=== PATIENT | male | born 1975 ===

== ENCOUNTER 2020-10-19 17:04 | Inpatient (IN) | payer MEDICAID, SELFPAY ==
[2020-10-19 18:14] VITALS: BP 157/110; PULSE 101; TEMP 36.8; O2SAT 102; BMI 37.1
--- NOTE | 2020-10-19 18:22 | ECG_ITS ---
Test Reason : HYPERTENSION Blood Pressure : / mmHG Vent. Rate : 092 BPM Atrial Rate : 092 BPM P-R Int : 142 ms QRS Dur : 086 ms QT Int : 360 ms P-R-T Axes : 041 -28 039 degrees QTc Int : 445 ms Normal sinus rhythm Normal ECG No previous ECGs available Referred By: Generic ED Physician Electronically Signed By:Gonzales Antonio
[2020-10-19 18:35] LABS: MANUAL DIFF FLAG NO
[2020-10-19 18:44] LABS: Basophils Percent Auto 0.8 % (0-2); Eosinophils Absolute Auto 0.1 X10*3/uL (0.0-0.4); Eosinophils Percent Auto 1.4 % (0-4); Hematocrit 52.2 % (42-52); Hemoglobin 18.8 g/dl (14.0-18.0); Imm Gran Abs Auto 0.01 X10*3/uL (0.00-0.03); Imm Gran Pct Auto 0.2 % (0.0-0.4); Lymphocytes Absolute Auto 2.3 X10*3/uL (1.2-4.9); Lymphocytes Percent Auto 43.9 % (20-40); Mean Platelet Volume 10.8 fL (9.4-12.4); Monocytes Absolute Auto 0.3 X10*3/uL (0.1-1.2); Monocytes Percent Auto 5.4 % (2-11); Neutrophils Absolute Auto 2.5 X10*3/uL (2.0-8.3); Neutrophils Percent Auto 48.3 % (45-73); Platelet Count 354 X10*3/uL (160-400); Red Blood Count 6.07 X10*6/uL (4.60-5.80); Red Cell Distribution Width 11.9 % (11.0-16.0); White Blood Count 5.2 X10*3/uL (4.8-10.8)
[2020-10-19 19:13] LABS: Troponin-I High Sensitivity < 3.5 ng/L (<3.5-35.0)
[2020-10-19 19:19] LABS: Anion Gap 29 (12-20); Blood Urea Nitrogen 21 mg/dL (9-16); Calcium 10.2 mg/dL (8.4-10.2); Carbon Dioxide 11 mmol/L (22-29); Chloride 93 mmol/L (96-108); Creatinine Clr Calc Pharmacy 49.6; Estimated Glomerular Filt Rate 32; Glucose Random 642 mg/dL (60-115); Sodium 128 mmol/L (135-145)
[2020-10-19 19:38] LABS: Glucose Urine UA >=1000 MG/DL (NEG); Leukocyte Esterase Urine NEG (NEG); Nitrite Urine NEG (NEG); PH 5.5 (5.0-8.0); Urine Blood 1+ (NEG); Urine Ketones >=80 MG/DL (NEG); Urine Protein 1+ MG/DL (NEG-TRACE)
[2020-10-19 19:40] LABS: Appearance Urine CLEAR; Color Urine YELLOW
[2020-10-19 19:47] LABS: Venous Blood Gas Refer to POC result
[2020-10-19 19:48] LABS: VBG Base Excess -12.5 mmol/L; VBG HCO3 14 mmol/L (22-26); VBG pCO2 35 mmHg; VBG pO2 37 mmHg
[2020-10-19 19:48] LABS: RBC Urine 0-2 /HPF (0); Squamous Epithelial Cell Urine TRACE /LPF; WBC Urine 0 /HPF (0-4)
[2020-10-19] MEDS: 0.9 % Sodium Chloride 1,000 ML 999 ML IVCONT ×2 (19:54→20:57)
[2020-10-19 20:20] LABS: Acetone, serum QL Moderate (Negative)
--- NOTE | 2020-10-19 20:40 | ED.GENADULT ---
HPI - General Adult General Chief complaint: General Medical Stated complaint: Weakness Time Seen by Provider: 10/19/20 19:19 Source: patient Mode of arrival: ambulatory Limitations: no limitations History of Present Illness HPI narrative: Patient with no known history of diabetes positive history of diabetes in the family noticed increased urination for last few days weakness no nausea no vomiting no abdominal pain when came to ER patient's blood sugar was 642 blood pressure was 157/110 patient does have history of hypertension has not taken his medication for over a month.. Patient denied any use of steroids no history of pancreatitis Onset (ago): day(s) (3) Related Data Allergies Allergy/AdvReac Type Severity Reaction Status Date / Time No Known Allergies Allergy Unverified 03/17/20 17:25 Review of Systems Review of Systems: Constitutional : No Weight loss, No Fever, No Chills ENT/Mouth : No sore throat, No Rhinorrhea Eyes: No Eye Pain, No Swelling Cardiovascular : No Chest Pain, no palpitations Respiratory : No Cough, No Sputum, no shortness of breath Gastrointestinal : no Nausea, No Vomiting, No Diarrhea, No abdominal Pain, no black stools Genitourinary : No Dysuria, No Urinary Frequency Musculoskeletal : No joint pain, No Myalgias, No Joint Swelling Skin : No Skin Lesions, No rash Neuro : No Weakness, No Numbness, No Dizziness, No Headache Psych : No Anxiety/Panic, No Depression Heme/Lymph: No Bruising, No Lymphadenopathy Endocrine : No Polyuria, No Polydipsia All other systems reviewed and are negative PMFSH Past Medical History Medical History Hypertension Social History Social History Alcohol intake: current Alcohol intake frequency: holidays/special occasions only Smoking Status: Never smoker Smoked in Last 30 Days: No Use of substances other than those prescribed or required for medical reasons: No Advance Directives: No Advance Directives Information Provided: Yes Physical Exam Vital Signs: Vital Signs: Last Vital Signs Temp 97.2 F 10/19/20 22:01 Pulse 92 10/20/20 01:49 Resp 18 10/20/20 00:00 BP 142/84 H 10/20/20 01:49 Pulse Ox 99 10/20/20 00:00 Body Mass Index 37.1 Appearance: Alert. Oriented X3. No acute distress. Eyes: Pupils equal, round and reactive to light. ENT: Pharynx normal. Neck: Normal inspection. Neck supple. CVS: Normal heart rate and rhythm. Pulses normal. Respiratory: No respiratory distress. Breath sounds normal. Abdomen: Soft and nontender. Bowel sounds are present, no mass palpable, no CVA tenderness Skin: Skin warm and dry. Normal skin color. Normal skin turgor. Extremities: No lower extremity edema. Neuro: Oriented X 3. No motor deficit. No sensory deficit. Medical Decision Making MDM Narrative Medical decision making narrative: Patient with new onset of diabetes with ketoacidosis and and gap of creatinine of 2.2 which is acute venous pH is 7.2 patient meeting criteria for diabetic ketoacidosis started on insulin drip plan to admit to ICU. No ICU bed at [facility] patient's blood sugar has improved to 331 is still on insulin drip will repeat the chemistry No ICU bed in our hospital call [facility] patient does not qualify for their ICU bed and I do not have any bed into care will call us in case they have any opening of the bed Dr. Willson to follow about disposition of the patient in the morning Lab Data Lab results reviewed: Yes I reviewed the patient's lab results. Result diagrams: 10/19/20 18:29 10/19/20 18:29 Labs: Lab Results 10/19/20 10/19/20 10/19/20 Range/Units 18:29 18:29 18:29 WBC 5.2 (4.8-10.8) X10*3/uL RBC 6.07 H (4.60-5.80) X10*6/uL Hgb 18.8 H (14.0-18.0) g/dl Hct 52.2 H (42-52) % MCV 86.0 (80-98) fL MCH 31.0 (27.0-33.0) pg MCHC 36.0 (31.0-36.0) g/dl RDW 11.9 (11.0-16.0) % Plt Count 354 (160-400) X10*3/uL MPV 10.8 (9.4-12.4) fL Immature Gran % (Auto) 0.2 (0.0-0.4) % Neut % (Auto) 48.3 (45-73) % Lymph % (Auto) 43.9 H (20-40) % [place] % (Auto) 5.4 (2-11) % Eos % (Auto) 1.4 (0-4) % Baso % (Auto) 0.8 (0-2) % Lymph # (Auto) 2.3 (1.2-4.9) X10*3/uL [place] # (Auto) 0.3 (0.1-1.2) X10*3/uL Eos # (Auto) 0.1 (0.0-0.4) X10*3/uL Baso # (Auto) 0.0 (0.0-0.2) X10*3/uL Abs Immat Gran (auto) 0.01 (0.00-0.03) X10*3/uL Absolute Neuts (auto) 2.5 (2.0-8.3) X10*3/uL Absolute Nucleated RBC 0.000 (0.0-0.012) X10*3/uL Nucleated RBC % (auto) 0.0 (0.0-0.2) /100WBC Hold Blue Top SEE NOTE VBG pH (7.32-7.43) VBG pCO2 mmHg VBG pO2 mmHg VBG HCO3 (22-26) mmol/L VBG O2 Saturation % VBG Base Excess mmol/L Sodium 128 L (135-145) mmol/L Potassium 5.0 (3.3-5.1) mmol/L Chloride 93 L (96-108) mmol/L Carbon Dioxide 11 L (22-29) mmol/L Anion Gap 29 H (12-20) BUN 21 H (9-16) mg/dL Creatinine 2.22 H (0.5-1.4) mg/dL Estim Creat Clear Calc 49.6 Estimated GFR 32 POC Glucose (60-115) mg/dL Random Glucose 642 H* (60-115) mg/dL Calcium 10.2 (8.4-10.2) mg/dL Troponin I High Sens (<3.5-35.0) ng/L Specimen Comment Urine Color Urine Appearance Urine pH (5.0-8.0) Ur Specific University (1.005-1.025) Urine Protein (NEG-TRACE) MG/DL Urine Glucose (UA) (NEG) MG/DL Urine Ketones (NEG) MG/DL Urine Blood (NEG) Urine Nitrite (NEG) Ur Leukocyte Esterase (NEG) Urine RBC (0) /HPF Urine WBC (0-4) /HPF Ur Squamous Epith Cells /LPF Urine Bacteria /LPF Acetone, Qual (Negative) 10/19/20 10/19/20 10/19/20 Range/Units 18:29 19:00 19:36 WBC (4.8-10.8) X10*3/uL RBC (4.60-5.80) X10*6/uL Hgb (14.0-18.0) g/dl Hct (42-52) % MCV (80-98) fL MCH (27.0-33.0) pg MCHC (31.0-36.0) g/dl RDW (11.0-16.0) % Plt Count (160-400) X10*3/uL MPV (9.4-12.4) fL Immature Gran % (Auto) (0.0-0.4) % Neut % (Auto) (45-73) % Lymph % (Auto) (20-40) % [place] % (Auto) (2-11) % Eos % (Auto) (0-4) % Baso % (Auto) (0-2) % Lymph # (Auto) (1.2-4.9) X10*3/uL [place] # (Auto) (0.1-1.2) X10*3/uL Eos # (Auto) (0.0-0.4) X10*3/uL Baso # (Auto) (0.0-0.2) X10*3/uL Abs Immat Gran (auto) (0.00-0.03) X10*3/uL Absolute Neuts (auto) (2.0-8.3) X10*3/uL Absolute Nucleated RBC (0.0-0.012) X10*3/uL Nucleated RBC % (auto) (0.0-0.2) /100WBC Hold Blue Top VBG pH (7.32-7.43) VBG pCO2 mmHg VBG pO2 mmHg VBG HCO3 (22-26) mmol/L VBG O2 Saturation % VBG Base Excess mmol/L Sodium (135-145) mmol/L Potassium (3.3-5.1) mmol/L Chloride (96-108) mmol/L Carbon Dioxide (22-29) mmol/L Anion Gap (12-20) BUN (9-16) mg/dL Creatinine (0.5-1.4) mg/dL Estim Creat Clear Calc Estimated GFR POC Glucose (60-115) mg/dL Random Glucose (60-115) mg/dL Calcium (8.4-10.2) mg/dL Troponin I High Sens < 3.5 (<3.5-35.0) ng/L Specimen Comment Urine Color YELLOW Urine Appearance CLEAR Urine pH 5.5 (5.0-8.0) Ur Specific University 1.020 (1.005-1.025) Urine Protein 1+ H (NEG-TRACE) MG/DL Urine Glucose (UA) >=1000 H (NEG) MG/DL Urine Ketones >=80 (NEG) MG/DL Urine Blood 1+ H (NEG) Urine Nitrite NEG (NEG) Ur Leukocyte Esterase NEG (NEG) Urine RBC 0-2 (0) /HPF Urine WBC 0 (0-4) /HPF Ur Squamous Epith Cells TRACE /LPF Urine Bacteria NONE /LPF Acetone, Qual Moderate H (Negative) 10/19/20 10/19/20 10/19/20 Range/Units 19:39 20:53 21:52 WBC (4.8-10.8) X10*3/uL RBC (4.60-5.80) X10*6/uL Hgb (14.0-18.0) g/dl Hct (42-52) % MCV (80-98) fL MCH (27.0-33.0) pg MCHC (31.0-36.0) g/dl RDW (11.0-16.0) % Plt Count (160-400) X10*3/uL MPV (9.4-12.4) fL Immature Gran % (Auto) (0.0-0.4) % Neut % (Auto) (45-73) % Lymph % (Auto) (20-40) % [place] % (Auto) (2-11) % Eos % (Auto) (0-4) % Baso % (Auto) (0-2) % Lymph # (Auto) (1.2-4.9) X10*3/uL [place] # (Auto) (0.1-1.2) X10*3/uL Eos # (Auto) (0.0-0.4) X10*3/uL Baso # (Auto) (0.0-0.2) X10*3/uL Abs Immat Gran (auto) (0.00-0.03) X10*3/uL Absolute Neuts (auto) (2.0-8.3) X10*3/uL Absolute Nucleated RBC (0.0-0.012) X10*3/uL Nucleated RBC % (auto) (0.0-0.2) /100WBC Hold Blue Top VBG pH 7.20 L* (7.32-7.43) VBG pCO2 35 mmHg VBG pO2 37 mmHg VBG HCO3 14 L (22-26) mmol/L VBG O2 Saturation 52.0 % VBG Base Excess -12.5 mmol/L Sodium (135-145) mmol/L Potassium (3.3-5.1) mmol/L Chloride (96-108) mmol/L Carbon Dioxide (22-29) mmol/L Anion Gap (12-20) BUN (9-16) mg/dL Creatinine (0.5-1.4) mg/dL Estim Creat Clear Calc Estimated GFR POC Glucose 535 H* 443 H* (60-115) mg/dL Random Glucose (60-115) mg/dL Calcium (8.4-10.2) mg/dL Troponin I High Sens (<3.5-35.0) ng/L Specimen Comment Urine Color Urine Appearance Urine pH (5.0-8.0) Ur Specific University (1.005-1.025) Urine Protein (NEG-TRACE) MG/DL Urine Glucose (UA) (NEG) MG/DL Urine Ketones (NEG) MG/DL Urine Blood (NEG) Urine Nitrite (NEG) Ur Leukocyte Esterase (NEG) Urine RBC (0) /HPF Urine WBC (0-4) /HPF Ur Squamous Epith Cells /LPF Urine Bacteria /LPF Acetone, Qual (Negative) 10/19/20 10/20/20 10/20/20 Range/Units 22:52 00:08 01:19 WBC (4.8-10.8) X10*3/uL RBC (4.60-5.80) X10*6/uL Hgb (14.0-18.0) g/dl Hct (42-52) % MCV (80-98) fL MCH (27.0-33.0) pg MCHC (31.0-36.0) g/dl RDW (11.0-16.0) % Plt Count (160-400) X10*3/uL MPV (9.4-12.4) fL Immature Gran % (Auto) (0.0-0.4) % Neut % (Auto) (45-73) % Lymph % (Auto) (20-40) % [place] % (Auto) (2-11) % Eos % (Auto) (0-4) % Baso % (Auto) (0-2) % Lymph # (Auto) (1.2-4.9) X10*3/uL [place] # (Auto) (0.1-1.2) X10*3/uL Eos # (Auto) (0.0-0.4) X10*3/uL Baso # (Auto) (0.0-0.2) X10*3/uL Abs Immat Gran (auto) (0.00-0.03) X10*3/uL Absolute Neuts (auto) (2.0-8.3) X10*3/uL Absolute Nucleated RBC (0.0-0.012) X10*3/uL Nucleated RBC % (auto) (0.0-0.2) /100WBC Hold Blue Top VBG pH (7.32-7.43) VBG pCO2 mmHg VBG pO2 mmHg VBG HCO3 (22-26) mmol/L VBG O2 Saturation % VBG Base Excess mmol/L Sodium (135-145) mmol/L Potassium (3.3-5.1) mmol/L Chloride (96-108) mmol/L Carbon Dioxide (22-29) mmol/L Anion Gap (12-20) BUN (9-16) mg/dL Creatinine (0.5-1.4) mg/dL Estim Creat Clear Calc Estimated GFR POC Glucose 366 H* 319 H (60-115) mg/dL Random Glucose (60-115) mg/dL Calcium (8.4-10.2) mg/dL Troponin I High Sens (<3.5-35.0) ng/L Specimen Comment DELAY Urine Color Urine Appearance Urine pH (5.0-8.0) Ur Specific University (1.005-1.025) Urine Protein (NEG-TRACE) MG/DL Urine Glucose (UA) (NEG) MG/DL Urine Ketones (NEG) MG/DL Urine Blood (NEG) Urine Nitrite (NEG) Ur Leukocyte Esterase (NEG) Urine RBC (0) /HPF Urine WBC (0-4) /HPF Ur Squamous Epith Cells /LPF Urine Bacteria /LPF Acetone, Qual (Negative) 10/20/20 10/20/20 Range/Units 01:20 02:11 WBC (4.8-10.8) X10*3/uL RBC (4.60-5.80) X10*6/uL Hgb (14.0-18.0) g/dl Hct (42-52) % MCV (80-98) fL MCH (27.0-33.0) pg MCHC (31.0-36.0) g/dl RDW (11.0-16.0) % Plt Count (160-400) X10*3/uL MPV (9.4-12.4) fL Immature Gran % (Auto) (0.0-0.4) % Neut % (Auto) (45-73) % Lymph % (Auto) (20-40) % [place] % (Auto) (2-11) % Eos % (Auto) (0-4) % Baso % (Auto) (0-2) % Lymph # (Auto) (1.2-4.9) X10*3/uL [place] # (Auto) (0.1-1.2) X10*3/uL Eos # (Auto) (0.0-0.4) X10*3/uL Baso # (Auto) (0.0-0.2) X10*3/uL Abs Immat Gran (auto) (0.00-0.03) X10*3/uL Absolute Neuts (auto) (2.0-8.3) X10*3/uL Absolute Nucleated RBC (0.0-0.012) X10*3/uL Nucleated RBC % (auto) (0.0-0.2) /100WBC Hold Blue Top VBG pH (7.32-7.43) VBG pCO2 mmHg VBG pO2 mmHg VBG HCO3 (22-26) mmol/L VBG O2 Saturation % VBG Base Excess mmol/L Sodium (135-145) mmol/L Potassium (3.3-5.1) mmol/L Chloride (96-108) mmol/L Carbon Dioxide (22-29) mmol/L Anion Gap (12-20) BUN (9-16) mg/dL Creatinine (0.5-1.4) mg/dL Estim Creat Clear Calc Estimated GFR POC Glucose 331 H 396 H* (60-115) mg/dL Random Glucose (60-115) mg/dL Calcium (8.4-10.2) mg/dL Troponin I High Sens (<3.5-35.0) ng/L Specimen Comment Urine Color Urine Appearance Urine pH (5.0-8.0) Ur Specific University (1.005-1.025) Urine Protein (NEG-TRACE) MG/DL Urine Glucose (UA) (NEG) MG/DL Urine Ketones (NEG) MG/DL Urine Blood (NEG) Urine Nitrite (NEG) Ur Leukocyte Esterase (NEG) Urine RBC (0) /HPF Urine WBC (0-4) /HPF Ur Squamous Epith Cells /LPF Urine Bacteria /LPF Acetone, Qual (Negative) Critical Care Time Critical Care Time Critical Care Time: Yes Total Critical Care Time: 55 Attestation: I spent 55 minutes of critical care, with interventions, assessments, speaking to patient, consultants, and family. Discharge Plan Discharge Clinical Impression: Diabetic ketoacidosis Qualifiers: Diabetes mellitus type: type 1 Diabetes mellitus complication detail: without coma Qualified Code(s): E10.10 - Type 1 diabetes mellitus with ketoacidosis without coma Acute renal failure Qualifiers: Acute renal failure type: with acute tubular necrosis Qualified Code(s): N17.0 - Acute kidney failure with tubular necrosis
--- NOTE | 2020-10-19 20:42 | PC.NURSE ---
Patient moved to ED Bed 19. Plan to receive additional fluids and Insulin drip. Pt's girlfriend at bedside. Pt currently in bathroom, ambulates with steady gait.
[2020-10-19] MEDS: Insulin Regular/NS 100 UNIT/100 ML PLAST..BAG IVCONT (20:51)
[2020-10-19] MEDS: Insulin Regular, Human 100 UNIT/ML 3 ML VIAL 10 UNIT IVPUSH (20:51)
[2020-10-19 20:55] VITALS: BP 166/100; PULSE 85; RESP 18; TEMP 36.3; O2SAT 98
[2020-10-19 20:58] LABS: Glucose, Whole Blood 535 mg/dL (60-115)
--- NOTE | 2020-10-19 21:05 | PC.NURSE ---
Insulin drip initiated by this RN. Witnessed by OSWALDO Levin. POC glucose 535 just prior to initiating infusion. Normal saline also infusing wide open. Pt placed on environmental monitoring specialist, denies pain. Will continue to monitor.
--- NOTE | 2020-10-19 21:55 | PC.NURSE ---
Insulin drip titrated to 3 units/hour per DKA Insulin drip protocol ordered by . Pt reports I feel much better than when I came in . Will continue to monitor.
[2020-10-19 21:56] LABS: Glucose, Whole Blood 443 mg/dL (60-115)
[2020-10-19 22:01] VITALS: BP 165/104; PULSE 88; RESP 20; TEMP 36.2; O2SAT 98
[2020-10-19 22:56] LABS: Glucose, Whole Blood 366 mg/dL (60-115)
[2020-10-20] VITALS (9 sets, daily range): BP systolic 109–158; BP diastolic 64–95; PULSE 80–96; RESP 15–18; TEMP 36–37.1; O2SAT 95–99
[2020-10-20 00:16] LABS: Glucose, Whole Blood 319 mg/dL (60-115)
--- NOTE | 2020-10-20 00:52 | PC.NURSE ---
at bedside discussing plan for ICU admission due to insulin drip infusion/DKA. Last POC glucose 319. Plan for recheck and repeat chemistry now.
[2020-10-20 01:20] LABS: Delay - Chemistry DELAY
[2020-10-20 01:27] LABS: Glucose, Whole Blood 331 mg/dL (60-115)
[2020-10-20] MEDS: amLODIPine Besylate 5 MG TABLET PO (01:49)
[2020-10-20 02:15] LABS: Glucose, Whole Blood 396 mg/dL (60-115)
--- NOTE | 2020-10-20 02:19 | PC.NURSE ---
This RN spoke with regarding plan of care for patient. Originally planned for ICU admission, however, per Daiana Claudio (nursing supervisor broadloom), and Jaime Rodriguez (emergency medicine), no ICU beds available at this time and all ICU patients are to be transferred out to another facility. reached out to [facility] ICU with plan to transfer, however, patient does not qualify for [facility] ICU admission but [facility] ICU will call [facility] if a room becomes available. Provider, emergency medicine, and nursing supervisor broadloom aware.
[2020-10-20 02:42] LABS: Anion Gap 28 (12-20); Blood Urea Nitrogen 19 mg/dL (9-16); Calcium 9.6 mg/dL (8.4-10.2); Carbon Dioxide 10 mmol/L (22-29); Chloride 105 mmol/L (96-108); Estimated Glomerular Filt Rate 43; Glucose Random 313 mg/dL (60-115); Potassium 4.6 mmol/L (3.3-5.1); Sodium 138 mmol/L (135-145)
[2020-10-20] MEDS: Insulin Glargine,Hum.rec.anlog 100 UNIT/ML 10 ML VIAL 20 UNIT SUBCUT (02:45)
[2020-10-20 03:18] LABS: Glucose, Whole Blood 330 mg/dL (60-115)
[2020-10-20 03:34] LABS: COVID-19 Test Negative (Negative)
[2020-10-20 04:39] LABS: Glucose, Whole Blood 317 mg/dL (60-115)
[2020-10-20] MEDS: Lactated Ringers 1,000 ML 150 ML IVCONT (05:10)
[2020-10-20 05:28] LABS: Delay - Chemistry DELAY
[2020-10-20 05:57] LABS: Anion Gap 21 (12-20); Blood Urea Nitrogen 19 mg/dL (9-16); Calcium 9.4 mg/dL (8.4-10.2); Carbon Dioxide 14 mmol/L (22-29); Chloride 107 mmol/L (96-108); Creatinine Clr Calc Pharmacy 65.6; Estimated Glomerular Filt Rate 45; Glucose Random 304 mg/dL (60-115); Potassium 4.1 mmol/L (3.3-5.1); Sodium 138 mmol/L (135-145)
[2020-10-20 07:07] LABS: Glucose, Whole Blood 182 mg/dL (60-115)
--- NOTE | 2020-10-20 07:36 | PC.NURSE ---
Addendum entered by Melba Frazier 10/20/20 07:41: Last POC glucose 182, not 184. Number typed in error. Original Note: Insulin drip paused, and Lactated Ringers infusion also paused. OSWALDO Hurtado present to witness. Last POC at 0700am was 184. requested 30meq KCl in Dextrose 5% and 0.45% Normal saline to be administered at 125ml/hour infusion rate. For unknown reasons, provider unable to order this medication, but medication is available in ED. Ordered verbally to give above stated medication, NOT 30meq KCl in D5W as ordered in AUG. OSWALDO Hurtado also aware of this. Pt has patent bilateral IV accesses. VBG and SST5 labs drawn and sent for analysis. Awaiting results. Plan for ICU transfer to another facility. No ICU beds available at [facility]. Pt denies complaints, aware and agreeable with care plan. Pt remains pleasant and cooperative. RN to RN report given to OSWALDO Hurtado to assume care of patient.
[2020-10-20 07:38] LABS: Venous Blood Gas Refer to POC result
[2020-10-20 07:38] LABS: VBG Base Excess -6.6 mmol/L; VBG HCO3 17 mmol/L (22-26); VBG pCO2 33 mmHg; VBG pH 7.33 (7.32-7.43); VBG pO2 56 mmHg
--- NOTE | 2020-10-20 07:48 | PC.NURSE ---
@[phone] DR PONEC REQUESTS CALL OUT TO [facility] FOR ICU TX FOR THIS PT
--- NOTE | 2020-10-20 07:59 | PC.NURSE ---
per hospitalist, stop insulin drip at this time, stop d5 infusion at this time, it is okay to feed pt. check pt glucose poc q 1 hour x 2. following second poc glucose, repeat bmp to assess for improvement.
[2020-10-20 08:19] LABS: Anion Gap 16 (12-20); Blood Urea Nitrogen 18 mg/dL (9-16); Calcium 9.6 mg/dL (8.4-10.2); Carbon Dioxide 18 mmol/L (22-29); Chloride 108 mmol/L (96-108); Creatinine Clr Calc Pharmacy 70.7; Estimated Glomerular Filt Rate 49; Glucose Random 156 mg/dL (60-115); Sodium 138 mmol/L (135-145)
[2020-10-20 08:46] LABS: Glucose, Whole Blood 221 mg/dL (60-115)
[2020-10-20 09:46] LABS: Glucose, Whole Blood 230 mg/dL (60-115)
--- NOTE | 2020-10-20 10:37 | PC.NURSE ---
pt repeat labs sent, girlfriend at bedside with marilyn for pt. wctm.
[2020-10-20 10:40] LABS: Anion Gap 18 (12-20); Blood Urea Nitrogen 17 mg/dL (9-16); Carbon Dioxide 17 mmol/L (22-29); Chloride 105 mmol/L (96-108); Creatinine Clr Calc Pharmacy 71.1; Estimated Glomerular Filt Rate 49; Glucose Random 251 mg/dL (60-115); Sodium 136 mmol/L (135-145)
[2020-10-20 11:58] LABS: Glucose, Whole Blood 415 mg/dL (60-115)
[2020-10-20] MEDS: Insulin Lispro 100 UNIT/ML 3 ML VIAL SUBCUT ×5 (12:09→21:26)
--- NOTE | 2020-10-20 12:09 | PC.NURSE ---
patient a&ox3, cardiac monaitor nsr 70s-80s, pt poc was 415, pt medicated with 10u insulin- it was noted in the room that the patient had eaten josé luis donuts which his brought in, patient was educated about food choices, hospitalist was notified of poc and food patient ate, vss, will continue to monitor.
--- NOTE | 2020-10-20 13:10 | MHC.CM.PN ---
Met with patient in regards to discharge planning. Patient lives alone, ambulates independently and had no services prior to coming to the hospital. Patient listed as self pay. Per Marimar in Financial Counseling, patient will be active with [facility]. Patient has no PCP because of not having insurance. List of local PCP's provided. Patient's sig other will transport him home when medically stable. Continue to monitor for d/c needs.
--- NOTE | 2020-10-20 14:15 | PM.IMHP ---
History of Present Illness Date of Service: 10/20/20 Chief Complaint: weakness, polyuria and polydypsia 45 year male with HTN and no prior history of diabetes. He presented to ED due to polyuria and polydipsia of several days during and was feeling weak. He denies recent weight changes, no abdominla pain, no nausea or vomitting. Work up revealed new onset of diabetes with associated DKA.. His sugar level was over 600, Bicab was 10 and anion gap of 29. There was no evidence of acute infection. He was promptly started on agresive IVF and insulin drip with frequent gluocose level. His latest bicab at 10 was 17 and normal anion gap of 18. He feels well now and is tolerating diet. Unfortunately his brought food [employer] donuts and his sugar spiked to 415. Insulin drip has been discontinued, and given lantus. Review of Systems Review of Systems: Gen: no fever Resp: no sob, no cough CV: no chest, no ESPINOZA, no leg edema GI: No n/v, no abd pain Neuro: No confusion Endo: Polyuria and polydipsia Yes all other systems are reviewed and are negative FORMERLY [facility], [facility]–1983 Medical History Hypertension Pertinent family history: Mother of complications of diabetes Social History Alcohol intake: current Alcohol intake frequency: holidays/special occasions only Smoking Status: Never smoker Smoked in Last 30 Days: No Use of substances other than those prescribed or required for medical reasons: No Advance Directives: No Advance Directives Information Provided: Yes service: No Current occupational status: employed Meds Allergies Allergy/AdvReac Type Severity Reaction Status Date / Time No Known Allergies Allergy Unverified 03/17/20 17:25 Active Medications: Current Medications Generic Name Dose Route Start Last Admin Trade Name Freq PRN Reason Stop Dose Admin Acetaminophen 650 mg 10/20/20 14:12 Acetaminophen 325 Mg Tablet PO Q6H PRN Pain, Mild (Pain Scale 1-3) Enoxaparin Sodium 40 mg 10/20/20 14:12 Enoxaparin Sodium 40 Mg/0.4 Ml Syringe SUBCUT Q24H NESS Lactated Ringer's 1,000 mls @ 150 mls/hr 10/20/20 05:00 10/20/20 12:38 Lr IVCONT Not Given .Q6H40M [facility] Potassium Chloride 30 meq/ 1,015 mls @ 125 mls/hr 10/20/20 07:15 10/20/20 14:10 Dextrose IVCONT Not Given .Q8H8M [facility] Insulin Human Lispro 0 unit 10/20/20 11:30 10/20/20 12:09 Insulin Lispro 100 Unit/Ml 3 Ml Vial SUBCUT 10 unit QIDACHS [facility] Administration Protocol Magnesium Hydroxide 30 ml 10/20/20 14:12 Milk Of Magnesia 30 Ml Oral.Susp PO DAILY PRN Constipation Sodium Chloride 3 ml 10/20/20 16:00 0.9 % Sodium Chloride Flush 3 Ml Syringe IVFLUSH QSHIFT [facility] Zolpidem Tartrate 5 mg 10/20/20 14:12 Zolpidem Tartrate 5 Mg Tablet PO BEDTIME PRN Insomnia Physical Exam Vital Signs and Narrative: Vital Signs: Last Vital Signs Temp 98.8 F 10/20/20 12:00 Pulse 88 10/20/20 12:00 Resp 18 10/20/20 12:00 BP 122/81 10/20/20 12:00 Pulse Ox 97 10/20/20 12:00 Body Mass Index 37.1 Results Labs CBC and Chem 7: 10/19/20 18:29 10/20/20 10:11 Labs: Laboratory Results - last 24 hr 10/19/20 10/19/20 10/19/20 18:29 18:29 18:29 MCV 86.0 MCH 31.0 MCHC 36.0 RDW 11.9 Plt Count 354 MPV 10.8 Immature Gran % (Auto) 0.2 Neut % (Auto) 48.3 Lymph % (Auto) 43.9 H [place] % (Auto) 5.4 Eos % (Auto) 1.4 Baso % (Auto) 0.8 Lymph # (Auto) 2.3 [place] # (Auto) 0.3 Eos # (Auto) 0.1 Baso # (Auto) 0.0 Abs Immat Gran (auto) 0.01 Absolute Neuts (auto) 2.5 Absolute Nucleated RBC 0.000 Nucleated RBC % (auto) 0.0 Hold Blue Top SEE NOTE VBG pH VBG pCO2 VBG pO2 VBG HCO3 VBG O2 Saturation VBG Base Excess Anion Gap 29 H Estim Creat Clear Calc 49.6 Estimated GFR 32 POC Glucose Random Glucose 642 H* Calcium 10.2 Troponin I High Sens Specimen Comment Urine Color Urine Appearance Urine pH Ur Specific [place] Urine Protein Urine Glucose (UA) Urine Ketones Urine Blood Urine Nitrite Ur Leukocyte Esterase Urine RBC Urine WBC Ur Squamous Epith Cells Urine Bacteria Acetone, Qual COVID-19 ([facility]) COVID-19 Clin Com 10/19/20 10/19/20 10/19/20 18:29 19:00 19:36 MCV MCH MCHC RDW Plt Count MPV Immature Gran % (Auto) Neut % (Auto) Lymph % (Auto) [place] % (Auto) Eos % (Auto) Baso % (Auto) Lymph # (Auto) [place] # (Auto) Eos # (Auto) Baso # (Auto) Abs Immat Gran (auto) Absolute Neuts (auto) Absolute Nucleated RBC Nucleated RBC % (auto) Hold Blue Top VBG pH VBG pCO2 VBG pO2 VBG HCO3 VBG O2 Saturation VBG Base Excess Anion Gap Estim Creat Clear Calc Estimated GFR POC Glucose Random Glucose Calcium Troponin I High Sens < 3.5 Specimen Comment Urine Color YELLOW Urine Appearance CLEAR Urine pH 5.5 Ur Specific [place] 1.020 Urine Protein 1+ H Urine Glucose (UA) >=1000 H Urine Ketones >=80 Urine Blood 1+ H Urine Nitrite NEG Ur Leukocyte Esterase NEG Urine RBC 0-2 Urine WBC 0 Ur Squamous Epith Cells TRACE Urine Bacteria NONE Acetone, Qual Moderate H COVID-19 ([facility]) COVID-19 Clin Com 10/19/20 10/19/20 10/19/20 19:39 20:53 21:52 MCV MCH MCHC RDW Plt Count MPV Immature Gran % (Auto) Neut % (Auto) Lymph % (Auto) [place] % (Auto) Eos % (Auto) Baso % (Auto) Lymph # (Auto) [place] # (Auto) Eos # (Auto) Baso # (Auto) Abs Immat Gran (auto) Absolute Neuts (auto) Absolute Nucleated RBC Nucleated RBC % (auto) Hold Blue Top VBG pH 7.20 L* VBG pCO2 35 VBG pO2 37 VBG HCO3 14 L VBG O2 Saturation 52.0 VBG Base Excess -12.5 Anion Gap Estim Creat Clear Calc Estimated GFR POC Glucose 535 H* 443 H* Random Glucose Calcium Troponin I High Sens Specimen Comment Urine Color Urine Appearance Urine pH Ur Specific [place] Urine Protein Urine Glucose (UA) Urine Ketones Urine Blood Urine Nitrite Ur Leukocyte Esterase Urine RBC Urine WBC Ur Squamous Epith Cells Urine Bacteria Acetone, Qual COVID-19 ([facility]) COVID-19 [facility] 10/19/20 10/20/20 10/20/20 22:52 00:08 01:01 MCV MCH MCHC RDW Plt Count MPV Immature Gran % (Auto) Neut % (Auto) Lymph % (Auto) [place] % (Auto) Eos % (Auto) Baso % (Auto) Lymph # (Auto) [place] # (Auto) Eos # (Auto) Baso # (Auto) Abs Immat Gran (auto) Absolute Neuts (auto) Absolute Nucleated RBC Nucleated RBC % (auto) Hold Blue Top VBG pH VBG pCO2 VBG pO2 VBG HCO3 VBG O2 Saturation VBG Base Excess Anion Gap 28 H Estim Creat Clear Calc 63.0 Estimated GFR 43 POC Glucose 366 H* 319 H Random Glucose 313 H D Calcium 9.6 Troponin I High Sens Specimen Comment Urine Color Urine Appearance Urine pH Ur Specific [place] Urine Protein Urine Glucose (UA) Urine Ketones Urine Blood Urine Nitrite Ur Leukocyte Esterase Urine RBC Urine WBC Ur Squamous Epith Cells Urine Bacteria Acetone, Qual COVID-19 ([place]) [email or web address] 10/20/20 10/20/20 10/20/20 01:19 01:20 02:11 MCV MCH MCHC RDW Plt Count MPV Immature Gran % (Auto) Neut % (Auto) Lymph % (Auto) [place] % (Auto) Eos % (Auto) Baso % (Auto) Lymph # (Auto) [place] # (Auto) Eos # (Auto) Baso # (Auto) Abs Immat Gran (auto) Absolute Neuts (auto) Absolute Nucleated RBC Nucleated RBC % (auto) Hold Blue Top VBG pH VBG pCO2 VBG pO2 VBG HCO3 VBG O2 Saturation VBG Base Excess Anion Gap Estim Creat Clear Calc Estimated GFR POC Glucose 331 H 396 H* Random Glucose Calcium Troponin I High Sens Specimen Comment DELAY Urine Color Urine Appearance Urine pH Ur Specific [place] Urine Protein Urine Glucose (UA) Urine Ketones Urine Blood Urine Nitrite Ur Leukocyte Esterase Urine RBC Urine WBC Ur Squamous Epith Cells Urine Bacteria Acetone, Qual COVID-19 ([place]) COVID-19 [facility] [employer] 10/20/20 10/20/20 10/20/20 03:11 03:13 04:33 MCV MCH MCHC RDW Plt Count MPV Immature Gran % (Auto) Neut % (Auto) Lymph % (Auto) [place] % (Auto) Eos % (Auto) Baso % (Auto) Lymph # (Auto) [place] # (Auto) Eos # (Auto) Baso # (Auto) Abs Immat Gran (auto) Absolute Neuts (auto) Absolute Nucleated RBC Nucleated RBC % (auto) Hold Blue Top VBG pH VBG pCO2 VBG pO2 VBG HCO3 VBG O2 Saturation VBG Base Excess Anion Gap Estim Creat Clear Calc Estimated GFR POC Glucose 330 H 317 H Random Glucose Calcium Troponin I High Sens Specimen Comment Urine Color Urine Appearance Urine pH Ur Specific [place] Urine Protein Urine Glucose (UA) Urine Ketones Urine Blood Urine Nitrite Ur Leukocyte Esterase Urine RBC Urine WBC Ur Squamous Epith Cells Urine Bacteria Acetone, Qual COVID-19 ([facility]) Negative [email or web address] See Note 10/20/20 10/20/20 10/20/20 05:10 05:27 07:02 MCV MCH MCHC RDW Plt Count MPV Immature Gran % (Auto) Neut % (Auto) Lymph % (Auto) [place] % (Auto) Eos % (Auto) Baso % (Auto) Lymph # (Auto) [place] # (Auto) Eos # (Auto) Baso # (Auto) Abs Immat Gran (auto) Absolute Neuts (auto) Absolute Nucleated RBC Nucleated RBC % (auto) Hold Blue Top VBG pH VBG pCO2 VBG pO2 VBG HCO3 VBG O2 Saturation VBG Base Excess Anion Gap 21 H Estim Creat Clear Calc 65.6 Estimated GFR 45 POC Glucose 182 H Random Glucose 304 H Calcium 9.4 Troponin I High Sens Specimen Comment DELAY Urine Color Urine Appearance Urine pH Ur Specific [place] Urine Protein Urine Glucose (UA) Urine Ketones Urine Blood Urine Nitrite Ur Leukocyte Esterase Urine RBC Urine WBC Ur Squamous Epith Cells Urine Bacteria Acetone, Qual COVID-19 ([place]) COVID-19 [facility] 10/20/20 10/20/20 10/20/20 07:29 07:32 08:42 MCV MCH MCHC RDW Plt Count MPV Immature Gran % (Auto) Neut % (Auto) Lymph % (Auto) [place] % (Auto) Eos % (Auto) Baso % (Auto) Lymph # (Auto) [place] # (Auto) Eos # (Auto) Baso # (Auto) Abs Immat Gran (auto) Absolute Neuts (auto) Absolute Nucleated RBC Nucleated RBC % (auto) Hold Blue Top VBG pH 7.33 VBG pCO2 33 VBG pO2 56 VBG HCO3 17 L VBG O2 Saturation 86.0 VBG Base Excess -6.6 Anion Gap 16 Estim Creat Clear Calc 70.7 Estimated GFR 49 POC Glucose 221 H Random Glucose 156 H D Calcium 9.6 Troponin I High Sens Specimen Comment Urine Color Urine Appearance Urine pH Ur Specific [place] Urine Protein Urine Glucose (UA) Urine Ketones Urine Blood Urine Nitrite Ur Leukocyte Esterase Urine RBC Urine WBC Ur Squamous Epith Cells Urine Bacteria Acetone, Qual COVID-19 ([facility]) COVID-19 [facility] 10/20/20 10/20/20 10/20/20 09:43 10:11 11:51 MCV MCH MCHC RDW Plt Count MPV Immature Gran % (Auto) Neut % (Auto) Lymph % (Auto) [place] % (Auto) Eos % (Auto) Baso % (Auto) Lymph # (Auto) [place] # (Auto) Eos # (Auto) Baso # (Auto) Abs Immat Gran (auto) Absolute Neuts (auto) Absolute Nucleated RBC Nucleated RBC % (auto) Hold Blue Top VBG pH VBG pCO2 VBG pO2 VBG HCO3 VBG O2 Saturation VBG Base Excess Anion Gap 18 Estim Creat Clear Calc 71.1 Estimated GFR 49 POC Glucose 230 H 415 H* Random Glucose 251 H D Calcium 9.0 D Troponin I High Sens Specimen Comment Urine Color Urine Appearance Urine pH Ur Specific [place] Urine Protein Urine Glucose (UA) Urine Ketones Urine Blood Urine Nitrite Ur Leukocyte Esterase Urine RBC Urine WBC Ur Squamous Epith Cells Urine Bacteria Acetone, Qual COVID-19 ([facility]) COVID-19 [facility] Assessment and Plan (1) Diabetic ketoacidosis: Qualifiers: Diabetes mellitus complication detail: without coma Diabetes mellitus type: type 1 Qualified Code(s): E10.10 - Type 1 diabetes mellitus with ketoacidosis without coma Status: Acute (2) Acute renal failure: Qualifiers: Acute renal failure type: with acute tubular necrosis Qualified Code(s): N17.0 - Acute kidney failure with tubular necrosis Status: Acute (3) New onset type 2 diabetes mellitus: Status: Acute 45 year male with HTN herre with new diabetes, DKA and LAURA # New Onset diabetes #DKA, Gap closed -Continue IVF for now -Insulin Lantus and Sliding -May be OK with oral agents once renal function is better -check A1C and Lipids -Will need diabetes teaching and nutrition education #LAURA-likely pre renal from glucosuria, renal function is getting better -continue IVF and recheck tomorrow HTN--He has not been on meds -Norvasc -Lisinopril once renal function improves Lovenox for DVT prophylaxis
[2020-10-20] MEDS: Enoxaparin Sodium 40 MG/0.4 ML SYRINGE SUBCUT (14:23)
--- NOTE | 2020-10-20 14:24 | PC.NURSE ---
patient medicated per order,
[2020-10-20 15:44] LABS: Anion Gap 17 (12-20); Blood Urea Nitrogen 20 mg/dL (9-16); Calcium 9.4 mg/dL (8.4-10.2); Carbon Dioxide 17 mmol/L (22-29); Chloride 101 mmol/L (96-108); Creatinine Clr Calc Pharmacy 60.9; Estimated Glomerular Filt Rate 41; Glucose Random 450 mg/dL (60-115); Potassium 4.3 mmol/L (3.3-5.1); Sodium 131 mmol/L (135-145)
[2020-10-20] MEDS: Sodium Chloride 0.45 % 1,000 ML 125 ML IVCONT (17:38)
[2020-10-20] MEDS: 0.9 % Sodium Chloride Flush 3 ML SYRINGE IVFLUSH (17:38)
--- NOTE | 2020-10-20 17:42 | PC.NURSE ---
patient ivf started per order, pt medicated per order
[2020-10-20 18:31] LABS: Glucose, Whole Blood 473 mg/dL (60-115)
--- NOTE | 2020-10-20 19:14 | PC.NURSE ---
report given to floor, tech notified to bring to floor
[2020-10-20 20:30] LABS: Glucose, Whole Blood 275 mg/dL (60-115)
[2020-10-20] MEDS: Insulin Glargine,Hum.rec.anlog 100 UNIT/ML 10 ML VIAL 30 UNIT SUBCUT (21:26)
[2020-10-20] MEDS: Lactated Ringers 1,000 ML 100 ML IVCONT (22:30)
[2020-10-20 23:22] LABS: Glucose, Whole Blood 338 mg/dL (60-115)
[2020-10-21 03:52] VITALS: BP 136/86; PULSE 74; RESP 18; TEMP 36.6; O2SAT 96
[2020-10-21 04:22] LABS: Glucose, Whole Blood 304 mg/dL (60-115)
[2020-10-21 07:17] LABS: Anion Gap 18 (12-20); Blood Urea Nitrogen 19 mg/dL (9-16); Calcium 9.1 mg/dL (8.4-10.2); Carbon Dioxide 15 mmol/L (22-29); Chloride 106 mmol/L (96-108); Creatinine Clr Calc Pharmacy 84.8; Estimated Glomerular Filt Rate 60; Glucose Random 319 mg/dL (60-115); Potassium 3.9 mmol/L (3.3-5.1); Sodium 135 mmol/L (135-145)
[2020-10-21 08:00] VITALS: BP 154/91; PULSE 71; RESP 18; TEMP 36.3; O2SAT 96
[2020-10-21 08:27] LABS: Glucose, Whole Blood 300 mg/dL (60-115)
[2020-10-21] MEDS: Lactated Ringers 1,000 ML 100 ML IVCONT (10:04)
[2020-10-21] MEDS: Insulin Lispro 100 UNIT/ML 3 ML VIAL SUBCUT ×5 (10:05→19:36)
[2020-10-21 10:36] VITALS: BMI 37.1
--- NOTE | 2020-10-21 11:15 | HO.PM.IMPN ---
Subjective Subjective Date of Service: 10/22/20 Interval History: Seen in f/u for diabetes, DKA and LAURA--overall marla, sugars are still high, renal failue has resolved Review of Systems Gen: no fever Resp: no sob, no cough CV: no chest, no ESPINOZA, no leg edema GI: No n/v, no abd pain Neuro: No confusion Endo: Polyuria and polydipsia Physical Exam Vital Signs: Vital Signs: Last Vital Signs Temp 97.3 F 10/21/20 08:00 Pulse 71 10/21/20 08:00 Resp 18 10/21/20 08:00 BP 154/91 H 10/21/20 08:00 Pulse Ox 96 10/21/20 08:00 Body Mass Index 37.1 General: AO X 3, no acute distress Resp: CTA bilateral CVS: S1,S2,RRR GI: +BS, NT, no distention Skin: No rash Neuro: motor grossly intact Psych: appropriate affect Objective Data Current Medications Generic Name Dose Route Start Last Admin Trade Name Freq PRN Reason Stop Dose Admin Acetaminophen 650 mg 10/20/20 14:12 Acetaminophen 325 Mg Tablet PO Q6H PRN Pain, Mild (Pain Scale 1-3) Enoxaparin Sodium 40 mg 10/20/20 14:12 10/20/20 14:23 Enoxaparin Sodium 40 Mg/0.4 Ml Syringe SUBCUT 40 mg Q24H NESS Administration Lactated Ringer's 1,000 mls @ 100 mls/hr 10/20/20 22:00 10/21/20 10:04 Lr IVCONT 100 mls/hr .Q10H NESS Administration Insulin Glargine 30 unit 10/20/20 19:10 10/20/20 21:26 Insulin Glargine,Hum.Rec.Anlog 100 Unit/Ml 10 Ml Vial SUBCUT 30 unit BEDTIME NESS Administration Insulin Human Lispro 0 unit 10/20/20 11:30 10/21/20 10:05 Insulin Lispro 100 Unit/Ml 3 Ml Vial SUBCUT 6 unit QIDACHS NESS Administration Protocol Insulin Human Lispro 5 unit 10/20/20 16:30 10/21/20 10:06 Insulin Lispro 100 Unit/Ml 3 Ml Vial SUBCUT 5 unit QIDACHS NESS Administration Magnesium Hydroxide 30 ml 10/20/20 14:12 Milk Of Magnesia 30 Ml Oral.Susp PO DAILY PRN Constipation Sodium Chloride 3 ml 10/20/20 16:00 10/21/20 10:05 0.9 % Sodium Chloride Flush 3 Ml Syringe IVFLUSH Not Given QSHIFT NESS Zolpidem Tartrate 5 mg 10/20/20 14:12 Zolpidem Tartrate 5 Mg Tablet PO BEDTIME PRN Insomnia Labs CBC & Chem 7: 10/22/20 06:09 10/22/20 06:09 Assessment and Plan (1) Diabetic ketoacidosis: Status: Acute (2) Acute renal failure: Status: Acute (3) New onset type 2 diabetes mellitus: Status: Acute Assessment and Plan: 45 year male with HTN herre with new diabetes, DKA and LAURA # New Onset diabetes #DKA is better, bicab remains low -Continue IVF for now -Insulin Lantus and Sliding -consider oral meds once renal function is much better #LAURA-likely pre renal from glucosuria, renal function is getting better -continue IVF and recheck tomorrow HTN--He has not been on meds -Norvasc -Lisinopril once renal function improves Lovenox for DVT prophylaxis
[2020-10-21 11:53] VITALS: BP 143/88; PULSE 85; RESP 18; TEMP 36.7; O2SAT 94
[2020-10-21 12:05] LABS: Glucose, Whole Blood 270 mg/dL (60-115)
[2020-10-21] MEDS: 0.9 % Sodium Chloride 1,000 ML 200 ML IVCONT ×3 (12:08→20:56)
[2020-10-21] MEDS: Insulin Lispro 100 UNIT/ML 3 ML VIAL 8 UNIT SUBCUT ×3 (12:09→19:36)
[2020-10-21] MEDS: lisinopriL 5 MG TABLET PO (12:10)
[2020-10-21] MEDS: amLODIPine Besylate 5 MG TABLET PO (12:11)
[2020-10-21 12:50] LABS: Estimated Average Glucose 280 mg/dL; Hemoglobin A1c % 11.4 %
[2020-10-21 15:38] VITALS: BP 127/71; PULSE 87; RESP 20; TEMP 36.4; O2SAT 95
--- NOTE | 2020-10-21 15:39 | MHC.CM.PN ---
Addendum entered by Julia Lipscomb 10/21/20 15:43: PATIENT [employer]As [employer] instructed to call [facility] or go on line to pick a [facility] pcp and have them listed and make appointment Original Note: NURSE ENGINEER TECHNICIAN NTOE ELECTRONIC MEDICAL RECORD REVIEWED ALONG WITH CASE DISCUSSED RAJINDER STAFF NURSE AND ON MULTIPLE DISCIPLINARY ROUNDS PER HOSPITLAIST PATIENT CAME INTO THE HOSPITLA WITH COMPLAINTS OF FATIGUE POLYURIA, POLYDISPA HIS BLOOD SUGAR WAS 600 , HE RECIVED IV FLUIDS AND IV INSULIN GTT. THIS HAS STOPPED AND HE HAS BEEN PLACED ON LANTUS HE HAS NO PCP. NO HCP HIS GIRLFRIEND WILL PROVIDE TRANSPORTATION AT DISCHARGE
--- NOTE | 2020-10-21 15:48 | MHC.CM.PN ---
nurse care mangement note ELECTRONIC MEDICAL RECORD REVIEWED ALONG WITH CASE DISCUSSED WITH STAFF NURSE AND ON MULTIPLE DISCIPLINARY ROUNDS PER HOSPITALIST PATIENT CAME INTO THE HOSPITAL WITH COMPLAINTS OF FATIGUE POLYURIA, POLYDISPA HIS BLOOD SUGAR WAS 600 , HE RECIVED IV FLUIDS AND IV INSULIN GTT. THIS HAS STOPPED AND HE HAS BEEN PLACED ON LANTUS HE HAS NO PCP. NO HCP HIS GIRLFRIEND WILL PROVIDE TRANSPORTATION AT DISCHARGE discharged home with no services (not eligeable as he has no pcp) instructed to contact or go on the computer and check for [facility] insurance companies for pcp , chose [facility] and call for appointment patient has [employer] (they usually pay for free style meter (need scripts for free style pen , meter, test strips and lancets and needle for pen transportation [patient to self arrange with his girlfriend.
[2020-10-21 16:39] LABS: Glucose, Whole Blood 236 mg/dL (60-115)
[2020-10-21] MEDS: Insulin Glargine,Hum.rec.anlog 100 UNIT/ML 10 ML VIAL 30 UNIT SUBCUT (19:35)
[2020-10-21 19:40] VITALS: BP 133/68; PULSE 83; RESP 20; TEMP 36.4; O2SAT 97
[2020-10-21 20:29] LABS: Glucose, Whole Blood 206 mg/dL (60-115)
[2020-10-21 23:35] VITALS: BP 150/89; PULSE 76; RESP 18; TEMP 36.4; O2SAT 97
[2020-10-22] MEDS: 0.9 % Sodium Chloride 1,000 ML 200 ML IVCONT ×2 (01:45→06:23)
[2020-10-22 04:00] VITALS: BP 156/89; PULSE 68; RESP 16; TEMP 36.4; O2SAT 99
[2020-10-22 06:58] LABS: Hematocrit 38.5 % (42-52); Mean Corpuscular HGB Conc 35.1 g/dl (31.0-36.0); Mean Corpuscular Hemoglobin 29.9 pg (27.0-33.0); Mean Corpuscular Volume 85.2 fL (80-98); Platelet Count 219 X10*3/uL (160-400); Red Blood Count 4.52 X10*6/uL (4.60-5.80); Red Cell Distribution Width 11.9 % (11.0-16.0); White Blood Count 3.6 X10*3/uL (4.8-10.8)
[2020-10-22 07:14] LABS: Anion Gap 14 (12-20); Blood Urea Nitrogen 14 mg/dL (9-16); Calcium 8.2 mg/dL (8.4-10.2); Carbon Dioxide 20 mmol/L (22-29); Chloride 107 mmol/L (96-108); Creatinine Clr Calc Pharmacy 108.1; Estimated Glomerular Filt Rate > 60; Glucose Random 204 mg/dL (60-115); Potassium 3.5 mmol/L (3.3-5.1); Sodium 137 mmol/L (135-145)
[2020-10-22 07:17] LABS: Hemoglobin 13.5 g/dl (14.0-18.0)
[2020-10-22 07:19] VITALS: BP 116/66; PULSE 75; RESP 17; TEMP 36.3; O2SAT 99
[2020-10-22 07:54] LABS: Glucose, Whole Blood 197 mg/dL (60-115)
[2020-10-22] MEDS: Insulin Lispro 100 UNIT/ML 3 ML VIAL 8 UNIT SUBCUT ×2 (08:19→11:57)
[2020-10-22] MEDS: lisinopriL 5 MG TABLET PO (08:20)
[2020-10-22] MEDS: Insulin Lispro 100 UNIT/ML 3 ML VIAL SUBCUT ×2 (08:20→11:56)
[2020-10-22] MEDS: amLODIPine Besylate 5 MG TABLET PO (08:20)
[2020-10-22 11:46] LABS: Glucose, Whole Blood 225 mg/dL (60-115)
--- NOTE | 2020-10-22 11:48 | P.DS_ITS ---
DS: Providers Provider Date of Service: 11/01/20 Date of admission: 10/20/20 10:53 Primary care physician: None Physician DS: Diagnosis Discharge Diagnosis (1) Diabetic ketoacidosis: Status: Acute (2) Acute renal failure: Status: Acute (3) New onset type 2 diabetes mellitus: Status: Acute DS: Medications Discharge Medications Home Medications: Previous Rx's Medication Instructions Recorded alcohol swabs [BD Alcohol Swabs] See Rx Instructions .ROUTE 10/22/20 .COMPLEX #200 ea amlodipine 5 mg PO DAILY #30 tab 10/22/20 blood sugar diagnostic [FreeStyle #100 ea 10/22/20 Lite Strips] blood-glucose meter [FreeStyle #1 ea 10/22/20 Lite Meter] insulin glargine [Lantus U-100 30 unit SUBCUT BEDTIME #10 ml 10/22/20 Insulin] insulin lispro [Humalog U-100 15 unit SUBCUT TIDAC #10 ml 10/22/20 Insulin] insulin syringes (disposable) #500 ea 10/22/20 lancets [1st Tier Unilet #100 ea 10/22/20 ComforTouch] lisinopril 5 mg PO DAILY #30 tab 10/22/20 DS: Summary Hospital Course Hospital Course: Chief Complaint: weakness, polyuria and polydypsia 45 year male with HTN and no prior history of diabetes. He presented to ED due to polyuria and polydipsia of several days during and was feeling weak. He denies recent weight changes, no abdominla pain, no nausea or vomitting. Work up revealed new onset of diabetes with associated DKA.. His sugar level was over 600, Bicab was 10 and anion gap of 29. There was no evidence of acute infe ction. He was promptly started on agresive IVF and insulin drip with frequent gluocose level. His latest bicab at 10 was 17 and normal anion gap of 18. He feels well now and is tolerating diet. Unfortunately his brought food [employer] donuts and his sugar spiked to 415. Insulin drip has been discontinued, and given lantus. Hospital course: Patient was admitted with new onset diabetes associated with DKA with bicab level as low as 10, he was treated with IV fluid resuscitation and insulin and frequent lab monitoring. DKA ultimately resolved and has been put on an insulin with Lantus titrated up to 30 units at night and 8 units before meals in addition to sliding scale. Her blood sugar this morning was 197. Before bedtime it was 206. He received Lantus 30 units last night. The plan at this time is to transition the patient to Lantus 30 units at night and 15 units of a pre meal Humalog and to add additional 2 units if her blood sugar is greater than 200. He will need to follow-up with endocrinology clinic next week. He is instructed to watch for hypoglycemia including sweating, confusion, agitation, less responsiveness. If that is AKA he should drink orange juice or any other concern that sugar content and liquid of food and recheck this sugar level within 30-40 minutes. Acute renal failure this was likely prerenal azotemia from a dehydration. Creatinine level was at 2.2 on admission and is come down to 1.02 today October 22 Hypertension--he likely has undiagnosed hypertension and has been started on Norvasc 5 mg daily lisinopril 5 mg daily blood pressure is 160 cholecystitis had the present time It is of note that the patient has been given diabetic Education in the hospital including how to use insulin had to check CT sugar level and is been prescribe a meter. He also received a nutritional evaluation and counseling during this hospitalization. He were be seen in the endocrinology clinic next week. Time Spent with Patient Time attestation: Total time spent providing and/or coordinating discharge services: Discharge coordination time: Greater than 30 minutes Physical Exam Vital Signs: Vital Signs: Last Vital Signs Temp 97.3 F 10/22/20 07:19 Pulse 75 10/22/20 07:19 Resp 17 10/22/20 07:19 BP 116/66 10/22/20 07:19 Pulse Ox 99 10/22/20 07:19 Body Mass Index 37.1 Constitutional Awake and Alert, No apparent distress Neck Supple, No lymphadenopathy Cardiovascular RRR, No M/R/G, S1 S2, No S3 S4, No pedal edema Respiratory Lungs clear, No respiratory distress Gastrointestinal Non tender, Non-distended Skin No rash Neurological Alert & oriented x3 Psychological Appropriate affect DS: Data Data Completed and Pending Labs on day of discharge: Laboratory Results - last 24 hr 10/21/20 10/21/20 10/21/20 11:52 11:55 16:16 WBC RBC Hgb Hct MCV MCH MCHC RDW Plt Count MPV Absolute Nucleated RBC Nucleated RBC % (auto) Sodium Potassium Chloride Carbon Dioxide Anion Gap BUN Creatinine Estim Creat Clear Calc Estimated GFR POC Glucose 270 H 236 H Random Glucose Estimat Average Glucose 280 Hemoglobin A1c % 11.4 Calcium 10/21/20 10/22/20 10/22/20 19:27 06:09 06:09 WBC 3.6 L RBC 4.52 L D Hgb 13.5 L D Hct 38.5 L D MCV 85.2 MCH 29.9 MCHC 35.1 RDW 11.9 Plt Count 219 D MPV 11.0 Absolute Nucleated RBC 0.000 Nucleated RBC % (auto) 0.0 Sodium 137 Potassium 3.5 Chloride 107 Carbon Dioxide 20 L Anion Gap 14 BUN 14 Creatinine 1.02 Estim Creat Clear Calc 108.1 Estimated GFR > 60 POC Glucose 206 H Random Glucose 204 H D Estimat Average Glucose Hemoglobin A1c % Calcium 8.2 L D 10/22/20 10/22/20 07:21 11:38 WBC RBC Hgb Hct MCV MCH MCHC RDW Plt Count MPV Absolute Nucleated RBC Nucleated RBC % (auto) Sodium Potassium Chloride Carbon Dioxide Anion Gap BUN Creatinine Estim Creat Clear Calc Estimated GFR POC Glucose 197 H 225 H Random Glucose Estimat Average Glucose Hemoglobin A1c % Calcium Discharge Plan Discharge Anticipated Discharge Date/Time: 10/22/20 10:54 Patient Disposition: Home, Self-Care Discharge Diagnosis: New onset diabetes, acute renal failure, DKA Referrals: Physician,None [Primary Care Provider] - 1 Week Rebel Coleman MD [Physician] - 10/24/20 (Post hospitalization follow up for new onset diabetes with DKA) Discharge Medications: New (DME) blood-glucose meter [FreeStyle Lite Meter] Kit See Rx Instructions .ROUTE .MEDSUPPLY Qty: 1 RF: 0 (DME) FreeStyle Lite Strips Strip See Rx Instructions .ROUTE .MEDSUPPLY Qty: 100 RF: 0 (DME) insulin syringes (disposable) 1 mL syringe See Rx Instructions .ROUTE .MEDSUPPLY Qty: 500 RF: 0 (DME) lancets [1st Tier Unilet ComforTouch] 28 gauge misc See Rx Instructions .ROUTE .MEDSUPPLY Qty: 100 RF: 0 alcohol swabs [BD Alcohol Swabs] Pads, Medicated See Rx Instructions .ROUTE .COMPLEX Qty: 200 RF: 0 Lantus U-100 Insulin 100 unit/mL Solution 30 unit subcut BEDTIME Qty: 10 RF: 0 amlodipine 5 mg Tablet 5 mg PO DAILY Qty: 30 RF: 0 lisinopril 5 mg Tablet 5 mg PO DAILY Qty: 30 RF: 0 insulin lispro [Humalog U-100 Insulin] 100 unit/mL Solution 15 unit subcut TIDAC Qty: 10 RF: 0 (DME) pen needle, diabetic [BD Aziza 2nd Gen Pen Needle] 32 gauge x 5/32 needle See Rx Instructions .ROUTE .MEDSUPPLY Qty: 100 RF: 0 Discharge Orders: Discharge Order (Routine); Ordered 10/22/20 Ordered By: Paulie Garcia Diet: advance to usual diet and diabetic diet Activity on Discharge: As tolerated Stand Alone Forms: Patient Portal Discharge page Care Plan Goals: control of diabetes and prevent rehospitalization. Health Concerns: New onset diabetes Plan of Treatment: to take insulin and metformin as directed and follow up with the primary care physician. Patient has been educated on now excellent use, diet regarding diabetes and compliance is stressed Assessment: new onset diabetes 2 with diabetes ketoacidosis that has resolved he is not on insulin. if your blood sugar level level is more than 200 before meals, take additional 2 units On Saturday contact the endocrinology office to get an appointment to be seen within the week, the number is [phone]--and tell them the Doctor wanted to see you week Patient Instructions: Metformin (By mouth), How to Give an Insulin Injection (GEN), Meal Planning with Diabetes Exchanges (GEN), Diabetic Hyperglycemia (GEN), What to Do if Your Blood Sugar is Low (GEN), How to Check your Blood Sugar (GEN) Discharge Date/Time: 10/22/20 12:57
--- NOTE | 2020-10-22 14:51 | MHC.CM.PN ---
Addendum entered by Asuncion Ray RN 10/22/20 14:54: APPT W/DR CAROLINA BETANCOURT ON 10/24/20 FOR NEW ONSET DIABETES. Original Note: PT DISCHARGED TODAY HOME SELF-CARE W/INSULIN AND DIABETIC SUPPLIES SENT TO PHARMACY ON FILE, GF TO TRANSPORT.
== END 2020-10-22 12:57 | disposition home or self-care (01) | DRG 420 ==
LOC: HO.ED 10-20 09:07 → HO.EDOVER 10-20 11:36 → HO.S3 10-20 18:23
PROVIDERS: Internal Medicine; Physician Assistant; Admitting Provider Internal Medicine; Emergency Provider Emergency Medicine Emergency Medical Services; Visit Provider Internal Medicine
DX: E11.10 Type 2 diabetes mellitus with ketoacidosis without coma (principal); N17.9 Acute kidney failure, unspecified; E86.0 Dehydration; Z20.822 Contact with and (suspected) exposure to COVID-19; Z79.899 Other long term (current) drug therapy
CPT/HCPCS: 36415; 80048; 81001; 82009; 82947; 83036; 84484; 85025; 85027; 87635; 93005; 96372; 96374; 99285; 99291; J1650

== ENCOUNTER 2021-08-04 23:54 | Emergency (ER) | payer OTHER, SELFPAY ==
[2021-08-04 23:56] VITALS: BP 155/100; PULSE 107; RESP 16; TEMP 36.5; O2SAT 98; BMI 32.8
[2021-08-05 00:13] LABS: Glucose, Whole Blood 455 mg/dL (60-115)
--- NOTE | 2021-08-05 00:56 | ECG_ITS ---
Test Reason : HYPERGLYCEMIA Blood Pressure : / mmHG Vent. Rate : 074 BPM Atrial Rate : 074 BPM P-R Int : 140 ms QRS Dur : 084 ms QT Int : 386 ms P-R-T Axes : 053 -10 049 degrees QTc Int : 428 ms Normal sinus rhythm Nonspecific T wave abnormality Abnormal ECG When compared with ECG of 19-OCT-2020 18:36, Nonspecific T wave abnormality, worse in Inferior leads Nonspecific T wave abnormality, worse in Lateral leads Referred By: Aurora Colindres Electronically Signed By:JAYLON GARCIA
--- NOTE | 2021-08-05 00:58 | ED_ITS ---
HPI - General Adult General Chief complaint: General Medical <Auroar Colindres MD - Last Filed: 08/05/21 02:27> Stated complaint: HBS <Aurora Colindres MD - Last Filed: 08/05/21 02:27> Time Seen by Provider: 08/05/21 00:56 <Aurora Colindres MD - Last Filed: 08/05/21 02:27> History of Present Illness HPI narrative: Patient is a 46-year-old male with a long history of diabetes. Previous history of diabetic ketoacidosis. Presented today with having his sugar elevated. Patient denies any changes in his diet claims he is compliant claims he has been taking his diabetes medicine including his insulin. He is on 15 units of regular insulin in the morning and in the afternoon. 30 units of insulin at night. Patient denies any coughing congestion upper respiratory symptoms. No diaphoresis. Positive generalized malaise and weakness. <Aurora Colindres MD - Last Filed: 08/05/21 02:27> Related Data Home medications: Previous Rx's Medication Instructions Recorded alcohol swabs (BD Alcohol Swabs) See Rx Instructions .ROUTE 10/22/20 .COMPLEX #200 ea amlodipine 5 mg tablet 5 mg PO DAILY #30 tab 10/22/20 blood sugar diagnostic (FreeStyle #100 ea 10/22/20 Lite Strips) blood-glucose meter (FreeStyle #1 ea 10/22/20 Lite Meter) insulin glargine 100 unit/mL 30 unit (0.3 mL) SUBCUT BEDTIME 10/22/20 subcutaneous solution (Lantus #10 ml U-100 Insulin) insulin lispro 100 unit/mL 15 unit (0.15 mL) SUBCUT TIDAC 10/22/20 #10 subcutaneous solution (Humalog ml U-100 Insulin) insulin syringes (disposable) 1 mL #500 ea 10/22/20 lancets 28 gauge (1st Tier Unilet #100 ea 10/22/20 ComforTouch Lancet) lisinopril 5 mg tablet 5 mg PO DAILY #30 tab 10/22/20 pen needle, diabetic 32 gauge x #100 ea 10/24/20 5/32 (BD Aziza 2nd Gen Pen Needle) insulin glargine 100 unit/mL (3 30 unit (0.3 mL) SUBCUT QPM #15 08/05/21 ml mL) subcutaneous pen (Lantus Solostar U-100 Insulin) <Aurora Colindres MD - Last Filed: 08/05/21 02:27> Allergies/adverse reactions: Allergies Allergy/AdvReac Type Severity Reaction Status Date / Time No Known Allergies Allergy Unverified 03/17/20 17:25 <Aurora Colindres MD - Last Filed: 08/05/21 02:27> Review of Systems Verdana 4l Review of Systems: Verdana 4d Verdana 4d Positive generalized malaise and weakness no chest pain no cough no congestion or upper respiratory symptoms Verdana 4d Verdana 4Il <Aurora Colindres MD - Last Filed: 08/05/21 02:27> Verdana 4d Yes all other systems are reviewed and areare negative <Aurora Colindres MD - Last Filed: 08/05/21 02:27> PMFSH Past Medical History Attestation statement: The following information was validated with the patient. <Aurora Colindres MD - Last Filed: 08/05/21 02:27> Medical History: Medical History Hypertension <Aurora Colindres MD - Last Filed: 08/05/21 02:27> Social History Social History: Social History Household Members: Family Housing: House Do you presently have visiting nurse or other home services: Yes Alcohol intake: current Alcohol intake frequency: a few times a week Patient Tobacco Use Status: Never used Tobacco Use of substances other than those prescribed or required for medical reasons: No Advance Directives: No Advance Directives Information Provided: No service: No Current occupational status: employed <Aurora Colindres MD - Last Filed: 08/05/21 02:27> Physical Exam Verdana 4l Vital Signs: Verdana 4d Verdana 4d Vital Signs: Verdana 4d Verdana 4Bd Last Vital Signs Verdana 4d Cpas New 4d Cpas New 4d Temp 97.7 F 08/04/21 23:56 Cpas New 4d Pulse 74 08/05/21 06:00 Cpas New 4d Resp 15 08/05/21 06:00 BP 127/65 02/05/22 06:00 Pulse Ox 96 08/05/21 06:00 BMI result Body Mass Index 32.8 Appearance: Alert. Oriented X3. No acute distress. Eyes: Pupils equal, round and reactive to light. ENT: Pharynx normal. Neck: Normal inspection. Neck supple. No lymph nodes noted. No crepitus CVS: Normal heart rate and rhythm. Pulses normal. Normal S1 and S2 Respiratory: No respiratory distress. Breath sounds normal. No Wheezing. No rales Abdomen: Soft and nontender. No rigidity. No distention. good BS x4 Skin: Skin warm and dry. Normal skin color. Normal skin turgor. Extremities: No lower extremity edema. Neurovascular intact to all extremities. No Lacerations. No Rash Neuro: Oriented X 3. No motor deficit. No sensory deficit. Moving all extermities. No slurred speech <Aurora Colindres MD - Last Filed: 08/05/21 02:27> Vital Signs: Last Vital Signs Temp 97.7 F 08/04/21 23:56 Pulse 74 08/05/21 06:00 Resp 15 08/05/21 06:00 BP 127/65 08/05/21 06:00 Pulse Ox 96 08/05/21 06:00 BMI result Body Mass Index 32.8 <Tirso Killian MD - Last Filed: 08/05/21 06:46> Course Reevaluation(s) Reevaluation #1: 46-year-old male who presents emergency department for evaluation of elevated glucose weakness and fatigue. The patient initially told Dr. Colindres that he was compliant with his medications but 1 I went to talk to him he told me that he has run out of his Lantus for approximately 1 week but he has been using his hemologic before meals. The patient completed his 2 L of normal saline is repeat glucose is 321 at 06:06 hours. The patient was ordered to get Lantus 30 units subcutaneously. I will refill his prescription for Lantus 30 units at night with a 1 month supply. The patient was discharged home advised to follow- up with his PCP for re-evaluation and further management of his diabetes. <Tirso Killian MD - Last Filed: 08/05/21 06:46> Time: 06:40 <Tirso Killian MD - Last Filed: 08/05/21 06:46> Medical Decision Making MDM Narrative Medical decision making narrative: EKG showed a sinus pattern heart rate is 75 SD QRS QTC within normal limits no acute ST segment elevation there is diffuse T-wave flattening nonspecific biphasic T-waves in the lateral leads. EKG is approximately unchanged from previous Patient's pH was 7.3 venous. Basically normal. There is no acetone. Patient did have an anion gap of 22. Will give IV fluid. Given insulin in the emergency department. Unfortunately patient also ate the 2nd check of sugar was 400. Will give additional IV fluid is patient's creatinine came back at 2. This is higher than baseline. Currently in stable condition awaiting additional treatment. Case being turnover the change of shift. <Aurora Colindres MD - Last Filed: 08/05/21 02:27> Lab Data Result diagrams: : 08/05/21 01:20 08/05/21 03:57 <Aurora Colindres MD - Last Filed: 08/05/21 02:27> Labs: Lab Results 08/05/21 08/05/21 08/05/21 Range/Units 00:05 01:20 01:20 WBC 3.7 L (4.8-10.8) X10*3/uL RBC 5.42 (4.60-5.80) X10*6/uL Hgb 16.5 (14.0-18.0) g/dl Hct 47.6 (42.0-52.0) % MCV 87.8 (80.0-98.0) fL MCH 30.4 (27.0-33.0) pg MCHC 34.7 (31.0-36.0) g/dl RDW 12.7 (11.0-16.0) % Plt Count 341 (160-400) X10*3/uL MPV 10.0 (9.4-12.4) fL Immature Gran % (Auto) 0.3 (0.0-0.4) % Neut % (Auto) 36.1 L (45-73) % Lymph % (Auto) 51.6 H (20-40) % [place] % (Auto) 8.2 (2-11) % Eos % (Auto) 3.3 (0-4) % Baso % (Auto) 0.5 (0-2) % Lymph # (Auto) 1.9 (1.2-4.9) X10*3/uL [place] # (Auto) 0.3 (0.1-1.2) X10*3/uL Eos # (Auto) 0.1 (0.0-0.4) X10*3/uL Baso # (Auto) 0.0 (0.0-0.2) X10*3/uL Abs Immat Gran (auto) 0.01 (0.00-0.03) X10*3/uL Absolute Neuts (auto) 1.3 L (2.0-8.3) x10*3/uL Absolute Nucleated RBC 0.000 (0.0-0.012) X10*3/uL Nucleated RBC % (auto) 0.0 (0.0-0.2) /100WBC VBG pH (7.32-7.43) VBG pCO2 mmHg VBG pO2 mmHg VBG HCO3 (22-26) mmol/L VBG O2 Saturation % VBG Base Excess mmol/L Sodium 135 (135-145) mmol/L Potassium 3.8 (3.3-5.1) mmol/L Chloride 100 (96-108) mmol/L Carbon Dioxide 17 L (22-29) mmol/L Anion Gap 22 H (12-20) BUN 16 (9-16) mg/dL Creatinine 2.02 H (0.5-1.4) mg/dL Estim Creat Clear Calc 50.7 Estimated GFR 36 POC Glucose 455 H* (60-115) mg/dL Random Glucose 431 H* (60-115) mg/dL Calcium 10.0 D (8.4-10.2) mg/dL Total Bilirubin 0.5 (0.0-1.0) mg/dL Direct Bilirubin < 0.2 (0.0-0.5) mg/dL AST 15 (5-37) U/L ALT 14 (0-40) U/L Alkaline Phosphatase 133 H (39-117) U/L Total Protein 8.6 H (6.5-8.0) g/dL Albumin 4.1 (3.5-5.0) g/dL Acetone, Qual Negative (Negative) 08/05/21 08/05/21 08/05/21 Range/Units 01:24 01:56 03:57 WBC (4.8-10.8) X10*3/uL RBC (4.60-5.80) X10*6/uL Hgb (14.0-18.0) g/dl Hct (42.0-52.0) % MCV (80.0-98.0) fL MCH (27.0-33.0) pg MCHC (31.0-36.0) g/dl RDW (11.0-16.0) % Plt Count (160-400) X10*3/uL MPV (9.4-12.4) fL Immature Gran % (Auto) (0.0-0.4) % Neut % (Auto) (45-73) % Lymph % (Auto) (20-40) % [place] % (Auto) (2-11) % Eos % (Auto) (0-4) % Baso % (Auto) (0-2) % Lymph # (Auto) (1.2-4.9) X10*3/uL [place] # (Auto) (0.1-1.2) X10*3/uL Eos # (Auto) (0.0-0.4) X10*3/uL Baso # (Auto) (0.0-0.2) X10*3/uL Abs Immat Gran (auto) (0.00-0.03) X10*3/uL Absolute Neuts (auto) (2.0-8.3) x10*3/uL Absolute Nucleated RBC (0.0-0.012) X10*3/uL Nucleated RBC % (auto) (0.0-0.2) /100WBC VBG pH 7.30 L (7.32-7.43) VBG pCO2 33 mmHg VBG pO2 46 mmHg VBG HCO3 17 L (22-26) mmol/L VBG O2 Saturation 73.0 % VBG Base Excess -7.9 mmol/L Sodium 138 (135-145) mmol/L Potassium 4.0 (3.3-5.1) mmol/L Chloride 104 (96-108) mmol/L Carbon Dioxide 19 L (22-29) mmol/L Anion Gap 19 (12-20) BUN 13 (9-16) mg/dL Creatinine 1.74 H (0.5-1.4) mg/dL Estim Creat Clear Calc 58.9 Estimated GFR 43 POC Glucose 404 H* (60-115) mg/dL Random Glucose 349 H (60-115) mg/dL Calcium 9.2 D (8.4-10.2) mg/dL Total Bilirubin (0.0-1.0) mg/dL Direct Bilirubin (0.0-0.5) mg/dL AST (5-37) U/L ALT (0-40) U/L Alkaline Phosphatase (39-117) U/L Total Protein (6.5-8.0) g/dL Albumin (3.5-5.0) g/dL Acetone, Qual (Negative) 08/05/21 Range/Units 06:06 WBC (4.8-10.8) X10*3/uL RBC (4.60-5.80) X10*6/uL Hgb (14.0-18.0) g/dl Hct (42.0-52.0) % MCV (80.0-98.0) fL MCH (27.0-33.0) pg MCHC (31.0-36.0) g/dl RDW (11.0-16.0) % Plt Count (160-400) X10*3/uL MPV (9.4-12.4) fL Immature Gran % (Auto) (0.0-0.4) % Neut % (Auto) (45-73) % Lymph % (Auto) (20-40) % [place] % (Auto) (2-11) % Eos % (Auto) (0-4) % Baso % (Auto) (0-2) % Lymph # (Auto) (1.2-4.9) X10*3/uL [place] # (Auto) (0.1-1.2) X10*3/uL Eos # (Auto) (0.0-0.4) X10*3/uL Baso # (Auto) (0.0-0.2) X10*3/uL Abs Immat Gran (auto) (0.00-0.03) X10*3/uL Absolute Neuts (auto) (2.0-8.3) x10*3/uL Absolute Nucleated RBC (0.0-0.012) X10*3/uL Nucleated RBC % (auto) (0.0-0.2) /100WBC VBG pH (7.32-7.43) VBG pCO2 mmHg VBG pO2 mmHg VBG HCO3 (22-26) mmol/L VBG O2 Saturation % VBG Base Excess mmol/L Sodium (135-145) mmol/L Potassium (3.3-5.1) mmol/L Chloride (96-108) mmol/L Carbon Dioxide (22-29) mmol/L Anion Gap (12-20) BUN (9-16) mg/dL Creatinine (0.5-1.4) mg/dL Estim Creat Clear Calc Estimated GFR POC Glucose 321 H (60-115) mg/dL Random Glucose (60-115) mg/dL Calcium (8.4-10.2) mg/dL Total Bilirubin (0.0-1.0) mg/dL Direct Bilirubin (0.0-0.5) mg/dL AST (5-37) U/L ALT (0-40) U/L Alkaline Phosphatase (39-117) U/L Total Protein (6.5-8.0) g/dL Albumin (3.5-5.0) g/dL Acetone, Qual (Negative) <Aurora Colindres MD - Last Filed: 08/05/21 02:27> Lab Results 08/05/21 08/05/21 08/05/21 Range/Units 00:05 01:20 01:20 WBC 3.7 L (4.8-10.8) X10*3/uL RBC 5.42 (4.60-5.80) X10*6/uL Hgb 16.5 (14.0-18.0) g/dl Hct 47.6 (42.0-52.0) % MCV 87.8 (80.0-98.0) fL MCH 30.4 (27.0-33.0) pg MCHC 34.7 (31.0-36.0) g/dl RDW 12.7 (11.0-16.0) % Plt Count 341 (160-400) X10*3/uL MPV 10.0 (9.4-12.4) fL Immature Gran % (Auto) 0.3 (0.0-0.4) % Neut % (Auto) 36.1 L (45-73) % Lymph % (Auto) 51.6 H (20-40) % [place] % (Auto) 8.2 (2-11) % Eos % (Auto) 3.3 (0-4) % Baso % (Auto) 0.5 (0-2) % Lymph # (Auto) 1.9 (1.2-4.9) X10*3/uL [place] # (Auto) 0.3 (0.1-1.2) X10*3/uL Eos # (Auto) 0.1 (0.0-0.4) X10*3/uL Baso # (Auto) 0.0 (0.0-0.2) X10*3/uL Abs Immat Gran (auto) 0.01 (0.00-0.03) X10*3/uL Absolute Neuts (auto) 1.3 L (2.0-8.3) x10*3/uL Absolute Nucleated RBC 0.000 (0.0-0.012) X10*3/uL Nucleated RBC % (auto) 0.0 (0.0-0.2) /100WBC VBG pH (7.32-7.43) VBG pCO2 mmHg VBG pO2 mmHg VBG HCO3 (22-26) mmol/L VBG O2 Saturation % VBG Base Excess mmol/L Sodium 135 (135-145) mmol/L Potassium 3.8 (3.3-5.1) mmol/L Chloride 100 (96-108) mmol/L Carbon Dioxide 17 L (22-29) mmol/L Anion Gap 22 H (12-20) BUN 16 (9-16) mg/dL Creatinine 2.02 H (0.5-1.4) mg/dL Estim Creat Clear Calc 50.7 Estimated GFR 36 POC Glucose 455 H* (60-115) mg/dL Random Glucose 431 H* (60-115) mg/dL Calcium 10.0 D (8.4-10.2) mg/dL Total Bilirubin 0.5 (0.0-1.0) mg/dL Direct Bilirubin < 0.2 (0.0-0.5) mg/dL AST 15 (5-37) U/L ALT 14 (0-40) U/L Alkaline Phosphatase 133 H (39-117) U/L Total Protein 8.6 H (6.5-8.0) g/dL Albumin 4.1 (3.5-5.0) g/dL Acetone, Qual Negative (Negative) 08/05/21 08/05/21 08/05/21 Range/Units 01:24 01:56 03:57 WBC (4.8-10.8) X10*3/uL RBC (4.60-5.80) X10*6/uL Hgb (14.0-18.0) g/dl Hct (42.0-52.0) % MCV (80.0-98.0) fL MCH (27.0-33.0) pg MCHC (31.0-36.0) g/dl RDW (11.0-16.0) % Plt Count (160-400) X10*3/uL MPV (9.4-12.4) fL Immature Gran % (Auto) (0.0-0.4) % Neut % (Auto) (45-73) % Lymph % (Auto) (20-40) % [place] % (Auto) (2-11) % Eos % (Auto) (0-4) % Baso % (Auto) (0-2) % Lymph # (Auto) (1.2-4.9) X10*3/uL [place] # (Auto) (0.1-1.2) X10*3/uL Eos # (Auto) (0.0-0.4) X10*3/uL Baso # (Auto) (0.0-0.2) X10*3/uL Abs Immat Gran (auto) (0.00-0.03) X10*3/uL Absolute Neuts (auto) (2.0-8.3) x10*3/uL Absolute Nucleated RBC (0.0-0.012) X10*3/uL Nucleated RBC % (auto) (0.0-0.2) /100WBC VBG pH 7.30 L (7.32-7.43) VBG pCO2 33 mmHg VBG pO2 46 mmHg VBG HCO3 17 L (22-26) mmol/L VBG O2 Saturation 73.0 % VBG Base Excess -7.9 mmol/L Sodium 138 (135-145) mmol/L Potassium 4.0 (3.3-5.1) mmol/L Chloride 104 (96-108) mmol/L Carbon Dioxide 19 L (22-29) mmol/L Anion Gap 19 (12-20) BUN 13 (9-16) mg/dL Creatinine 1.74 H (0.5-1.4) mg/dL Estim Creat Clear Calc 58.9 Estimated GFR 43 POC Glucose 404 H* (60-115) mg/dL Random Glucose 349 H (60-115) mg/dL Calcium 9.2 D (8.4-10.2) mg/dL Total Bilirubin (0.0-1.0) mg/dL Direct Bilirubin (0.0-0.5) mg/dL AST (5-37) U/L ALT (0-40) U/L Alkaline Phosphatase (39-117) U/L Total Protein (6.5-8.0) g/dL Albumin (3.5-5.0) g/dL Acetone, Qual (Negative) 08/05/21 Range/Units 06:06 WBC (4.8-10.8) X10*3/uL RBC (4.60-5.80) X10*6/uL Hgb (14.0-18.0) g/dl Hct (42.0-52.0) % MCV (80.0-98.0) fL MCH (27.0-33.0) pg MCHC (31.0-36.0) g/dl RDW (11.0-16.0) % Plt Count (160-400) X10*3/uL MPV (9.4-12.4) fL Immature Gran % (Auto) (0.0-0.4) % Neut % (Auto) (45-73) % Lymph % (Auto) (20-40) % [place] % (Auto) (2-11) % Eos % (Auto) (0-4) % Baso % (Auto) (0-2) % Lymph # (Auto) (1.2-4.9) X10*3/uL [place] # (Auto) (0.1-1.2) X10*3/uL Eos # (Auto) (0.0-0.4) X10*3/uL Baso # (Auto) (0.0-0.2) X10*3/uL Abs Immat Gran (auto) (0.00-0.03) X10*3/uL Absolute Neuts (auto) (2.0-8.3) x10*3/uL Absolute Nucleated RBC (0.0-0.012) X10*3/uL Nucleated RBC % (auto) (0.0-0.2) /100WBC VBG pH (7.32-7.43) VBG pCO2 mmHg VBG pO2 mmHg VBG HCO3 (22-26) mmol/L VBG O2 Saturation % VBG Base Excess mmol/L Sodium (135-145) mmol/L Potassium (3.3-5.1) mmol/L Chloride (96-108) mmol/L Carbon Dioxide (22-29) mmol/L Anion Gap (12-20) BUN (9-16) mg/dL Creatinine (0.5-1.4) mg/dL Estim Creat Clear Calc Estimated GFR POC Glucose 321 H (60-115) mg/dL Random Glucose (60-115) mg/dL Calcium (8.4-10.2) mg/dL Total Bilirubin (0.0-1.0) mg/dL Direct Bilirubin (0.0-0.5) mg/dL AST (5-37) U/L ALT (0-40) U/L Alkaline Phosphatase (39-117) U/L Total Protein (6.5-8.0) g/dL Albumin (3.5-5.0) g/dL Acetone, Qual (Negative) <Tirso Killian MD - Last Filed: 08/05/21 06:46> Discharge Plan Discharge Clinical Impression: Acute hyperglycemia, Medically noncompliant, Acute dehydration <Aurora Colindres MD - Last Filed: 08/05/21 02:27> Patient Disposition: Home, Self-Care <Aurora Colindres MD - Last Filed: 08/05/21 02:27> Additional Instructions: Continue to use your Humalog before meals as directed by your doctor. Your given Lantus 30 units this morning. I am going to refill your prescription for Lantus 30 units at night. Take your nighttime dose today as well. Make sure you eat some food tonight before you go to bed. Continue taking her other medications as prescribed by your doctor Follow-up with your doctor in 2 days. Please return to the emergency department if your symptoms get worse or if you develop any symptoms that are concerning to you. Please see work note <Aurora Colindres MD - Last Filed: 08/05/21 02:27> Prescriptions: New Lantus Solostar U-100 Insulin 100 unit/mL (3 mL) insulin pen 30 unit subcut QPM Qty: 15 0RF No Action (DME) blood-glucose meter [FreeStyle Lite Meter] Kit See Rx Instructions .ROUTE .MEDSUPPLY Qty: 1 0RF Rx Instructions: As directed (DME) FreeStyle Lite Strips Strip See Rx Instructions .ROUTE .MEDSUPPLY Qty: 100 0RF Rx Instructions: As directed (DME) insulin syringes (disposable) 1 mL syringe See Rx Instructions .ROUTE .MEDSUPPLY Qty: 500 0RF Rx Instructions: As directed (DME) lancets [1st Tier Unilet ComforTouch] 28 gauge misc See Rx Instructions .ROUTE .MEDSUPPLY Qty: 100 0RF Rx Instructions: As directed alcohol swabs [BD Alcohol Swabs] Pads, Medicated See Rx Instructions .ROUTE .COMPLEX Qty: 200 0RF Rx Instructions: pad topically Lantus U-100 Insulin 100 unit/mL Solution 30 unit subcut BEDTIME Qty: 10 0RF amlodipine 5 mg Tablet 5 mg PO DAILY Qty: 30 0RF Protocol: Hold for SBP< HOLD for SBP < : 90 lisinopril 5 mg Tablet 5 mg PO DAILY Qty: 30 0RF Protocol: Hold for SBP< HOLD for SBP < : 90 insulin lispro [Humalog U-100 Insulin] 100 unit/mL Solution 15 unit subcut TIDAC Qty: 10 0RF (DME) pen needle, diabetic [BD Aziza 2nd Gen Pen Needle] 32 gauge x 5/32 needle See Rx Instructions .ROUTE .MEDSUPPLY Qty: 100 0RF Rx Instructions: As directed (4 times/day) <Aurora Colindres MD - Last Filed: 08/05/21 02:27> Stand Alone Forms: Work/School Release <Aurora Colindres MD - Last Filed: 08/05/21 02:27>
[2021-08-05 01:24] LABS: MANUAL DIFF FLAG NO
[2021-08-05] MEDS: 0.9 % Sodium Chloride 1,000 ML 999 ML IV ×2 (01:25→02:00)
[2021-08-05 01:27] LABS: Basophils Percent Auto 0.5 % (0-2); Eosinophils Absolute Auto 0.1 X10*3/uL (0.0-0.4); Eosinophils Percent Auto 3.3 % (0-4); Hematocrit 47.6 % (42.0-52.0); Hemoglobin 16.5 g/dl (14.0-18.0); Imm Gran Abs Auto 0.01 X10*3/uL (0.00-0.03); Imm Gran Pct Auto 0.3 % (0.0-0.4); Lymphocytes Absolute Auto 1.9 X10*3/uL (1.2-4.9); Lymphocytes Percent Auto 51.6 % (20-40); Mean Corpuscular HGB Conc 34.7 g/dl (31.0-36.0); Mean Corpuscular Hemoglobin 30.4 pg (27.0-33.0); Mean Corpuscular Volume 87.8 fL (80.0-98.0); Monocytes Absolute Auto 0.3 X10*3/uL (0.1-1.2); Monocytes Percent Auto 8.2 % (2-11); Neutrophils Absolute Auto 1.3 x10*3/uL (2.0-8.3); Neutrophils Percent Auto 36.1 % (45-73); Platelet Count 341 X10*3/uL (160-400); Red Blood Count 5.42 X10*6/uL (4.60-5.80); Red Cell Distribution Width 12.7 % (11.0-16.0); White Blood Count 3.7 X10*3/uL (4.8-10.8)
[2021-08-05 01:30] LABS: Venous Blood Gas Refer to POC result
[2021-08-05 01:31] LABS: VBG Base Excess -7.9 mmol/L; VBG HCO3 17 mmol/L (22-26); VBG pCO2 33 mmHg; VBG pO2 46 mmHg
[2021-08-05] MEDS: Insulin Regular, Human 100 UNIT/ML 3 ML VIAL IVPUSH (01:32)
[2021-08-05 01:37] LABS: Acetone, serum QL Negative (Negative)
[2021-08-05 01:50] LABS: Alanine Aminotransferase 14 U/L (0-40); Albumin Level 4.1 g/dL (3.5-5.0); Alkaline Phosphatase 133 U/L (39-117); Anion Gap 22 (12-20); Aspartate Amino Transferase 15 U/L (5-37); Bilirubin Direct < 0.2 mg/dL (0.0-0.5); Bilirubin Total 0.5 mg/dL (0.0-1.0); Blood Urea Nitrogen 16 mg/dL (9-16); Carbon Dioxide 17 mmol/L (22-29); Chloride 100 mmol/L (96-108); Creatinine Clr Calc Pharmacy 50.7; Estimated Glomerular Filt Rate 36; Glucose Random 431 mg/dL (60-115); Potassium 3.8 mmol/L (3.3-5.1); Sodium 135 mmol/L (135-145); Total Protein 8.6 g/dL (6.5-8.0)
[2021-08-05 02:21] VITALS: BP 139/84; PULSE 69; RESP 16; O2SAT 98
[2021-08-05 03:53] VITALS: BP 139/89; PULSE 71; RESP 16; O2SAT 96
[2021-08-05 04:01] LABS: Glucose, Whole Blood 404 mg/dL (60-115)
[2021-08-05 04:29] LABS: Anion Gap 19 (12-20); Blood Urea Nitrogen 13 mg/dL (9-16); Calcium 9.2 mg/dL (8.4-10.2); Carbon Dioxide 19 mmol/L (22-29); Chloride 104 mmol/L (96-108); Creatinine Clr Calc Pharmacy 58.9; Estimated Glomerular Filt Rate 43; Glucose Random 349 mg/dL (60-115); Sodium 138 mmol/L (135-145)
[2021-08-05 06:00] VITALS: BP 127/65; PULSE 74; RESP 15; O2SAT 96
--- NOTE | 2021-08-05 06:05 | PC.NURSE ---
Patient's blood sugar has come down from over 400 to 349 at 5 units regular insulin and 1 liter of fluid. Patient is a fairly new diagnosed diabetic x 2 months. No sliding scale coverage
[2021-08-05 06:10] LABS: Glucose, Whole Blood 321 mg/dL (60-115)
[2021-08-05] MEDS: Insulin Glargine,Hum.rec.anlog 100 UNIT/ML 10 ML VIAL 30 UNIT SUBCUT (07:19)
== END 2021-08-05 07:31 | disposition home or self-care (01) ==
PROVIDERS: Emergency Medicine Emergency Medical Services; Emergency Provider Emergency Medicine Emergency Medical Services
DX: E11.65 Type 2 diabetes mellitus with hyperglycemia (principal); E86.0 Dehydration; Z91.14 Patient's other noncompliance with medication regimen; I10 Essential (primary) hypertension
CPT/HCPCS: 36415; 80048; 80076; 82009; 82803; 82947; 85025; 93005; 96361; 96374; 99284

== ENCOUNTER 2021-08-30 11:21 | Emergency (ER) | payer OTHER, SELFPAY ==
[2021-08-30 12:41] VITALS: BP 163/90; PULSE 88; RESP 16; TEMP 36; O2SAT 97; BMI 32.4
[2021-08-30 13:06] LABS: Glucose, Whole Blood 289 mg/dL (60-115)
--- NOTE | 2021-08-30 14:19 | ED_ITS ---
HPI - Recheck/Abnormal Lab/Rx General Chief Complaint: General Medical Stated Complaint: dizziness/diabetic Time Seen by Provider: 08/30/21 12:58 Source: patient Mode of arrival: ambulatory Limitations: no limitations History of Present Illness HPI narrative: 46-year-old male with a past medical history of hypertension and type 2 diabetes currently on list for a 100 units he is supposed to take 15 units subcu 3 times a day and glargine 30 units at bedtime presenting to the ED with request for medication refill for his list parole. He reports he last took a few days ago although he has been having intermittent episodes of dizziness and he knows this because his blood sugar is high. He reports that he tried to make an appointment with his PCP although she is not and at the time therefore they instructed him to come here for further evaluation treatment. He reports that he still has enough medication of his glargine and that he does not need a refill on this. He does need a refill on the lancets. Otherwise he denies any other symptoms complaints or concerns and he does not want any labs or imaging or further evaluation treatment as he reports he just needs a medication refill at this time. complaint: medication refill request Initial visit (ago): day(s) Returns today for: request for prescription Symptoms since prior visit: no new symptoms Context: ran out of medication Associated symptoms: other (Intermittent episodes of dizziness when his blood sugar goes high per the patient) Related Data Previous Rx's Medication Instructions Recorded alcohol swabs (BD Alcohol Swabs) See Rx Instructions .ROUTE 10/22/20 .COMPLEX #200 ea amlodipine 5 mg tablet 5 mg PO DAILY #30 tab 10/22/20 blood sugar diagnostic (FreeStyle #100 ea 10/22/20 Lite Strips) blood-glucose meter (FreeStyle #1 ea 10/22/20 Lite Meter) insulin glargine 100 unit/mL 30 unit (0.3 mL) SUBCUT BEDTIME 10/22/20 subcutaneous solution (Lantus #10 ml U-100 Insulin) insulin lispro 100 unit/mL 15 unit (0.15 mL) SUBCUT TIDAC #10 10/22/20 subcutaneous solution (Humalog ml U-100 Insulin) insulin syringes (disposable) 1 mL #500 ea 10/22/20 lancets 28 gauge (1st Tier Unilet #100 ea 10/22/20 ComforTouch Lancet) lisinopril 5 mg tablet 5 mg PO DAILY #30 tab 10/22/20 pen needle, diabetic 32 gauge x #100 ea 10/24/20 (BD Aziza 2nd Gen Pen Needle) insulin glargine 100 unit/mL (3 30 unit (0.3 mL) SUBCUT QPM #15 ml 08/05/21 mL) subcutaneous pen (Lantus Solostar U-100 Insulin) insulin lispro 100 unit/mL 15 unit (0.15 mL) SUBCUT TID #15 ml 08/05/21 subcutaneous cartridge (Humalog U-100 Insulin) insulin lispro 100 unit/mL 15 unit (0.15 mL) SUBCUT TID #10 ml 08/05/21 subcutaneous solution (Humalog U-100 Insulin) insulin lispro 100 unit/mL 15 unit (0.15 mL) SUBCUT TID #10 ml 08/30/21 subcutaneous solution lancets 30 gauge (Sure Comfort #200 ea 08/30/21 Lancets) Allergies Allergy/AdvReac Type Severity Reaction Status Date / Time No Known Allergies Allergy Verified 08/30/21 12:46 Review of Systems Review of Systems: Constitutional : No Weight loss, No Fever, No Chills, No Night Sweats, No Fatigue, No Malaise ENT/Mouth : No Hearing loss, No Ear Pain, No Nasal Congestion, No Sinus Pain, No Hoarseness, No sore throat, No Rhinorrhea, No Swallowing Difficulty Eyes: No Eye Pain, No Swelling, No Redness, No Foreign Body, No Discharge, No Vision Changes Cardiovascular : No Chest Pain, No SOB, No Dyspnea on Exertion, No Orthopnea, No Edema, No Palpitations Respiratory : No Cough, No Sputum, No Wheezing, No Smoke Exposure, No Dyspnea Gastrointestinal : No Nausea, No Vomiting, No Diarrhea, No Constipation, No abdo grzegorz Pain, No Hematochezia, No Melena Genitourinary : no irregular bleeding, No Dysuria, No Urinary Frequency, No Hematuria, No Urinary Incontinence, No Urgency, No Flank Pain, No Urinary Flow Changes, No Hesitancy Musculoskeletal : No joint pain, No Myalgias, No Joint Swelling Skin : No Skin Lesions, No rash Neuro : + intermittent dizziness, No Weakness, No Numbness, No Paresthesias, No Loss of Consciousness, No Headache Psych : No Anxiety/Panic, No Depression, No SI/HI/AH/VH, No Social Issues, Heme/Lymph: No Bruising, No Bleeding,No Lymphadenopathy Endocrine : No Polyuria, No Polydipsia, No Temperature Intolerance Yes all other systems are reviewed and are negative [facility] Past Medical History Attestation statement: The following information was validated with the patient. Medical History Hypertension Social History Social History Household Members: Family Housing: House Do you presently have visiting nurse or other home services: Yes Alcohol intake: current Alcohol intake frequency: a few times a week Patient Tobacco Use Status: Never used Tobacco Advance Directives: No service: No Current occupational status: employed Physical Exam Vital Signs: Vital Signs: Last Vital Signs Temp 96.8 F 08/30/21 12:41 Pulse 88 08/30/21 12:41 Resp 16 08/30/21 12:41 BP 163/90 H 08/30/21 12:41 Pulse Ox 97 08/30/21 12:41 BMI result Body Mass Index 32.4 vital signs have been reviewed as normal and appeared to be correct. Blood pressure 163/90. Heart rate normal. Respiration rate normal. Temperature normal. Oxygen saturation normal. Appearance: Alert. Oriented X3. No acute distress. Head: Normal external exam. Normocephalic. Atraumatic. Eyes: PERRLA. EOMI. Conjunctiva and sclera normal. Eyelids normal. ENT: Pharynx normal. Uvula midline. Moist mucous membranes. No lesions/ulcerations or masses noted on the tongue. Normal voice. No trismus noted. No drooling noted. No muffled voice noted. Neck: Normal inspection. Neck supple. FROM. No adenopathy. Thyroid Normal. No tracheal deviation noted. No crepitus is noted. No meningeal signs. No neck mass noted. No signs of trauma noted. CVS: Normal heart rate and rhythm. Heart sound normal. Pulses normal throughout. No murmurs/rales/gallops. Respiratory: No respiratory distress. Painless inspiration. Breath sounds normal. No wheezes/rales/rhonchi noted. Chest nontender. No crepitus is noted. No signs of trauma noted. No accessory muscle usage noted or decreased air movement noted. No signs of trauma. Abdomen: Soft and nontender. Bowel sounds normal in all 4 quadrants. No distention noted. No organomegaly noted. No visible injury noted. Back: Full range of motion noted. Nontender. No signs of trauma. Patient neuro intact bilaterally and distally on all 4 extremities. Patient's reflexes intact bilaterally and distally on all 4 extremities. No rashes/lesion/induration/fluctuance or signs of infection noted. Skin: Skin warm and dry. Normal skin color. Normal skin turgor. No rashes/lesions/lacerations noted. Extremities: No lower extremity edema. No calf tenderness is noted. Extremities exhibit normal range of motion and nontender. Neuro: Oriented X 3. No motor deficit. No sensory deficit. Reflexes normal. Normal steady gait. No focal neuro deficits noted. CN's II-XII intact bilaterally? Vascular: + radial pulses/+ 2 distal pedal pulses/+2 dorsalis pedis b/l. Normal cap refill. No cyanosis noted to upper extremity nails and lower extremity toes nails. Course Course Course Narrative: 46-year-old male with a past medical history of hypertension and type 2 diabetes currently on list for a 100 units he is supposed to take 15 units subcu 3 times a day and glargine 30 units at bedtime presenting to the ED with request for medication refill for his list parole. He reports he last took a few days ago although he has been having intermittent episodes of dizziness and he knows this because his blood sugar is high. He reports that he tried to make an appointment with his PCP although she is not and at the time therefore they instructed him to come here for further evaluation treatment. He reports that he still has enough medication of his glargine and that he does not need a refill on this. He does need a refill on the lancets. Otherwise he denies any other symptoms complaints or concerns and he does not want any labs or imaging or further evaluation treatment as he reports he just needs a medication refill at this time. On exam patient is alert and oriented x3. No focal neuro deficit noted. Has a normal steady gait. I offered labs and imaging although patient reports that he does need need any labs or imaging as he knows that this dizziness is because his blood sugars elevated. We obtained his blood glucose level in triage which was 289. Therefore at this time will give his prescribed 15 units of his insul in lispro and DC home with a refill and instructions to follow up with PCP and to return if any new or worsening symptoms. Patient understands agrees with this plan. MDM - Recheck/Abnormal Lab/Rx Medical Records Attestation: I reviewed the patient's medical records. Lab Data Attestation: I reviewed the patient's lab results. Labs: Lab Results 08/30/21 Range/Units 13:02 POC Glucose 289 H (60-115) mg/dL Discharge Plan Discharge Clinical Impression: Acute hyperglycemia, Medication refill Patient Disposition: Home, Self-Care Instructions: Insulin Lispro (By injection), Diabetic Hyperglycemia (ED), Medicine Refill (ED) Prescriptions: New (DME) lancets [Sure Comfort Lancets] 30 gauge misc See Rx Instructions .Route Qty: 200 0RF Rx Instructions: As directed insulin lispro 100 unit/mL solution 15 unit subcut TID Qty: 10 1RF No Action (DME) blood-glucose meter [FreeStyle Lite Meter] Kit See Rx Instructions .ROUTE .MEDSUPPLY Qty: 1 0RF Rx Instructions: As directed (DME) FreeStyle Lite Strips Strip See Rx Instructions .ROUTE .MEDSUPPLY Qty: 100 0RF Rx Instructions: As directed (DME) insulin syringes (disposable) 1 mL syringe See Rx Instructions .ROUTE .MEDSUPPLY Qty: 500 0RF Rx Instructions: As directed (DME) lancets [1st Tier Unilet ComforTouch] 28 gauge misc See Rx Instructions .ROUTE .MEDSUPPLY Qty: 100 0RF Rx Instructions: As directed alcohol swabs [BD Alcohol Swabs] Pads, Medicated See Rx Instructions .ROUTE .COMPLEX Qty: 200 0RF Rx Instructions: pad topically Lantus U-100 Insulin 100 unit/mL Solution 30 unit subcut BEDTIME Qty: 10 0RF amlodipine 5 mg Tablet 5 mg PO DAILY Qty: 30 0RF Protocol: Hold for SBP< HOLD for SBP < : 90 lisinopril 5 mg Tablet 5 mg PO DAILY Qty: 30 0RF Protocol: Hold for SBP< HOLD for SBP < : 90 insulin lispro [Humalog U-100 Insulin] 100 unit/mL Solution 15 unit subcut TIDAC Qty: 10 0RF (DME) pen needle, diabetic [BD Aziza 2nd Gen Pen Needle] 32 gauge x 5/32 n eedle See Rx Instructions .ROUTE .MEDSUPPLY Qty: 100 0RF Rx Instructions: As directed (4 times/day) Lantus Solostar U-100 Insulin 100 unit/mL (3 mL) insulin pen 30 unit subcut QPM Qty: 15 0RF Humalog U-100 Insulin 100 unit/mL cartridge 15 unit subcut TID Qty: 15 0RF insulin lispro [Humalog U-100 Insulin] 100 unit/mL solution 15 unit subcut TID Qty: 10 0RF Referrals: Regla Chester MD [Primary Care Provider] - 2 days Stand Alone Forms: Work/School Release Print Language: Thai
[2021-08-30] MEDS: Insulin Lispro 100 UNIT/ML 3 ML VIAL 15 UNIT SUBCUT (14:43)
== END 2021-08-30 14:50 | disposition home or self-care (01) ==
PROVIDERS: Emergency Provider Emergency Medicine; PCP Internal Medicine
DX: E11.65 Type 2 diabetes mellitus with hyperglycemia (principal); Z76.0 Encounter for issue of repeat prescription; R42 Dizziness and giddiness; Z79.4 Long term (current) use of insulin
CPT/HCPCS: 82947; 99283; 99284

== ENCOUNTER 2023-01-07 15:07 | Inpatient (IN) | payer OTHER, SELFPAY ==
--- NOTE | ~2023-01-07 | XR_ITS ---
EXAMINATION: XR CHEST CLINICAL INFORMATION: Cough COMPARISON: None available. TECHNIQUE: Frontal view of the chest was obtained. FINDINGS: Heart and mediastinum within normal limits. No vascular congestion. Elevated right hemidiaphragm. No failure, consolidations or effusions. Bony structures are intact. XR/XR chest 1V IMPRESSION: No consolidations or failure. Elevated right hemidiaphragm. In the absence of previous studies for comparison, unclear if this is chronic or acute finding.
[2023-01-07 15:34] VITALS: BP 130/91; PULSE 113; RESP 19; TEMP 36.6; O2SAT 98; BMI 30.7
--- NOTE | 2023-01-07 15:45 | ECG_ITS ---
Test Reason : WEAKNESS/DIZINESS Blood Pressure : / mmHG Vent. Rate : 104 BPM Atrial Rate : 104 BPM P-R Int : 136 ms QRS Dur : 070 ms QT Int : 324 ms P-R-T Axes : 063 -31 057 degrees QTc Int : 426 ms Sinus tachycardia Left axis deviation Nonspecific T wave abnormality Abnormal ECG When compared with ECG of 05-AUG-2021 01:20, No significant change was found Referred By: Elizabeth Thompson Electronically Signed By:SONJA BEVERLY MD
--- NOTE | 2023-01-07 15:45 | ED.GENADULT ---
HPI - General Adult General Chief complaint: General Medical Stated complaint: high bp/high sugar? Time Seen by Provider: 01/07/23 19:35 Source: patient Mode of arrival: ambulatory Limitations: no limitations History of Present Illness HPI narrative: 47-year-old male with past medical history of diabetes hypertension presents to the emergency department after not taking his insulin for the past diabetes noncompliance 3 days chronic nausea and dehydration. Patient is here with his girlfriend he states he has had chronic nausea he states he has a poor appetite does not eat he denies any fevers or chills or falls. Related Data Previous Rx's Medication Instructions Recorded alcohol swabs (BD Alcohol Swabs) See Rx Instructions .Route 10/22/20 .COMPLEX #200 ea amlodipine 5 mg tablet 5 mg PO DAILY #30 tabs 10/22/20 blood sugar diagnostic (FreeStyle #100 ea 10/22/20 Lite Strips) blood-glucose meter (FreeStyle #1 ea 10/22/20 Lite Meter kit) insulin glargine 100 unit/mL 30 unit (0.3 mL) subcut BEDTIME 10/22/20 subcutaneous solution (Lantus #10 mL U-100 Insulin) insulin lispro 100 unit/mL 15 unit (0.15 mL) subcut TIDAC #10 10/22/20 subcutaneous solution (Humalog mL U-100 Insulin) insulin syringes (disposable) 1 mL #500 ea 10/22/20 lancets 28 gauge (1st Tier Unilet #100 ea 10/22/20 ComforTouch Lancet) lisinopril 5 mg tablet 5 mg PO DAILY #30 tabs 10/22/20 pen needle, diabetic 32 gauge x #100 ea 10/24/20 (BD Aziza 2nd Gen Pen Needle) insulin glargine 100 unit/mL (3 30 unit (0.3 mL) subcut QPM #15 mL 08/05/21 mL) subcutaneous pen (Lantus Solostar U-100 Insulin) insulin lispro 100 unit/mL 15 unit (0.15 mL) subcut TID #15 mL 08/05/21 subcutaneous cartridge (Humalog U-100 Insulin) insulin lispro 100 unit/mL 15 unit (0.15 mL) subcut TID #10 mL 08/05/21 subcutaneous solution (Humalog U-100 Insulin) insulin lispro 100 unit/mL 15 unit (0.15 mL) subcut TID Type 08/30/21 subcutaneous solution 2 diabetes #10 mL insulin syringes (disposable) 1 mL #500 ea 08/30/21 lancets 30 gauge (Sure Comfort #200 ea 08/30/21 Lancets) Allergies Allergy/AdvReac Type Severity Reaction Status Date / Time No Known Allergies Allergy Verified 01/07/23 15:33 Review of Systems Review of Systems: Review of systems: General: Patient denies any fever chills recent illness or falls Musculoskeletal: Denies back pain or body aches or other injuries HEENT: denies headache, runny nose, ear pain Respiratory: denies shortness of breath, cough Cardiovascular: no chest pain or palpitations : denies dysuria, frequency Abdomen: nausea vomiting denies abdominal pain Extremities: no swelling, no pain Skin: no diaphoresis Yes all other systems are reviewed and are negative PMFSH Past Medical History Medical History Hypertension Social History Social History Household Members: Family Housing: House Do you presently have visiting nurse or other home services: Yes Alcohol intake: current Alcohol intake frequency: a few times a week Patient Tobacco Use Status: Never used Tobacco Advance Directives: No Advance Directives Information Provided: Yes service: No Current occupational status: employed Physical Exam ED Vital Signs: Vital Signs - 24 hr 01/07/23 15:34 Temperature 98 F Pulse Rate 113 H Respiratory Rate 19 Blood Pressure 130/91 H Pulse Oximetry 98 BMI result Body Mass Index 30.7 Neurological exam: CN II- XII tested. Patient is alert and oriented to person place and time. Patient has no dysphagia or dysarthia, denies good vision in all four vision kay no nystagmus on exam, good strength to upper and lower extremities with normal reflexes to brachioradialis, wrist, patella and achilles. Negative romberg, good finger to nose and heel to palacios. General: Well-appearing well-nourished in no signs of distress HEENT: Normocephalic atraumatic Neck: No signs of JVD, no masses no tenderness or lymphadenopathy Cardiovascular: Regular rate and rhythm Respiratory: Clear to auscultation bilaterally Abdomen: Soft nontender no masses Extremities: Normal pedal pulses no signs of edema Skin: Dry warm no rashes Back: No tenderness full ROM Course Course Course Narrative: This is an RME: Additional HPI, ROS, PE not included below will be deferred to primary provider. 47 year old male presents w/ high sugars, high BP, intermittent abd discomfort. Sugars at home around 364, hasnt been on meds due to difficulty obtaining tem. Paitent also reports 50 lb weight loss in the last few months and early satiety plan- labs, ua, betahydroxybutyrate 1750 Bhydroxybuterate pending.. 1830 High blood glucose and anion gap ?/high susipcion DKA. called lab delay in bhydroxybuterate despite this spoke to charge to bring patient back [facility] pending beds before patient but charge aware of urgency. Medical Decision Making Medical Decision Making [facility] Narrative: Concern for diabetic ketoacidosis after reviewing the labs patient will need to be admitted I did start the patient on several L fluid and insulin drip I will consult ICU. Differential Diagnosis Differential Diagnoses: The differential diagnosis associated with the presentation includes Chronic nausea add diabetes noncompliance as well as diabetic gastroparesis Admission/Observation Consideration of admission/observation: Escalation of care including admission/observation considered Consult Healthcare Provider Management of the patient was discussed with: Hospitalist and Reduction Furnace Operator Helper I did speak with Marita dixon for the ICU who agreed the patient would need admission. Lab Data [facility] Lab Attestation statement: I reviewed the patient's lab results. 01/07/23 16:04 01/07/23 16:04 Labs: Lab Results 01/07/23 01/07/23 01/07/23 Range/Units 15:36 16:04 16:04 WBC 4.1 L (4.8-10.8) X10*3/uL RBC 5.69 (4.60-5.80) X10*6/uL Hgb 17.7 (14.0-18.0) g/dl Hct 50.9 (42.0-52.0) % MCV 89.5 (80.0-98.0) fL MCH 31.1 (27.0-33.0) pg MCHC 34.8 (31.0-36.0) g/dl RDW 14.3 (11.0-16.0) % Plt Count 422 H (160-400) X10*3/uL MPV 10.3 (9.4-12.4) fL Immature Gran % (Auto) 0.2 (0.0-0.4) % Neut % (Auto) 45.8 (45-73) % Lymph % (Auto) 44.5 H (20-40) % Wise % (Auto) 8.1 (2-11) % Eos % (Auto) 0.7 (0-4) % Baso % (Auto) 0.7 (0-2) % Lymph # (Auto) 1.8 (1.2-4.9) X10*3/uL Wise # (Auto) 0.3 (0.1-1.2) X10*3/uL Eos # (Auto) 0.0 (0.0-0.4) X10*3/uL Baso # (Auto) 0.0 (0.0-0.2) X10*3/uL Abs Immat Gran (auto) 0.01 (0.00-0.03) X10*3/uL Absolute Neuts (auto) 1.9 L (2.0-8.3) x10*3/uL Absolute Nucleated RBC 0.000 (0.0-0.012) X10*3/uL Nucleated RBC % (auto) 0.0 (0.0-0.2) /100WBC Sodium 137 (135-145) mmol/L Potassium 3.6 (3.3-5.1) mmol/L Chloride 102 (96-108) mmol/L Carbon Dioxide 12 L (22-29) mmol/L Anion Gap 27 H (12-20) BUN 15 (9-16) mg/dL Creatinine 2.00 H (0.5-1.4) mg/dL Estim Creat Clear Calc 49.1 Estimated GFR 36 POC Glucose 364 H* (60-115) mg/dL Random Glucose 356 H* (60-115) mg/dL Calcium 10.8 H D (8.4-10.2) mg/dL Magnesium 2.3 (1.6-2.6) mg/dL Total Bilirubin 0.6 (0.0-1.0) mg/dL AST 12 (5-37) U/L ALT 18 (0-40) U/L Alkaline Phosphatase 137 H (39-117) U/L Troponin I High Sens (<3.5-35.0) ng/L Total Protein 9.3 H (6.5-8.0) g/dL Albumin 4.5 (3.5-5.0) g/dL Beta-Hydroxybutyrate 6.75 H (0.02-0.27) mmol/L Urine Color Urine Appearance Urine pH (5.0-9.0) Ur Specific [place] (1.005-1.025) Urine Protein (Neg-Trace) mg/dL Urine Glucose (UA) (Negative) mg/dL Urine Ketones (Negative) mg/dL Urine Blood (Negative) Urine Nitrite (Negative) Ur Leukocyte Esterase (Negative) Urine RBC (0-2) /HPF Urine WBC (0-5) /HPF Ur Squamous Epith Cells (0-2) /HPF Urine Bacteria (None Seen) Hyaline Casts (0-2) /LPF Urine Yeast 01/07/23 01/07/23 Range/Units 16:04 16:11 WBC (4.8-10.8) X10*3/uL RBC (4.60-5.80) X10*6/uL Hgb (14.0-18.0) g/dl Hct (42.0-52.0) % MCV (80.0-98.0) fL MCH (27.0-33.0) pg MCHC (31.0-36.0) g/dl RDW (11.0-16.0) % Plt Count (160-400) X10*3/uL MPV (9.4-12.4) fL Immature Gran % (Auto) (0.0-0.4) % Neut % (Auto) (45-73) % Lymph % (Auto) (20-40) % Wise % (Auto) (2-11) % Eos % (Auto) (0-4) % Baso % (Auto) (0-2) % Lymph # (Auto) (1.2-4.9) X10*3/uL Wise # (Auto) (0.1-1.2) X10*3/uL Eos # (Auto) (0.0-0.4) X10*3/uL Baso # (Auto) (0.0-0.2) X10*3/uL Abs Immat Gran (auto) (0.00-0.03) X10*3/uL Absolute Neuts (auto) (2.0-8.3) x10*3/uL Absolute Nucleated RBC (0.0-0.012) X10*3/uL Nucleated RBC % (auto) (0.0-0.2) /100WBC Sodium (135-145) mmol/L Potassium (3.3-5.1) mmol/L Chloride (96-108) mmol/L Carbon Dioxide (22-29) mmol/L Anion Gap (12-20) BUN (9-16) mg/dL Creatinine (0.5-1.4) mg/dL Estim Creat Clear Calc Estimated GFR POC Glucose (60-115) mg/dL Random Glucose (60-115) mg/dL Calcium (8.4-10.2) mg/dL Magnesium (1.6-2.6) mg/dL Total Bilirubin (0.0-1.0) mg/dL AST (5-37) U/L ALT (0-40) U/L Alkaline Phosphatase (39-117) U/L Troponin I High Sens < 2.7 (<3.5-35.0) ng/L Total Protein (6.5-8.0) g/dL Albumin (3.5-5.0) g/dL Beta-Hydroxybutyrate (0.02-0.27) mmol/L Urine Color Yellow Urine Appearance Clear Urine pH 6.0 (5.0-9.0) Ur Specific [place] >= 1.030 H (1.005-1.025) Urine Protein 300 (3+) H (Neg-Trace) mg/dL Urine Glucose (UA) >=1000 H (Negative) mg/dL Urine Ketones 80 (Negative) mg/dL Urine Blood Small (1+) H (Negative) Urine Nitrite Negative (Negative) Ur Leukocyte Esterase Negative (Negative) Urine RBC 3-5 H (0-2) /HPF Urine WBC 0-5 (0-5) /HPF Ur Squamous Epith Cells 3-5 (0-2) /HPF Urine Bacteria None Seen (None Seen) Hyaline Casts 6-10 (0-2) /LPF Urine Yeast Present Independent Interpretation I performed an independent interpretation of an: EKG Independent Historian Clinical information obtained from an independent historian. History obtained from or confirmed by: Spouse and Other External Record Review External record reviewed: Inpatient record Chronic Conditions Patient?s care impacted by: Diabetes and Hypertension Core Measures AMI core measures followed: Yes Critical Care Time Critical Care Time Critical Care Time: Yes Total Critical Care Time: 60 Attestation: Patient found to be in diabetic ketoacidosis I did review labs as well started the patient on insulin drip and fluids I did consult ICU admit the patient to the intensive care unit. Discharge Plan Discharge Clinical Impression: Diabetic keto-acidosis, Diabetes mellitus with gastroparesis, Chronic nausea Patient Disposition: Admitted As Inpatient
[2023-01-07 16:22] LABS: Glucose, Whole Blood 364 mg/dL (60-115)
[2023-01-07 17:02] LABS: Alanine Aminotransferase 18 U/L (0-40); Albumin Level 4.5 g/dL (3.5-5.0); Alkaline Phosphatase 137 U/L (39-117); Anion Gap 27 (12-20); Aspartate Amino Transferase 12 U/L (5-37); Bilirubin Total 0.6 mg/dL (0.0-1.0); Blood Urea Nitrogen 15 mg/dL (9-16); Calcium 10.8 mg/dL (8.4-10.2); Carbon Dioxide 12 mmol/L (22-29); Chloride 102 mmol/L (96-108); Creatinine Clr Calc Pharmacy 49.1; Estimated Glomerular Filt Rate 36; Glucose Random 356 mg/dL (60-115); Magnesium 2.3 mg/dL (1.6-2.6); Potassium 3.6 mmol/L (3.3-5.1); Sodium 137 mmol/L (135-145); Total Protein 9.3 g/dL (6.5-8.0)
[2023-01-07 18:51] LABS: Beta-Hydroxybutyrate 6.75 mmol/L (0.02-0.27)
[2023-01-07 20:09] VITALS: BP 146/103; PULSE 83; RESP 18; TEMP 36.4; O2SAT 100
[2023-01-07] MEDS: 0.9 % Sodium Chloride 1,000 ML 999 ML IV ×3 (20:31→20:41)
--- NOTE | 2023-01-07 20:37 | PC.NURSE ---
pt a&o, no sob or chest pain at this time, IV Placed and Fluid given, Notified OSWALDO Garrison.
[2023-01-07] MEDS: Insulin Regular, Human 100 UNIT/ML 3 ML VIAL 9 UNIT IVPUSH (20:39)
[2023-01-07] MEDS: ondansetron HCL 4 MG/2 ML VIAL IVPUSH (20:40)
[2023-01-07 20:44] LABS: VBG HCO3 15 mmol/L (22-26); VBG pCO2 34 mmHg; VBG pH 7.24 (7.32-7.43); VBG pO2 30 mmHg
--- NOTE | 2023-01-07 20:45 | PC.NURSE ---
Assumed care of pt. Pt lying on stretcher, no acute distress at this time. VSS, plan for reassessment
[2023-01-07 20:55] LABS: Venous Blood Gas Refer to POC result
[2023-01-07 21:01] VITALS: O2SAT 99
--- NOTE | 2023-01-07 21:11 | PHA.MEDREC ---
Pharmacy Consult ? Medication Reconciliation Pharmacy has completed the medication reconciliation. Patient reported he was prescribed a new BP medication in a capsule he does not like. Per claim history he was prescribed amlodipine-benazepril 10-20mg. Patient was to get put back on the pink tablet he was previously on, most likely lisinopril. When ask the last time he had the pink tablet her report its been a few months. Yoselyn White, ViktorD
[2023-01-07 21:18] LABS: Anion Gap 27 (12-20); Blood Urea Nitrogen 16 mg/dL (9-16); Calcium 10.7 mg/dL (8.4-10.2); Carbon Dioxide 10 mmol/L (22-29); Chloride 103 mmol/L (96-108); Creatinine Clr Calc Pharmacy 53.4; Estimated Glomerular Filt Rate 40; Glucose Random 272 mg/dL (60-115); Potassium 3.9 mmol/L (3.3-5.1); Sodium 136 mmol/L (135-145)
[2023-01-07 21:24] VITALS: BP 155/89; PULSE 75; RESP 20; TEMP 36.9; O2SAT 98
[2023-01-07 21:32] LABS: Glucose, Whole Blood 204 mg/dL (60-115)
--- NOTE | 2023-01-07 21:44 | PC.NURSE ---
Pt lying on stretcher, no acute distress at this time. Pt assessed as documented. Pt ambulated to bathroom for stool sample with steady gait, no distress. VSS at this time.
[2023-01-07 22:03] VITALS: BP 135/92; PULSE 67; RESP 18; O2SAT 99
[2023-01-07] MEDS: Heparin Sodium,Porcine 5,000 UNIT/ML VIAL 5000 UNIT SUBCUT (22:08)
[2023-01-07] MEDS: KCl 20 mEq in 0.45% Sod 20 MEQ/1,000 ML IV.SOLN 150 MEQ IVCONT (22:10)
[2023-01-07 23:05] VITALS: BP 113/77; PULSE 77; RESP 18; TEMP 36.9; O2SAT 96
--- NOTE | 2023-01-07 23:39 | P.HPCC_ITS ---
History of Present Illness Date of Service: 01/07/23 Attending physician on admission: Jeff Tam Chief Complaint: DKA The patient is a 47-year-old male past medical history of diabetes, hypertension, who presented to the emergency room? with complaint of high blood sugars, high blood pressure, and intermittent abdominal discomfort. The patient reports? that he has not had insulin for the last 3 days due to difficulty obtaining a prescription. The patient?s girlfriend states he has chronic nausea, poor appetite, and does not eat.? The patient reports a 50 lb weight loss in the last few months and early satiety.? In the ED? his blood glucose? 364,? potassium 3.6, bicarb 12, anion gap 27, BUN 15, creatinine 2.00, Beta hydroxybutyrate 6.75,? venous pH 7.24. He received 3 L of? normal saline, and was given 9 units IV insulin. He was given Zofran? for nausea. He will be admitted to the ICU for management of DKA.? Review of Systems Review of Systems: Upon arrival to the ICU, the patient stated, I feel great. He denied any nausea, abdominal discomfort, or other symptoms. Yes all other systems are reviewed and are negative PMFSH Past Medical History Medical History Hypertension Social History Social History Household Members: Spouse Housing: House Do you presently have visiting nurse or other home services: No Alcohol intake: current Alcohol intake frequency: a few times a week Alcohol type: beer and hard liquor Patient Tobacco Use Status: Never used Tobacco Smoked in Last 30 Days: No e-Cigarette/Vaping Use: Never Used Patient Interested in Nicotine Replacement: No (does not smoke) Patient Given Instructions on How to Stop Smoking: No (does not smoke) Second Hand Smoke Exposure: No Use of substances other than those prescribed or required for medical reasons: No Currently Displaying Signs/Symptoms of Drug Intoxication Withdrawal: No Any prior treatment program specific to substance use: No Have you been hit, kicked, punched, or otherwise hurt by someone within the past year? If so, by whom?: No Do you feel safe in your current relationship?: Yes Is there a partner from a previous relationship who is making you feel unsafe now?: No Are you made to feel afraid or neglected: No Advance Directives: No Advance Directives Information Provided: Yes Advance Directives on File: No Do you have thoughts of harming others: None Do you have a plan to hurt others: No Plan Recently lost weight without trying: No Eating poorly because of decreased appetite: No Nutrition Risks: No Nutritional Risk Poor oral hygiene: No service: No Current occupational status: employed Meds Allergies Allergy/AdvReac Type Severity Reaction Status Date / Time No Known Allergies Allergy Verified 01/07/23 15:33 Active Medications: Current Medications Heparin Sodium (Porcine) (Heparin Sodium,Porcine 5,000 Unit/Ml Vial) 5,000 unit SUBCUT Q12H [facility] Last Admin: 01/07/23 22:08 Dose: 5,000 unit Potassium Chloride/Sodium Chloride (Kcl 20 Meq In 0.45% Sod) 20 meq in 1,000 mls @ 150 mls/hr IVCONT .Q6H40M [facility] Last Admin: 01/07/23 22:10 Dose: 150 mls/hr Ondansetron HCl (Ondansetron Hcl 4 Mg/2 Ml Vial) 4 mg IVPUSH Q8H PRN PRN Reason: Nausea Home Medications Medication Instructions Recorded Confirmed Last Taken Type insulin glargine 100 unit/mL 24 unit subcut BEDTIME 01/07/23 01/07/23 Unknown History subcutaneous solution (Lantus U-100 Insulin) Physical Exam Vital Signs: Vital Signs: Last Vital Signs Temp 98.4 F 01/07/23 23:05 Pulse 77 01/07/23 23:05 Resp 18 01/07/23 23:05 BP 113/77 01/07/23 23:05 Pulse Ox 96 01/07/23 23:05 O2 Del Method Room Air 01/07/23 23:05 BMI result Body Mass Index 30.7 Const: General: cooperative, healthy appearing, comfortable and no acute distress; No anxious Nutritional Appearance: well nourished Orientation/consciousness: patient oriented x3 (answering appropriately.) HEENT: Head: Yes normocephalic and Yes atraumatic General nose exam: Normal external nose present (Nares patent, septum midline, sinuses nontender bilaterally.) Mouth: Normal oral and palatal mucosa present (No thrush, tongue in midline, mucosa moist.) Throat: Yes other (No erythema, no exudate.) Neck: Neck: Yes supple (no thyromegaly, trachea midline.) Carotids: normal carotid upstroke Resp: Auscultation: clear to auscultation bilaterally (normal work of breathing, no accessory muscle use) Cardio: Jugular venous distension: no JVD Rate: regular rate Rhythm: regular rhythm Heart sounds: no gallops, no murmurs and no rubs Peripheral pulses: Peripheral pulses 2+ throughout GI: Palpation (GI): Soft to palpation (nondistended.) and nontender Neuro: General: patient oriented x3 (answering appropriately.) Extrem: General: Yes full ROM, Yes capillary refill normal and Yes no clubbing, cyanosis or edema Psych: Affect: normal affect Attitude: cooperative Results Labs 01/07/23 16:04 01/07/23 20:36 Labs: Laboratory Results - last 24 hr 01/07/23 01/07/23 01/07/23 15:36 16:04 16:04 MCV 89.5 MCH 31.1 MCHC 34.8 RDW 14.3 Plt Count 422 H MPV 10.3 Immature Gran % (Auto) 0.2 Neut % (Auto) 45.8 Lymph % (Auto) 44.5 H [place] % (Auto) 8.1 Eos % (Auto) 0.7 Baso % (Auto) 0.7 Lymph # (Auto) 1.8 [place] # (Auto) 0.3 Eos # (Auto) 0.0 Baso # (Auto) 0.0 Abs Immat Gran (auto) 0.01 Absolute Neuts (auto) 1.9 L Absolute Nucleated RBC 0.000 Nucleated RBC % (auto) 0.0 VBG pH VBG pCO2 VBG pO2 VBG HCO3 VBG O2 Saturation VBG Base Excess Anion Gap 27 H Estim Creat Clear Calc 49.1 Estimated GFR 36 POC Glucose 364 H* Random Glucose 356 H* Calcium 10.8 H D Magnesium 2.3 Total Bilirubin 0.6 AST 12 ALT 18 Alkaline Phosphatase 137 H Troponin I High Sens Total Protein 9.3 H Albumin 4.5 Beta-Hydroxybutyrate 6.75 H Urine Color Urine Appearance Urine pH Ur Specific [place] Urine Protein Urine Glucose (UA) Urine Ketones Urine Blood Urine Nitrite Ur Leukocyte Esterase Urine RBC Urine WBC Ur Squamous Epith Cells Urine Bacteria Hyaline Casts Urine Yeast 01/07/23 01/07/23 01/07/23 16:04 16:11 20:36 MCV MCH MCHC RDW Plt Count MPV Immature Gran % (Auto) Neut % (Auto) Lymph % (Auto) [place] % (Auto) Eos % (Auto) Baso % (Auto) Lymph # (Auto) [place] # (Auto) Eos # (Auto) Baso # (Auto) Abs Immat Gran (auto) Absolute Neuts (auto) Absolute Nucleated RBC Nucleated RBC % (auto) VBG pH VBG pCO2 VBG pO2 VBG HCO3 VBG O2 Saturation VBG Base Excess Anion Gap 27 H Estim Creat Clear Calc 53.4 Estimated GFR 40 POC Glucose Random Glucose 272 H Calcium 10.7 H Magnesium Total Bilirubin AST ALT Alkaline Phosphatase Troponin I High Sens < 2.7 Total Protein Albumin Beta-Hydroxybutyrate Urine Color Yellow Urine Appearance Clear Urine pH 6.0 Ur Specific [place] >= 1.030 H Urine Protein 300 (3+) H Urine Glucose (UA) >=1000 H Urine Ketones 80 Urine Blood Small (1+) H Urine Nitrite Negative Ur Leukocyte Esterase Negative Urine RBC 3-5 H Urine WBC 0-5 Ur Squamous Epith Cells 3-5 Urine Bacteria None Seen Hyaline Casts 6-10 Urine Yeast Present 01/07/23 01/07/23 20:37 21:22 MCV MCH MCHC RDW Plt Count MPV Immature Gran % (Auto) Neut % (Auto) Lymph % (Auto) [place] % (Auto) Eos % (Auto) Baso % (Auto) Lymph # (Auto) [place] # (Auto) Eos # (Auto) Baso # (Auto) Abs Immat Gran (auto) Absolute Neuts (auto) Absolute Nucleated RBC Nucleated RBC % (auto) VBG pH 7.24 L VBG pCO2 34 VBG pO2 30 VBG HCO3 15 L VBG O2 Saturation 43.0 VBG Base Excess -11.0 Anion Gap Estim Creat Clear Calc Estimated GFR POC Glucose 204 H Random Glucose Calcium Magnesium Total Bilirubin AST ALT Alkaline Phosphatase Troponin I High Sens Total Protein Albumin Beta-Hydroxybutyrate Urine Color Urine Appearance Urine pH Ur Specific [place] Urine Protein Urine Glucose (UA) Urine Ketones Urine Blood Urine Nitrite Ur Leukocyte Esterase Urine RBC Urine WBC Ur Squamous Epith Cells Urine Bacteria Hyaline Casts Urine Yeast ABG Attestation: I personally reviewed and interpreted this ABG as follows: ECG ECG interpretation date: 01/07/23 Prior ECG tracings: available for review Interpretation: To my view sinus tachycardia, 104 beats per minute.? There is no ST elevations, no ST depressions. QTC 426.? No significant change when compared with the ECG of 05 August 2021. Assessment and Plan (1) Diabetic keto-acidosis: Status: Acute (2) Diabetes mellitus with gastroparesis: Status: Acute (3) Chronic nausea: Status: Acute (4) Hypertension: Status: Acute Plan 47-year-old male with? type 2 diabetes mellitus with a history of noncompliance with insulin, now presents with diabetic ketoacidosis requiring admission into the ICU.?? Plan: Neuro:? no acute issues?? Cardiac:? no acute issues Pulmonary:? no acute issues?? Renal: LAURA-? most likely related to hypoperfusion, nonoliguric.? Continue IV fluid.? Continue to check renal induces and urine output.? Closely monitor electrolytes. GI:? Nausea from? gastroparesis. Continue Zofran p.r.n.? Endo: ? type 2 diabetes /diabetic ketoacidosis-? continue IVF. Follow DKA pr otocol? ID: ? no acute issues? Heme/Onc:? No acute issues. Psych:? No acute issues. Miscellaneous:? No acute issues. Prophylaxis:? Heparin SQ? Diet: ? NPO? with sips of water ice chips Critical care time: does not qualify for critical care? Time Spent With Patient Time: Total time managing care of this patient today ____ minutes.
[2023-01-07 23:43] LABS: Glucose, Whole Blood 139 mg/dL (60-115)
[2023-01-07 23:53] LABS: VBG Base Excess -11.4 mmol/L; VBG HCO3 14 mmol/L (22-26); VBG pCO2 30 mmHg; VBG pH 7.26 (7.32-7.43); VBG pO2 27 mmHg
[2023-01-08] VITALS (18 sets, daily range): BP systolic 100–135; BP diastolic 55–89; PULSE 60–86; RESP 12–20; TEMP 36.4–37.1; O2SAT 95–99; BMI 32.1; BMI 32.7
[2023-01-08 00:11] LABS: Anion Gap 19 (12-20); Blood Urea Nitrogen 15 mg/dL (9-16); Calcium 8.8 mg/dL (8.4-10.2); Carbon Dioxide 13 mmol/L (22-29); Chloride 111 mmol/L (96-108); Creatinine Clr Calc Pharmacy 64.7; Estimated Glomerular Filt Rate 49; Glucose Random 110 mg/dL (60-115); Potassium 3.7 mmol/L (3.3-5.1); Sodium 139 mmol/L (135-145)
[2023-01-08 00:45] LABS: Venous Blood Gas Refer to POC result
[2023-01-08 01:50] LABS: Glucose, Whole Blood 287 mg/dL (60-115)
[2023-01-08 03:13] LABS: Glucose, Whole Blood 286 mg/dL (60-115)
[2023-01-08] MEDS: Insulin Regular, Human 100 UNIT/ML 3 ML VIAL IVPUSH (03:26)
[2023-01-08] MEDS: KCl 20 mEq in 0.45% Sod 20 MEQ/1,000 ML IV.SOLN 150 MEQ IVCONT (03:29)
[2023-01-08 04:32] LABS: Glucose, Whole Blood 199 mg/dL (60-115)
[2023-01-08 04:43] LABS: MANUAL DIFF FLAG NO
[2023-01-08 04:46] LABS: Basophils Percent Auto 0.5 % (0-2); Eosinophils Absolute Auto 0.1 X10*3/uL (0.0-0.4); Eosinophils Percent Auto 2.9 % (0-4); Hematocrit 38.3 % (42.0-52.0); Hemoglobin 13.6 g/dl (14.0-18.0); Imm Gran Abs Auto 0.01 X10*3/uL (0.00-0.03); Imm Gran Pct Auto 0.2 % (0.0-0.4); Lymphocytes Absolute Auto 2.2 X10*3/uL (1.2-4.9); Lymphocytes Percent Auto 52.5 % (20-40); Mean Corpuscular HGB Conc 35.5 g/dl (31.0-36.0); Mean Corpuscular Hemoglobin 31.6 pg (27.0-33.0); Mean Corpuscular Volume 88.9 fL (80.0-98.0); Monocytes Absolute Auto 0.4 X10*3/uL (0.1-1.2); Monocytes Percent Auto 8.3 % (2-11); Neutrophils Absolute Auto 1.5 x10*3/uL (2.0-8.3); Neutrophils Percent Auto 35.6 % (45-73); Platelet Count 285 X10*3/uL (160-400); Red Blood Count 4.31 X10*6/uL (4.60-5.80); White Blood Count 4.2 X10*3/uL (4.8-10.8)
[2023-01-08 04:51] LABS: VBG Base Excess -10.3 mmol/L; VBG HCO3 15 mmol/L (22-26); VBG pCO2 31 mmHg; VBG pH 7.27 (7.32-7.43); VBG pO2 40 mmHg
[2023-01-08 05:05] LABS: Albumin Level 3.1 g/dL (3.5-5.0); Anion Gap 17 (12-20); Blood Urea Nitrogen 15 mg/dL (9-16); Calcium 8.8 mg/dL (8.4-10.2); Carbon Dioxide 13 mmol/L (22-29); Chloride 111 mmol/L (96-108); Creatinine Clr Calc Pharmacy 61.6; Estimated Glomerular Filt Rate 45; Glucose Random 199 mg/dL (60-115); Magnesium 1.8 mg/dL (1.6-2.6); Phosphorus 2.4 mg/dL (2.7-4.5); Potassium 3.3 mmol/L (3.3-5.1); Sodium 138 mmol/L (135-145)
[2023-01-08] MEDS: Potassium Chloride Packet 20 MEQ PACKET 40 MEQ PO ×2 (05:26→12:06)
[2023-01-08 06:32] LABS: Venous Blood Gas Refer to POC result
[2023-01-08] MEDS: Sodium Bicarbonate 8.4% 100 MEQ in Dextrose 5 % 900 ML IV (06:43)
[2023-01-08] MEDS: Insulin Regular/NS 100 UNIT/100 ML PLAST..BAG IVCONT (06:44)
[2023-01-08 06:47] LABS: Glucose, Whole Blood 235 mg/dL (60-115)
--- NOTE | 2023-01-08 06:51 | PC.NURSE ---
ADMIT TO ICU 259-1 APPROX 23Z;30...AWAKE..ALERT..ORIENTED X3...VSS...RESPIRATIONS EASY ON ROOM AIR...DENIED NAUSEA OR PAIN..C/O THIRST AND HUNGER...LAB DRAW GLUCOSE 23:72=290...PROVIDED WITH SANDWICH/JUICE PER ICU MGMT CONSULTANT....SERIAL LABS AND POC GLUCOSE LEVELS REVIEWED WITH NPINSULIN 5 UNITS IVP X1 AT 0326....AM LABS AND POC GLUCOSE REVIEWED BY MGMT CONSULTANT AND FOREST RESOURCES PROFESSOR...POC GLUCOSE= 235...IV FLUIDS CHANGED TO D5W 900ml/NaHCO3 100 MEQ AT 100 CC/HR..PREVIOUSLY RECEIVED KCL 40MEQ PO...DENIES/OFFERS NO COMPLAINTS..DENIES URGE TO VOID AT PRESENT..VOIDED IN ER BR PRIOR TO TRANSPORT TO ICU PER PATIENT
[2023-01-08 08:02] LABS: Glucose, Whole Blood 257 mg/dL (60-115)
[2023-01-08 08:59] LABS: Glucose, Whole Blood 331 mg/dL (60-115)
--- NOTE | 2023-01-08 09:49 | MHC.CM.PN ---
Met w/pt who states he is independent w/all care needs and has no barriers to care. Pt sees a new provider at the [facility]: states he couldn't get insulin refills at his appt because he needed blood work and didn't complete it. Pt states he has a working glucometer and is compliant w/testing and insulin administration. He verbalized understanding of DM management and will f/u w/all outpt appointments/providers Pt will call his GF for transportation to home: no additional needs identified.
[2023-01-08] MEDS: Heparin Sodium,Porcine 5,000 UNIT/ML VIAL 5000 UNIT SUBCUT (09:50)
[2023-01-08 09:57] LABS: Glucose, Whole Blood 330 mg/dL (60-115)
[2023-01-08 10:25] LABS: Venous Blood Gas Refer to POC result
[2023-01-08 10:33] LABS: VBG HCO3 16 mmol/L (22-26); VBG pCO2 31 mmHg; VBG pH 7.32 (7.32-7.43); VBG pO2 59 mmHg
[2023-01-08 10:51] LABS: Anion Gap 13 (12-20); Blood Urea Nitrogen 14 mg/dL (9-16); Calcium 8.9 mg/dL (8.4-10.2); Carbon Dioxide 15 mmol/L (22-29); Chloride 109 mmol/L (96-108); Creatinine Clr Calc Pharmacy 67.9; Estimated Glomerular Filt Rate 51; Glucose Random 315 mg/dL (60-115); Potassium 3.2 mmol/L (3.3-5.1); Sodium 134 mmol/L (135-145)
[2023-01-08 10:59] LABS: Glucose, Whole Blood 217 mg/dL (60-115)
[2023-01-08 11:59] LABS: Glucose, Whole Blood 190 mg/dL (60-115)
[2023-01-08] MEDS: Thiamine HCL 100 MG in 0.9 % Sodium Chloride 100 ML 202 MG IV (12:06)
[2023-01-08 13:03] LABS: Glucose, Whole Blood 202 mg/dL (60-115)
[2023-01-08 14:06] LABS: Glucose, Whole Blood 205 mg/dL (60-115)
[2023-01-08 14:16] LABS: Venous Blood Gas Refer to POC result
[2023-01-08 14:19] LABS: VBG Base Excess -4.5 mmol/L; VBG HCO3 19 mmol/L (22-26); VBG pCO2 34 mmHg; VBG pH 7.36 (7.32-7.43); VBG pO2 50 mmHg
[2023-01-08 14:28] LABS: Anion Gap 14 (12-20); Blood Urea Nitrogen 12 mg/dL (9-16); Calcium 9.1 mg/dL (8.4-10.2); Carbon Dioxide 17 mmol/L (22-29); Chloride 108 mmol/L (96-108); Estimated Glomerular Filt Rate > 60; Glucose Random 190 mg/dL (60-115); Phosphorus 1.7 mg/dL (2.7-4.5); Potassium 3.8 mmol/L (3.3-5.1); Sodium 135 mmol/L (135-145)
[2023-01-08 15:06] LABS: Glucose, Whole Blood 237 mg/dL (60-115)
--- NOTE | 2023-01-08 15:47 | P.PNCC_ITS ---
Subjective Subjective Date of Service: 01/08/23 Interval History: 47-year-old male type 1 diabetic insulin dependent who stopped taking insulin for minimally 3 days and then began to feel increasingly weak and presented with diabetic ketoacidosis moderately hyperglycemic but significant elevation of beta hydroxybutyrate pH of 7.24 with a positive anion gap and acute on chronic renal failure and he has since been aggressively hydrated and placed on IV insulin drip serum bicarb is now up to 19 is negative base excess is 4.5 his pH is up to 7.36 at this point all symptoms have disappeared he is eating and and the anion gap is long closed he just has a mild non-anion gap hyperchloremic metabolic acidosis partly iatrogenic from saline partly renal tubular acidosis and I am going to simply maintain Ringer's lactate overnight and down to switch him from IV insulin to subcutaneous protocol with long-acting and and along with meals in the short-acting Critical Care Time (minutes): 45 Physical Exam Vital Signs: Vital Signs: Last Vital Signs Temp 97.5 F 01/08/23 08:00 Pulse 73 01/08/23 15:00 Resp 14 01/08/23 15:00 BP 111/66 01/08/23 15:00 Pulse Ox 95 01/08/23 15:00 O2 Del Method Room Air 01/08/23 15:00 BMI result Body Mass Index 32.7 Afebrile with pressure 111/66 sinus rhythm at a rate of 74 room air oxygen saturation 96% Nonfocal neurologic Cardiac no gallops no murmurs no neck vein distension Abdomen benign no organomegaly Chest clear without adventitious sounds Objective Data Labs 01/08/23 04:35 01/08/23 14:03 Labs: Laboratory Results - last 24 hr 01/07/23 01/07/23 01/07/23 15:36 16:04 16:04 WBC 4.1 L RBC 5.69 Hgb 17.7 Hct 50.9 MCV 89.5 MCH 31.1 MCHC 34.8 RDW 14.3 Plt Count 422 H MPV 10.3 Immature Gran % (Auto) 0.2 Neut % (Auto) 45.8 Lymph % (Auto) 44.5 H [place] % (Auto) 8.1 Eos % (Auto) 0.7 Baso % (Auto) 0.7 Lymph # (Auto) 1.8 [place] # (Auto) 0.3 Eos # (Auto) 0.0 Baso # (Auto) 0.0 Abs Immat Gran (auto) 0.01 Absolute Neuts (auto) 1.9 L Absolute Nucleated RBC 0.000 Nucleated RBC % (auto) 0.0 VBG pH VBG pCO2 VBG pO2 VBG HCO3 VBG O2 Saturation VBG Base Excess Sodium 137 Potassium 3.6 Chloride 102 Carbon Dioxide 12 L Anion Gap 27 H BUN 15 Creatinine 2.00 H Estim Creat Clear Calc 49.1 Estimated GFR 36 POC Glucose 364 H* Random Glucose 356 H* Calcium 10.8 H D Phosphorus Magnesium 2.3 Total Bilirubin 0.6 AST 12 ALT 18 Alkaline Phosphatase 137 H Troponin I High Sens Total Protein 9.3 H Albumin 4.5 Beta-Hydroxybutyrate 6.75 H Urine Color Urine Appearance Urine pH Ur Specific [place] Urine Protein Urine Glucose (UA) Urine Ketones Urine Blood Urine Nitrite Ur Leukocyte Esterase Urine RBC Urine WBC Ur Squamous Epith Cells Urine Bacteria Hyaline Casts Urine Yeast 01/07/23 01/07/23 01/07/23 16:04 16:11 20:36 WBC RBC Hgb Hct MCV MCH MCHC RDW Plt Count MPV Immature Gran % (Auto) Neut % (Auto) Lymph % (Auto) [place] % (Auto) Eos % (Auto) Baso % (Auto) Lymph # (Auto) [place] # (Auto) Eos # (Auto) Baso # (Auto) Abs Immat Gran (auto) Absolute Neuts (auto) Absolute Nucleated RBC Nucleated RBC % (auto) VBG pH VBG pCO2 VBG pO2 VBG HCO3 VBG O2 Saturation VBG Base Excess Sodium 136 Potassium 3.9 Chloride 103 Carbon Dioxide 10 L* Anion Gap 27 H BUN 16 Creatinine 1.84 H Estim Creat Clear Calc 53.4 Estimated GFR 40 POC Glucose Random Glucose 272 H Calcium 10.7 H Phosphorus Magnesium Total Bilirubin AST ALT Alkaline Phosphatase Troponin I High Sens < 2.7 Total Protein Albumin Beta-Hydroxybutyrate Urine Color Yellow Urine Appearance Clear Urine pH 6.0 Ur Specific [place] >= 1.030 H Urine Protein 300 (3+) H Urine Glucose (UA) >=1000 H Urine Ketones 80 Urine Blood Small (1+) H Urine Nitrite Negative Ur Leukocyte Esterase Negative Urine RBC 3-5 H Urine WBC 0-5 Ur Squamous Epith Cells 3-5 Urine Bacteria None Seen Hyaline Casts 6-10 Urine Yeast Present 01/07/23 01/07/23 01/07/23 20:37 21:22 23:40 WBC RBC Hgb Hct MCV MCH MCHC RDW Plt Count MPV Immature Gran % (Auto) Neut % (Auto) Lymph % (Auto) [place] % (Auto) Eos % (Auto) Baso % (Auto) Lymph # (Auto) [place] # (Auto) Eos # (Auto) Baso # (Auto) Abs Immat Gran (auto) Absolute Neuts (auto) Absolute Nucleated RBC Nucleated RBC % (auto) VBG pH 7.24 L VBG pCO2 34 VBG pO2 30 VBG HCO3 15 L VBG O2 Saturation 43.0 VBG Base Excess -11.0 Sodium Potassium Chloride Carbon Dioxide Anion Gap BUN Creatinine Estim Creat Clear Calc Estimated GFR POC Glucose 204 H 139 H Random Glucose Calcium Phosphorus Magnesium Total Bilirubin AST ALT Alkaline Phosphatase Troponin I High Sens Total Protein Albumin Beta-Hydroxybutyrate Urine Color Urine Appearance Urine pH Ur Specific [place] Urine Protein Urine Glucose (UA) Urine Ketones Urine Blood Urine Nitrite Ur Leukocyte Esterase Urine RBC Urine WBC Ur Squamous Epith Cells Urine Bacteria Hyaline Casts Urine Yeast 01/07/23 01/07/23 01/08/23 23:42 23:43 01:46 WBC RBC Hgb Hct MCV MCH MCHC RDW Plt Count MPV Immature Gran % (Auto) Neut % (Auto) Lymph % (Auto) [place] % (Auto) Eos % (Auto) Baso % (Auto) Lymph # (Auto) [place] # (Auto) Eos # (Auto) Baso # (Auto) Abs Immat Gran (auto) Absolute Neuts (auto) Absolute Nucleated RBC Nucleated RBC % (auto) VBG pH 7.26 L VBG pCO2 30 VBG pO2 27 VBG HCO3 14 L VBG O2 Saturation 40.0 VBG Base Excess -11.4 Sodium 139 Potassium 3.7 Chloride 111 H Carbon Dioxide 13 L Anion Gap 19 BUN 15 Creatinine 1.55 H Estim Creat Clear Calc 64.7 Estimated GFR 49 POC Glucose 287 H Random Glucose 110 Calcium 8.8 D Phosphorus Magnesium Total Bilirubin AST ALT Alkaline Phosphatase Troponin I High Sens Total Protein Albumin Beta-Hydroxybutyrate Urine Color Urine Appearance Urine pH Ur Specific [place] Urine Protein Urine Glucose (UA) Urine Ketones Urine Blood Urine Nitrite Ur Leukocyte Esterase Urine RBC Urine WBC Ur Squamous Epith Cells Urine Bacteria Hyaline Casts Urine Yeast 01/08/23 01/08/23 01/08/23 03:09 04:28 04:35 WBC 4.2 L RBC 4.31 L D Hgb 13.6 L D Hct 38.3 L D MCV 88.9 MCH 31.6 MCHC 35.5 RDW 14.0 Plt Count 285 D MPV 10.0 Immature Gran % (Auto) 0.2 Neut % (Auto) 35.6 L Lymph % (Auto) 52.5 H [place] % (Auto) 8.3 Eos % (Auto) 2.9 Baso % (Auto) 0.5 Lymph # (Auto) 2.2 [place] # (Auto) 0.4 Eos # (Auto) 0.1 Baso # (Auto) 0.0 Abs Immat Gran (auto) 0.01 Absolute Neuts (auto) 1.5 L Absolute Nucleated RBC 0.000 Nucleated RBC % (auto) 0.0 VBG pH VBG pCO2 VBG pO2 VBG HCO3 VBG O2 Saturation VBG Base Excess Sodium Potassium Chloride Carbon Dioxide Anion Gap BUN Creatinine Estim Creat Clear Calc Estimated GFR POC Glucose 286 H 199 H Random Glucose Calcium Phosphorus Magnesium Total Bilirubin AST ALT Alkaline Phosphatase Troponin I High Sens Total Protein Albumin Beta-Hydroxybutyrate Urine Color Urine Appearance Urine pH Ur Specific [place] Urine Protein Urine Glucose (UA) Urine Ketones Urine Blood Urine Nitrite Ur Leukocyte Esterase Urine RBC Urine WBC Ur Squamous Epith Cells Urine Bacteria Hyaline Casts Urine Yeast 01/08/23 01/08/23 01/08/23 04:35 04:41 06:41 WBC RBC Hgb Hct MCV MCH MCHC RDW Plt Count MPV Immature Gran % (Auto) Neut % (Auto) Lymph % (Auto) [place] % (Auto) Eos % (Auto) Baso % (Auto) Lymph # (Auto) [place] # (Auto) Eos # (Auto) Baso # (Auto) Abs Immat Gran (auto) Absolute Neuts (auto) Absolute Nucleated RBC Nucleated RBC % (auto) VBG pH 7.27 L VBG pCO2 31 VBG pO2 40 VBG HCO3 15 L VBG O2 Saturation 66.0 VBG Base Excess -10.3 Sodium 138 Potassium 3.3 Chloride 111 H Carbon Dioxide 13 L Anion Gap 17 BUN 15 Creatinine 1.64 H Estim Creat Clear Calc 61.6 Estimated GFR 45 POC Glucose 235 H Random Glucose 199 H Calcium 8.8 Phosphorus 2.4 L Magnesium 1.8 Total Bilirubin AST ALT Alkaline Phosphatase Troponin I High Sens Total Protein Albumin 3.1 L Beta-Hydroxybutyrate Urine Color Urine Appearance Urine pH Ur Specific [place] Urine Protein Urine Glucose (UA) Urine Ketones Urine Blood Urine Nitrite Ur Leukocyte Esterase Urine RBC Urine WBC Ur Squamous Epith Cells Urine Bacteria Hyaline Casts Urine Yeast 01/08/23 01/08/23 01/08/23 07:58 08:56 09:54 WBC RBC Hgb Hct MCV MCH MCHC RDW Plt Count MPV Immature Gran % (Auto) Neut % (Auto) Lymph % (Auto) [place] % (Auto) Eos % (Auto) Baso % (Auto) Lymph # (Auto) [place] # (Auto) Eos # (Auto) Baso # (Auto) Abs Immat Gran (auto) Absolute Neuts (auto) Absolute Nucleated RBC Nucleated RBC % (auto) VBG pH VBG pCO2 VBG pO2 VBG HCO3 VBG O2 Saturation VBG Base Excess Sodium Potassium Chloride Carbon Dioxide Anion Gap BUN Creatinine Estim Creat Clear Calc Estimated GFR POC Glucose 257 H 331 H 330 H Random Glucose Calcium Phosphorus Magnesium Total Bilirubin AST ALT Alkaline Phosphatase Troponin I High Sens Total Protein Albumin Beta-Hydroxybutyrate Urine Color Urine Appearance Urine pH Ur Specific [place] Urine Protein Urine Glucose (UA) Urine Ketones Urine Blood Urine Nitrite Ur Leukocyte Esterase Urine RBC Urine WBC Ur Squamous Epith Cells Urine Bacteria Hyaline Casts Urine Yeast 01/08/23 01/08/23 01/08/23 10:17 10:22 10:55 WBC RBC Hgb Hct MCV MCH MCHC RDW Plt Count MPV Immature Gran % (Auto) Neut % (Auto) Lymph % (Auto) [place] % (Auto) Eos % (Auto) Baso % (Auto) Lymph # (Auto) [place] # (Auto) Eos # (Auto) Baso # (Auto) Abs Immat Gran (auto) Absolute Neuts (auto) Absolute Nucleated RBC Nucleated RBC % (auto) VBG pH 7.32 VBG pCO2 31 VBG pO2 59 VBG HCO3 16 L VBG O2 Saturation 89.0 VBG Base Excess -8.0 Sodium 134 L Potassium 3.2 L Chloride 109 H Carbon Dioxide 15 L Anion Gap 13 BUN 14 Creatinine 1.49 H Estim Creat Clear Calc 67.9 Estimated GFR 51 POC Glucose 217 H Random Glucose 315 H Calcium 8.9 Phosphorus Magnesium Total Bilirubin AST ALT Alkaline Phosphatase Troponin I High Sens Total Protein Albumin Beta-Hydroxybutyrate Urine Color Urine Appearance Urine pH Ur Specific [place] Urine Protein Urine Glucose (UA) Urine Ketones Urine Blood Urine Nitrite Ur Leukocyte Esterase Urine RBC Urine WBC Ur Squamous Epith Cells Urine Bacteria Hyaline Casts Urine Yeast 01/08/23 01/08/23 01/08/23 11:56 13:00 14:03 WBC RBC Hgb Hct MCV MCH MCHC RDW Plt Count MPV Immature Gran % (Auto) Neut % (Auto) Lymph % (Auto) [place] % (Auto) Eos % (Auto) Baso % (Auto) Lymph # (Auto) [place] # (Auto) Eos # (Auto) Baso # (Auto) Abs Immat Gran (auto) Absolute Neuts (auto) Absolute Nucleated RBC Nucleated RBC % (auto) VBG pH VBG pCO2 VBG pO2 VBG HCO3 VBG O2 Saturation VBG Base Excess Sodium 135 Potassium 3.8 Chloride 108 Carbon Dioxide 17 L Anion Gap 14 BUN 12 Creatinine 1.28 Estim Creat Clear Calc 79.0 Estimated GFR > 60 POC Glucose 190 H 202 H Random Glucose 190 H Calcium 9.1 Phosphorus 1.7 L Magnesium Total Bilirubin AST ALT Alkaline Phosphatase Troponin I High Sens Total Protein Albumin Beta-Hydroxybutyrate Urine Color Urine Appearance Urine pH Ur Specific [place] Urine Protein Urine Glucose (UA) Urine Ketones Urine Blood Urine Nitrite Ur Leukocyte Esterase Urine RBC Urine WBC Ur Squamous Epith Cells Urine Bacteria Hyaline Casts Urine Yeast 01/08/23 01/08/23 01/08/23 14:03 14:11 15:03 WBC RBC Hgb Hct MCV MCH MCHC RDW Plt Count MPV Immature Gran % (Auto) Neut % (Auto) Lymph % (Auto) [place] % (Auto) Eos % (Auto) Baso % (Auto) Lymph # (Auto) [place] # (Auto) Eos # (Auto) Baso # (Auto) Abs Immat Gran (auto) Absolute Neuts (auto) Absolute Nucleated RBC Nucleated RBC % (auto) VBG pH 7.36 VBG pCO2 34 VBG pO2 50 VBG HCO3 19 L VBG O2 Saturation 82.0 VBG Base Excess -4.5 Sodium Potassium Chloride Carbon Dioxide Anion Gap BUN Creatinine Estim Creat Clear Calc Estimated GFR POC Glucose 205 H 237 H Random Glucose Calcium Phosphorus Magnesium Total Bilirubin AST ALT Alkaline Phosphatase Troponin I High Sens Total Protein Albumin Beta-Hydroxybutyrate Urine Color Urine Appearance Urine pH Ur Specific [place] Urine Protein Urine Glucose (UA) Urine Ketones Urine Blood Urine Nitrite Ur Leukocyte Esterase Urine RBC Urine WBC Ur Squamous Epith Cells Urine Bacteria Hyaline Casts Urine Yeast Progress Note: A&P Assessment and plan (1) Diabetic keto-acidosis: Status: Acute (2) Diabetes mellitus with gastroparesis: Status: Acute (3) Chronic nausea: Status: Acute (4) Hypertension: Status: Acute Plan Plan is to continue with diet and he can be mobilized with going to stop subcutaneous heparin and we will continue with combination of subcutaneous short-acting with meals and bedtime along with long-acting but continue his IV fluids I think and until the morning Quality Stroke Does the patient have a stroke diagnosis?: No VTE Prior VTE?: No VTE Risk Level:: Medical - moderate - high VTE Device Contraindication: N/A - Device Ordered VTE Drug Contraindication: N/A - Med Ordered
[2023-01-08] MEDS: Insulin Glargine,Hum.rec.anlog 100 UNIT/ML 10 ML VIAL 15 UNIT SUBCUT (15:57)
[2023-01-08] MEDS: Lactated Ringers 1,000 ML 80 ML IVCONT (16:01)
[2023-01-08 16:42] LABS: Glucose, Whole Blood 321 mg/dL (60-115)
[2023-01-08] MEDS: Insulin Lispro 100 UNIT/ML 3 ML VIAL SUBCUT ×2 (16:58→20:33)
[2023-01-08 20:25] LABS: Glucose, Whole Blood 338 mg/dL (60-115)
[2023-01-09 03:06] VITALS: BP 118/64; PULSE 65; RESP 16; TEMP 36.8; O2SAT 97
[2023-01-09] MEDS: Lactated Ringers 1,000 ML 80 ML IVCONT (03:36)
[2023-01-09 07:18] VITALS: BP 111/69; PULSE 61; RESP 18; TEMP 36.2; O2SAT 98
[2023-01-09 07:47] LABS: Glucose, Whole Blood 327 mg/dL (60-115)
[2023-01-09] MEDS: Insulin Glargine,Hum.rec.anlog 100 UNIT/ML 10 ML VIAL 15 UNIT SUBCUT (08:43)
[2023-01-09] MEDS: Insulin Lispro 100 UNIT/ML 3 ML VIAL SUBCUT ×3 (08:44→20:26)
[2023-01-09] MEDS: Benzonatate 100 MG CAPSULE PO ×3 (10:55→20:26)
[2023-01-09 11:25] VITALS: BP 139/83; PULSE 78; RESP 18; TEMP 36.3; O2SAT 99
[2023-01-09 11:52] LABS: Glucose, Whole Blood 388 mg/dL (60-115)
--- NOTE | 2023-01-09 11:58 | HO.PM.IMPN ---
Subjective Subjective Date of Service: 01/09/23 Interval History: Seen and evaluated feels better overall blood sugar still elevated in 300s reporting mild nausea and cough No other overnight events Review of Systems Review of Systems: Yes all other systems are reviewed and are negative Physical Exam Vital Signs: Vital Signs: Last Vital Signs Temp 97.3 F 01/09/23 11:25 Pulse 78 01/09/23 11:25 Resp 18 01/09/23 11:25 BP 139/83 01/09/23 11:25 Pulse Ox 99 01/09/23 11:25 O2 Del Method Room Air 01/09/23 11:25 BMI result Body Mass Index 32.7 Const: Other: Constitutional : Awake, interactive, not in distress Neck : Normal inspection, Supple Cardiovascular : RRR, no JVP, no lower extremity edema Respiratory : good bilateral air entry, no crackles, wheezes or rhonchi Gastrointestinal: soft, lax, Normal bowel sounds, Non tender Skin : Warm, Dry Neurological : Alert & oriented x3, No focal deficit Objective Data Active Medications Benzonatate (Benzonatate 100 Mg Capsule) 100 mg PO TID [facility] Last Admin: 01/09/23 10:55 Dose: 100 mg Documented By: SHUKRI Dextrose (Dextrose 50 % 25 Gm/50 Ml Syringe) 25 gm IVPUSH Q30M PRN PRN Reason: BG < 70 Dextrose (Dextrose 50 % 25 Gm/50 Ml Syringe) 25 gm IVPUSH Q15M PRN; Protocol PRN Reason: per Hypoglycemia Standing Ord. Dextrose (Dextrose 50 % 25 Gm/50 Ml Syringe) 25 gm IVPUSH Q15M PRN; Protocol PRN Reason: per Hypoglycemia Standing Ord. Glucose (Glucose Gel 15 Gm Gel..Gram.) 15 gm PO Q15M PRN; Protocol PRN Reason: per Hypoglycemia Standing Ord. Glucose (Glucose Gel 15 Gm Gel..Gram.) 15 gm PO Q15M PRN; Protocol PRN Reason: per Hypoglycemia Standing Ord. Lactated Ringer's (Lr) 1,000 mls @ 100 mls/hr IVCONT .Q10H [facility] Last Infusion: 01/09/23 10:55 Dose: 100 mls/hr Documented By: SHUKRI Insulin Glargine (Insulin Glargine,Hum.Rec.Anlog 100 Unit/Ml 10 Ml Vial) 20 unit SUBCUT BID [facility] Last Admin: 01/09/23 08:56 Dose: Not Given Documented By: SHUKRI Non-Admin Reason: Previously Administered Insulin Human Lispro (Insulin Lispro 100 Unit/Ml 3 Ml Vial) 0 unit SUBCUT QIDACHS [facility]; Protocol Stop: 01/09/23 15:45 Last Admin: 01/09/23 08:44 Dose: 8 unit Documented By: SHUKRI Insulin Human Lispro (Insulin Lispro 100 Unit/Ml 3 Ml Vial) 10 unit SUBCUT ONCE ONE Stop: 01/09/23 11:57 Labs 01/08/23 04:35 01/08/23 14:03 Labs: Laboratory Results - last 24 hr 01/08/23 01/08/23 01/08/23 11:56 13:00 14:03 VBG pH VBG pCO2 VBG pO2 VBG HCO3 VBG O2 Saturation VBG Base Excess Anion Gap 14 Estim Creat Clear Calc 79.0 Estimated GFR > 60 POC Glucose 190 H 202 H Random Glucose 190 H Calcium 9.1 Phosphorus 1.7 L 01/08/23 01/08/23 01/08/23 14:03 14:11 15:03 VBG pH 7.36 VBG pCO2 34 VBG pO2 50 VBG HCO3 19 L VBG O2 Saturation 82.0 VBG Base Excess -4.5 Anion Gap Estim Creat Clear Calc Estimated GFR POC Glucose 205 H 237 H Random Glucose Calcium Phosphorus 01/08/23 01/08/23 01/09/23 16:39 20:21 07:21 VBG pH VBG pCO2 VBG pO2 VBG HCO3 VBG O2 Saturation VBG Base Excess Anion Gap Estim Creat Clear Calc Estimated GFR POC Glucose 321 H 338 H 327 H Random Glucose Calcium Phosphorus 01/09/23 11:28 VBG pH VBG pCO2 VBG pO2 VBG HCO3 VBG O2 Saturation VBG Base Excess Anion Gap Estim Creat Clear Calc Estimated GFR POC Glucose 388 H* Random Glucose Calcium Phosphorus Assessment and Plan (1) Diabetic keto-acidosis: Status: Acute (2) Diabetes mellitus with gastroparesis: Status: Acute Plan A 47 years old with pmh of DM, HTN who presented to the hospital for N\V with DKA requiring ICU admission for insulin drip. DKA 2/2 type 2 diabetes w hyperglycemia pending A1c increase Lantus to 25 units bid SSI diabetic diet LAURA on CKD 3 resolved Cough check XR tessalon HTN NOt on meds, monitor DVT PPx Lovenox The patient needs overnight hospital stay for monitoring high blood sugar readings Time Spent With Patient Time: Total time managing care of this patient today ____ minutes. Quality Stroke Does the patient have a stroke diagnosis?: No VTE Prior VTE?: No VTE Risk Level:: Medical - moderate - high VTE Device Contraindication: N/A - Device Ordered VTE Drug Contraindication: N/A - Med Ordered
[2023-01-09] MEDS: Insulin Lispro 100 UNIT/ML 3 ML VIAL 10 UNIT SUBCUT (12:02)
[2023-01-09] MEDS: Lactated Ringers 1,000 ML 100 ML IVCONT ×2 (12:04→20:27)
[2023-01-09 12:50] LABS: Estimated Average Glucose 332 mg/dL; Hemoglobin A1c % 13.2 %
[2023-01-09 13:47] LABS: Anion Gap 17 (12-20); Blood Urea Nitrogen 8 mg/dL (9-16); Calcium 9.3 mg/dL (8.4-10.2); Carbon Dioxide 17 mmol/L (22-29); Chloride 102 mmol/L (96-108); Creatinine Clr Calc Pharmacy 91.9; Estimated Glomerular Filt Rate > 60; Glucose Random 369 mg/dL (60-115); Potassium 3.3 mmol/L (3.3-5.1); Sodium 133 mmol/L (135-145)
[2023-01-09 14:53] VITALS: BP 128/76; PULSE 73; RESP 18; TEMP 36.1; O2SAT 98
[2023-01-09 16:24] LABS: Glucose, Whole Blood 249 mg/dL (60-115)
[2023-01-09] MEDS: metFORMIN HCl 850 MG TABLET PO (17:47)
[2023-01-09 19:07] VITALS: BP 124/78; PULSE 78; RESP 16; TEMP 36.3; O2SAT 97
[2023-01-09 19:54] LABS: Glucose, Whole Blood 369 mg/dL (60-115)
[2023-01-09] MEDS: Insulin Glargine,Hum.rec.anlog 100 UNIT/ML 10 ML VIAL 25 UNIT SUBCUT (20:26)
[2023-01-10 00:22] VITALS: BP 132/79; PULSE 74; RESP 20; TEMP 36.1; O2SAT 94
[2023-01-10 03:29] VITALS: BP 141/65; PULSE 62; RESP 20; TEMP 36.1; O2SAT 99
[2023-01-10 06:53] LABS: Hematocrit 31.5 % (42.0-52.0); Hemoglobin 11.5 g/dl (14.0-18.0); Mean Corpuscular HGB Conc 36.5 g/dl (31.0-36.0); Mean Corpuscular Hemoglobin 31.7 pg (27.0-33.0); Mean Corpuscular Volume 86.8 fL (80.0-98.0); Mean Platelet Volume 11.3 fL (9.4-12.4); Platelet Count 226 X10*3/uL (160-400); Red Blood Count 3.63 X10*6/uL (4.60-5.80); Red Cell Distribution Width 13.2 % (11.0-16.0); White Blood Count 3.4 X10*3/uL (4.8-10.8)
[2023-01-10] MEDS: Lactated Ringers 1,000 ML 100 ML IVCONT (07:04)
[2023-01-10 07:15] VITALS: BP 120/65; PULSE 62; RESP 18; TEMP 36.3; O2SAT 97
[2023-01-10 07:22] LABS: Anion Gap 11 (12-20); Blood Urea Nitrogen 7 mg/dL (9-16); Calcium 8.7 mg/dL (8.4-10.2); Carbon Dioxide 22 mmol/L (22-29); Chloride 105 mmol/L (96-108); Creatinine Clr Calc Pharmacy 112.4; Estimated Glomerular Filt Rate > 60; Glucose Random 319 mg/dL (60-115); Sodium 135 mmol/L (135-145)
[2023-01-10 07:38] LABS: Glucose, Whole Blood 315 mg/dL (60-115)
[2023-01-10] MEDS: Insulin Glargine,Hum.rec.anlog 100 UNIT/ML 10 ML VIAL 35 UNIT SUBCUT (08:38)
[2023-01-10] MEDS: Enoxaparin Sodium 40 MG/0.4 ML SYRINGE SUBCUT (08:38)
[2023-01-10] MEDS: metFORMIN HCl 850 MG TABLET PO (08:39)
[2023-01-10] MEDS: Benzonatate 100 MG CAPSULE PO (08:39)
[2023-01-10] MEDS: Potassium Chloride Packet 20 MEQ PACKET 40 MEQ PO ×3 (08:39→11:50)
[2023-01-10] MEDS: Insulin Lispro 100 UNIT/ML 3 ML VIAL SUBCUT ×2 (08:39→11:50)
--- NOTE | 2023-01-10 11:04 | MHC.CM.PN ---
Per MD, Patient will be medically cleared for dc to home today, self care.
[2023-01-10 11:13] VITALS: BP 138/85; PULSE 76; RESP 18; TEMP 36.4; O2SAT 96
[2023-01-10 11:37] LABS: Glucose, Whole Blood 322 mg/dL (60-115)
--- NOTE | 2023-01-10 11:41 | PM.DS ---
DS: Providers Provider Date of Service: 01/10/23 Date of admission: 01/07/23 21:01 Primary care physician: Regla Ruiz MD DS: Diagnosis Discharge Diagnosis (1) Diabetic keto-acidosis: Status: Acute (2) Diabetes mellitus with gastroparesis: Status: Acute (3) Uncontrolled diabetes mellitus with hyperglycemia, with long-term current use of insulin: Status: Acute (4) Hypokalemia: Status: Acute DS: Summary Hospital Course Hospital Course: Admission note HPI to ICU The patient is a 47-year-old male past medical history of diabetes, hypertension, who presented to the emergency room? with complaint of high blood sugars, high blood pressure, and intermittent abdominal discomfort. The patient reports? that he has not had insulin for the last 3 days due to difficulty obtaining a prescription. The patient?s girlfriend states he has chronic nausea, poor appetite, and does not eat.? The patient reports a 50 lb weight loss in the last few months and early satiety.? In the ED? his blood glucose? 364,? potassium 3.6, bicarb 12, anion gap 27, BUN 15, creatinine 2.00, Beta hydroxybutyrate 6.75,? venous pH 7.24. He received 3 L of? normal saline, and was given 9 units IV insulin. He was given Zofran? for nausea. He will be admitted to the ICU for management of DKA.? Hospital course The patient was admitted to ICU for evidence of hyperglycemia with DKA treated with IV fluids and IV insulin drip with good response as the gap closed and he tolerated diet with higher doses of Lantus insulin. continues to run relatively high 250-300. advised about the need of better control of his sugar as HbA1c came back at 13.2. had elevation of Cr improved with fluids. low potassium and sodium replaced and corrected. started on Metformin. Complained of cough with no fever or other signs of infection, CXR was negative for any infiltrates. Start Metformin 850 mg twice daily Increase Lantus to 35 units twice daily for now Meal time Lispro insulin 15 units Increase physical activity, lose weight and eat healthy Check your blood sugar readings 4 times a day and report 1 week readings to PCP for further adjustments in you home medications Watch for symptoms of low blood sugar Time Spent with Patient Time attestation: Total time managing care of this patient today ____ minutes. Discharge coordination time: Greater than 30 minutes Quality: Safe Use of Opioids Does Pt have an Active Cancer Diagnosis on the Problem List?: No Quality: Stroke Does the patient have a stroke diagnosis?: No Physical Exam Vital Signs: Vital Signs: Last Vital Signs Temp 97.6 F 01/10/23 11:13 Pulse 76 01/10/23 11:13 Resp 18 01/10/23 11:13 BP 138/85 01/10/23 11:13 Pulse Ox 96 01/10/23 11:13 O2 Del Method Room Air 01/10/23 11:13 BMI result Body Mass Index 32.7 Const: Other: Constitutional : Awake, interactive, not in distress Neck : Normal inspection, Supple Cardiovascular : RRR, no JVP, no lower extremity edema Respiratory : good bilateral air entry, no crackles, wheezes or rhonchi Gastrointestinal: soft, lax, Normal bowel sounds, Non tender Skin : Warm, Dry Neurological : Alert & oriented x3, No focal deficit DS: Data Data Completed and Pending Labs on day of discharge: Laboratory Results - last 24 hr 01/09/23 01/09/23 01/09/23 11:28 12:23 12:24 WBC RBC Hgb Hct MCV MCH MCHC RDW Plt Count MPV Absolute Nucleated RBC Nucleated RBC % (auto) Sodium 133 L Potassium 3.3 Chloride 102 Carbon Dioxide 17 L Anion Gap 17 BUN 8 L Creatinine 1.10 Estim Creat Clear Calc 91.9 Estimated GFR > 60 POC Glucose 388 H* Random Glucose 369 H* Estimat Average Glucose 332 Hemoglobin A1c % 13.2 Calcium 9.3 01/09/23 01/09/23 01/10/23 16:11 19:46 06:07 WBC 3.4 L RBC 3.63 L Hgb 11.5 L Hct 31.5 L MCV 86.8 MCH 31.7 MCHC 36.5 H RDW 13.2 Plt Count 226 MPV 11.3 Absolute Nucleated RBC 0.000 Nucleated RBC % (auto) 0.0 Sodium Potassium Chloride Carbon Dioxide Anion Gap BUN Creatinine Estim Creat Clear Calc Estimated GFR POC Glucose 249 H 369 H* Random Glucose Estimat Average Glucose Hemoglobin A1c % Calcium 01/10/23 01/10/23 01/10/23 06:07 07:18 11:16 WBC RBC Hgb Hct MCV MCH MCHC RDW Plt Count MPV Absolute Nucleated RBC Nucleated RBC % (auto) Sodium 135 Potassium 3.0 L Chloride 105 Carbon Dioxide 22 Anion Gap 11 L BUN 7 L Creatinine 0.90 Estim Creat Clear Calc 112.4 Estimated GFR > 60 POC Glucose 315 H 322 H Random Glucose 319 H Estimat Average Glucose Hemoglobin A1c % Calcium 8.7 D Imaging Chest x-ray: Radiologist's impression: ITS Impressions Chest X-Ray 01/09/23 11:09 IMPRESSION: No consolidations or failure. Elevated right hemidiaphragm. In the absence of previous studies for comparison, unclear if this is chronic or acute finding. Discharge Plan Discharge Anticipated Discharge Date/Time: 01/10/23 11:28 Patient Disposition: Home, Self-Care Discharge Diagnosis: Diabetic keto-acidosis Poorly controlled diabetes Referrals: Regla Chester MD [Primary Care Provider] - 1 Week Discharge Medications: New metformin 850 mg Tablet 850 mg PO BIDWM Qty: 60 2RF Continued (DME) blood-glucose meter [FreeStyle Lite Meter] Kit See Rx Instructions .ROUTE .MEDSUPPLY Qty: 1 0RF Rx Instructions: As directed (DME) lancets [1st Tier Unilet ComforTouch] 28 gauge misc See Rx Instructions .ROUTE .MEDSUPPLY Qty: 100 0RF Rx Instructions: As directed (DME) insulin syringes (disposable) 1 mL syringe See Rx Instructions .Route Qty: 500 0RF Rx Instructions: As directed (DME) FreeStyle Lite Strips Strip See Rx Instructions .ROUTE .MEDSUPPLY Qty: 100 1RF Rx Instructions: As directed (DME) insulin syringes (disposable) 1 mL syringe See Rx Instructions .ROUTE .MEDSUPPLY Qty: 500 1RF Rx Instructions: As directed (DME) pen needle, diabetic [BD Aziza 2nd Gen Pen Needle] 32 gauge x 5/32 needle See Rx Instructions .ROUTE .MEDSUPPLY Qty: 100 1RF Rx Instructions: As directed (4 times/day) (DME) lancets [Sure Comfort Lancets] 30 gauge misc See Rx Instructions .Route Qty: 200 1RF Rx Instructions: As directed insulin lispro [Humalog U-100 Insulin] 100 unit/mL Solution 15 unit subcut TIDAC Qty: 10 1RF Changed insulin glargine [Lantus U-100 Insulin] 100 unit/mL solution 35 unit subcut BID Qty: 20 1RF Discharge Orders: Discharge Order (Routine); Ordered 01/10/23 Ordered By: Tani Allen Diet: Diabetic diet Activity on Discharge: As tolerated Stand Alone Forms: Patient Portal Discharge page, Work/School Release Care Plan Goals: Read below Health Concerns: Read below Plan of Treatment: Read below Assessment: You were admitted to the hospital for significantly elevated blood sugars with evidence of blood acidity requiring ICU admission for insulin drip, IVF with improvement of symptoms over the course of hospital stay. You will need a better control of your blood sugars. Start Metformin 850 mg twice daily Increase Lantus to 35 units twice daily for now Meal time Lispro insulin 15 units Increase physical activity, lose weight and eat healthy Check your blood sugar readings 4 times a day and report 1 week readings to PCP for further adjustments in you home medications Watch for symptoms of low blood sugar Patient Instructions: Diabetic Ketoacidosis (DC), Hypoglycemia in a Person with Diabetes (DC), Diabetic Hyperglycemia (DC) Discharge Date/Time: 01/10/23 13:08
--- NOTE | 2023-01-10 14:45 | P.CDIM_ITS ---
PROVIDER RESPONSE TEXT: To clarify, the appropriate diagnosis supported by the clinical indicators: Hypophosphatemia QUERY TEXT: PHYSICIAN'S DOCUMENTATION REQUEST Date of Query: 01/10/2023 08:33 AM EDT Patient Name: Vijay Zazueta Admit Date: 01/08/2023 Dear Tani Allen, A review of the medical record indicates additional documentation may be needed. Please review below and update the documentation accordingly. Clinical Indicators: LABS: phosphorus 1.7 L Based on the above, is there a diagnosis that correlates with these lab findings: Hypophosphatemia Labs indicate a diagnosis of (please specify) Other Other (explain)Clinically unable to determine (explain)Thank you, Roxann Shen, CCS, CDIS Use of terms such as suspected, likely, concern for, or probable (associated with a specific diagnosi s that is being evaluated, monitored, or treated as if it exists) are acceptable and can be coded in the inpatient se tting, when documented at the time of discharge. Please use your independent medical judgment in providing your response. THIS QUERY IS PART OF THE PERMANENT MEDICAL RECORD
--- NOTE | 2023-01-10 14:45 | P.CDIM_ITS ---
PROVIDER RESPONSE TEXT: To clarify, the appropriate diagnosis supported by the clinical indicators: Hypokalemia QUERY TEXT: PHYSICIAN'S DOCUMENTATION REQUEST Date of Query: 01/10/2023 09:52 AM EDT Patient Name: Vijay Zazueta Admit Date: 01/08/2023 Dear Tani Allen, A review of the medical record indicates additional documentation may be needed. Please review below and update the documentation accordingly. Clinical Indicators: LAB FINDINGS: potassium 3.0 L Potassium chloride 40 meq PO Based on the above, is there a diagnosis that correlates with the lab findings: Hypokalemia Labs indicate a diagnosis of (please specify) Other Other (explain)Clinically unable to determine (explain)Thank you, Roxann Shen, CCS, CDIS Use of terms such as suspected, likely, concern for, or probable (associated with a specific diagnosi s that is being evaluated, monitored, or treated as if it exists) are acceptable and can be coded in the inpatient se tting, when documented at the time of discharge. Please use your independent medical judgment in providing your response. THIS QUERY IS PART OF THE PERMANENT MEDICAL RECORD
== END 2023-01-10 13:08 | disposition home or self-care (01) | DRG 420 ==
LOC: HO.ED 20:00 → HO.EDOVER 21:11 → HO.ICU 22:37 → HO.IMC 01-08 16:00
PROVIDERS: Internal Medicine; Internal Medicine Cardiovascular Disease; Physician Assistant; Admitting Provider Nurse Practitioner Family; Emergency Provider Student in an Organized Health Care Education/Training Program; PCP Internal Medicine; Visit Provider Student in an Organized Health Care Education/Training Program
DX: E11.10 Type 2 diabetes mellitus with ketoacidosis without coma (principal); N17.9 Acute kidney failure, unspecified; E83.39 Other disorders of phosphorus metabolism; T38.3X6A Underdosing of insulin and oral hypoglycemic [antidiabetic] drugs, initial encounter; K31.84 Gastroparesis; E86.0 Dehydration; E11.43 Type 2 diabetes mellitus with diabetic autonomic (poly)neuropathy; E87.6 Hypokalemia; Z79.4 Long term (current) use of insulin; Z79.84 Long term (current) use of oral hypoglycemic drugs
CPT/HCPCS: 36415; 71045; 80048; 80053; 81001; 82010; 82040; 82803; 82947; 83036; 83735; 84100; 84484; 85025; 85027; 93005; 99285; J1643; J1650; J2405; J3411

== ENCOUNTER → 2023-01-07 15:45 | Outpatient (BNV) | payer OTHER, SELFPAY | PROVIDERS: Admitting Provider Nurse Practitioner Family; Emergency Provider Student in an Organized Health Care Education/Training Program; PCP Internal Medicine; Visit Provider Internal Medicine Cardiovascular Disease | DX: R00.0 Tachycardia, unspecified (principal); R94.31 Abnormal electrocardiogram [ECG] [EKG] | CPT/HCPCS: 93010 ==

== ENCOUNTER → 2023-01-07 21:01 | Outpatient (BNV) | payer OTHER, SELFPAY | PROVIDERS: Admitting Provider Nurse Practitioner Family; Emergency Provider Student in an Organized Health Care Education/Training Program; PCP Internal Medicine; Visit Provider Student in an Organized Health Care Education/Training Program | DX: E11.10 Type 2 diabetes mellitus with ketoacidosis without coma (principal); E11.43 Type 2 diabetes mellitus with diabetic autonomic (poly)neuropathy; E11.65 Type 2 diabetes mellitus with hyperglycemia; Z79.4 Long term (current) use of insulin; E87.6 Hypokalemia | CPT/HCPCS: 99232; 99239 ==

== ENCOUNTER → 2023-01-07 21:01 | Outpatient (BNV) | payer OTHER, SELFPAY | PROVIDERS: Admitting Provider Nurse Practitioner Family; Emergency Provider Student in an Organized Health Care Education/Training Program; PCP Internal Medicine; Visit Provider Nurse Practitioner Family | DX: E11.10 Type 2 diabetes mellitus with ketoacidosis without coma (principal); E11.43 Type 2 diabetes mellitus with diabetic autonomic (poly)neuropathy; R11.0 Nausea; I10 Essential (primary) hypertension | CPT/HCPCS: 99223; 99291 ==

== ENCOUNTER 2024-01-29 18:07 | Inpatient (IN) | payer SELFPAY ==
[2024-01-29] VITALS (14 sets, daily range): BP systolic 135–190; BP diastolic 76–106; PULSE 96–122; RESP 23–33; TEMP 36.7–37; O2SAT 97–100; BMI 36.8; BMI 34.2
--- NOTE | ~2024-01-29 | CT_ITS ---
EXAMINATION: CT ABDOMEN AND PELVIS WITHOUT CONTRAST CLINICAL INFORMATION: Elevated lipase. Nausea. COMPARISON: None available. TECHNIQUE: Multidetector volumetric imaging was performed from the superior aspect of the liver through the pubic symphysis. Sagittal and coronal reformatted images were obtained on the technologist's workstation. This CT examination was performed using dose optimization techniques as appropriate, variously including the following: *Automated exposure control *Adjustment of mA and/or kV according to patient size (this includes techniques or standardized protocols for targeted exams where dose is matched to indication/reason for exam; i.e. extremities or head) *Use of iterative reconstruction technique DLP: 921 mGy-cm FINDINGS: LUNG BASES: Asymmetric elevation of right diaphragm above the left LIVER, GALLBLADDER, AND BILIARY TREE: Diffuse low attenuation of liver parenchyma due to fatty change. Liver is enlarged. The liver measures [address] . The gallbladder is unremarkable with no evidence of radiopaque gallstones, gallbladder wall thickening, or obvious pericholecystic inflammatory changes. PANCREAS: There is diffuse edema involving the pancreas with surrounding peripancreatic fat with stranding fluid extending along left paracolic gutter. Findings consistent with pancreatitis. No pancreatic duct dilatation or pancreatic mass. SPLEEN: Unremarkable. ADRENAL GLANDS: Unremarkable. KIDNEYS AND URETERS: The kidneys are normal in size, shape, and attenuation. No hydronephrosis, hydroureter, or calculi seen. No perinephric stranding. BLADDER: Unremarkable. GASTROINTESTINAL TRACT: The small and large bowel are unremarkable. The appendix is unremarkable. ABDOMINAL WALL: Fat-containing umbilical hernia. LYMPH NODES: Normal. VASCULAR: Unremarkable. PELVIC VISCERA: Unremarkable. OSSEOUS STRUCTURES: Unremarkable. CT/CT abdomen pelvis wo IV con IMPRESSION: 1. Pancreatitis. 2. Hepatomegaly with diffuse fatty change of liver. Fleischner guidelines were followed.
--- NOTE | ~2024-01-29 | XR_ITS ---
EXAMINATION: XR CHEST CLINICAL INFORMATION: Bandemia. White blood cell count. COMPARISON: Chest radiograph dated 01/09/2023. TECHNIQUE: Frontal view of the chest was obtained. FINDINGS: The heart is normal in size. There is unchanged elevation of the right hemidiaphragm. There is subtle left lower lobe airspace opacity. No consolidation. No pleural effusion. No pneumothorax. No acute osseous abnormality. XR/XR chest 1V IMPRESSION: Subtle left lower lobe airspace opacity likely representing subsegmental atelectasis. Developing pneumonia is not excluded, however.
--- NOTE | 2024-01-29 18:22 | ECG_ITS ---
Test Reason : sob Blood Pressure : / mmHG Vent. Rate : 123 BPM Atrial Rate : 123 BPM P-R Int : 142 ms QRS Dur : 080 ms QT Int : 330 ms P-R-T Axes : 052 -34 059 degrees QTc Int : 472 ms Sinus tachycardia Left axis deviation Abnormal ECG When compared with ECG of 07-JAN-2023 15:52, Nonspecific T wave abnormality, improved in Lateral leads Referred By: Fatou Jimenez Electronically Signed By:Gonzales Antonio
--- NOTE | 2024-01-29 18:32 | ED_ITS ---
HPI - Nausea/Vomiting/Diarrhea General Chief complaint: Dyspnea Stated complaint: ABD PAIN,NAUSEA,SOB PER EMS Source: patient and old records reviewed Mode of arrival: EMS Limitations: no limitations History of Present Illness ED Provider: IIRNEO HPI Narrative: 48 yo male with IDDM who has not been taking his short acting insulin for 1+ week but randomly took 20 units yesterday. He has not taken his long acting insulin for one + month, no HTN for months he thinks he is in DKA - has abdominal cramps, nausea, dry heaves. Starting this AM. EMS got BS in 500s. He states he has no SI/HI and doesn't take his medications because he doesn't want to and is hard headed. MD elicited complaint: nausea, abdominal pain and other (hyperglycemia) Onset (ago): day(s) (1) Associated nausea: Yes Associated abdominal pain: Yes Location of pain: diffuse Radiation: diffuse Pain consistency: intermittent Severity: mild Quality: cramping Exacerbating factors: none Relieving factors: none Context: other (IDDM non compliant) Associated symptoms: loss of appetite, malaise, nausea/vomiting, shortness of breath and weakness Related Data Previous Rx's ?Medication ?Instructions ?Recorded blood-glucose meter (FreeStyle #1 ea 10/22/20 Lite Meter kit) lancets 28 gauge (1st Tier Unilet #100 ea 10/22/20 ComforTouch Lancet) insulin syringes (disposable) 1 mL #500 ea 08/30/21 blood sugar diagnostic (FreeStyle #100 ea 01/10/23 Lite Strips) insulin glargine 100 unit/mL 35 unit (0.35 mL) subcut BID #20 mL 01/10/23 subcutaneous solution (Lantus U-100 Insulin) insulin lispro 100 unit/mL 15 unit (0.15 mL) subcut TIDAC #10 01/10/23 subcutaneous solution (Humalog mL U-100 Insulin) insulin syringes (disposable) 1 mL #500 ea 01/10/23 lancets 30 gauge (Sure Comfort #200 ea 01/10/23 Lancets) metformin 850 mg tablet 850 mg PO BIDWM #60 tabs 01/10/23 pen needle, diabetic 32 gauge x #100 ea 01/10/23 (BD Aziza 2nd Gen Pen Needle) Allergies Allergy/AdvReac Type Severity Reaction Status Date / Time No Known Allergies Allergy Verified 01/29/24 18:33 Review of Systems 2 Review of Systems: Constitutional : No Weight loss, No Fever, No Chills ENT/Mouth : No sore throat, No Rhinorrhea Eyes: No Swelling, No Redness Cardiovascular : No Chest Pain, pos SOB, NoEdema Respiratory : No Cough, No Sputum, No Wheezing Gastrointestinal : Positive Nausea, Positive Vomiting, positive Diarrhea, positive abdominal Pain, No Hematochezia, No Melena Genitourinary : No Dysuria, No Urinary Frequency, No Hematuria, No Urgency Musculoskeletal : No joint pain, No Myalgias, No Joint Swelling Skin : No Skin Lesions, No rash Neuro : No Weakness, No Numbness, No Dizziness, No Headache Psych : No Anxiety/Panic, No Depression Endocrine : No Polyuria, No Polydipsia All other systems reviewed and are negative. Gastrointestinal: Gastrointestinal: Reports nausea PMFSH Past Medical History Attestation statement: The following information was validated with the patient. Source: old records reviewed Medical History Chronic nausea Diabetes mellitus with gastroparesis Hypertension Social History Social History Household Members: Spouse Housing: House Do you presently have visiting nurse or other home services: No Alcohol intake: current Alcohol intake frequency: holidays/special occasions only Alcohol type: beer and hard liquor Patient Tobacco Use Status: Never used Tobacco Smoked in Last 30 Days: No e-Cigarette/Vaping Use: Never Used Second Hand Smoke Exposure: No Use of substances other than those prescribed or required for medical reasons: No Advance Directives: No Advance Directives Information Provided: No service: No Current occupational status: employed Physical Exam 2 Vital Signs: Vital Signs: Last Vital Signs Temp 98.0 F 01/29/24 18:29 Pulse 110 H 01/29/24 19:21 Resp 25 H 01/29/24 19:21 BP 166/76 H 01/29/24 19:21 Pulse Ox 99 01/29/24 19:21 O2 Del Method Room Air 01/29/24 18:29 BMI result Body Mass Index 36.8 Appearance: Alert. Oriented X3. Mild acute distress. Eyes: Pupils equal, round and reactive to light. ENT: Pharynx dry MM. Breath smells of acetone Neck: Normal inspection. Neck supple. CVS: Normal heart rate and rhythm. Pulses normal. Respiratory: Mild respiratory distress - irregular rapid shallow breathing. Breath sounds normal. Abdomen: Soft and nontender. Skin: Skin warm and dry. Normal skin color. poor skin turgor. Extremities: No lower extremity edema. No calf ttp Neuro: Oriented X 3. No motor deficit. No sensory deficit. Course Course Course Narrative: has bandemia infection suspected 758pm cultures and zosyn ordered x 1 dose Reevaluation(s) Reevaluation #1: still mentating well aware of plan partner at bedside Reevaluation #2: to get CT scan prior to admission - [place] to follow for elevated lipase he has no abdominal pain on exam Medications Administered Generic Name Dose Route Start Last Admin Trade Name Freq PRN Reason Stop Dose Admin Insulin Human Regular 100 unit in 100 mls @ 10 mls/hr 01/29/24 19:00 01/29/24 20:27 Myxredlin IVCONT 8 unit/hr .Q10H NESS 8 mls/hr Titration Protocol 10 UNIT/HR Sodium Chloride 1,000 mls @ 999 mls/hr 01/29/24 21:11 01/29/24 21:13 Ns IV 01/29/24 22:11 999 mls/hr .Q1H1M ONE Administration Discontinued Medications Generic Name Dose Route Start Last Admin Trade Name Freq PRN Reason Stop Dose Admin Lactated Ringer's 1,000 mls @ 999 mls/hr 01/29/24 18:22 01/29/24 20:30 Lr IV 01/29/24 19:22 Infused .Q1H1M ONE Infusion Lactated Ringer's 1,000 mls @ 999 mls/hr 01/29/24 18:23 01/29/24 20:04 Lr IV 01/29/24 19:23 Infused .Q1H1M ONE Infusion Lactated Ringer's 1,000 mls @ 999 mls/hr 01/29/24 19:16 01/29/24 20:30 Lr IV 01/29/24 20:16 Infused .Q1H1M ONE Infusion Piperacillin Sod/Tazobactam 50 mls @ 100 mls/hr 01/29/24 19:56 01/29/24 20:58 Sod 3.375 gm/ Sodium Chloride IV 01/29/24 20:25 Infused ONCE ONE Infusion Lactated Ringer's 500 mls @ 250 mls/hr 01/29/24 20:00 01/29/24 21:12 Lr IV 01/29/24 20:59 Not Given .Q2H NESS Ondansetron HCl 4 mg 01/29/24 18:22 01/29/24 18:48 Ondansetron Hcl 4 Mg/2 Ml Vial IVPUSH 01/29/24 18:23 4 mg ONCE ONE Administration Medical Decision Making Medical Decision Making MDM Narrative: 48 yo male with IDDM, HTN not compliant here with c/o nausea, abdominal cramps, high blood sugars - presentation and clinical picture likely DKA due to non compliance. Also HTN but no refill of meds since 2021 at this time labs, EKG, IVF x 2L, start insulin drip and monitor K. Planned admit Differential Diagnosis Differential Diagnoses: The differential diagnosis associated with the presentation includes DKA, non compliance, uncontrolled HTN Admission/Observation Consideration of admission/observation: Escalation of care including admission/observation considered admission given DKA Consult Healthcare Provider Management of the patient was discussed with: Information Scientist (ICU aware will admit) Jyoti aware will admit [place] aware will come down and see patient Lab Data [facility] Lab Attestation statement: I reviewed the patient's lab results. 01/29/24 18:39 01/29/24 20:00 Labs: Lab Results 01/29/24 01/29/24 01/29/24 Range/Units 18:39 18:45 18:54 WBC 12.1 H (4.8-10.8) X10*3/uL RBC 4.75 D (4.60-5.80) X10*6/uL Hgb 15.7 D (14.0-18.0) g/dl Hct 45.1 D (42.0-52.0) % MCV 94.9 (80.0-98.0) fL MCH 33.1 H (27.0-33.0) pg MCHC 34.8 (31.0-36.0) g/dl RDW 13.5 (11.0-16.0) % Plt Count 357 D (160-400) X10*3/uL MPV 11.3 (9.4-12.4) fL Immature Gran % (Auto) Cancelled Neut % (Auto) Cancelled Lymph % (Auto) Cancelled [place] % (Auto) Cancelled Eos % (Auto) Cancelled Baso % (Auto) Cancelled Lymph # (Auto) Cancelled [place] # (Auto) Cancelled Eos # (Auto) Cancelled Baso # (Auto) Cancelled Abs Immat Gran (auto) Cancelled Absolute Neuts (auto) Cancelled Absolute Nucleated RBC 0.000 (0.0-0.012) X10*3/uL Nucleated RBC % (auto) 0.0 (0.0-0.2) /100WBC Neutrophils % (Manual) 41 L (45-73) % Band Neutrophils % 22 H (3-5) % Lymphocytes % (Manual) 20 (20-40) % Monocytes % (Manual) 16 H (2-11) % Metamyelocytes % 1 % Abs Neuts (Manual) 7.6 (2.0-8.3) X10*3/uL Lymphocytes # (Manual) 2.4 (1.2-4.9) X10*3/uL Monocytes # (Manual) 1.9 H (0.1-1.2) X10*3/uL Metamyelocytes # 0.1 X10*3/uL Platelet Estimate NORMAL (NORMAL) Plt Morphology Comment NORMAL RBC Morphology NORMAL VBG pH 7.08 L* (7.32-7.43) VBG pCO2 10 mmHg VBG pO2 151 mmHg VBG HCO3 3 L (22-26) mmol/L VBG O2 Saturation 99.0 % VBG Base Excess -23.6 mmol/L Sodium (135-145) mmol/L Potassium (3.3-5.1) mmol/L Chloride (96-108) mmol/L Carbon Dioxide (22-29) mmol/L Anion Gap (12-20) BUN (9-16) mg/dL Creatinine (0.5-1.4) mg/dL Estim Creat Clear Calc Estimated GFR POC Glucose 588 H* (60-115) mg/dL Random Glucose (60-115) mg/dL Lactic Acid 5.0 H* (0.5-2.0) mmol/L Calcium (8.4-10.2) mg/dL Magnesium (1.6-2.6) mg/dL Total Bilirubin (0.0-1.0) mg/dL Direct Bilirubin (0.0-0.5) mg/dL AST (5-37) U/L ALT (0-40) U/L Alkaline Phosphatase (39-117) U/L Total Protein (6.5-8.0) g/dL Albumin (3.5-5.0) g/dL Lipase (8-78) U/L Urine Color Urine Appearance Urine pH (5.0-9.0) Ur Specific [place] (1.005-1.025) Urine Protein (Neg-Trace) mg/dL Urine Glucose (UA) (Negative) mg/dL Urine Ketones (Negative) mg/dL Urine Blood (Negative) Urine Nitrite (Negative) Ur Leukocyte Esterase (Negative) Urine RBC (0-2) /HPF Urine WBC (0-5) /HPF Ur Squamous Epith Cells (0-2) /HPF Urine Bacteria (None Seen) Hyaline Casts (0-2) /LPF Urine Opiates Screen (Not Detect) Ur Buprenorphine Scrn (Not Detect) ng/mL Ur Oxycodone Screen (Not Detect) ng/mL Urine Methadone Screen (Not Detect) ng/mL Urine Fentanyl Screen (Not Detect) Ur Barbiturates Screen (Not Detect) Ur Phencyclidine Scrn (Not Detect) Ur Amphetamines Screen (Not Detect) U Benzodiazepines Scrn (Not Detect) Urine Cocaine Screen (Not Detect) U Marijuana (THC) Screen (Not Detect) Ethyl Alcohol mg/dL Influenza Type A (PCR) NEGATIVE (Negative) Influenza Type B (PCR) NEGATIVE (Negative) RSV RNA Qual (PCR) NEGATIVE (Negative) SARS-CoV-2 RNA (RT-PCR) NEGATIVE (Negative) 01/29/24 01/29/24 01/29/24 Range/Units 20:00 20:12 20:22 WBC (4.8-10.8) X10*3/uL RBC (4.60-5.80) X10*6/uL Hgb (14.0-18.0) g/dl Hct (42.0-52.0) % MCV (80.0-98.0) fL MCH (27.0-33.0) pg MCHC (31.0-36.0) g/dl RDW (11.0-16.0) % Plt Count (160-400) X10*3/uL MPV (9.4-12.4) fL Immature Gran % (Auto) Neut % (Auto) Lymph % (Auto) [place] % (Auto) Eos % (Auto) Baso % (Auto) Lymph # (Auto) [place] # (Auto) Eos # (Auto) Baso # (Auto) Abs Immat Gran (auto) Absolute Neuts (auto) Absolute Nucleated RBC (0.0-0.012) X10*3/uL Nucleated RBC % (auto) (0.0-0.2) /100WBC Neutrophils % (Manual) (45-73) % Band Neutrophils % (3-5) % Lymphocytes % (Manual) (20-40) % Monocytes % (Manual) (2-11) % Metamyelocytes % % Abs Neuts (Manual) (2.0-8.3) X10*3/uL Lymphocytes # (Manual) (1.2-4.9) X10*3/uL Monocytes # (Manual) (0.1-1.2) X10*3/uL Metamyelocytes # X10*3/uL Platelet Estimate (NORMAL) Plt Morphology Comment RBC Morphology VBG pH (7.32-7.43) VBG pCO2 mmHg VBG pO2 mmHg VBG HCO3 (22-26) mmol/L VBG O2 Saturation % VBG Base Excess mmol/L Sodium 128 L (135-145) mmol/L Potassium 6.0 H* (3.3-5.1) mmol/L Chloride 98 (96-108) mmol/L Carbon Dioxide 6 L* D (22-29) mmol/L Anion Gap 30 H (12-20) BUN 11 (9-16) mg/dL Creatinine 2.08 H (0.5-1.4) mg/dL Estim Creat Clear Calc 51.1 Estimated GFR 34 POC Glucose 516 H* (60-115) mg/dL Random Glucose 566 H* (60-115) mg/dL Lactic Acid (0.5-2.0) mmol/L Calcium 9.2 (8.4-10.2) mg/dL Magnesium 2.9 H (1.6-2.6) mg/dL Total Bilirubin 0.3 (0.0-1.0) mg/dL Direct Bilirubin 0.1 (0.0-0.5) mg/dL AST 29 (5-37) U/L ALT 15 (0-40) U/L Alkaline Phosphatase 101 (39-117) U/L Total Protein 8.9 H (6.5-8.0) g/dL Albumin 3.4 L (3.5-5.0) g/dL Lipase 1262 H (8-78) U/L Urine Color Yellow Urine Appearance Cloudy Urine pH 5.5 (5.0-9.0) Ur Specific [place] >= 1.030 H (1.005-1.025) Urine Protein 100 (2+) H (Neg-Trace) mg/dL Urine Glucose (UA) >=1000 H (Negative) mg/dL Urine Ketones >=160 (Negative) mg/dL Urine Blood Small (1+) H (Negative) Urine Nitrite Negative (Negative) Ur Leukocyte Esterase Negative (Negative) Urine RBC 0-2 (0-2) /HPF Urine WBC 0-5 (0-5) /HPF Ur Squamous Epith Cells 3-5 (0-2) /HPF Urine Bacteria 1+ (None Seen) Hyaline Casts 11-20 (0-2) /LPF Urine Opiates Screen Not Detected (Not Detect) Ur Buprenorphine Scrn Not Detected (Not Detect) ng/mL Ur Oxycodone Screen Not Detected (Not Detect) ng/mL Urine Methadone Screen Not Detected (Not Detect) ng/mL Urine Fentanyl Screen Not Detected (Not Detect) Ur Barbiturates Screen Not Detected (Not Detect) Ur Phencyclidine Scrn Not Detected (Not Detect) Ur Amphetamines Screen Not Detected (Not Detect) U Benzodiazepines Scrn Not Detected (Not Detect) Urine Cocaine Screen Not Detected (Not Detect) U Marijuana (THC) Screen Not Detected (Not Detect) Ethyl Alcohol < 10 mg/dL Influenza Type A (PCR) (Negative) Influenza Type B (PCR) (Negative) RSV RNA Qual (PCR) (Negative) SARS-CoV-2 RNA (RT-PCR) (Negative) Independent Interpretation I performed an independent interpretation of an: EKG and Plain X-Ray (LL opacity) Interpretation: Rate: 123 Rhythm: sinus tachycardia [place]: left Normal P waves. Normal SHAHRIAR. Normal QRS complex. Poor R wave progression ST T wave : no JOHNY, flat ta waves aVL qTC: 472 prior studies: Poor R wave progression new The study has been interpreted contemporaneously by me. . Radiology Impression Discussion of test interpretation with radiology: I have reviewed the radiologist's reading. Independent Historian Clinical information obtained from an independent historian. History obtained from or confirmed by: EMS External Record Review External record reviewed: Inpatient record Chronic Conditions Patient?s care impacted by: Diabetes Social Determinants Patient?s care significantly limited by Social Determinants of Health including: Other Social Determinant of Health Critical Care Time Critical Care Time Critical Care Time: Yes Total Critical Care Time: 90 Attestation: 3L of IVF, insulin drip, review of records, lab recheck, consult, admission I attest to this time spent taking care of the patient Discharge Plan Discharge Clinical Impression: DKA (diabetic ketoacidosis), Medical non-compliance, Bandemia, Acidosis, lactic, LAURA (acute kidney injury), Elevated lipase Patient Disposition: Admitted As Inpatient Print Language: Ghanaian
[2024-01-29] MEDS: Lactated Ringers 1,000 ML 999 ML IV ×3 (18:48→19:28)
[2024-01-29] MEDS: ondansetron HCL 4 MG/2 ML VIAL IVPUSH (18:48)
[2024-01-29 18:50] LABS: Hematocrit 45.1 % (42.0-52.0); Hemoglobin 15.7 g/dl (14.0-18.0); Mean Corpuscular HGB Conc 34.8 g/dl (31.0-36.0); Mean Corpuscular Hemoglobin 33.1 pg (27.0-33.0); Mean Corpuscular Volume 94.9 fL (80.0-98.0); Mean Platelet Volume 11.3 fL (9.4-12.4); Platelet Count 357 X10*3/uL (160-400); Red Blood Count 4.75 X10*6/uL (4.60-5.80); Red Cell Distribution Width 13.5 % (11.0-16.0)
[2024-01-29 18:54] LABS: WBC ABN SCTR FOR CBC 1
[2024-01-29 18:56] LABS: VBG Base Excess -23.6 mmol/L; VBG HCO3 3 mmol/L (22-26); VBG pCO2 10 mmHg; VBG pH 7.08 (7.32-7.43); VBG pO2 151 mmHg
[2024-01-29 18:57] LABS: Venous Blood Gas Refer to POC result
[2024-01-29 18:57] LABS: Glucose, Whole Blood 588 mg/dL (60-115)
[2024-01-29] MEDS: Insulin Regular/NS 100 UNIT/100 ML PLAST..BAG 10 UNIT IVCONT (19:20)
--- NOTE | 2024-01-29 19:22 | PC.NURSE ---
this rn assumed care of pt, pt a&ox4, respirations even but labored. pt denies pain at this time. insulin drip started at this time per aug. POC 588.
[2024-01-29 19:28] LABS: Influenza A PCR NEGATIVE (Negative); Influenza B PCR NEGATIVE (Negative); Resp Syncy Virus RNA Qual PCR NEGATIVE (Negative); SARS COV2 PCR INHOUSE NEGATIVE (Negative)
[2024-01-29 19:51] LABS: Neutrophils Percent Manual 41 % (45-73)
[2024-01-29 19:52] LABS: Lymphocytes Percent Manual 20 % (20-40); Metamyelocytes Percent 1 %; Monocytes Percent Manual 16 % (2-11)
[2024-01-29 19:54] LABS: Platelet Estimate NORMAL (NORMAL); Platelet Morphology Comment NORMAL; RBC Morphology NORMAL
[2024-01-29 19:56] LABS: Lymphocytes Absolute Manual 2.4 X10*3/uL (1.2-4.9); Metamyelocytes Absolute 0.1 X10*3/uL; Monocytes Absolute Manual 1.9 X10*3/uL (0.1-1.2); Neutrophils Absolute Manual 7.6 X10*3/uL (2.0-8.3); White Blood Count 12.1 X10*3/uL (4.8-10.8)
--- NOTE | 2024-01-29 20:14 | PC.NURSE ---
blood cultures and labs obtained and sent to lab.
[2024-01-29 20:19] LABS: Appearance Urine Cloudy; Color Urine Yellow; Glucose Urine UA >=1000 mg/dL (Negative); Leukocyte Esterase Urine Negative (Negative); Nitrite Urine Negative (Negative); PH 5.5 (5.0-9.0); Specific Gravity - Urine >= 1.030 (1.005-1.025); UMIC TRIGGER UACC YES; Urine Blood Small (1+) (Negative); Urine Ketones >=160 mg/dL (Negative); Urine Protein 100 (2+) mg/dL (Neg-Trace)
[2024-01-29 20:26] LABS: Glucose, Whole Blood 516 mg/dL (60-115)
[2024-01-29] MEDS: Piperacillin Sodium/Tazobactam 3.375 GM in 0.9 % Sodium Chloride 50 ML IV (20:28)
[2024-01-29 20:29] LABS: Amphetamine Screen Urine Not Detected (Not Detect); Barbiturates, Urine Not Detected (Not Detect); Benzodiazepines Screen Urine Not Detected (Not Detect); Buprenorphine Scr Not Detected (Not Detect); Cannabinoid Screen Urine Not Detected (Not Detect); Cocaine Screen Urine Not Detected (Not Detect); Fentanyl, urine Not Detected (Not Detect); Methadone Screen, Urine Not Detected (Not Detect); Opiate Screen Urine Not Detected (Not Detect); Oxycodone Screen Urine Not Detected (Not Detect); Phencyclidine Screen Urine Not Detected (Not Detect)
--- NOTE | 2024-01-29 20:33 | PC.NURSE ---
POC 516- insulin titrated down at this time.
[2024-01-29 20:41] LABS: Bacteria Urine 1+ (None Seen); RBC Urine 0-2 /HPF (0-2); WBC Urine 0-5 /HPF (0-5)
[2024-01-29 20:47] LABS: Reflex Lactate? Lactic Acid Added
--- NOTE | 2024-01-29 20:52 | PC.NURSE ---
per lab, due to pt condition, pt labs are hemolyzed. aware, and aware of pt potassium 6.0
[2024-01-29 21:09] LABS: Alanine Aminotransferase 15 U/L (0-40); Albumin Level 3.4 g/dL (3.5-5.0); Alkaline Phosphatase 101 U/L (39-117); Anion Gap 30 (12-20); Aspartate Amino Transferase 29 U/L (5-37); Bilirubin Direct 0.1 mg/dL (0.0-0.5); Bilirubin Total 0.3 mg/dL (0.0-1.0); Blood Urea Nitrogen 11 mg/dL (9-16); Calcium 9.2 mg/dL (8.4-10.2); Carbon Dioxide 6 mmol/L (22-29); Chloride 98 mmol/L (96-108); Creatinine Clr Calc Pharmacy 51.1; Estimated Glomerular Filt Rate 34; Ethanol < 10 mg/dL; Glucose Random 566 mg/dL (60-115); Lipase 1262 U/L (8-78); Magnesium 2.9 mg/dL (1.6-2.6); Sodium 128 mmol/L (135-145); Total Protein 8.9 g/dL (6.5-8.0)
[2024-01-29] MEDS: 0.9 % Sodium Chloride 1,000 ML 999 ML IV (21:13)
--- NOTE | 2024-01-29 21:20 | PC.NURSE ---
pt to CT at this time.
--- NOTE | 2024-01-29 21:23 | P.HPCC_ITS ---
History of Present Illness Date of Service: 01/29/24 Attending physician on admission: Pacheco Montes Chief Complaint: Dyspnea The patient is a 48-year-old male with a past medical history of insulin- dependent diabetes and hypertension who is medication noncompliant, has not taken blood pressure medication since 2021 and? intermittently stops taking? his insulin, and alcohol abuse? who presented to the emergency department with complaints of dyspnea,? abdominal pain,? and nausea.? Patient reported not taking his short-acting insulin for over a week,? any long-acting insulin over a month,? reported taking random 20 units of short-acting insulin yesterday when he started feeling abdominal cramps and nausea.? He reports he has had DKA in the past,? and fell he was having the same symptoms as the prior DKA? this is why he came to the hospital.? ?In the emergency department? patient was hypertensive to 190/100,? tachycardic to 122, tachypneic to 24, satting 100% on room air.? Endorsing some mild abdominal pain and nausea.? ?Laboratory data was significant for? venous blood gas? 7.0 8/151/ 3,? WBC 12.1 with bandemia, ? sodium 128, potassium 6, serum bicarb 6, anion gap 30, creatinine 2.08, glucose 566, lactic of 5,? and? lipase 1262,? triglycerides 3570, beta hydroxybutyrate 9.81 Imaging:? Chest Xray -? no acute infectious process Abdominal CT- Pancreatitis and Hepatomegaly with diffuse fatty change of liver. Review of Systems 2 Review of Systems: Yes all other systems are reviewed and are negative [facility] Past Medical History Medical History Chronic nausea Diabetes mellitus with gastroparesis Hypertension Social History Social History Household Members: Significant Other and Children Housing: Apartment Do you presently have visiting nurse or other home services: No Alcohol intake: current Alcohol intake frequency: holidays/special occasions only Alcohol type: beer and hard liquor Patient Tobacco Use Status: Never used Tobacco Smoked in Last 30 Days: No e-Cigarette/Vaping Use: Never Used Second Hand Smoke Exposure: No Use of substances other than those prescribed or required for medical reasons: No Currently Displaying Signs/Symptoms of Drug Intoxication Withdrawal: No Any prior treatment program specific to substance use: No Have you been hit, kicked, punched, or otherwise hurt by someone within the past year? If so, by whom?: No Do you feel safe in your current relationship?: Yes Is there a partner from a previous relationship who is making you feel unsafe now?: No Are you made to feel afraid or neglected: No Advance Directives: No Advance Directives Information Provided: No Do you have a plan to hurt others: No Plan Recently lost weight without trying: No Eating poorly because of decreased appetite: No Nutrition Risks: No Nutritional Risk Poor oral hygiene: No service: No Current occupational status: employed Meds Allergies Allergy/AdvReac Type Severity Reaction Status Date / Time No Known Allergies Allergy Verified 01/29/24 18:33 Active Medications: Current Medications Heparin Sodium (Porcine) (Heparin Sodium,Porcine 5,000 Unit/Ml Vial) 5,000 unit SUBCUT TID NESS Insulin Human Regular (Myxredlin) 100 unit in 100 mls @ 10 mls/hr IVCONT .Q10H NESS; Protocol Last Titration: 01/29/24 20:27 Dose: 8 unit/hr, 8 mls/hr Dextrose (D10) 250 mls @ 750 mls/hr IV Q30M PRN PRN Reason: BG <70 Sodium Chloride (Ns) 1,000 mls @ 999 mls/hr IV .Q1H1M ONE Stop: 01/29/24 22:11 Last Admin: 01/29/24 21:13 Dose: 999 mls/hr Physical Exam 2 Vital Signs: Vital Signs: Last Vital Signs Temp 98.0 F 01/29/24 18:29 Pulse 110 H 01/29/24 19:21 Resp 25 H 01/29/24 19:21 BP 166/76 H 01/29/24 19:21 Pulse Ox 99 01/29/24 19:21 O2 Del Method Room Air 01/29/24 18:29 BMI result Body Mass Index 36.8 ?General:? Alert oriented x3 no acute distress.? Speaking full sentences.? Speech is well articulated, thought process is coherent.? Following all commands. ?HEENT:? Head is normocephalic, atraumatic, pupils equal round reactive to light accommodation bilaterally.? Extraocular movements appear intact.? Buccal mucosa is dry, Neck is supple ?Cardiac:? Sinus tachycardia, Clear S1-S2, no murmurs rubs or gallops. ?Pulmonary:? Clear to auscultation, no wheezes, rales or rhonchi. ?Abdomen:? ?Abdomen soft, with diffuse tenderness in all quadrants. Normal bowel sounds. No pulsatile mass. No hepatosplenomegaly. ?Musculoskeletal:? Moving all 4 extremities upon request a major joints, there is no crepitus or tenderness.? The strength is 5/5 bilaterally and throughout all 4 extremities.? Gait not assessed at this point. ?Neurologic:? cranial nerves 2-12 are grossly intact.? No focal deficits noted.Motor strength as above.?? ?Skin:? Intact, no lesions, edema, erythema, clubbing or cyanosis.? No ulcers. Vascular:? 2+ pulses upper and lower extremities distally.? Results Labs 01/30/24 05:13 01/30/24 05:13 Labs: Laboratory Results - last 24 hr 01/29/24 01/29/24 01/29/24 18:39 18:45 18:54 MCV 94.9 MCH 33.1 H MCHC 34.8 RDW 13.5 Plt Count 357 D MPV 11.3 Immature Gran % (Auto) Cancelled Neut % (Auto) Cancelled Lymph % (Auto) Cancelled [place] % (Auto) Cancelled Eos % (Auto) Cancelled Baso % (Auto) Cancelled Lymph # (Auto) Cancelled [place] # (Auto) Cancelled Eos # (Auto) Cancelled Baso # (Auto) Cancelled Abs Immat Gran (auto) Cancelled Absolute Neuts (auto) Cancelled Absolute Nucleated RBC 0.000 Nucleated RBC % (auto) 0.0 Neutrophils % (Manual) 41 L Band Neutrophils % 22 H Lymphocytes % (Manual) 20 Monocytes % (Manual) 16 H Metamyelocytes % 1 Abs Neuts (Manual) 7.6 Lymphocytes # (Manual) 2.4 Monocytes # (Manual) 1.9 H Metamyelocytes # 0.1 Platelet Estimate NORMAL Plt Morphology Comment NORMAL RBC Morphology NORMAL VBG pH 7.08 L* VBG pCO2 10 VBG pO2 151 VBG HCO3 3 L VBG O2 Saturation 99.0 VBG Base Excess -23.6 Anion Gap Estim Creat Clear Calc Estimated GFR POC Glucose 588 H* Random Glucose Lactic Acid 5.0 H* Calcium Magnesium Total Bilirubin Direct Bilirubin AST ALT Alkaline Phosphatase Total Protein Albumin Lipase Urine Color Urine Appearance Urine pH Ur Specific [place] Urine Protein Urine Glucose (UA) Urine Ketones Urine Blood Urine Nitrite Ur Leukocyte Esterase Urine RBC Urine WBC Ur Squamous Epith Cells Urine Bacteria Hyaline Casts Urine Opiates Screen Ur Buprenorphine Scrn Ur Oxycodone Screen Urine Methadone Screen Urine Fentanyl Screen Ur Barbiturates Screen Ur Phencyclidine Scrn Ur Amphetamines Screen U Benzodiazepines Scrn Urine Cocaine Screen U Marijuana (THC) Screen Ethyl Alcohol Influenza Type A (PCR) NEGATIVE Influenza Type B (PCR) NEGATIVE RSV RNA Qual (PCR) NEGATIVE SARS-CoV-2 RNA (RT-PCR) NEGATIVE 01/29/24 01/29/24 01/29/24 20:00 20:12 20:22 MCV MCH MCHC RDW Plt Count MPV Immature Gran % (Auto) Neut % (Auto) Lymph % (Auto) [place] % (Auto) Eos % (Auto) Baso % (Auto) Lymph # (Auto) [place] # (Auto) Eos # (Auto) Baso # (Auto) Abs Immat Gran (auto) Absolute Neuts (auto) Absolute Nucleated RBC Nucleated RBC % (auto) Neutrophils % (Manual) Band Neutrophils % Lymphocytes % (Manual) Monocytes % (Manual) Metamyelocytes % Abs Neuts (Manual) Lymphocytes # (Manual) Monocytes # (Manual) Metamyelocytes # Platelet Estimate Plt Morphology Comment RBC Morphology VBG pH VBG pCO2 VBG pO2 VBG HCO3 VBG O2 Saturation VBG Base Excess Anion Gap 30 H Estim Creat Clear Calc 51.1 Estimated GFR 34 POC Glucose 516 H* Random Glucose 566 H* Lactic Acid Calcium 9.2 Magnesium 2.9 H Total Bilirubin 0.3 Direct Bilirubin 0.1 AST 29 ALT 15 Alkaline Phosphatase 101 Total Protein 8.9 H Albumin 3.4 L Lipase 1262 H Urine Color Yellow Urine Appearance Cloudy Urine pH 5.5 Ur Specific [place] >= 1.030 H Urine Protein 100 (2+) H Urine Glucose (UA) >=1000 H Urine Ketones >=160 Urine Blood Small (1+) H Urine Nitrite Negative Ur Leukocyte Esterase Negative Urine RBC 0-2 Urine WBC 0-5 Ur Squamous Epith Cells 3-5 Urine Bacteria 1+ Hyaline Casts 11-20 Urine Opiates Screen Not Detected Ur Buprenorphine Scrn Not Detected Ur Oxycodone Screen Not Detected Urine Methadone Screen Not Detected Urine Fentanyl Screen Not Detected Ur Barbiturates Screen Not Detected Ur Phencyclidine Scrn Not Detected Ur Amphetamines Screen Not Detected U Benzodiazepines Scrn Not Detected Urine Cocaine Screen Not Detected U Marijuana (THC) Screen Not Detected Ethyl Alcohol < 10 Influenza Type A (PCR) Influenza Type B (PCR) RSV RNA Qual (PCR) SARS-CoV-2 RNA (RT-PCR) Assessment and Plan (1) DKA (diabetic ketoacidosis): Qualifiers: Diabetes mellitus complication detail: without coma Diabetes mellitus type: type 2 Qualified Code(s): E11.10 - Type 2 diabetes mellitus with ketoacidosis without coma Status: Acute (2) Uncontrolled diabetes mellitus with hyperglycemia, with long-term current use of insulin: Status: Acute (3) Acute pancreatitis: Status: Acute (4) Hypertriglyceridemia: Status: Acute (5) LAURA (acute kidney injury): Status: Acute (6) Hypertensive urgency: Status: Acute Plan 48-year-old male with a past medical history of insulin-dependent diabetes, hypertension and alcohol abuse and who is medication noncompliant, admitted to the ICU for DKA as well as acute pancreatitis with hypertriglyceridemia? Neuro:? ?No acute issues Cardiac:?? ?Elevated lactic- ? no evidence of septic shock,? elevated lactic is due to? diabetic ketoacidosis. ?Hypertensive? urgency: ? has diagnosis of hypertension,? but has not taking blood pressure medications since 2021.? Blood pressure better controlled after fluid administration.? Will resume blood pressure control with able to take p.o. Medications.? Pulmonary:? ?No acute issue Renal:?LAURA- most likely related to hypoperfusion, nonoliguric.? Continue IV fluid.? Continue to check renal induces and urine output Hyperkalemia-? from? DKA. ? EKG with no T-waves abnormalities. Closely monitor electrolytes GI:?? ?Acute Pancreatitis with? hypertriglyceridemia- Lipase elevated to 1262, ? triglycerides 3570,? patient?s ,? reports the patient does drink? alcohol daily,? about a glass of rum,? CT is consistent with pancreatitis.? On insulin drip for DKA,? we will also continue until triglycerides are in a safe range.? Patient is severely acidotic,? we will? start bicarb drip.? NPO nausea and vomiting from ? alcoholic ketoacidosis. ? Continue Zofran p.r.n., Endo:?? ?Insulin-dependent? diabetes mellitus/ diabetic ketoacidosis- ? patient with medication noncompliance,? in DKA. Will continue insulin drip until her gap is close. Follow DKA protocol? Heme/Onc:? ?No acute? issues ID:? Leukocytosis, from acute pancreatitis. ? No signs of severe sepsis.? Will continue zosyn until blood cultures resulted Psych:?? ?No acute issues Diet: NPO Prophylaxis:? ? heparin Subcut? Code? status: ? ? FULL CODE.? Critical care time: x 75 min of critical care time? Case discussed with attending Dr Montes
--- NOTE | 2024-01-29 21:34 | PC.NURSE ---
Pt POC drop 50, pt insulin continuing per mar.
[2024-01-29 21:37] LABS: Triglycerides 3570 mg/dL (<150)
[2024-01-29 21:39] LABS: Glucose, Whole Blood 466 mg/dL (60-115)
[2024-01-29 21:43] LABS: Beta-Hydroxybutyrate 9.81 mmol/L (0.02-0.27)
[2024-01-29 22:01] LABS: VBG Base Excess -21.4 mmol/L; VBG HCO3 6 mmol/L (22-26); VBG pCO2 22 mmHg; VBG pH 7.08 (7.32-7.43); VBG pO2 57 mmHg
[2024-01-29] MEDS: Lactated Ringers 1,000 ML 150 ML IVCONT (22:01)
[2024-01-29 22:03] LABS: Venous Blood Gas Refer to POC result
--- NOTE | 2024-01-29 22:05 | PC.NURSE ---
Report given to INVESTIGATIVE RESEARCH SPECIALIST at this time.
[2024-01-29 22:20] LABS: Anion Gap 29 (12-20); Blood Urea Nitrogen 13 mg/dL (9-16); Calcium 8.6 mg/dL (8.4-10.2); Chloride 100 mmol/L (96-108); Estimated Glomerular Filt Rate 42; Glucose Random 478 mg/dL (60-115); Potassium 4.6 mmol/L (3.3-5.1); Sodium 130 mmol/L (135-145)
[2024-01-29 22:25] LABS: ~Lactic Acid-LAB USE ONLY 4.1 mmol/L (0.5-2.0)
--- NOTE | 2024-01-29 22:30 | PHA.MEDREC ---
Pharmacy Consult ? Medication Reconciliation Pharmacy has completed the medication reconciliation. Confirmed medications with patient. He states he has not filled his med in a while but has some Humalog at home home he takes 15 units TIDAC but has not taken in in over a month he said. He also confirmed he is still filling at [facility] pharmacy on [address] in [place].
[2024-01-29 22:44] LABS: Glucose, Whole Blood 388 mg/dL (60-115)
[2024-01-29] MEDS: Sodium Bicarbonate 8.4% 50 MEQ/50 ML SYRINGE IVPUSH (23:01)
[2024-01-29] MEDS: Calcium Gluconate/NaCl,Iso-Osm 1 GM/50 ML PLAST..BAG IV (23:03)
[2024-01-29] MEDS: Sodium Bicarbonate 8.4% 150 MEQ in Dextrose 5 % 850 ML 250 MEQ IV (23:10)
[2024-01-29 23:29] LABS: Glucose, Whole Blood 386 mg/dL (60-115)
[2024-01-29 23:36] LABS: Phosphorus 3.2 mg/dL (2.7-4.5)
[2024-01-29 23:52] LABS: Reflex Lactate? 2 Y
[2024-01-30] VITALS (24 sets, daily range): BP systolic 93–120; BP diastolic 50–71; PULSE 87–101; RESP 15–30; TEMP 36.4–37; O2SAT 92–100; BMI 34.5
[2024-01-30] MEDS: Potassium Chloride/H20 10 MEQ/100 ML PIGGYBACK 100 MEQ IV ×2 (00:09→01:17)
[2024-01-30 00:14] LABS: Glucose, Whole Blood 335 mg/dL (60-115)
[2024-01-30 00:41] LABS: Venous Blood Gas Refer to POC result
[2024-01-30 00:46] LABS: VBG HCO3 10 mmol/L (22-26); VBG pCO2 23 mmHg; VBG pH 7.26 (7.32-7.43); VBG pO2 63 mmHg
[2024-01-30 01:02] LABS: Anion Gap 22 (12-20); Blood Urea Nitrogen 13 mg/dL (9-16); Calcium 8.8 mg/dL (8.4-10.2); Carbon Dioxide 11 mmol/L (22-29); Chloride 105 mmol/L (96-108); Creatinine Clr Calc Pharmacy 64.7; Estimated Glomerular Filt Rate 47; Glucose Random 338 mg/dL (60-115); Potassium 4.1 mmol/L (3.3-5.1); Sodium 134 mmol/L (135-145)
[2024-01-30 01:09] LABS: Glucose, Whole Blood 301 mg/dL (60-115)
[2024-01-30 02:11] LABS: Glucose, Whole Blood 248 mg/dL (60-115)
[2024-01-30] MEDS: Sodium Bicarbonate 8.4% 150 MEQ in Dextrose 5 % 850 ML 250 MEQ IV (03:03)
[2024-01-30 03:06] LABS: Glucose, Whole Blood 242 mg/dL (60-115)
[2024-01-30] MEDS: Morphine Sulfate 2 MG/ML CARTRIDGE 0.5 MG IVPUSH ×2 (03:13→13:52)
[2024-01-30 04:07] LABS: Glucose, Whole Blood 230 mg/dL (60-115)
[2024-01-30 04:21] LABS: ~Lactic Acid-LAB USE ONLY 3.2 mmol/L (0.5-2.0)
[2024-01-30] MEDS: Piperacillin Sodium/Tazobactam 4.5 GM in 0.9 % Sodium Chloride 100 ML IV ×3 (04:57→21:36)
[2024-01-30] MEDS: Insulin Regular/NS 100 UNIT/100 ML PLAST..BAG IVCONT ×2 (05:08→09:15)
[2024-01-30 05:10] LABS: Glucose, Whole Blood 211 mg/dL (60-115)
[2024-01-30 05:20] LABS: Hematocrit 31.8 % (42.0-52.0); Hemoglobin 11.7 g/dl (14.0-18.0); Mean Corpuscular HGB Conc 36.8 g/dl (31.0-36.0); Mean Corpuscular Hemoglobin 33.1 pg (27.0-33.0); Mean Corpuscular Volume 90.1 fL (80.0-98.0); Mean Platelet Volume 10.3 fL (9.4-12.4); Platelet Count 250 X10*3/uL (160-400); Red Blood Count 3.53 X10*6/uL (4.60-5.80); Red Cell Distribution Width 13.2 % (11.0-16.0); Venous Blood Gas Refer to POC result
[2024-01-30 05:24] LABS: VBG Base Excess -1.7 mmol/L; VBG HCO3 21 mmol/L (22-26); VBG pCO2 32 mmHg; VBG pH 7.43 (7.32-7.43); VBG pO2 32 mmHg
[2024-01-30 05:31] LABS: WBC ABN SCTR FOR CBC 1; White Blood Count 6.5 X10*3/uL (4.8-10.8)
[2024-01-30 05:44] LABS: Band Neutrophils Percent 27 % (3-5); Basophils Abs Manual 0.1 X10*3/uL (0.0-0.2); Basophils Percent Manual 1 % (0-2); Eosinophils Absolute Manual 0.1 X10*3/uL (0.0-0.4); Eosinophils Percent Manual 2 % (0-4); Lymphocytes Absolute Manual 0.7 X10*3/uL (1.2-4.9); Lymphocytes Percent Manual 10 % (20-40); Metamyelocytes Absolute 0.1 X10*3/uL; Metamyelocytes Percent 1 %; Monocytes Absolute Manual 0.3 X10*3/uL (0.1-1.2); Monocytes Percent Manual 5 % (2-11); Neutrophils Absolute Manual 5.3 X10*3/uL (2.0-8.3); Neutrophils Percent Manual 54 % (45-73); RBC Morphology NOTED
[2024-01-30 05:47] LABS: Burr Cells 1+ (0-2) /OIF; Large Platelet PRESENT; Platelet Estimate NORMAL (NORMAL); Platelet Morphology Comment NOTED; Target Cells 1+ (5-14) /OIF
[2024-01-30 05:48] LABS: Basophilic Stippling 1+ (0-2) /OIF
[2024-01-30 05:58] LABS: Alanine Aminotransferase 17 U/L (0-40); Albumin Level 2.7 g/dL (3.5-5.0); Alkaline Phosphatase 76 U/L (39-117); Anion Gap 15 (12-20); Aspartate Amino Transferase 14 U/L (5-37); Bilirubin Total 0.3 mg/dL (0.0-1.0); Blood Urea Nitrogen 10 mg/dL (9-16); Calcium 8.4 mg/dL (8.4-10.2); Carbon Dioxide 21 mmol/L (22-29); Chloride 104 mmol/L (96-108); Creatinine Clr Calc Pharmacy 77.9; Estimated Glomerular Filt Rate 58; Glucose Random 236 mg/dL (60-115); Magnesium 2.5 mg/dL (1.6-2.6); Phosphorus < 0.7 mg/dL (2.7-4.5); Potassium 3.5 mmol/L (3.3-5.1); Sodium 136 mmol/L (135-145); Total Protein 6.6 g/dL (6.5-8.0); Triglycerides 2661 mg/dL (<150)
[2024-01-30 06:14] LABS: Glucose, Whole Blood 238 mg/dL (60-115)
[2024-01-30] MEDS: Dextrose 5 % and Lactated Ring 1,000 ML 150 ML IVCONT ×3 (06:20→19:48)
[2024-01-30] MEDS: Potassium Phosphate/NS 15 MMOL/250 ML PLAST..BAG 62.5 MMOL IV ×3 (06:22→20:41)
[2024-01-30 07:06] LABS: Glucose, Whole Blood 265 mg/dL (60-115)
[2024-01-30 08:10] LABS: Glucose, Whole Blood 270 mg/dL (60-115)
[2024-01-30] MEDS: Heparin Sodium,Porcine 5,000 UNIT/ML VIAL 5000 UNIT SUBCUT ×3 (08:29→20:45)
[2024-01-30 09:16] LABS: Glucose, Whole Blood 219 mg/dL (60-115)
[2024-01-30 10:15] LABS: Glucose, Whole Blood 239 mg/dL (60-115)
[2024-01-30 11:12] LABS: Glucose, Whole Blood 236 mg/dL (60-115)
[2024-01-30 12:03] LABS: Glucose, Whole Blood 219 mg/dL (60-115)
--- NOTE | 2024-01-30 12:10 | P.PNCC_ITS ---
Subjective Subjective Date of Service: 01/30/24 Interval History: 48-year-old gentleman with underlying insulin-dependent diabetes mellitus and hypertension poorly compliant with his medication regimen admitted on 01/29/2024 with abdominal discomfort and nausea. On ER evaluation patient with profound metabolic acidosis secondary to diabetic ketoacidosis and pancreatitis with lactic acidosis requiring initiation of insulin drip and admission to intensive care unit. Overnight with closure of anion gap, however still with significant hypertriglyceridemia. Critical Care Time (minutes): 30 Physical Exam 2 Vital Signs: Vital Signs: Last Vital Signs Temp 98.5 F 01/30/24 12:00 Pulse 96 01/30/24 12:00 Resp 21 H 01/30/24 12:00 BP 101/71 01/30/24 12:00 Pulse Ox 94 01/30/24 12:00 O2 Del Method Room Air 01/30/24 12:00 O2 Flow Rate 2 01/30/24 01:00 BMI result Body Mass Index 34.5 Const: General: no acute distress, alert and awake Eyes: Sclerae: sclerae normal EOM: EOMs intact bilaterally Neck: Neck: Yes no lymphadenopathy, Yes trachea midline and Yes supple Resp: Effort & Inspection: normal respiratory effort and no respiratory distress Auscultation: clear to auscultation bilaterally Cardio: Rate: regular rate Rhythm: regular rhythm Heart sounds: no gallops, no murmurs and no rubs GI: Inspection: Yes distended Palpation (GI): Soft to palpation, nontender, no guarding and Other GI palpation findings present Auscultation: normal bowel sounds Extrem: General: Yes no pedal edema, No clubbing and No cyanosis Objective Data Labs 01/30/24 05:13 01/30/24 05:13 Labs: Laboratory Results - last 24 hr 01/29/24 01/29/24 01/29/24 18:39 18:45 18:54 WBC 12.1 H RBC 4.75 D Hgb 15.7 D Hct 45.1 D MCV 94.9 MCH 33.1 H MCHC 34.8 RDW 13.5 Plt Count 357 D MPV 11.3 Immature Gran % (Auto) Cancelled Neut % (Auto) Cancelled Lymph % (Auto) Cancelled [place] % (Auto) Cancelled Eos % (Auto) Cancelled Baso % (Auto) Cancelled Lymph # (Auto) Cancelled [place] # (Auto) Cancelled Eos # (Auto) Cancelled Baso # (Auto) Cancelled Abs Immat Gran (auto) Cancelled Absolute Neuts (auto) Cancelled Absolute Nucleated RBC 0.000 Nucleated RBC % (auto) 0.0 Neutrophils % (Manual) 41 L Band Neutrophils % 22 H Lymphocytes % (Manual) 20 Monocytes % (Manual) 16 H Eosinophils % (Manual) Basophils % (Manual) Metamyelocytes % 1 Abs Neuts (Manual) 7.6 Lymphocytes # (Manual) 2.4 Monocytes # (Manual) 1.9 H Eosinophils # (Manual) Basophils # (Manual) Metamyelocytes # 0.1 Platelet Estimate NORMAL Large Platelets Plt Morphology Comment NORMAL RBC Morphology NORMAL Basophilic Stippling Target Cells Teo Cells VBG pH 7.08 L* VBG pCO2 10 VBG pO2 151 VBG HCO3 3 L VBG O2 Saturation 99.0 VBG Base Excess -23.6 Sodium Potassium Chloride Carbon Dioxide Anion Gap BUN Creatinine Estim Creat Clear Calc Estimated GFR POC Glucose 588 H* Random Glucose Lactic Acid 5.0 H* Lactic Acid F/U @ 2Hr Lactic Acid F/U @ 4Hr Calcium Phosphorus Magnesium Total Bilirubin Direct Bilirubin AST ALT Alkaline Phosphatase Total Protein Albumin Triglycerides Lipase Beta-Hydroxybutyrate Urine Color Urine Appearance Urine pH Ur Specific [place] Urine Protein Urine Glucose (UA) Urine Ketones Urine Blood Urine Nitrite Ur Leukocyte Esterase Urine RBC Urine WBC Ur Squamous Epith Cells Urine Bacteria Hyaline Casts Urine Opiates Screen Ur Buprenorphine Scrn Ur Oxycodone Screen Urine Methadone Screen Urine Fentanyl Screen Ur Barbiturates Screen Ur Phencyclidine Scrn Ur Amphetamines Screen U Benzodiazepines Scrn Urine Cocaine Screen U Marijuana (THC) Screen Ethyl Alcohol Influenza Type A (PCR) NEGATIVE Influenza Type B (PCR) NEGATIVE RSV RNA Qual (PCR) NEGATIVE SARS-CoV-2 RNA (RT-PCR) NEGATIVE 01/29/24 01/29/24 01/29/24 20:00 20:12 20:22 WBC RBC Hgb Hct MCV MCH MCHC RDW Plt Count MPV Immature Gran % (Auto) Neut % (Auto) Lymph % (Auto) [place] % (Auto) Eos % (Auto) Baso % (Auto) Lymph # (Auto) [place] # (Auto) Eos # (Auto) Baso # (Auto) Abs Immat Gran (auto) Absolute Neuts (auto) Absolute Nucleated RBC Nucleated RBC % (auto) Neutrophils % (Manual) Band Neutrophils % Lymphocytes % (Manual) Monocytes % (Manual) Eosinophils % (Manual) Basophils % (Manual) Metamyelocytes % Abs Neuts (Manual) Lymphocytes # (Manual) Monocytes # (Manual) Eosinophils # (Manual) Basophils # (Manual) Metamyelocytes # Platelet Estimate Large Platelets Plt Morphology Comment RBC Morphology Basophilic Stippling Target Cells [place] Cells VBG pH VBG pCO2 VBG pO2 VBG HCO3 VBG O2 Saturation VBG Base Excess Sodium 128 L Potassium 6.0 H* Chloride 98 Carbon Dioxide 6 L* D Anion Gap 30 H BUN 11 Creatinine 2.08 H Estim Creat Clear Calc 51.1 Estimated GFR 34 POC Glucose 516 H* Random Glucose 566 H* Lactic Acid Lactic Acid F/U @ 2Hr Lactic Acid F/U @ 4Hr Calcium 9.2 Phosphorus Magnesium 2.9 H Total Bilirubin 0.3 Direct Bilirubin 0.1 AST 29 ALT 15 Alkaline Phosphatase 101 Total Protein 8.9 H Albumin 3.4 L Triglycerides 3570 H Lipase 1262 H Beta-Hydroxybutyrate 9.81 H Urine Color Yellow Urine Appearance Cloudy Urine pH 5.5 Ur Specific [place] >= 1.030 H Urine Protein 100 (2+) H Urine Glucose (UA) >=1000 H Urine Ketones >=160 Urine Blood Small (1+) H Urine Nitrite Negative Ur Leukocyte Esterase Negative Urine RBC 0-2 Urine WBC 0-5 Ur Squamous Epith Cells 3-5 Urine Bacteria 1+ Hyaline Casts 11-20 Urine Opiates Screen Not Detected Ur Buprenorphine Scrn Not Detected Ur Oxycodone Screen Not Detected Urine Methadone Screen Not Detected Urine Fentanyl Screen Not Detected Ur Barbiturates Screen Not Detected Ur Phencyclidine Scrn Not Detected Ur Amphetamines Screen Not Detected U Benzodiazepines Scrn Not Detected Urine Cocaine Screen Not Detected U Marijuana (THC) Screen Not Detected Ethyl Alcohol < 10 Influenza Type A (PCR) Influenza Type B (PCR) RSV RNA Qual (PCR) SARS-CoV-2 RNA (RT-PCR) 01/29/24 01/29/24 01/29/24 21:32 21:47 21:48 WBC RBC Hgb Hct MCV MCH MCHC RDW Plt Count MPV Immature Gran % (Auto) Neut % (Auto) Lymph % (Auto) [place] % (Auto) Eos % (Auto) Baso % (Auto) Lymph # (Auto) [place] # (Auto) Eos # (Auto) Baso # (Auto) Abs Immat Gran (auto) Absolute Neuts (auto) Absolute Nucleated RBC Nucleated RBC % (auto) Neutrophils % (Manual) Band Neutrophils % Lymphocytes % (Manual) Monocytes % (Manual) Eosinophils % (Manual) Basophils % (Manual) Metamyelocytes % Abs Neuts (Manual) Lymphocytes # (Manual) Monocytes # (Manual) Eosinophils # (Manual) Basophils # (Manual) Metamyelocytes # Platelet Estimate Large Platelets Plt Morphology Comment RBC Morphology Basophilic Stippling Target Cells [place] Cells VBG pH VBG pCO2 VBG pO2 VBG HCO3 VBG O2 Saturation VBG Base Excess Sodium 130 L Potassium 4.6 D Chloride 100 Carbon Dioxide 6 L* Anion Gap 29 H BUN 13 Creatinine 1.74 H Estim Creat Clear Calc 61.0 Estimated GFR 42 POC Glucose 466 H* Random Glucose 478 H* Lactic Acid Lactic Acid F/U @ 2Hr 4.1 H* Lactic Acid F/U @ 4Hr Calcium 8.6 D Phosphorus 3.2 Magnesium Total Bilirubin Direct Bilirubin AST ALT Alkaline Phosphatase Total Protein Albumin Triglycerides Lipase Beta-Hydroxybutyrate Urine Color Urine Appearance Urine pH Ur Specific [place] Urine Protein Urine Glucose (UA) Urine Ketones Urine Blood Urine Nitrite Ur Leukocyte Esterase Urine RBC Urine WBC Ur Squamous Epith Cells Urine Bacteria Hyaline Casts Urine Opiates Screen Ur Buprenorphine Scrn Ur Oxycodone Screen Urine Methadone Screen Urine Fentanyl Screen Ur Barbiturates Screen Ur Phencyclidine Scrn Ur Amphetamines Screen U Benzodiazepines Scrn Urine Cocaine Screen U Marijuana (THC) Screen Ethyl Alcohol Influenza Type A (PCR) Influenza Type B (PCR) RSV RNA Qual (PCR) SARS-CoV-2 RNA (RT-PCR) 01/29/24 01/29/24 01/29/24 21:50 22:39 23:24 WBC RBC Hgb Hct MCV MCH MCHC RDW Plt Count MPV Immature Gran % (Auto) Neut % (Auto) Lymph % (Auto) [place] % (Auto) Eos % (Auto) Baso % (Auto) Lymph # (Auto) [place] # (Auto) Eos # (Auto) Baso # (Auto) Abs Immat Gran (auto) Absolute Neuts (auto) Absolute Nucleated RBC Nucleated RBC % (auto) Neutrophils % (Manual) Band Neutrophils % Lymphocytes % (Manual) Monocytes % (Manual) Eosinophils % (Manual) Basophils % (Manual) Metamyelocytes % Abs Neuts (Manual) Lymphocytes # (Manual) Monocytes # (Manual) Eosinophils # (Manual) Basophils # (Manual) Metamyelocytes # Platelet Estimate Large Platelets Plt Morphology Comment RBC Morphology Basophilic Stippling Target Cells [place] Cells VBG pH 7.08 L* VBG pCO2 22 VBG pO2 57 VBG HCO3 6 L VBG O2 Saturation 79.0 VBG Base Excess -21.4 Sodium Potassium Chloride Carbon Dioxide Anion Gap BUN Creatinine Estim Creat Clear Calc Estimated GFR POC Glucose 388 H* 386 H* Random Glucose Lactic Acid Lactic Acid F/U @ 2Hr Lactic Acid F/U @ 4Hr Calcium Phosphorus Magnesium Total Bilirubin Direct Bilirubin AST ALT Alkaline Phosphatase Total Protein Albumin Triglycerides Lipase Beta-Hydroxybutyrate Urine Color Urine Appearance Urine pH Ur Specific [place] Urine Protein Urine Glucose (UA) Urine Ketones Urine Blood Urine Nitrite Ur Leukocyte Esterase Urine RBC Urine WBC Ur Squamous Epith Cells Urine Bacteria Hyaline Casts Urine Opiates Screen Ur Buprenorphine Scrn Ur Oxycodone Screen Urine Methadone Screen Urine Fentanyl Screen Ur Barbiturates Screen Ur Phencyclidine Scrn Ur Amphetamines Screen U Benzodiazepines Scrn Urine Cocaine Screen U Marijuana (THC) Screen Ethyl Alcohol Influenza Type A (PCR) Influenza Type B (PCR) RSV RNA Qual (PCR) SARS-CoV-2 RNA (RT-PCR) 01/30/24 01/30/24 01/30/24 00:11 00:37 01:05 WBC RBC Hgb Hct MCV MCH MCHC RDW Plt Count MPV Immature Gran % (Auto) Neut % (Auto) Lymph % (Auto) [place] % (Auto) Eos % (Auto) Baso % (Auto) Lymph # (Auto) [place] # (Auto) Eos # (Auto) Baso # (Auto) Abs Immat Gran (auto) Absolute Neuts (auto) Absolute Nucleated RBC Nucleated RBC % (auto) Neutrophils % (Manual) Band Neutrophils % Lymphocytes % (Manual) Monocytes % (Manual) Eosinophils % (Manual) Basophils % (Manual) Metamyelocytes % Abs Neuts (Manual) Lymphocytes # (Manual) Monocytes # (Manual) Eosinophils # (Manual) Basophils # (Manual) Metamyelocytes # Platelet Estimate Large Platelets Plt Morphology Comment RBC Morphology Basophilic Stippling Target Cells [place] Cells VBG pH 7.26 L VBG pCO2 23 VBG pO2 63 VBG HCO3 10 L VBG O2 Saturation 91.0 VBG Base Excess -14.0 Sodium 134 L Potassium 4.1 Chloride 105 Carbon Dioxide 11 L Anion Gap 22 H BUN 13 Creatinine 1.58 H Estim Creat Clear Calc 64.7 Estimated GFR 47 POC Glucose 335 H 301 H Random Glucose 338 H Lactic Acid Lactic Acid F/U @ 2Hr Lactic Acid F/U @ 4Hr 3.2 H* Calcium 8.8 Phosphorus Magnesium Total Bilirubin Direct Bilirubin AST ALT Alkaline Phosphatase Total Protein Albumin Triglycerides Lipase Beta-Hydroxybutyrate Urine Color Urine Appearance Urine pH Ur Specific [place] Urine Protein Urine Glucose (UA) Urine Ketones Urine Blood Urine Nitrite Ur Leukocyte Esterase Urine RBC Urine WBC Ur Squamous Epith Cells Urine Bacteria Hyaline Casts Urine Opiates Screen Ur Buprenorphine Scrn Ur Oxycodone Screen Urine Methadone Screen Urine Fentanyl Screen Ur Barbiturates Screen Ur Phencyclidine Scrn Ur Amphetamines Screen U Benzodiazepines Scrn Urine Cocaine Screen U Marijuana (THC) Screen Ethyl Alcohol Influenza Type A (PCR) Influenza Type B (PCR) RSV RNA Qual (PCR) SARS-CoV-2 RNA (RT-PCR) 01/30/24 01/30/24 01/30/24 02:07 03:02 04:03 WBC RBC Hgb Hct MCV MCH MCHC RDW Plt Count MPV Immature Gran % (Auto) Neut % (Auto) Lymph % (Auto) [place] % (Auto) Eos % (Auto) Baso % (Auto) Lymph # (Auto) [place] # (Auto) Eos # (Auto) Baso # (Auto) Abs Immat Gran (auto) Absolute Neuts (auto) Absolute Nucleated RBC Nucleated RBC % (auto) Neutrophils % (Manual) Band Neutrophils % Lymphocytes % (Manual) Monocytes % (Manual) Eosinophils % (Manual) Basophils % (Manual) Metamyelocytes % Abs Neuts (Manual) Lymphocytes # (Manual) Monocytes # (Manual) Eosinophils # (Manual) Basophils # (Manual) Metamyelocytes # Platelet Estimate Large Platelets Plt Morphology Comment RBC Morphology Basophilic Stippling Target Cells [place] Cells VBG pH VBG pCO2 VBG pO2 VBG HCO3 VBG O2 Saturation VBG Base Excess Sodium Potassium Chloride Carbon Dioxide Anion Gap BUN Creatinine Estim Creat Clear Calc Estimated GFR POC Glucose 248 H 242 H 230 H Random Glucose Lactic Acid Lactic Acid F/U @ 2Hr Lactic Acid F/U @ 4Hr Calcium Phosphorus Magnesium Total Bilirubin Direct Bilirubin AST ALT Alkaline Phosphatase Total Protein Albumin Triglycerides Lipase Beta-Hydroxybutyrate Urine Color Urine Appearance Urine pH Ur Specific [place] Urine Protein Urine Glucose (UA) Urine Ketones Urine Blood Urine Nitrite Ur Leukocyte Esterase Urine RBC Urine WBC Ur Squamous Epith Cells Urine Bacteria Hyaline Casts Urine Opiates Screen Ur Buprenorphine Scrn Ur Oxycodone Screen Urine Methadone Screen Urine Fentanyl Screen Ur Barbiturates Screen Ur Phencyclidine Scrn Ur Amphetamines Screen U Benzodiazepines Scrn Urine Cocaine Screen U Marijuana (THC) Screen Ethyl Alcohol Influenza Type A (PCR) Influenza Type B (PCR) RSV RNA Qual (PCR) SARS-CoV-2 RNA (RT-PCR) 01/30/24 01/30/24 01/30/24 05:05 05:13 05:14 WBC 6.5 RBC 3.53 L D Hgb 11.7 L D Hct 31.8 L D MCV 90.1 MCH 33.1 H MCHC 36.8 H RDW 13.2 Plt Count 250 D MPV 10.3 Immature Gran % (Auto) Cancelled Neut % (Auto) Cancelled Lymph % (Auto) Cancelled [place] % (Auto) Cancelled Eos % (Auto) Cancelled Baso % (Auto) Cancelled Lymph # (Auto) Cancelled [place] # (Auto) Cancelled Eos # (Auto) Cancelled Baso # (Auto) Cancelled Abs Immat Gran (auto) Cancelled Absolute Neuts (auto) Cancelled Absolute Nucleated RBC 0.000 Nucleated RBC % (auto) 0.0 Neutrophils % (Manual) 54 Band Neutrophils % 27 H Lymphocytes % (Manual) 10 L Monocytes % (Manual) 5 Eosinophils % (Manual) 2 Basophils % (Manual) 1 Metamyelocytes % 1 Abs Neuts (Manual) 5.3 Lymphocytes # (Manual) 0.7 L Monocytes # (Manual) 0.3 Eosinophils # (Manual) 0.1 Basophils # (Manual) 0.1 Metamyelocytes # 0.1 Platelet Estimate NORMAL Large Platelets PRESENT Plt Morphology Comment NOTED RBC Morphology NOTED Basophilic Stippling 1+ (0-2) Target Cells 1+ (5-14) Teo Cells 1+ (0-2) VBG pH 7.43 VBG pCO2 32 VBG pO2 32 VBG HCO3 21 L VBG O2 Saturation 63.0 VBG Base Excess -1.7 Sodium 136 Potassium 3.5 Chloride 104 Carbon Dioxide 21 L Anion Gap 15 BUN 10 Creatinine 1.32 Estim Creat Clear Calc 77.9 Estimated GFR 58 POC Glucose 211 H Random Glucose 236 H Lactic Acid Lactic Acid F/U @ 2Hr Lactic Acid F/U @ 4Hr Calcium 8.4 Phosphorus < 0.7 L* Magnesium 2.5 Total Bilirubin 0.3 Direct Bilirubin AST 14 ALT 17 Alkaline Phosphatase 76 Total Protein 6.6 Albumin 2.7 L Triglycerides 2661 H Lipase Beta-Hydroxybutyrate Urine Color Urine Appearance Urine pH Ur Specific [place] Urine Protein Urine Glucose (UA) Urine Ketones Urine Blood Urine Nitrite Ur Leukocyte Esterase Urine RBC Urine WBC Ur Squamous Epith Cells Urine Bacteria Hyaline Casts Urine Opiates Screen Ur Buprenorphine Scrn Ur Oxycodone Screen Urine Methadone Screen Urine Fentanyl Screen Ur Barbiturates Screen Ur Phencyclidine Scrn Ur Amphetamines Screen U Benzodiazepines Scrn Urine Cocaine Screen U Marijuana (THC) Screen Ethyl Alcohol Influenza Type A (PCR) Influenza Type B (PCR) RSV RNA Qual (PCR) SARS-CoV-2 RNA (RT-PCR) 01/30/24 01/30/24 01/30/24 06:09 07:03 08:07 WBC RBC Hgb Hct MCV MCH MCHC RDW Plt Count MPV Immature Gran % (Auto) Neut % (Auto) Lymph % (Auto) [place] % (Auto) Eos % (Auto) Baso % (Auto) Lymph # (Auto) [place] # (Auto) Eos # (Auto) Baso # (Auto) Abs Immat Gran (auto) Absolute Neuts (auto) Absolute Nucleated RBC Nucleated RBC % (auto) Neutrophils % (Manual) Band Neutrophils % Lymphocytes % (Manual) Monocytes % (Manual) Eosinophils % (Manual) Basophils % (Manual) Metamyelocytes % Abs Neuts (Manual) Lymphocytes # (Manual) Monocytes # (Manual) Eosinophils # (Manual) Basophils # (Manual) Metamyelocytes # Platelet Estimate Large Platelets Plt Morphology Comment RBC Morphology Basophilic Stippling Target Cells Teo Cells VBG pH VBG pCO2 VBG pO2 VBG HCO3 VBG O2 Saturation VBG Base Excess Sodium Potassium Chloride Carbon Dioxide Anion Gap BUN Creatinine Estim Creat Clear Calc Estimated GFR POC Glucose 238 H 265 H 270 H Random Glucose Lactic Acid Lactic Acid F/U @ 2Hr Lactic Acid F/U @ 4Hr Calcium Phosphorus Magnesium Total Bilirubin Direct Bilirubin AST ALT Alkaline Phosphatase Total Protein Albumin Triglycerides Lipase Beta-Hydroxybutyrate Urine Color Urine Appearance Urine pH Ur Specific [place] Urine Protein Urine Glucose (UA) Urine Ketones Urine Blood Urine Nitrite Ur Leukocyte Esterase Urine RBC Urine WBC Ur Squamous Epith Cells Urine Bacteria Hyaline Casts Urine Opiates Screen Ur Buprenorphine Scrn Ur Oxycodone Screen Urine Methadone Screen Urine Fentanyl Screen Ur Barbiturates Screen Ur Phencyclidine Scrn Ur Amphetamines Screen U Benzodiazepines Scrn Urine Cocaine Screen U Marijuana (THC) Screen Ethyl Alcohol Influenza Type A (PCR) Influenza Type B (PCR) RSV RNA Qual (PCR) SARS-CoV-2 RNA (RT-PCR) 01/30/24 01/30/24 01/30/24 09:13 10:11 11:09 WBC RBC Hgb Hct MCV MCH MCHC RDW Plt Count MPV Immature Gran % (Auto) Neut % (Auto) Lymph % (Auto) [place] % (Auto) Eos % (Auto) Baso % (Auto) Lymph # (Auto) [place] # (Auto) Eos # (Auto) Baso # (Auto) Abs Immat Gran (auto) Absolute Neuts (auto) Absolute Nucleated RBC Nucleated RBC % (auto) Neutrophils % (Manual) Band Neutrophils % Lymphocytes % (Manual) Monocytes % (Manual) Eosinophils % (Manual) Basophils % (Manual) Metamyelocytes % Abs Neuts (Manual) Lymphocytes # (Manual) Monocytes # (Manual) Eosinophils # (Manual) Basophils # (Manual) Metamyelocytes # Platelet Estimate Large Platelets Plt Morphology Comment RBC Morphology Basophilic Stippling Target Cells Teo Cells VBG pH VBG pCO2 VBG pO2 VBG HCO3 VBG O2 Saturation VBG Base Excess Sodium Potassium Chloride Carbon Dioxide Anion Gap BUN Creatinine Estim Creat Clear Calc Estimated GFR POC Glucose 219 H 239 H 236 H Random Glucose Lactic Acid Lactic Acid F/U @ 2Hr Lactic Acid F/U @ 4Hr Calcium Phosphorus Magnesium Total Bilirubin Direct Bilirubin AST ALT Alkaline Phosphatase Total Protein Albumin Triglycerides Lipase Beta-Hydroxybutyrate Urine Color Urine Appearance Urine pH Ur Specific [place] Urine Protein Urine Glucose (UA) Urine Ketones Urine Blood Urine Nitrite Ur Leukocyte Esterase Urine RBC Urine WBC Ur Squamous Epith Cells Urine Bacteria Hyaline Casts Urine Opiates Screen Ur Buprenorphine Scrn Ur Oxycodone Screen Urine Methadone Screen Urine Fentanyl Screen Ur Barbiturates Screen Ur Phencyclidine Scrn Ur Amphetamines Screen U Benzodiazepines Scrn Urine Cocaine Screen U Marijuana (THC) Screen Ethyl Alcohol Influenza Type A (PCR) Influenza Type B (PCR) RSV RNA Qual (PCR) SARS-CoV-2 RNA (RT-PCR) 01/30/24 11:59 WBC RBC Hgb Hct MCV MCH MCHC RDW Plt Count MPV Immature Gran % (Auto) Neut % (Auto) Lymph % (Auto) [place] % (Auto) Eos % (Auto) Baso % (Auto) Lymph # (Auto) [place] # (Auto) Eos # (Auto) Baso # (Auto) Abs Immat Gran (auto) Absolute Neuts (auto) Absolute Nucleated RBC Nucleated RBC % (auto) Neutrophils % (Manual) Band Neutrophils % Lymphocytes % (Manual) Monocytes % (Manual) Eosinophils % (Manual) Basophils % (Manual) Metamyelocytes % Abs Neuts (Manual) Lymphocytes # (Manual) Monocytes # (Manual) Eosinophils # (Manual) Basophils # (Manual) Metamyelocytes # Platelet Estimate Large Platelets Plt Morphology Comment RBC Morphology Basophilic Stippling Target Cells [place] Cells VBG pH VBG pCO2 VBG pO2 VBG HCO3 VBG O2 Saturation VBG Base Excess Sodium Potassium Chloride Carbon Dioxide Anion Gap BUN Creatinine Estim Creat Clear Calc Estimated GFR POC Glucose 219 H Random Glucose Lactic Acid Lactic Acid F/U @ 2Hr Lactic Acid F/U @ 4Hr Calcium Phosphorus Magnesium Total Bilirubin Direct Bilirubin AST ALT Alkaline Phosphatase Total Protein Albumin Triglycerides Lipase Beta-Hydroxybutyrate Urine Color Urine Appearance Urine pH Ur Specific [place] Urine Protein Urine Glucose (UA) Urine Ketones Urine Blood Urine Nitrite Ur Leukocyte Esterase Urine RBC Urine WBC Ur Squamous Epith Cells Urine Bacteria Hyaline Casts Urine Opiates Screen Ur Buprenorphine Scrn Ur Oxycodone Screen Urine Methadone Screen Urine Fentanyl Screen Ur Barbiturates Screen Ur Phencyclidine Scrn Ur Amphetamines Screen U Benzodiazepines Scrn Urine Cocaine Screen U Marijuana (THC) Screen Ethyl Alcohol Influenza Type A (PCR) Influenza Type B (PCR) RSV RNA Qual (PCR) SARS-CoV-2 RNA (RT-PCR) Progress Note: A&P Assessment and plan (1) Hypertriglyceridemia: Status: Acute (2) Acute pancreatitis: Status: Acute (3) LAURA (acute kidney injury): Status: Acute (4) DKA (diabetic ketoacidosis): Status: Acute Plan Assessment: 48-year-old gentleman admitted with diabetic ketoacidosis secondary to medication compliance further complicated by acute pancreatitis secondary to hypertriglyceridemia Plan: Neuro: No acute issues. Cardiac: No acute issues. Pulmonary: No acute issues. Renal: Metabolic acidosis, resolved. Acute kidney injury improved. Continue to monitor renal indices and urine output. Hyperkalemia resolved. Endo: Acute pancreatitis with hypertriglyceridemia, continue insulin drip until triglycerides under 1000. Diabetic ketoacidosis resolved. GI: No acute issues. ID: No acute issues Heme/Onc: No acute issues. Psych: No acute issues. Miscellaneous: No acute issues. Prophylaxis: Heparin Diet: Sips of clears Critical care time spent: 30 minutes Quality Stroke Does the patient have a stroke diagnosis?: No VTE Prior VTE?: No VTE Risk Level:: Medical - moderate - high VTE Device Contraindication: N/A - Device Ordered VTE Drug Contraindication: N/A - Med Ordered
[2024-01-30 13:09] LABS: Glucose, Whole Blood 224 mg/dL (60-115)
[2024-01-30 14:28] LABS: Glucose, Whole Blood 176 mg/dL (60-115)
[2024-01-30 15:19] LABS: Band Neutrophils Percent 22 % (3-5)
[2024-01-30 15:24] LABS: Glucose, Whole Blood 154 mg/dL (60-115)
[2024-01-30 15:34] LABS: Carbon Dioxide 6 mmol/L (22-29)
--- NOTE | 2024-01-30 15:40 | MHC.CM.PN ---
Pt admitted to ICU with DKA: has experienced same in past. Met with pt to discuss d/c planning: pt is independent w/care needs, drives, works and has no services. Pt states he has a working glucometer, test strips, insulin but needs to refill his pen needles. Pt has been to an marketing research coordinator and states he doesn't need additional diabetic education. Discussed importance of diabetic management and encouraged pt to follow with endo for ? insulin pump to assist w/compliance. Referred pt to [facility] as his [facility] terminated. Pt states he is working with his PCP office (Marion Torrez) to accomplish this. Pt states he will be able to fill scripts at d/c including pen needles. Pt's girlfriend to transport home. HCP on file.
[2024-01-30 16:17] LABS: Glucose, Whole Blood 176 mg/dL (60-115)
[2024-01-30 17:07] LABS: Glucose, Whole Blood 159 mg/dL (60-115)
[2024-01-30 18:20] LABS: Glucose, Whole Blood 161 mg/dL (60-115)
[2024-01-30] MEDS: ondansetron HCL 4 MG/2 ML VIAL IVPUSH (18:21)
[2024-01-30 19:04] LABS: Glucose, Whole Blood 188 mg/dL (60-115)
[2024-01-30 19:59] LABS: Glucose, Whole Blood 167 mg/dL (60-115)
[2024-01-30 19:59] LABS: Albumin Level 2.8 g/dL (3.5-5.0); Anion Gap 15 (12-20); Blood Urea Nitrogen 7 mg/dL (9-16); Calcium 8.2 mg/dL (8.4-10.2); Carbon Dioxide 21 mmol/L (22-29); Chloride 106 mmol/L (96-108); Creatinine Clr Calc Pharmacy 101.8; Estimated Glomerular Filt Rate > 60; Glucose Random 197 mg/dL (60-115); Magnesium 2.2 mg/dL (1.6-2.6); Phosphorus < 0.7 mg/dL (2.7-4.5); Potassium 2.9 mmol/L (3.3-5.1); Sodium 139 mmol/L (135-145)
[2024-01-30] MEDS: Albumin Human 25 % 100 ML IV (20:35)
[2024-01-30] MEDS: KCl 40 mEq in 5% Dex/0.45% Sod 40 MEQ/1,000 ML IV.SOLN 250 MEQ IVCONT (20:36)
[2024-01-30] MEDS: Insulin Regular/NS 100 UNIT/100 ML PLAST..BAG 8 UNIT IVCONT (21:36)
[2024-01-30 22:14] LABS: Glucose, Whole Blood 157 mg/dL (60-115)
[2024-01-31] VITALS (24 sets, daily range): BP systolic 103–133; BP diastolic 53–79; PULSE 78–95; RESP 13–27; TEMP 36.2–37.4; O2SAT 91–98; BMI 36.3
[2024-01-31 00:07] LABS: Glucose, Whole Blood 189 mg/dL (60-115)
[2024-01-31] MEDS: Morphine Sulfate 2 MG/ML CARTRIDGE 0.5 MG IVPUSH ×2 (00:26→13:32)
[2024-01-31] MEDS: Potassium Phosphate/NS 15 MMOL/250 ML PLAST..BAG 62.5 MMOL IV ×4 (00:44→22:48)
[2024-01-31 02:02] LABS: Glucose, Whole Blood 184 mg/dL (60-115)
[2024-01-31] MEDS: Albumin Human 25 % 100 ML IV ×3 (02:14→13:46)
[2024-01-31] MEDS: ondansetron HCL 4 MG/2 ML VIAL IVPUSH ×3 (02:18→20:42)
[2024-01-31 04:07] LABS: Glucose, Whole Blood 157 mg/dL (60-115)
[2024-01-31] MEDS: Piperacillin Sodium/Tazobactam 4.5 GM in 0.9 % Sodium Chloride 100 ML IV ×3 (04:37→21:15)
[2024-01-31 04:56] LABS: Hematocrit 27.8 % (42.0-52.0); Hemoglobin 10.1 g/dl (14.0-18.0); Mean Corpuscular HGB Conc 36.3 g/dl (31.0-36.0); Mean Corpuscular Hemoglobin 32.6 pg (27.0-33.0); Mean Corpuscular Volume 89.7 fL (80.0-98.0); Mean Platelet Volume 10.2 fL (9.4-12.4); NRBC Pct Auto 0.3 /100WBC (0.0-0.2); Platelet Count 226 X10*3/uL (160-400); Red Cell Distribution Width 13.1 % (11.0-16.0); White Blood Count 5.9 X10*3/uL (4.8-10.8)
[2024-01-31 05:00] LABS: VBG Base Excess -0.2 mmol/L; VBG HCO3 22 mmol/L (22-26); VBG pCO2 29 mmHg; VBG pH 7.48 (7.32-7.43); VBG pO2 36 mmHg
[2024-01-31 05:10] LABS: Albumin Level 3.1 g/dL (3.5-5.0); Anion Gap 11 (12-20); Blood Urea Nitrogen 6 mg/dL (9-16); Calcium 7.9 mg/dL (8.4-10.2); Carbon Dioxide 22 mmol/L (22-29); Chloride 109 mmol/L (96-108); Creatinine Clr Calc Pharmacy 111.8; Estimated Glomerular Filt Rate > 60; Glucose Random 172 mg/dL (60-115); Lipase 209 U/L (8-78); Magnesium 1.9 mg/dL (1.6-2.6); Sodium 139 mmol/L (135-145)
[2024-01-31 05:15] LABS: Triglycerides 1823 mg/dL (<150)
[2024-01-31 05:25] LABS: Venous Blood Gas Refer to POC result
[2024-01-31 05:48] LABS: Band Neutrophils Percent 24 % (3-5); Basophils Abs Manual 0.1 X10*3/uL (0.0-0.2); Basophils Percent Manual 2 % (0-2); Eosinophils Absolute Manual 0.5 X10*3/uL (0.0-0.4); Eosinophils Percent Manual 9 % (0-4); Lymphocytes Absolute Manual 0.8 X10*3/uL (1.2-4.9); Lymphocytes Percent Manual 14 % (20-40); Metamyelocytes Absolute 0.1 X10*3/uL; Metamyelocytes Percent 1 %; Monocytes Absolute Manual 0.2 X10*3/uL (0.1-1.2); Monocytes Percent Manual 4 % (2-11); Neutrophils Absolute Manual 4.1 X10*3/uL (2.0-8.3); Neutrophils Percent Manual 46 % (45-73); Nucleated Red Blood Cells 2 /100WBC (0-0)
[2024-01-31 05:49] LABS: Platelet Estimate NORMAL (NORMAL); Platelet Morphology Comment NORMAL; RBC Morphology NOTED; Target Cells 1+ (5-14) /OIF
[2024-01-31 05:50] LABS: Basophilic Stippling 1+ (0-2) /OIF; Smudge Cells PRESENT; Tear Drop Cells 2+ (3-5) /OIF; Toxic Vacuolation PRESENT
[2024-01-31] MEDS: Dextrose 5 % and Lactated Ring 1,000 ML 150 ML IVCONT ×3 (05:51→19:29)
[2024-01-31 06:08] LABS: Glucose, Whole Blood 150 mg/dL (60-115)
[2024-01-31 06:20] LABS: Phosphorus 0.9 mg/dL (2.7-4.5)
[2024-01-31 07:52] LABS: Glucose, Whole Blood 180 mg/dL (60-115)
[2024-01-31 09:09] LABS: Glucose, Whole Blood 188 mg/dL (60-115)
--- NOTE | 2024-01-31 09:36 | P.CDIM_ITS ---
PROVIDER RESPONSE TEXT: To clarify, the appropriate diagnosis supported by the clinical indicators: Acute QUERY TEXT: PHYSICIAN'S DOCUMENTATION REQUEST Date of Query: 01/31/2024 09:15 AM EDT Patient Name: Vijay Zazueta Admit Date: 01/30/2024 Dear Pacheco Montes MD, A review of the medical record indicates additional documentation may be needed. Please review below and update the documentation accordingly. Clinical Indicators: Per Critical Care Progress Note 01/30/24: Metabolic acidosis, resolved Clarify which of the following accurately represents the acuity of the (insert diagnosis). Possible options might include: Acute Acute on chronic Compensated Chronic stable condition Remission Other (explain) Clinically unable to determine (explain) Thank you, Marcia Chiu RN Use of terms such as suspected, likely, concern for, or probable (associated with a specific diagnosi s that is being evaluated, monitored, or treated as if it exists) are acceptable and can be coded in the inpatient se tting, when documented at the time of discharge. Please use your independent medical judgment in providing your response. THIS QUERY IS PART OF THE PERMANENT MEDICAL RECORD
[2024-01-31] MEDS: Heparin Sodium,Porcine 5,000 UNIT/ML VIAL 5000 UNIT SUBCUT ×3 (09:51→20:39)
--- NOTE | 2024-01-31 10:02 | PM.CCPN ---
Subjective Subjective Date of Service: 01/31/24 Interval History: 48-year-old gentleman with underlying insulin-dependent diabetes mellitus and hypertension poorly compliant with his medication regimen admitted on 01/29/2024 with abdominal discomfort and nausea. On ER evaluation patient with profound metabolic acidosis secondary to diabetic ketoacidosis and pancreatitis with lactic acidosis requiring initiation of insulin drip and admission to intensive care unit. Diabetic ketoacidosis, insulin drip switch to non DKA protocol. Still with significant hypertriglyceridemia. No events overnight. Critical Care Time (minutes): 0 Physical Exam Vital Signs: Vital Signs: Last Vital Signs Temp 98.6 F 01/31/24 09:00 Pulse 86 01/31/24 09:00 Resp 20 01/31/24 09:00 BP 132/79 01/31/24 09:00 Pulse Ox 95 01/31/24 09:00 O2 Del Method Room Air 01/31/24 09:00 O2 Flow Rate 2 01/30/24 01:00 BMI result Body Mass Index 36.3 Const: General: no acute distress, alert and awake Eyes: Sclerae: sclerae normal EOM: EOMs intact bilaterally Neck: Neck: Yes no lymphadenopathy, Yes trachea midline and Yes supple Resp: Effort & Inspection: normal respiratory effort and no respiratory distress Auscultation: clear to auscultation bilaterally Cardio: Rate: regular rate Rhythm: regular rhythm Heart sounds: no gallops, no murmurs and no rubs GI: Inspection: Yes distended Palpation (GI): Soft to palpation and Other GI palpation findings present ( Nontender) Auscultation: normal bowel sounds Extrem: General: Yes no pedal edema, No clubbing and No cyanosis Objective Data Labs 01/31/24 04:47 01/31/24 04:47 Labs: Laboratory Results - last 24 hr 01/29/24 01/29/24 01/30/24 18:39 21:48 10:11 WBC RBC Hgb Hct MCV MCH MCHC RDW Plt Count MPV Immature Gran % (Auto) Neut % (Auto) Lymph % (Auto) [place] % (Auto) Eos % (Auto) Baso % (Auto) Lymph # (Auto) [place] # (Auto) Eos # (Auto) Baso # (Auto) Abs Immat Gran (auto) Absolute Neuts (auto) Absolute Nucleated RBC Nucleated RBC % (auto) Neutrophils % (Manual) Band Neutrophils % 22 H Lymphocytes % (Manual) Monocytes % (Manual) Eosinophils % (Manual) Basophils % (Manual) Metamyelocytes % Abs Neuts (Manual) Lymphocytes # (Manual) Monocytes # (Manual) Eosinophils # (Manual) Basophils # (Manual) Metamyelocytes # Nucleated RBCs Smudge Cells Toxic Vacuolation Platelet Estimate Plt Morphology Comment RBC Morphology Basophilic Stippling Target Cells Tear Drop Cells VBG pH VBG pCO2 VBG pO2 VBG HCO3 VBG O2 Saturation VBG Base Excess Sodium Potassium Chloride Carbon Dioxide 6 L* Anion Gap BUN Creatinine Estim Creat Clear Calc Estimated GFR POC Glucose 239 H Random Glucose Calcium Phosphorus Magnesium Albumin Triglycerides Lipase 01/30/24 01/30/24 01/30/24 11:09 11:59 13:05 WBC RBC Hgb Hct MCV MCH MCHC RDW Plt Count MPV Immature Gran % (Auto) Neut % (Auto) Lymph % (Auto) [place] % (Auto) Eos % (Auto) Baso % (Auto) Lymph # (Auto) [place] # (Auto) Eos # (Auto) Baso # (Auto) Abs Immat Gran (auto) Absolute Neuts (auto) Absolute Nucleated RBC Nucleated RBC % (auto) Neutrophils % (Manual) Band Neutrophils % Lymphocytes % (Manual) Monocytes % (Manual) Eosinophils % (Manual) Basophils % (Manual) Metamyelocytes % Abs Neuts (Manual) Lymphocytes # (Manual) Monocytes # (Manual) Eosinophils # (Manual) Basophils # (Manual) Metamyelocytes # Nucleated RBCs Smudge Cells Toxic Vacuolation Platelet Estimate Plt Morphology Comment RBC Morphology Basophilic Stippling Target Cells Tear Drop Cells VBG pH VBG pCO2 VBG pO2 VBG HCO3 VBG O2 Saturation VBG Base Excess Sodium Potassium Chloride Carbon Dioxide Anion Gap BUN Creatinine Estim Creat Clear Calc Estimated GFR POC Glucose 236 H 219 H 224 H Random Glucose Calcium Phosphorus Magnesium Albumin Triglycerides Lipase 01/30/24 01/30/24 01/30/24 14:24 15:21 16:14 WBC RBC Hgb Hct MCV MCH MCHC RDW Plt Count MPV Immature Gran % (Auto) Neut % (Auto) Lymph % (Auto) [place] % (Auto) Eos % (Auto) Baso % (Auto) Lymph # (Auto) [place] # (Auto) Eos # (Auto) Baso # (Auto) Abs Immat Gran (auto) Absolute Neuts (auto) Absolute Nucleated RBC Nucleated RBC % (auto) Neutrophils % (Manual) Band Neutrophils % Lymphocytes % (Manual) Monocytes % (Manual) Eosinophils % (Manual) Basophils % (Manual) Metamyelocytes % Abs Neuts (Manual) Lymphocytes # (Manual) Monocytes # (Manual) Eosinophils # (Manual) Basophils # (Manual) Metamyelocytes # Nucleated RBCs Smudge Cells Toxic Vacuolation Platelet Estimate Plt Morphology Comment RBC Morphology Basophilic Stippling Target Cells Tear Drop Cells VBG pH VBG pCO2 VBG pO2 VBG HCO3 VBG O2 Saturation VBG Base Excess Sodium Potassium Chloride Carbon Dioxide Anion Gap BUN Creatinine Estim Creat Clear Calc Estimated GFR POC Glucose 176 H 154 H 176 H Random Glucose Calcium Phosphorus Magnesium Albumin Triglycerides Lipase 01/30/24 01/30/24 01/30/24 16:59 18:16 19:00 WBC RBC Hgb Hct MCV MCH MCHC RDW Plt Count MPV Immature Gran % (Auto) Neut % (Auto) Lymph % (Auto) [place] % (Auto) Eos % (Auto) Baso % (Auto) Lymph # (Auto) [place] # (Auto) Eos # (Auto) Baso # (Auto) Abs Immat Gran (auto) Absolute Neuts (auto) Absolute Nucleated RBC Nucleated RBC % (auto) Neutrophils % (Manual) Band Neutrophils % Lymphocytes % (Manual) Monocytes % (Manual) Eosinophils % (Manual) Basophils % (Manual) Metamyelocytes % Abs Neuts (Manual) Lymphocytes # (Manual) Monocytes # (Manual) Eosinophils # (Manual) Basophils # (Manual) Metamyelocytes # Nucleated RBCs Smudge Cells Toxic Vacuolation Platelet Estimate Plt Morphology Comment RBC Morphology Basophilic Stippling Target Cells Tear Drop Cells VBG pH VBG pCO2 VBG pO2 VBG HCO3 VBG O2 Saturation VBG Base Excess Sodium Potassium Chloride Carbon Dioxide Anion Gap BUN Creatinine Estim Creat Clear Calc Estimated GFR POC Glucose 159 H 161 H 188 H Random Glucose Calcium Phosphorus Magnesium Albumin Triglycerides Lipase 01/30/24 01/30/24 01/30/24 19:25 19:55 22:10 WBC RBC Hgb Hct MCV MCH MCHC RDW Plt Count MPV Immature Gran % (Auto) Neut % (Auto) Lymph % (Auto) [place] % (Auto) Eos % (Auto) Baso % (Auto) Lymph # (Auto) [place] # (Auto) Eos # (Auto) Baso # (Auto) Abs Immat Gran (auto) Absolute Neuts (auto) Absolute Nucleated RBC Nucleated RBC % (auto) Neutrophils % (Manual) Band Neutrophils % Lymphocytes % (Manual) Monocytes % (Manual) Eosinophils % (Manual) Basophils % (Manual) Metamyelocytes % Abs Neuts (Manual) Lymphocytes # (Manual) Monocytes # (Manual) Eosinophils # (Manual) Basophils # (Manual) Metamyelocytes # Nucleated RBCs Smudge Cells Toxic Vacuolation Platelet Estimate Plt Morphology Comment RBC Morphology Basophilic Stippling Target Cells Tear Drop Cells VBG pH VBG pCO2 VBG pO2 VBG HCO3 VBG O2 Saturation VBG Base Excess Sodium 139 Potassium 2.9 L* Chloride 106 Carbon Dioxide 21 L Anion Gap 15 BUN 7 L Creatinine 1.01 Estim Creat Clear Calc 101.8 Estimated GFR > 60 POC Glucose 167 H 157 H Random Glucose 197 H Calcium 8.2 L Phosphorus < 0.7 L* Magnesium 2.2 Albumin 2.8 L Triglycerides Lipase 01/31/24 01/31/24 01/31/24 00:02 01:59 04:03 WBC RBC Hgb Hct MCV MCH MCHC RDW Plt Count MPV Immature Gran % (Auto) Neut % (Auto) Lymph % (Auto) [place] % (Auto) Eos % (Auto) Baso % (Auto) Lymph # (Auto) [place] # (Auto) Eos # (Auto) Baso # (Auto) Abs Immat Gran (auto) Absolute Neuts (auto) Absolute Nucleated RBC Nucleated RBC % (auto) Neutrophils % (Manual) Band Neutrophils % Lymphocytes % (Manual) Monocytes % (Manual) Eosinophils % (Manual) Basophils % (Manual) Metamyelocytes % Abs Neuts (Manual) Lymphocytes # (Manual) Monocytes # (Manual) Eosinophils # (Manual) Basophils # (Manual) Metamyelocytes # Nucleated RBCs Smudge Cells Toxic Vacuolation Platelet Estimate Plt Morphology Comment RBC Morphology Basophilic Stippling Target Cells Tear Drop Cells VBG pH VBG pCO2 VBG pO2 VBG HCO3 VBG O2 Saturation VBG Base Excess Sodium Potassium Chloride Carbon Dioxide Anion Gap BUN Creatinine Estim Creat Clear Calc Estimated GFR POC Glucose 189 H 184 H 157 H Random Glucose Calcium Phosphorus Magnesium Albumin Triglycerides Lipase 01/31/24 01/31/24 01/31/24 04:47 04:51 06:04 WBC 5.9 RBC 3.10 L Hgb 10.1 L Hct 27.8 L MCV 89.7 MCH 32.6 MCHC 36.3 H RDW 13.1 Plt Count 226 MPV 10.2 Immature Gran % (Auto) Cancelled Neut % (Auto) Cancelled Lymph % (Auto) Cancelled [place] % (Auto) Cancelled Eos % (Auto) Cancelled Baso % (Auto) Cancelled Lymph # (Auto) Cancelled [place] # (Auto) Cancelled Eos # (Auto) Cancelled Baso # (Auto) Cancelled Abs Immat Gran (auto) Cancelled Absolute Neuts (auto) Cancelled Absolute Nucleated RBC 0.020 H Nucleated RBC % (auto) 0.3 H Neutrophils % (Manual) 46 Band Neutrophils % 24 H Lymphocytes % (Manual) 14 L Monocytes % (Manual) 4 Eosinophils % (Manual) 9 H Basophils % (Manual) 2 Metamyelocytes % 1 Abs Neuts (Manual) 4.1 Lymphocytes # (Manual) 0.8 L Monocytes # (Manual) 0.2 Eosinophils # (Manual) 0.5 H Basophils # (Manual) 0.1 Metamyelocytes # 0.1 Nucleated RBCs 2 H Smudge Cells PRESENT Toxic Vacuolation PRESENT Platelet Estimate NORMAL Plt Morphology Comment NORMAL RBC Morphology NOTED Basophilic Stippling 1+ (0-2) Target Cells 1+ (5-14) Tear Drop Cells 2+ (3-5) VBG pH 7.48 H VBG pCO2 29 VBG pO2 36 VBG HCO3 22 VBG O2 Saturation 72.0 VBG Base Excess -0.2 Sodium 139 Potassium 3.0 L Chloride 109 H Carbon Dioxide 22 Anion Gap 11 L BUN 6 L Creatinine 0.92 Estim Creat Clear Calc 111.8 Estimated GFR > 60 POC Glucose 150 H Random Glucose 172 H Calcium 7.9 L Phosphorus 0.9 L* Magnesium 1.9 Albumin 3.1 L Triglycerides 1823 H Lipase 209 H 01/31/24 01/31/24 07:48 09:05 WBC RBC Hgb Hct MCV MCH MCHC RDW Plt Count MPV Immature Gran % (Auto) Neut % (Auto) Lymph % (Auto) [place] % (Auto) Eos % (Auto) Baso % (Auto) Lymph # (Auto) [place] # (Auto) Eos # (Auto) Baso # (Auto) Abs Immat Gran (auto) Absolute Neuts (auto) Absolute Nucleated RBC Nucleated RBC % (auto) Neutrophils % (Manual) Band Neutrophils % Lymphocytes % (Manual) Monocytes % (Manual) Eosinophils % (Manual) Basophils % (Manual) Metamyelocytes % Abs Neuts (Manual) Lymphocytes # (Manual) Monocytes # (Manual) Eosinophils # (Manual) Basophils # (Manual) Metamyelocytes # Nucleated RBCs Smudge Cells Toxic Vacuolation Platelet Estimate Plt Morphology Comment RBC Morphology Basophilic Stippling Target Cells Tear Drop Cells VBG pH VBG pCO2 VBG pO2 VBG HCO3 VBG O2 Saturation VBG Base Excess Sodium Potassium Chloride Carbon Dioxide Anion Gap BUN Creatinine Estim Creat Clear Calc Estimated GFR POC Glucose 180 H 188 H Random Glucose Calcium Phosphorus Magnesium Albumin Triglycerides Lipase Microbiology Microbiology Results: Microbiology 01/29/24 20:12 Blood - Venous Blood Culture - Preliminary No growth after 24 hours. 01/29/24 20:00 Blood - Venous Blood Culture - Preliminary No growth after 24 hours. Progress Note: A&P Assessment and plan (1) Hypertriglyceridemia: Status: Acute (2) Acute pancreatitis: Status: Acute Plan Assessment: 48-year-old gentleman admitted with diabetic ketoacidosis secondary to medication compliance further complicated by acute pancreatitis secondary to hypertriglyceridemia Plan: Neuro: No acute issues. Cardiac: No acute issues. Pulmonary: No acute issues. Renal: Metabolic acidosis, resolved. Acute kidney injury resolved. Continue to monitor renal indices and urine output. Hyperkalemia resolved. Endo: Acute pancreatitis with hypertriglyceridemia, continue insulin drip until triglycerides under 1000. Diabetic ketoacidosis resolved. GI: No acute issues. ID: No acute issues Heme/Onc: No acute issues. Psych: No acute issues. Miscellaneous: No acute issues. Prophylaxis: Heparin Diet: Clear liquids Quality Stroke Does the patient have a stroke diagnosis?: No VTE Prior VTE?: No VTE Risk Level:: Medical - moderate - high VTE Device Contraindication: N/A - Device Ordered VTE Drug Contraindication: N/A - Med Ordered
[2024-01-31 10:09] LABS: Glucose, Whole Blood 192 mg/dL (60-115)
[2024-01-31 11:06] LABS: Glucose, Whole Blood 202 mg/dL (60-115)
[2024-01-31 12:15] LABS: Glucose, Whole Blood 179 mg/dL (60-115)
[2024-01-31 12:55] LABS: Glucose, Whole Blood 176 mg/dL (60-115)
[2024-01-31] MEDS: Insulin Regular/NS 100 UNIT/100 ML PLAST..BAG 8 UNIT IVCONT (13:43)
[2024-01-31 14:00] LABS: Glucose, Whole Blood 170 mg/dL (60-115)
--- NOTE | 2024-01-31 14:33 | MHC.CM.PN ---
Pt will remain in ICU until his triglycerides fall under 1000. He is on IV insulin. Pt from home: no services-working and independent w/care needs. Pt sees a provider at [facility] in [place] and will contact [facility] to complete information needed for plan reinstatement.
[2024-01-31 14:57] LABS: Glucose, Whole Blood 170 mg/dL (60-115)
[2024-01-31 15:58] LABS: Glucose, Whole Blood 178 mg/dL (60-115)
[2024-01-31 16:57] LABS: Glucose, Whole Blood 169 mg/dL (60-115)
[2024-01-31 17:57] LABS: Glucose, Whole Blood 196 mg/dL (60-115)
[2024-01-31 18:59] LABS: Glucose, Whole Blood 150 mg/dL (60-115)
[2024-01-31 20:14] LABS: Albumin Level 3.2 g/dL (3.5-5.0); Anion Gap 11 (12-20); Blood Urea Nitrogen 3 mg/dL (9-16); Carbon Dioxide 23 mmol/L (22-29); Chloride 109 mmol/L (96-108); Creatinine Clr Calc Pharmacy 121.2; Estimated Glomerular Filt Rate > 60; Glucose Random 153 mg/dL (60-115); Magnesium 1.7 mg/dL (1.6-2.6); Phosphorus 1.1 mg/dL (2.7-4.5); Potassium 2.7 mmol/L (3.3-5.1); Sodium 140 mmol/L (135-145)
[2024-01-31] MEDS: Potassium Chloride/H20 10 MEQ/100 ML PIGGYBACK 100 MEQ IV ×2 (20:39→21:41)
[2024-01-31] MEDS: Ketorolac Tromethamine 15 MG/ML VIAL IVPUSH (20:39)
[2024-01-31 20:44] LABS: Glucose, Whole Blood 160 mg/dL (60-115)
[2024-01-31] MEDS: Magnesium Sulfate/D5W 1 GM/100 ML PIGGYBACK IV (21:48)
[2024-01-31] MEDS: Calcium Gluconate/NaCl,Iso-Osm 2 GM/100 ML PLAST..BAG IV (22:52)
[2024-01-31 23:00] LABS: Glucose, Whole Blood 230 mg/dL (60-115)
[2024-02-01] VITALS (24 sets, daily range): BP systolic 114–141; BP diastolic 55–88; PULSE 73–92; RESP 12–23; TEMP 36.4–36.8; O2SAT 94–98; BMI 36.4
[2024-02-01 00:28] LABS: Glucose, Whole Blood 240 mg/dL (60-115)
[2024-02-01] MEDS: Potassium Chloride/H20 10 MEQ/100 ML PIGGYBACK 100 MEQ IV ×6 (00:33→11:51)
[2024-02-01] MEDS: Insulin Regular/NS 100 UNIT/100 ML PLAST..BAG 8 UNIT IVCONT ×2 (00:34→16:58)
[2024-02-01 01:31] LABS: Glucose, Whole Blood 233 mg/dL (60-115)
[2024-02-01] MEDS: Dextrose 5 % and Lactated Ring 1,000 ML 150 ML IVCONT (01:38)
[2024-02-01] MEDS: Potassium Phosphate/NS 15 MMOL/250 ML PLAST..BAG 62.5 MMOL IV ×2 (02:45→22:10)
[2024-02-01 03:24] LABS: Glucose, Whole Blood 178 mg/dL (60-115)
[2024-02-01 04:47] LABS: MANUAL DIFF FLAG NO
[2024-02-01 04:53] LABS: Basophils Absolute Auto 0.1 X10*3/uL (0.0-0.2); Basophils Percent Auto 0.9 % (0-2); Eosinophils Absolute Auto 0.3 X10*3/uL (0.0-0.4); Eosinophils Percent Auto 4.6 % (0-4); Hematocrit 29.2 % (42.0-52.0); Hemoglobin 10.4 g/dl (14.0-18.0); Imm Gran Abs Auto 0.17 X10*3/uL (0.00-0.03); Imm Gran Pct Auto 2.5 % (0.0-0.4); Lymphocytes Absolute Auto 1.5 X10*3/uL (1.2-4.9); Mean Corpuscular HGB Conc 35.6 g/dl (31.0-36.0); Mean Corpuscular Hemoglobin 31.8 pg (27.0-33.0); Mean Corpuscular Volume 89.3 fL (80.0-98.0); Mean Platelet Volume 10.2 fL (9.4-12.4); Monocytes Absolute Auto 0.6 X10*3/uL (0.1-1.2); Monocytes Percent Auto 8.2 % (2-11); Neutrophils Absolute Auto 4.2 x10*3/uL (2.0-8.3); Neutrophils Percent Auto 61.8 % (45-73); Platelet Count 274 X10*3/uL (160-400); Red Blood Count 3.27 X10*6/uL (4.60-5.80); White Blood Count 6.8 X10*3/uL (4.8-10.8)
[2024-02-01] MEDS: Morphine Sulfate 2 MG/ML CARTRIDGE 0.5 MG IVPUSH (04:54)
[2024-02-01 05:10] LABS: Alanine Aminotransferase 26 U/L (0-40); Albumin Level 2.9 g/dL (3.5-5.0); Alkaline Phosphatase 86 U/L (39-117); Anion Gap 13 (12-20); Aspartate Amino Transferase 53 U/L (5-37); Bilirubin Total 0.6 mg/dL (0.0-1.0); Blood Urea Nitrogen < 3 mg/dL (9-16); Calcium 8.5 mg/dL (8.4-10.2); Carbon Dioxide 23 mmol/L (22-29); Chloride 106 mmol/L (96-108); Creatinine Clr Calc Pharmacy 118.5; Estimated Glomerular Filt Rate > 60; Glucose Random 181 mg/dL (60-115); Magnesium 1.9 mg/dL (1.6-2.6); Phosphorus 2.9 mg/dL (2.7-4.5); Potassium 2.8 mmol/L (3.3-5.1); Sodium 139 mmol/L (135-145); Total Protein 5.9 g/dL (6.5-8.0); Triglycerides 1128 mg/dL (<150)
[2024-02-01 05:11] LABS: Glucose, Whole Blood 202 mg/dL (60-115)
[2024-02-01] MEDS: Piperacillin Sodium/Tazobactam 4.5 GM in 0.9 % Sodium Chloride 100 ML IV (06:19)
[2024-02-01 07:23] LABS: Glucose, Whole Blood 225 mg/dL (60-115)
[2024-02-01 09:17] LABS: Glucose, Whole Blood 219 mg/dL (60-115)
--- NOTE | 2024-02-01 09:48 | PM.CCPN ---
Subjective Subjective Date of Service: 02/01/24 Interval History: 48-year-old gentleman with underlying insulin-dependent diabetes mellitus and hypertension poorly compliant with his medication regimen admitted on 01/29/2024 with abdominal discomfort and nausea. On ER evaluation patient with profound metabolic acidosis secondary to diabetic ketoacidosis and pancreatitis with lactic acidosis requiring initiation of insulin drip and admission to intensive care unit. Diabetic ketoacidosis, insulin drip switch to non DKA protocol. Still with significant hypertriglyceridemia. No events overnight. Critical Care Time (minutes): 0 Physical Exam Vital Signs: Vital Signs: Last Vital Signs Temp 97.8 F 02/01/24 05:00 Pulse 74 02/01/24 09:00 Resp 15 02/01/24 09:00 BP 126/78 02/01/24 09:00 Pulse Ox 97 02/01/24 09:00 O2 Del Method Room Air 02/01/24 09:00 O2 Flow Rate 2 01/30/24 01:00 BMI result Body Mass Index 36.4 Const: General: no acute distress, alert and awake Eyes: Sclerae: sclerae normal EOM: EOMs intact bilaterally Neck: Neck: Yes no lymphadenopathy, Yes trachea midline and Yes supple Resp: Effort & Inspection: normal respiratory effort and no respiratory distress Auscultation: clear to auscultation bilaterally Cardio: Rate: regular rate Rhythm: regular rhythm Heart sounds: no gallops, no murmurs and no rubs GI: Inspection: Yes distended Palpation (GI): Soft to palpation, no guarding, not rigid and Other GI palpation findings present ( Nontender) Auscultation: normal bowel sounds Extrem: General: Yes no pedal edema, No clubbing and No cyanosis Objective Data Labs 02/01/24 04:15 02/01/24 04:15 Labs: Laboratory Results - last 24 hr 01/31/24 01/31/24 01/31/24 10:05 11:03 12:12 WBC RBC Hgb Hct MCV MCH MCHC RDW Plt Count MPV Immature Gran % (Auto) Neut % (Auto) Lymph % (Auto) [place] % (Auto) Eos % (Auto) Baso % (Auto) Lymph # (Auto) [place] # (Auto) Eos # (Auto) Baso # (Auto) Abs Immat Gran (auto) Absolute Neuts (auto) Absolute Nucleated RBC Nucleated RBC % (auto) Sodium Potassium Chloride Carbon Dioxide Anion Gap BUN Creatinine Estim Creat Clear Calc Estimated GFR POC Glucose 192 H 202 H 179 H Random Glucose Calcium Phosphorus Magnesium Total Bilirubin AST ALT Alkaline Phosphatase Total Protein Albumin Triglycerides 01/31/24 01/31/24 01/31/24 12:51 13:56 14:54 WBC RBC Hgb Hct MCV MCH MCHC RDW Plt Count MPV Immature Gran % (Auto) Neut % (Auto) Lymph % (Auto) [place] % (Auto) Eos % (Auto) Baso % (Auto) Lymph # (Auto) [place] # (Auto) Eos # (Auto) Baso # (Auto) Abs Immat Gran (auto) Absolute Neuts (auto) Absolute Nucleated RBC Nucleated RBC % (auto) Sodium Potassium Chloride Carbon Dioxide Anion Gap BUN Creatinine Estim Creat Clear Calc Estimated GFR POC Glucose 176 H 170 H 170 H Random Glucose Calcium Phosphorus Magnesium Total Bilirubin AST ALT Alkaline Phosphatase Total Protein Albumin Triglycerides 01/31/24 01/31/24 01/31/24 15:55 16:53 17:54 WBC RBC Hgb Hct MCV MCH MCHC RDW Plt Count MPV Immature Gran % (Auto) Neut % (Auto) Lymph % (Auto) [place] % (Auto) Eos % (Auto) Baso % (Auto) Lymph # (Auto) [place] # (Auto) Eos # (Auto) Baso # (Auto) Abs Immat Gran (auto) Absolute Neuts (auto) Absolute Nucleated RBC Nucleated RBC % (auto) Sodium Potassium Chloride Carbon Dioxide Anion Gap BUN Creatinine Estim Creat Clear Calc Estimated GFR POC Glucose 178 H 169 H 196 H Random Glucose Calcium Phosphorus Magnesium Total Bilirubin AST ALT Alkaline Phosphatase Total Protein Albumin Triglycerides 01/31/24 01/31/24 01/31/24 18:55 19:30 20:41 WBC RBC Hgb Hct MCV MCH MCHC RDW Plt Count MPV Immature Gran % (Auto) Neut % (Auto) Lymph % (Auto) [place] % (Auto) Eos % (Auto) Baso % (Auto) Lymph # (Auto) [place] # (Auto) Eos # (Auto) Baso # (Auto) Abs Immat Gran (auto) Absolute Neuts (auto) Absolute Nucleated RBC Nucleated RBC % (auto) Sodium 140 Potassium 2.7 L* Chloride 109 H Carbon Dioxide 23 Anion Gap 11 L BUN 3 L Creatinine 0.87 Estim Creat Clear Calc 121.2 Estimated GFR > 60 POC Glucose 150 H 160 H Random Glucose 153 H Calcium 8.0 L Phosphorus 1.1 L Magnesium 1.7 Total Bilirubin AST ALT Alkaline Phosphatase Total Protein Albumin 3.2 L Triglycerides 01/31/24 02/01/24 02/01/24 22:56 00:24 01:28 WBC RBC Hgb Hct MCV MCH MCHC RDW Plt Count MPV Immature Gran % (Auto) Neut % (Auto) Lymph % (Auto) [place] % (Auto) Eos % (Auto) Baso % (Auto) Lymph # (Auto) [place] # (Auto) Eos # (Auto) Baso # (Auto) Abs Immat Gran (auto) Absolute Neuts (auto) Absolute Nucleated RBC Nucleated RBC % (auto) Sodium Potassium Chloride Carbon Dioxide Anion Gap BUN Creatinine Estim Creat Clear Calc Estimated GFR POC Glucose 230 H 240 H 233 H Random Glucose Calcium Phosphorus Magnesium Total Bilirubin AST ALT Alkaline Phosphatase Total Protein Albumin Triglycerides 02/01/24 02/01/24 02/01/24 03:20 04:15 05:04 WBC 6.8 RBC 3.27 L Hgb 10.4 L Hct 29.2 L MCV 89.3 MCH 31.8 MCHC 35.6 RDW 13.0 Plt Count 274 MPV 10.2 Immature Gran % (Auto) 2.5 H Neut % (Auto) 61.8 Lymph % (Auto) 22.0 [place] % (Auto) 8.2 Eos % (Auto) 4.6 H Baso % (Auto) 0.9 Lymph # (Auto) 1.5 [place] # (Auto) 0.6 Eos # (Auto) 0.3 Baso # (Auto) 0.1 Abs Immat Gran (auto) 0.17 H Absolute Neuts (auto) 4.2 Absolute Nucleated RBC 0.000 Nucleated RBC % (auto) 0.0 Sodium 139 Potassium 2.8 L* Chloride 106 Carbon Dioxide 23 Anion Gap 13 BUN < 3 L Creatinine 0.89 Estim Creat Clear Calc 118.5 Estimated GFR > 60 POC Glucose 178 H 202 H Random Glucose 181 H Calcium 8.5 D Phosphorus 2.9 Magnesium 1.9 Total Bilirubin 0.6 AST 53 H ALT 26 Alkaline Phosphatase 86 Total Protein 5.9 L Albumin 2.9 L Triglycerides 1128 H 02/01/24 02/01/24 07:20 09:11 WBC RBC Hgb Hct MCV MCH MCHC RDW Plt Count MPV Immature Gran % (Auto) Neut % (Auto) Lymph % (Auto) [place] % (Auto) Eos % (Auto) Baso % (Auto) Lymph # (Auto) [place] # (Auto) Eos # (Auto) Baso # (Auto) Abs Immat Gran (auto) Absolute Neuts (auto) Absolute Nucleated RBC Nucleated RBC % (auto) Sodium Potassium Chloride Carbon Dioxide Anion Gap BUN Creatinine Estim Creat Clear Calc Estimated GFR POC Glucose 225 H 219 H Random Glucose Calcium Phosphorus Magnesium Total Bilirubin AST ALT Alkaline Phosphatase Total Protein Albumin Triglycerides Microbiology Microbiology Results: Microbiology 01/29/24 20:00 Blood - Venous Blood Culture - Preliminary No growth after 48 hours. 01/29/24 20:12 Blood - Venous Blood Culture - Preliminary Prelim: GPR Gram Stain only Progress Note: A&P Assessment and plan (1) Hypertriglyceridemia: Status: Acute (2) Acute pancreatitis: Status: Acute Plan Assessment: 48-year-old gentleman admitted with diabetic ketoacidosis secondary to medication compliance further complicated by acute pancreatitis secondary to hypertriglyceridemia Plan: Neuro: No acute issues. Cardiac: No acute issues. Pulmonary: No acute issues. Renal: Metabolic acidosis, resolved. Acute kidney injury resolved. Continue to monitor renal indices and urine output. Hyperkalemia resolved. Endo: Acute pancreatitis with hypertriglyceridemia, continue insulin drip until triglycerides under 1000. Diabetic ketoacidosis resolved. GI: No acute issues. ID: No acute issues Heme/Onc: No acute issues. Psych: No acute issues. Miscellaneous: No acute issues. Prophylaxis: Heparin Diet: Diabetic Quality Stroke Does the patient have a stroke diagnosis?: No VTE Prior VTE?: No VTE Risk Level:: Medical - moderate - high VTE Device Contraindication: N/A - Device Ordered VTE Drug Contraindication: N/A - Med Ordered
[2024-02-01] MEDS: Heparin Sodium,Porcine 5,000 UNIT/ML VIAL 5000 UNIT SUBCUT ×3 (10:21→20:46)
[2024-02-01] MEDS: fentaNYL citrate/PF 100 MCG/2 ML VIAL IVPUSH ×2 (10:25→23:32)
[2024-02-01] MEDS: Albumin Human 25 % 100 ML IV ×3 (11:03→21:07)
[2024-02-01] MEDS: Dextrose 5 % and Lactated Ring 1,000 ML 100 ML IVCONT ×2 (11:04→21:02)
[2024-02-01] MEDS: Potassium Chloride Packet 20 MEQ PACKET 40 MEQ PO ×3 (11:10→16:31)
[2024-02-01 11:19] LABS: Glucose, Whole Blood 191 mg/dL (60-115)
[2024-02-01 12:22] LABS: Glucose, Whole Blood 216 mg/dL (60-115)
[2024-02-01 13:45] LABS: Glucose, Whole Blood 188 mg/dL (60-115)
[2024-02-01 14:27] LABS: Glucose, Whole Blood 197 mg/dL (60-115)
[2024-02-01 15:24] LABS: Glucose, Whole Blood 187 mg/dL (60-115)
[2024-02-01 16:19] LABS: Glucose, Whole Blood 202 mg/dL (60-115)
[2024-02-01] MEDS: fentaNYL citrate/PF 100 MCG/2 ML VIAL 50 MCG IVPUSH (16:28)
[2024-02-01 17:05] LABS: Glucose, Whole Blood 225 mg/dL (60-115)
[2024-02-01 18:06] LABS: Glucose, Whole Blood 199 mg/dL (60-115)
[2024-02-01 19:10] LABS: Glucose, Whole Blood 189 mg/dL (60-115)
[2024-02-01 20:02] LABS: Albumin Level 3.7 g/dL (3.5-5.0); Anion Gap 14 (12-20); Blood Urea Nitrogen < 3 mg/dL (9-16); Calcium 8.8 mg/dL (8.4-10.2); Carbon Dioxide 24 mmol/L (22-29); Chloride 106 mmol/L (96-108); Creatinine Clr Calc Pharmacy 122.8; Estimated Glomerular Filt Rate > 60; Glucose Random 217 mg/dL (60-115); Magnesium 1.8 mg/dL (1.6-2.6); Potassium 3.8 mmol/L (3.3-5.1); Sodium 140 mmol/L (135-145)
[2024-02-01 20:04] LABS: Glucose, Whole Blood 191 mg/dL (60-115)
[2024-02-01 22:07] LABS: Glucose, Whole Blood 180 mg/dL (60-115)
[2024-02-02] VITALS (15 sets, daily range): BP systolic 112–145; BP diastolic 61–92; PULSE 78–111; RESP 14–22; TEMP 36.4–37.1; O2SAT 94–98; BMI 36.2
[2024-02-02 00:07] LABS: Glucose, Whole Blood 173 mg/dL (60-115)
[2024-02-02 02:16] LABS: Glucose, Whole Blood 158 mg/dL (60-115)
[2024-02-02] MEDS: Potassium Phosphate/NS 15 MMOL/250 ML PLAST..BAG 62.5 MMOL IV (02:17)
[2024-02-02 04:26] LABS: Glucose, Whole Blood 172 mg/dL (60-115)
[2024-02-02 05:02] LABS: Hematocrit 32.3 % (42.0-52.0); Hemoglobin 11.5 g/dl (14.0-18.0); Mean Corpuscular HGB Conc 35.6 g/dl (31.0-36.0); Mean Corpuscular Hemoglobin 32.1 pg (27.0-33.0); Mean Corpuscular Volume 90.2 fL (80.0-98.0); Mean Platelet Volume 9.7 fL (9.4-12.4); NRBC Pct Auto 0.3 /100WBC (0.0-0.2); Platelet Count 317 X10*3/uL (160-400); Red Blood Count 3.58 X10*6/uL (4.60-5.80); Red Cell Distribution Width 13.4 % (11.0-16.0); White Blood Count 6.7 X10*3/uL (4.8-10.8)
[2024-02-02 05:19] LABS: Albumin Level 3.7 g/dL (3.5-5.0); Anion Gap 15 (12-20); Blood Urea Nitrogen < 3 mg/dL (9-16); Carbon Dioxide 25 mmol/L (22-29); Chloride 104 mmol/L (96-108); Creatinine Clr Calc Pharmacy 132.1; Estimated Glomerular Filt Rate > 60; Glucose Random 156 mg/dL (60-115); Magnesium 1.7 mg/dL (1.6-2.6); Potassium 3.5 mmol/L (3.3-5.1); Sodium 140 mmol/L (135-145); Triglycerides 649 mg/dL (<150)
[2024-02-02 05:27] LABS: Band Neutrophils Percent 9 % (3-5); Eosinophils Absolute Manual 0.3 X10*3/uL (0.0-0.4); Eosinophils Percent Manual 5 % (0-4); Lymphocytes Absolute Manual 1.1 X10*3/uL (1.2-4.9); Lymphocytes Percent Manual 16 % (20-40); Monocytes Absolute Manual 0.7 X10*3/uL (0.1-1.2); Monocytes Percent Manual 11 % (2-11); Neutrophils Absolute Manual 4.6 X10*3/uL (2.0-8.3); Neutrophils Percent Manual 59 % (45-73)
[2024-02-02 05:28] LABS: RBC Morphology NOTED
[2024-02-02 05:29] LABS: Platelet Estimate NORMAL (NORMAL); Platelet Morphology Comment NORMAL
[2024-02-02 05:31] LABS: Polychromasia 1+ (0-2) /OIF; Stomatocytes 1+ (5-14) /OIF; Target Cells 1+ (5-14) /OIF
[2024-02-02] MEDS: Dextrose 5 % and Lactated Ring 1,000 ML 100 ML IVCONT (06:07)
[2024-02-02] MEDS: Albumin Human 25 % 100 ML IV (06:08)
[2024-02-02] MEDS: Insulin Regular/NS 100 UNIT/100 ML PLAST..BAG 7 UNIT IVCONT (06:22)
[2024-02-02 06:39] LABS: Glucose, Whole Blood 142 mg/dL (60-115)
[2024-02-02] MEDS: Potassium Chloride ER 20 MEQ TAB.ER.PRT 40 MEQ PO (07:59)
[2024-02-02] MEDS: Heparin Sodium,Porcine 5,000 UNIT/ML VIAL 5000 UNIT SUBCUT ×3 (08:00→22:27)
[2024-02-02 08:22] LABS: Glucose, Whole Blood 153 mg/dL (60-115)
[2024-02-02 08:54] LABS: Glucose, Whole Blood 194 mg/dL (60-115)
[2024-02-02 10:01] LABS: Glucose, Whole Blood 213 mg/dL (60-115)
--- NOTE | 2024-02-02 10:28 | P.PNCC_ITS ---
Subjective Subjective Date of Service: 02/02/24 Interval History: 48-year-old gentleman with underlying insulin-dependent diabetes mellitus and hypertension poorly compliant with his medication regimen admitted on 01/29/2024 with abdominal discomfort and nausea. On ER evaluation patient with profound metabolic acidosis secondary to diabetic ketoacidosis and pancreatitis with lactic acidosis requiring initiation of insulin drip and admission to intensive care unit. Diabetic ketoacidosis, insulin drip switch to non DKA protocol. Hypertriglyceridemia improved significantly. Critical Care Time (minutes): 0 Physical Exam 2 Vital Signs: Vital Signs: Last Vital Signs Temp 97.7 F 02/02/24 08:00 Pulse 88 02/02/24 10:00 Resp 22 H 02/02/24 10:00 BP 124/78 02/02/24 10:00 Pulse Ox 97 02/02/24 10:00 O2 Del Method Room Air 02/02/24 10:00 O2 Flow Rate 2 01/30/24 01:00 BMI result Body Mass Index 36.2 Const: General: no acute distress, alert and awake Eyes: Sclerae: sclerae normal EOM: EOMs intact bilaterally Neck: Neck: Yes no lymphadenopathy, Yes trachea midline and Yes supple Resp: Effort & Inspection: normal respiratory effort and no respiratory distress Auscultation: clear to auscultation bilaterally Cardio: Rate: regular rate Rhythm: regular rhythm Heart sounds: no gallops, no murmurs and no rubs GI: Palpation (GI): Soft to palpation and Other GI palpation findings present ( Nontender) Auscultation: normal bowel sounds Extrem: General: Yes no pedal edema, No clubbing and No cyanosis Objective Data Labs 02/02/24 04:30 02/02/24 04:30 Labs: Laboratory Results - last 24 hr 02/01/24 02/01/24 02/01/24 11:08 12:17 13:40 WBC RBC Hgb Hct MCV MCH MCHC RDW Plt Count MPV Immature Gran % (Auto) Neut % (Auto) Lymph % (Auto) [place] % (Auto) Eos % (Auto) Baso % (Auto) Lymph # (Auto) [place] # (Auto) Eos # (Auto) Baso # (Auto) Abs Immat Gran (auto) Absolute Neuts (auto) Absolute Nucleated RBC Nucleated RBC % (auto) Neutrophils % (Manual) Band Neutrophils % Lymphocytes % (Manual) Monocytes % (Manual) Eosinophils % (Manual) Abs Neuts (Manual) Lymphocytes # (Manual) Monocytes # (Manual) Eosinophils # (Manual) Platelet Estimate Plt Morphology Comment RBC Morphology Polychromasia Target Cells Stomatocytes Sodium Potassium Chloride Carbon Dioxide Anion Gap BUN Creatinine Estim Creat Clear Calc Estimated GFR POC Glucose 191 H 216 H 188 H Random Glucose Calcium Phosphorus Magnesium Albumin Triglycerides 02/01/24 02/01/24 02/01/24 14:23 15:18 16:07 WBC RBC Hgb Hct MCV MCH MCHC RDW Plt Count MPV Immature Gran % (Auto) Neut % (Auto) Lymph % (Auto) [place] % (Auto) Eos % (Auto) Baso % (Auto) Lymph # (Auto) [place] # (Auto) Eos # (Auto) Baso # (Auto) Abs Immat Gran (auto) Absolute Neuts (auto) Absolute Nucleated RBC Nucleated RBC % (auto) Neutrophils % (Manual) Band Neutrophils % Lymphocytes % (Manual) Monocytes % (Manual) Eosinophils % (Manual) Abs Neuts (Manual) Lymphocytes # (Manual) Monocytes # (Manual) Eosinophils # (Manual) Platelet Estimate Plt Morphology Comment RBC Morphology Polychromasia Target Cells Stomatocytes Sodium Potassium Chloride Carbon Dioxide Anion Gap BUN Creatinine Estim Creat Clear Calc Estimated GFR POC Glucose 197 H 187 H 202 H Random Glucose Calcium Phosphorus Magnesium Albumin Triglycerides 02/01/24 02/01/24 02/01/24 16:59 18:03 18:55 WBC RBC Hgb Hct MCV MCH MCHC RDW Plt Count MPV Immature Gran % (Auto) Neut % (Auto) Lymph % (Auto) [place] % (Auto) Eos % (Auto) Baso % (Auto) Lymph # (Auto) [place] # (Auto) Eos # (Auto) Baso # (Auto) Abs Immat Gran (auto) Absolute Neuts (auto) Absolute Nucleated RBC Nucleated RBC % (auto) Neutrophils % (Manual) Band Neutrophils % Lymphocytes % (Manual) Monocytes % (Manual) Eosinophils % (Manual) Abs Neuts (Manual) Lymphocytes # (Manual) Monocytes # (Manual) Eosinophils # (Manual) Platelet Estimate Plt Morphology Comment RBC Morphology Polychromasia Target Cells Stomatocytes Sodium Potassium Chloride Carbon Dioxide Anion Gap BUN Creatinine Estim Creat Clear Calc Estimated GFR POC Glucose 225 H 199 H 189 H Random Glucose Calcium Phosphorus Magnesium Albumin Triglycerides 02/01/24 02/01/24 02/01/24 19:37 19:57 22:01 WBC RBC Hgb Hct MCV MCH MCHC RDW Plt Count MPV Immature Gran % (Auto) Neut % (Auto) Lymph % (Auto) [place] % (Auto) Eos % (Auto) Baso % (Auto) Lymph # (Auto) [place] # (Auto) Eos # (Auto) Baso # (Auto) Abs Immat Gran (auto) Absolute Neuts (auto) Absolute Nucleated RBC Nucleated RBC % (auto) Neutrophils % (Manual) Band Neutrophils % Lymphocytes % (Manual) Monocytes % (Manual) Eosinophils % (Manual) Abs Neuts (Manual) Lymphocytes # (Manual) Monocytes # (Manual) Eosinophils # (Manual) Platelet Estimate Plt Morphology Comment RBC Morphology Polychromasia Target Cells Stomatocytes Sodium 140 Potassium 3.8 D Chloride 106 Carbon Dioxide 24 Anion Gap 14 BUN < 3 L Creatinine 0.86 Estim Creat Clear Calc 122.8 Estimated GFR > 60 POC Glucose 191 H 180 H Random Glucose 217 H Calcium 8.8 Phosphorus 2.0 L Magnesium 1.8 Albumin 3.7 Triglycerides 02/01/24 02/02/24 02/02/24 23:56 02:13 04:20 WBC RBC Hgb Hct MCV MCH MCHC RDW Plt Count MPV Immature Gran % (Auto) Neut % (Auto) Lymph % (Auto) [place] % (Auto) Eos % (Auto) Baso % (Auto) Lymph # (Auto) [place] # (Auto) Eos # (Auto) Baso # (Auto) Abs Immat Gran (auto) Absolute Neuts (auto) Absolute Nucleated RBC Nucleated RBC % (auto) Neutrophils % (Manual) Band Neutrophils % Lymphocytes % (Manual) Monocytes % (Manual) Eosinophils % (Manual) Abs Neuts (Manual) Lymphocytes # (Manual) Monocytes # (Manual) Eosinophils # (Manual) Platelet Estimate Plt Morphology Comment RBC Morphology Polychromasia Target Cells Stomatocytes Sodium Potassium Chloride Carbon Dioxide Anion Gap BUN Creatinine Estim Creat Clear Calc Estimated GFR POC Glucose 173 H 158 H 172 H Random Glucose Calcium Phosphorus Magnesium Albumin Triglycerides 02/02/24 02/02/24 02/02/24 04:30 06:33 08:18 WBC 6.7 RBC 3.58 L Hgb 11.5 L Hct 32.3 L MCV 90.2 MCH 32.1 MCHC 35.6 RDW 13.4 Plt Count 317 MPV 9.7 Immature Gran % (Auto) Cancelled Neut % (Auto) Cancelled Lymph % (Auto) Cancelled [place] % (Auto) Cancelled Eos % (Auto) Cancelled Baso % (Auto) Cancelled Lymph # (Auto) Cancelled [place] # (Auto) Cancelled Eos # (Auto) Cancelled Baso # (Auto) Cancelled Abs Immat Gran (auto) Cancelled Absolute Neuts (auto) Cancelled Absolute Nucleated RBC 0.020 H Nucleated RBC % (auto) 0.3 H Neutrophils % (Manual) 59 Band Neutrophils % 9 H Lymphocytes % (Manual) 16 L Monocytes % (Manual) 11 Eosinophils % (Manual) 5 H Abs Neuts (Manual) 4.6 Lymphocytes # (Manual) 1.1 L Monocytes # (Manual) 0.7 Eosinophils # (Manual) 0.3 Platelet Estimate NORMAL Plt Morphology Comment NORMAL RBC Morphology NOTED Polychromasia 1+ (0-2) Target Cells 1+ (5-14) Stomatocytes 1+ (5-14) Sodium 140 Potassium 3.5 Chloride 104 Carbon Dioxide 25 Anion Gap 15 BUN < 3 L Creatinine 0.80 Estim Creat Clear Calc 132.1 Estimated GFR > 60 POC Glucose 142 H 153 H Random Glucose 156 H Calcium 9.0 Phosphorus 4.0 Magnesium 1.7 Albumin 3.7 Triglycerides 649 H 02/02/24 02/02/24 08:50 09:56 WBC RBC Hgb Hct MCV MCH MCHC RDW Plt Count MPV Immature Gran % (Auto) Neut % (Auto) Lymph % (Auto) [place] % (Auto) Eos % (Auto) Baso % (Auto) Lymph # (Auto) [place] # (Auto) Eos # (Auto) Baso # (Auto) Abs Immat Gran (auto) Absolute Neuts (auto) Absolute Nucleated RBC Nucleated RBC % (auto) Neutrophils % (Manual) Band Neutrophils % Lymphocytes % (Manual) Monocytes % (Manual) Eosinophils % (Manual) Abs Neuts (Manual) Lymphocytes # (Manual) Monocytes # (Manual) Eosinophils # (Manual) Platelet Estimate Plt Morphology Comment RBC Morphology Polychromasia Target Cells Stomatocytes Sodium Potassium Chloride Carbon Dioxide Anion Gap BUN Creatinine Estim Creat Clear Calc Estimated GFR POC Glucose 194 H 213 H Random Glucose Calcium Phosphorus Magnesium Albumin Triglycerides Microbiology Microbiology Results: Microbiology 01/29/24 20:12 Blood - Venous Blood Culture - Final Corynebacterium species 01/29/24 20:00 Blood - Venous Blood Culture - Preliminary No growth after 48 hours. Progress Note: A&P Assessment and plan (1) Acute pancreatitis: Status: Acute (2) Hypertriglyceridemia: Status: Acute Plan Assessment: 48-year-old gentleman admitted with diabetic ketoacidosis secondary to medication compliance further complicated by acute pancreatitis secondary to hypertriglyceridemia Plan: Neuro: No acute issues. Cardiac: No acute issues. Pulmonary: No acute issues. Renal: Metabolic acidosis, resolved. Acute kidney injury resolved. Continue to monitor renal indices and urine output. Hyperkalemia resolved. Endo: Acute pancreatitis with hypertriglyceridemia, triglycerides under 1000 insulin drip switch to gemfibrozil. Diabetic ketoacidosis resolved. Continue subcutaneous insulin. GI: No acute issues. ID: No acute issues Heme/Onc: No acute issues. Psych: No acute issues. Miscellaneous: No acute issues. Prophylaxis: Heparin Diet: Diabetic Quality Stroke Does the patient have a stroke diagnosis?: No VTE Prior VTE?: No VTE Risk Level:: Medical - moderate - high VTE Device Contraindication: N/A - Device Ordered VTE Drug Contraindication: N/A - Med Ordered
[2024-02-02] MEDS: Insulin Glargine,Hum.rec.anlog 100 UNIT/ML 10 ML VIAL 40 UNIT SUBCUT (11:02)
[2024-02-02 11:06] LABS: Glucose, Whole Blood 211 mg/dL (60-115)
[2024-02-02 11:58] LABS: Glucose, Whole Blood 254 mg/dL (60-115)
[2024-02-02] MEDS: Insulin Lispro 100 UNIT/ML 3 ML VIAL SUBCUT ×3 (11:59→20:58)
[2024-02-02 16:26] LABS: Glucose, Whole Blood 234 mg/dL (60-115)
[2024-02-02] MEDS: gemfibroziL 600 MG TABLET PO (16:27)
[2024-02-02 20:19] LABS: Glucose, Whole Blood 225 mg/dL (60-115)
[2024-02-02] MEDS: Morphine Sulfate 4 MG/ML CARTRIDGE IVPUSH (23:32)
[2024-02-03] VITALS (7 sets, daily range): BP systolic 119–137; BP diastolic 69–83; PULSE 78–98; RESP 16–20; TEMP 36.1–37.1; O2SAT 94–99
[2024-02-03 06:57] LABS: Hematocrit 37.2 % (42.0-52.0); Hemoglobin 12.6 g/dl (14.0-18.0); Mean Corpuscular HGB Conc 33.9 g/dl (31.0-36.0); Mean Corpuscular Hemoglobin 31.2 pg (27.0-33.0); Mean Corpuscular Volume 92.1 fL (80.0-98.0); Mean Platelet Volume 9.2 fL (9.4-12.4); Platelet Count 346 X10*3/uL (160-400); Red Blood Count 4.04 X10*6/uL (4.60-5.80); Red Cell Distribution Width 13.3 % (11.0-16.0); White Blood Count 5.9 X10*3/uL (4.8-10.8)
[2024-02-03 07:08] LABS: Albumin Level 3.7 g/dL (3.5-5.0); Anion Gap 18 (12-20); Blood Urea Nitrogen 9 mg/dL (9-16); Calcium 9.6 mg/dL (8.4-10.2); Carbon Dioxide 24 mmol/L (22-29); Chloride 100 mmol/L (96-108); Creatinine Clr Calc Pharmacy 102.3; Estimated Glomerular Filt Rate > 60; Glucose Random 252 mg/dL (60-115); Magnesium 1.7 mg/dL (1.6-2.6); Potassium 4.1 mmol/L (3.3-5.1); Sodium 138 mmol/L (135-145)
[2024-02-03 07:33] LABS: Atypical Lymph Absolute Manual 0.1 x10*3/uL; Atypical Lymphs Percent Manual 2 % (0-6); Band Neutrophils Percent 2 % (3-5); Basophils Abs Manual 0.1 X10*3/uL (0.0-0.2); Basophils Percent Manual 1 % (0-2); Eosinophils Absolute Manual 0.2 X10*3/uL (0.0-0.4); Eosinophils Percent Manual 4 % (0-4); Lymphocytes Absolute Manual 1.3 X10*3/uL (1.2-4.9); Lymphocytes Percent Manual 22 % (20-40); Metamyelocytes Absolute 0.2 X10*3/uL; Metamyelocytes Percent 3 %; Monocytes Absolute Manual 0.9 X10*3/uL (0.1-1.2); Monocytes Percent Manual 15 % (2-11); Neutrophils Absolute Manual 3.1 X10*3/uL (2.0-8.3); Neutrophils Percent Manual 51 % (45-73)
[2024-02-03 07:34] LABS: RBC Morphology NORMAL
[2024-02-03 07:35] LABS: Platelet Estimate NORMAL (NORMAL); Platelet Morphology Comment NORMAL
[2024-02-03 08:01] LABS: Glucose, Whole Blood 238 mg/dL (60-115)
[2024-02-03] MEDS: Insulin Glargine,Hum.rec.anlog 100 UNIT/ML 10 ML VIAL 40 UNIT SUBCUT (09:05)
[2024-02-03] MEDS: Heparin Sodium,Porcine 5,000 UNIT/ML VIAL 5000 UNIT SUBCUT ×3 (09:06→20:33)
[2024-02-03] MEDS: Insulin Lispro 100 UNIT/ML 3 ML VIAL SUBCUT ×4 (09:06→20:33)
[2024-02-03] MEDS: gemfibroziL 600 MG TABLET PO ×2 (09:06→15:43)
--- NOTE | 2024-02-03 09:49 | P.DS_ITS ---
DS: Providers Provider Date of Service: 02/04/24 Date of admission: 01/29/24 21:21 Primary care physician: Unknown Physician DS: Diagnosis Discharge Diagnosis (1) Acute pancreatitis: Status: Acute (2) Hypertriglyceridemia: Status: Acute DS: Summary Hospital Course Hospital Course: from initial hpi: 48-year-old male with a past medical history of insulin-dependent diabetes and hypertension who is medication noncompliant, has not taken blood pressure medication since 2021 and? intermittently stops taking? his insulin, and alcohol abuse? who presented to the emergency department with complaints of dyspnea,? abdominal pain,? and nausea.? Patient reported not taking his short-acting insulin for over a week,? any long-acting insulin over a month,? reported taking random 20 units of short-acting insulin yesterday when he started feeling abdominal cramps and nausea.? He reports he has had DKA in the past,? and fell he was having the same symptoms as the prior DKA? this is why he came to the hospital.? ?In the emergency department? patient was hypertensive to 190/100,? tachycardic to 122, tachypneic to 24, satting 100% on room air.? Endorsing some mild abdominal pain and nausea.? ?Laboratory data was significant for? venous blood gas? 7.0 8/10/151/ 3,? WBC 12.1 with bandemia, ? sodium 128, potassium 6, serum bicarb 6, anion gap 30, creatinine 2.08, glucose 566, lactic of 5,? and? lipase 1262,? triglycerides 35 70, beta hydroxybutyrate 9.81 Imaging:? Chest Xray -? no acute infectious process Abdominal CT- Pancreatitis and Hepatomegaly with diffuse fatty change of liver. hospital course: Patient was admitted for acute pancreatitis due to hypertriglyceridemia as well as DKA due to noncompliance. Was admitted to the intensive care unit for insulin infusion. Received IV insulin for 3 days and triglycerides decreased anion gap resolved patient now tolerating solid diet with minimal abdominal pain. Downgraded to medical floor. Continued on preprandial short-acting insulin and added 40 units long-acting. Also started on gemfibrozil. Patient also noted to have acute kidney injury which resolved and nonalcoholic fatty liver on imaging. Patient is feeling better will be discharged home. Complianc e with medications as encouraged. Time Attestation Discharge Coordination Time (in mins): 34 Quality: Safe Use of Opioids Does Pt have an Active Cancer Diagnosis on the Problem List?: No Quality: Stroke Does the patient have a stroke diagnosis?: No Physical Exam Vital Signs: Vital Signs: Last Vital Signs Temp 98.7 F 02/03/24 07:02 Pulse 79 02/03/24 07:02 Resp 20 02/03/24 07:02 BP 134/80 02/03/24 07:02 Pulse Ox 96 02/03/24 07:02 O2 Del Method Room Air 02/03/24 07:02 O2 Flow Rate 2 01/30/24 01:00 BMI result Body Mass Index 36.2 General: AO X 3, no acute distress Resp: CTA bilateral, no accessory muscles used CVS: S1,S2,RRR GI: soft, non tender, non distended Neuro: motor grossly intact, alert Psych: appropriate affect, appropriate insight DS: Data Data Completed and Pending Labs on day of discharge: Laboratory Results - last 24 hr 02/02/24 02/02/24 02/02/24 09:56 10:54 11:55 WBC RBC Hgb Hct MCV MCH MCHC RDW Plt Count MPV Immature Gran % (Auto) Neut % (Auto) Lymph % (Auto) [place] % (Auto) Eos % (Auto) Baso % (Auto) Lymph # (Auto) [place] # (Auto) Eos # (Auto) Baso # (Auto) Abs Immat Gran (auto) Absolute Neuts (auto) Absolute Nucleated RBC Nucleated RBC % (auto) Neutrophils % (Manual) Band Neutrophils % Lymphocytes % (Manual) Atypical Lymphs % (Man) Monocytes % (Manual) Eosinophils % (Manual) Basophils % (Manual) Metamyelocytes % Abs Neuts (Manual) Lymphocytes # (Manual) Atyp Lymphs # (Manual) Monocytes # (Manual) Eosinophils # (Manual) Basophils # (Manual) Metamyelocytes # Platelet Estimate Plt Morphology Comment RBC Morphology Sodium Potassium Chloride Carbon Dioxide Anion Gap BUN Creatinine Estim Creat Clear Calc Estimated GFR POC Glucose 213 H 211 H 254 H Random Glucose Calcium Phosphorus Magnesium Albumin 02/02/24 02/02/24 02/03/24 16:22 19:58 06:39 WBC 5.9 RBC 4.04 L Hgb 12.6 L Hct 37.2 L MCV 92.1 MCH 31.2 MCHC 33.9 RDW 13.3 Plt Count 346 MPV 9.2 L Immature Gran % (Auto) Cancelled Neut % (Auto) Cancelled Lymph % (Auto) Cancelled [place] % (Auto) Cancelled Eos % (Auto) Cancelled Baso % (Auto) Cancelled Lymph # (Auto) Cancelled [place] # (Auto) Cancelled Eos # (Auto) Cancelled Baso # (Auto) Cancelled Abs Immat Gran (auto) Cancelled Absolute Neuts (auto) Cancelled Absolute Nucleated RBC 0.000 Nucleated RBC % (auto) 0.0 Neutrophils % (Manual) 51 Band Neutrophils % 2 L Lymphocytes % (Manual) 22 Atypical Lymphs % (Man) 2 Monocytes % (Manual) 15 H Eosinophils % (Manual) 4 Basophils % (Manual) 1 Metamyelocytes % 3 Abs Neuts (Manual) 3.1 Lymphocytes # (Manual) 1.3 Atyp Lymphs # (Manual) 0.1 Monocytes # (Manual) 0.9 Eosinophils # (Manual) 0.2 Basophils # (Manual) 0.1 Metamyelocytes # 0.2 Platelet Estimate NORMAL Plt Morphology Comment NORMAL RBC Morphology NORMAL Sodium 138 Potassium 4.1 Chloride 100 Carbon Dioxide 24 Anion Gap 18 BUN 9 Creatinine 1.03 Estim Creat Clear Calc 102.3 Estimated GFR > 60 POC Glucose 234 H 225 H Random Glucose 252 H Calcium 9.6 D Phosphorus 5.0 H Magnesium 1.7 Albumin 3.7 02/03/24 07:48 WBC RBC Hgb Hct MCV MCH MCHC RDW Plt Count MPV Immature Gran % (Auto) Neut % (Auto) Lymph % (Auto) [place] % (Auto) Eos % (Auto) Baso % (Auto) Lymph # (Auto) [place] # (Auto) Eos # (Auto) Baso # (Auto) Abs Immat Gran (auto) Absolute Neuts (auto) Absolute Nucleated RBC Nucleated RBC % (auto) Neutrophils % (Manual) Band Neutrophils % Lymphocytes % (Manual) Atypical Lymphs % (Man) Monocytes % (Manual) Eosinophils % (Manual) Basophils % (Manual) Metamyelocytes % Abs Neuts (Manual) Lymphocytes # (Manual) Atyp Lymphs # (Manual) Monocytes # (Manual) Eosinophils # (Manual) Basophils # (Manual) Metamyelocytes # Platelet Estimate Plt Morphology Comment RBC Morphology Sodium Potassium Chloride Carbon Dioxide Anion Gap BUN Creatinine Estim Creat Clear Calc Estimated GFR POC Glucose 238 H Random Glucose Calcium Phosphorus Magnesium Albumin Preliminary micro results at discharge 01/29/24 20:00 Blood Culture - Preliminary Blood - Venous No growth after 48 hours. Discharge Plan Discharge Anticipated Discharge Date/Time: 02/03/24 09:47 Patient Disposition: Home, Self-Care Discharge Diagnosis: dka, pancreatitis Referrals: Physician,Unknown J [Primary Care Provider] - 1 Week Discharge Medications: New insulin glargine [Lantus U-100 Insulin] 100 unit/mL Solution 40 unit subcut DAILY 90 Days Qty: 36 0RF gemfibrozil 600 mg Tablet 600 mg PO BIDAC Qty: 180 0RF Continued (DME) blood-glucose meter [FreeStyle Lite Meter] Kit See Rx Instructions .ROUTE .MEDSUPPLY Qty: 1 0RF Rx Instructions: As directed (DME) lancets [1st Tier Unilet ComforTouch] 28 gauge misc See Rx Instructions .ROUTE .MEDSUPPLY Qty: 100 0RF Rx Instructions: As directed (DME) insulin syringes (disposable) 1 mL syringe See Rx Instructions .Route Qty: 500 0RF Rx Instructions: As directed (DME) FreeStyle Lite Strips Strip See Rx Instructions .ROUTE .MEDSUPPLY Qty: 100 1RF Rx Instructions: As directed (DME) insulin syringes (disposable) 1 mL syringe See Rx Instructions .ROUTE .MEDSUPPLY Qty: 500 1RF Rx Instructions: As directed (DME) pen needle, diabetic [BD Aziza 2nd Gen Pen Needle] 32 gauge x 5/32 needle See Rx Instructions .ROUTE .MEDSUPPLY Qty: 100 1RF Rx Instructions: As directed (4 times/day) (DME) lancets [Sure Comfort Lancets] 30 gauge misc See Rx Instructions .Route Qty: 200 1RF Rx Instructions: As directed insulin lispro [Humalog U-100 Insulin] 100 unit/mL Solution 15 unit subcut TIDAC Qty: 10 1RF Discharge Orders: Discharge Order (Routine); Ordered 02/04/24 Ordered By: Oscar Sosa Diet: Diabetic diet Activity on Discharge: As tolerated Stand Alone Forms: Patient Portal Discharge page Print Language: Maldivian Care Plan Goals: avoid pancreatitis and dka Health Concerns: hyperTG, dm Plan of Treatment: start glargine, conitnue inuslin, start gemfibrozil, monitor sugars and triglycerides Assessment: see above
--- NOTE | 2024-02-03 10:06 | P.PNIM_ITS ---
Subjective Subjective Date of Service: 02/03/24 Interval History: improved but still with abd pain Physical Exam 2 Vital Signs: Vital Signs: Last Vital Signs Temp 98.7 F 02/03/24 07:02 Pulse 79 02/03/24 07:02 Resp 20 02/03/24 07:02 BP 134/80 02/03/24 07:02 Pulse Ox 96 02/03/24 07:02 O2 Del Method Room Air 02/03/24 07:02 O2 Flow Rate 2 01/30/24 01:00 BMI result Body Mass Index 36.2 General: AO X 3, no acute distress Resp: CTA bilateral, no accessory muscles used CVS: S1,S2,RRR GI: soft, tender, non distended Neuro: motor grossly intact, alert Psych: appropriate affect, appropriate insight Objective Data Active Medications Gemfibrozil (Gemfibrozil 600 Mg Tablet) 600 mg PO BIDAC [facility] Last Admin: 02/03/24 09:06 Dose: 600 mg Documented By: YFN Heparin Sodium (Porcine) (Heparin Sodium,Porcine 5,000 Unit/Ml Vial) 5,000 unit SUBCUT TID [facility] Last Admin: 02/03/24 09:06 Dose: 5,000 unit Documented By: YFN Dextrose (D10) 250 mls @ 750 mls/hr IV Q30M PRN PRN Reason: BG <70 Dextrose (D10) 250 mls @ 750 mls/hr IV Q15M PRN PRN Reason: per Hypoglycemia Standing Ord. Insulin Glargine (Insulin Glargine,Hum.Rec.Anlog 100 Unit/Ml 10 Ml Vial) 40 unit SUBCUT DAILY [facility] Last Admin: 02/03/24 09:05 Dose: 40 unit Documented By: YFN Insulin Human Lispro (Insulin Lispro 100 Unit/Ml 3 Ml Vial) 0 unit SUBCUT QIDACHS [facility]; Protocol Last Admin: 02/03/24 09:06 Dose: 4 unit Documented By: YFN Morphine Sulfate (Morphine Sulfate 4 Mg/Ml Cartridge) 4 mg IVPUSH Q4H PRN; Protocol PRN Reason: Pain, Severe (Pain Scale 7-10) Last Admin: 02/02/24 23:32 Dose: 4 mg Documented By: RIKA Ondansetron HCl (Ondansetron Hcl 4 Mg/2 Ml Vial) 4 mg IVPUSH Q8H PRN PRN Reason: Nausea and Vomiting Last Admin: 01/31/24 20:42 Dose: 4 mg Documented By: RIKA Labs 02/03/24 06:39 02/03/24 06:39 Labs: Laboratory Results - last 24 hr 02/02/24 02/02/24 02/02/24 10:54 11:55 16:22 MCV MCH MCHC RDW Plt Count MPV Immature Gran % (Auto) Neut % (Auto) Lymph % (Auto) [place] % (Auto) Eos % (Auto) Baso % (Auto) Lymph # (Auto) [place] # (Auto) Eos # (Auto) Baso # (Auto) Abs Immat Gran (auto) Absolute Neuts (auto) Absolute Nucleated RBC Nucleated RBC % (auto) Neutrophils % (Manual) Band Neutrophils % Lymphocytes % (Manual) Atypical Lymphs % (Man) Monocytes % (Manual) Eosinophils % (Manual) Basophils % (Manual) Metamyelocytes % Abs Neuts (Manual) Lymphocytes # (Manual) Atyp Lymphs # (Manual) Monocytes # (Manual) Eosinophils # (Manual) Basophils # (Manual) Metamyelocytes # Platelet Estimate Plt Morphology Comment RBC Morphology Anion Gap Estim Creat Clear Calc Estimated GFR POC Glucose 211 H 254 H 234 H Random Glucose Calcium Phosphorus Magnesium Albumin 02/02/24 02/03/24 02/03/24 19:58 06:39 07:48 MCV 92.1 MCH 31.2 MCHC 33.9 RDW 13.3 Plt Count 346 MPV 9.2 L Immature Gran % (Auto) Cancelled Neut % (Auto) Cancelled Lymph % (Auto) Cancelled [place] % (Auto) Cancelled Eos % (Auto) Cancelled Baso % (Auto) Cancelled Lymph # (Auto) Cancelled [place] # (Auto) Cancelled Eos # (Auto) Cancelled Baso # (Auto) Cancelled Abs Immat Gran (auto) Cancelled Absolute Neuts (auto) Cancelled Absolute Nucleated RBC 0.000 Nucleated RBC % (auto) 0.0 Neutrophils % (Manual) 51 Band Neutrophils % 2 L Lymphocytes % (Manual) 22 Atypical Lymphs % (Man) 2 Monocytes % (Manual) 15 H Eosinophils % (Manual) 4 Basophils % (Manual) 1 Metamyelocytes % 3 Abs Neuts (Manual) 3.1 Lymphocytes # (Manual) 1.3 Atyp Lymphs # (Manual) 0.1 Monocytes # (Manual) 0.9 Eosinophils # (Manual) 0.2 Basophils # (Manual) 0.1 Metamyelocytes # 0.2 Platelet Estimate NORMAL Plt Morphology Comment NORMAL RBC Morphology NORMAL Anion Gap 18 Estim Creat Clear Calc 102.3 Estimated GFR > 60 POC Glucose 225 H 238 H Random Glucose 252 H Calcium 9.6 D Phosphorus 5.0 H Magnesium 1.7 Albumin 3.7 Assessment and Plan (1) Acute pancreatitis: Status: Acute Plan 48M PMH dm, hyperTG, htn, non compliance, obesity, presented with abd pain, n/v admitted to icu for DKA and pancreatitis. treated with insulin drip, AG closed, TG decreased, transitioned to basal bolus insulin, gemfibrozil, solid diet, downgraded 02/02/24. Diabetes with diabetic ketoacidosis due to noncompliance Anion gap closed, continue basal bolus insulin Acute pancreatitis due to hypertriglyceridemia Improving, continue gemfibrozil Still not fully tolerating solid diet Continue pain control Obesity Weight loss recommended Metabolic syndrome with nonalcoholic fatty liver disease Diabetes, obesity, hypertg control Acute kidney injury Resolved DVT prophylaxis with heparin subQ Full code reason for continued hospitalization:still with abd pain Quality Stroke Does the patient have a stroke diagnosis?: No VTE Prior VTE?: No VTE Risk Level:: Medical - moderate - high VTE Device Contraindication: N/A - Device Ordered VTE Drug Contraindication: N/A - Med Ordered
[2024-02-03 11:07] LABS: Glucose, Whole Blood 340 mg/dL (60-115)
--- NOTE | 2024-02-03 14:26 | MHC.CM.PN ---
EMR reviewed and per MD rounds, pt is not medically cleared for discharge due to management of DKA and abdominal pain.
[2024-02-03 15:55] LABS: Glucose, Whole Blood 303 mg/dL (60-115)
[2024-02-03 19:51] LABS: Glucose, Whole Blood 304 mg/dL (60-115)
[2024-02-04 03:18] VITALS: BP 125/81; PULSE 72; RESP 16; TEMP 36; O2SAT 96
--- NOTE | 2024-02-04 06:20 | PC.NURSE ---
Pt AOx4, able to make needs known. He was transferred from med/tele at the beginning of this RN's shift. During this shift he has had no c/o pain. Call martinez within reach.
[2024-02-04 07:24] VITALS: BP 120/74; PULSE 71; RESP 16; TEMP 36.4; O2SAT 95
[2024-02-04 07:33] LABS: Glucose, Whole Blood 335 mg/dL (60-115)
[2024-02-04] MEDS: gemfibroziL 600 MG TABLET PO (08:08)
[2024-02-04] MEDS: Heparin Sodium,Porcine 5,000 UNIT/ML VIAL 5000 UNIT SUBCUT (08:08)
[2024-02-04] MEDS: Insulin Lispro 100 UNIT/ML 3 ML VIAL SUBCUT ×2 (08:09→12:11)
[2024-02-04] MEDS: Insulin Glargine,Hum.rec.anlog 100 UNIT/ML 10 ML VIAL 40 UNIT SUBCUT (08:09)
--- NOTE | 2024-02-04 09:41 | MHC.CM.PN ---
Patient medically cleared for dc home self care. Friend will provide transport at 1pm. RN aware. Patient will f/u w/ PCP for insurance issues.
[2024-02-04 11:27] LABS: Glucose, Whole Blood 279 mg/dL (60-115)
== END 2024-02-04 13:07 | disposition home or self-care (01) | DRG 637 ==
LOC: HO.ED 21:27 → HO.EDOVER 21:29 → HO.ICU 22:20 → HO.IMC 02-02 14:04 → HO.S3 02-03 18:26
PROVIDERS: Internal Medicine Pulmonary Disease; Admitting Provider Registered Nurse Community Health; Emergency Provider Emergency Medicine; Visit Provider Internal Medicine
DX: E11.10 Type 2 diabetes mellitus with ketoacidosis without coma (principal); K85.90 Acute pancreatitis without necrosis or infection, unspecified; N17.9 Acute kidney failure, unspecified; E87.5 Hyperkalemia; E88.810 Metabolic syndrome; K76.0 Fatty (change of) liver, not elsewhere classified; E66.9 Obesity, unspecified; Z68.36 Body mass index [BMI] 36.0-36.9, adult; I10 Essential (primary) hypertension; I16.0 Hypertensive urgency; E78.1 Pure hyperglyceridemia; T38.3X6A Underdosing of insulin and oral hypoglycemic [antidiabetic] drugs, initial encounter; T46.5X6A Underdosing of other antihypertensive drugs, initial encounter; Z20.822 Contact with and (suspected) exposure to COVID-19; Z79.4 Long term (current) use of insulin; Z79.899 Other long term (current) drug therapy
CPT/HCPCS: 0241U; 36415; 71045; 74176; 80048; 80053; 80076; 80307; 81001; 82010; 82040; 82803; 82947; 83605; 83690; 83735; 84100; 84478; 85007; 85025; 85027; 87040; 87205; 93005; 99285; J0613; J1644; J1885; J2270; J2405; J2543; J3010; J3475; J3480; J7120; P9047

== ENCOUNTER → 2024-01-29 18:22 | Outpatient (BNV) | payer SELFPAY | PROVIDERS: Admitting Provider Registered Nurse Community Health; Emergency Provider Emergency Medicine; Visit Provider Internal Medicine Cardiovascular Disease | DX: R94.31 Abnormal electrocardiogram [ECG] [EKG] (principal) | CPT/HCPCS: 93010 ==

== ENCOUNTER → 2024-01-29 21:21 | Outpatient (BNV) | payer SELFPAY | PROVIDERS: Admitting Provider Registered Nurse Community Health; Emergency Provider Emergency Medicine; Visit Provider Internal Medicine | DX: E11.10 Type 2 diabetes mellitus with ketoacidosis without coma (principal); K85.90 Acute pancreatitis without necrosis or infection, unspecified | CPT/HCPCS: 99232; 99239 ==

== ENCOUNTER → 2024-01-29 21:21 | Outpatient (BNV) | payer SELFPAY | PROVIDERS: Admitting Provider Registered Nurse Community Health; Emergency Provider Emergency Medicine; Visit Provider Internal Medicine Pulmonary Disease | DX: E11.10 Type 2 diabetes mellitus with ketoacidosis without coma (principal); K85.90 Acute pancreatitis without necrosis or infection, unspecified; E78.1 Pure hyperglyceridemia | CPT/HCPCS: 99232; 99233; 99291 ==

== ENCOUNTER → 2024-01-29 21:21 | Outpatient (BNV) | payer SELFPAY | PROVIDERS: Admitting Provider Registered Nurse Community Health; Emergency Provider Emergency Medicine; Visit Provider Registered Nurse Community Health | DX: E11.10 Type 2 diabetes mellitus with ketoacidosis without coma (principal); E11.65 Type 2 diabetes mellitus with hyperglycemia; Z79.4 Long term (current) use of insulin; K85.90 Acute pancreatitis without necrosis or infection, unspecified; E78.1 Pure hyperglyceridemia; N17.9 Acute kidney failure, unspecified; I16.0 Hypertensive urgency | CPT/HCPCS: 99291; 99292 ==

== ENCOUNTER 2024-08-25 23:17 | Inpatient (IN) | payer MEDICAID, SELFPAY ==
--- NOTE | ~2024-08-25 | CT_ITS ---
CLINICAL HISTORY: Diffuse abdominal pain, mildly elevated lipase R O CT abdomen and pelvis without contrast Comparison: CT/CA/SR - CT ABDOMEN PELVIS WO IV CON - 01/29/24 21:18 EDT Findings: Esophageal mural thickening with decompression, nonspecific. Atelectasis. Hepatomegaly with steatosis. Mildly distended gallbladder. Diffuse pancreatic glandular edema more so proximally with fluid stranding and prominent peripancreatic nodes, suggestive of pancreatitis. No discrete peripancreatic collections. No urolithiasis. Duodenal mural thickening, suggesting secondary duodenitis. No bowel obstruction. Scattered colonic diverticulosis without diverticulitis or colitis. Normal appendix. Distended bladder. The bones are intact. Disc bulges/protrusions at L4-L5 and L5-S1. IMPRESSION: 1. Acute pancreatitis. 2. Secondary duodenitis. This document has been electronically signed by: Arpit Tam MD on 08/26/2024 03:55:35
--- NOTE | ~2024-08-25 | XR_ITS ---
CLINICAL HISTORY: Shortness of breath rule out pneumonia 1 view chest x-ray Comparison: CR/SR - XR CHEST 1V - 01/29/24 20:13 EDT Findings: No consolidation or effusion. Similar asymmetric right hemidiaphragm elevation. Prominent cardiac silhouette. No acute fracture. IMPRESSION: 1. No acute findings. This document has been electronically signed by: Arpit Tam MD on 08/26/2024 03:54:48
[2024-08-25 23:20] VITALS: BP 107/71; PULSE 110; O2SAT 100
[2024-08-25 23:45] VITALS: BP 145/101; PULSE 109; RESP 18; TEMP 36.2; O2SAT 99; BMI 32.7
--- NOTE | 2024-08-25 23:58 | MHC.EDTECH ---
labs done and sent in triage, pt states he is unable to give a urine sample at this time.
[2024-08-25 23:59] LABS: MANUAL DIFF FLAG NO
[2024-08-26] VITALS (22 sets, daily range): BP systolic 97–186; BP diastolic 61–105; PULSE 85–102; RESP 12–22; TEMP 36.4–37.4; O2SAT 94–98; BMI 32.7
[2024-08-26 00:05] LABS: Basophils Percent Auto 0.5 % (0-2); Hematocrit 50.3 % (42.0-52.0); Hemoglobin 18.8 g/dl (14.0-18.0); Imm Gran Abs Auto 0.02 X10*3/uL (0.00-0.03); Imm Gran Pct Auto 0.3 % (0.0-0.4); Lymphocytes Absolute Auto 1.9 X10*3/uL (1.2-4.9); Lymphocytes Percent Auto 25.8 % (20-40); Mean Corpuscular HGB Conc 37.4 g/dl (31.0-36.0); Mean Corpuscular Hemoglobin 32.7 pg (27.0-33.0); Mean Corpuscular Volume 87.5 fL (80.0-98.0); Mean Platelet Volume 10.8 fL (9.4-12.4); Monocytes Absolute Auto 0.3 X10*3/uL (0.1-1.2); Monocytes Percent Auto 4.4 % (2-11); Neutrophils Absolute Auto 5.2 x10*3/uL (2.0-8.3); Platelet Count 355 X10*3/uL (160-400); Red Blood Count 5.75 X10*6/uL (4.60-5.80); Red Cell Distribution Width 12.7 % (11.0-16.0); White Blood Count 7.5 X10*3/uL (4.8-10.8)
[2024-08-26 00:37] LABS: Influenza A PCR NEGATIVE (Negative); Influenza B PCR NEGATIVE (Negative); Resp Syncy Virus RNA Qual PCR NEGATIVE (Negative); SARS COV2 PCR INHOUSE NEGATIVE (Negative)
[2024-08-26 01:14] LABS: Alanine Aminotransferase 47 U/L (0-40); Albumin Level 4.8 g/dL (3.5-5.0); Alkaline Phosphatase 141 U/L (39-117); Anion Gap 31 (12-20); Aspartate Amino Transferase 63 U/L (5-37); Bilirubin Total 0.4 mg/dL (0.0-1.0); Blood Urea Nitrogen 20 mg/dL (9-16); Calcium 10.6 mg/dL (8.4-10.2); Carbon Dioxide 5 mmol/L (22-29); Chloride 105 mmol/L (96-108); Creatinine Clr Calc Pharmacy 40.6; Estimated Glomerular Filt Rate 28; Glucose Random 517 mg/dL (60-115); Lipase 85 U/L (8-78); Potassium 5.5 mmol/L (3.3-5.1); Sodium 135 mmol/L (135-145); Total Protein 11.1 g/dL (6.5-8.0)
--- NOTE | 2024-08-26 01:38 | PC.NURSE ---
Md adrian made aware of pt lab values
[2024-08-26 01:43] LABS: Venous Blood Gas Refer to POC result
[2024-08-26 01:48] LABS: VBG Base Excess -18.5 mmol/L; VBG HCO3 8 mmol/L (22-26); VBG pCO2 25 mmHg; VBG pH 7.13 (7.32-7.43); VBG pO2 33 mmHg
[2024-08-26 02:16] LABS: Beta-Hydroxybutyrate 9.19 mmol/L (0.02-0.27)
--- NOTE | 2024-08-26 02:16 | ED_ITS ---
HPI - Abdominal Pain General Chief Complaint: Abdominal Pain Stated Complaint: abd pain 2x days N/V Time Seen by Provider: 08/26/24 01:50 Source: patient Mode of arrival: ambulatory Limitations: no limitations History of Present Illness ED Provider: Dr. Tirso Killian HPI narrative: 49-year-old male with a history of diabetes mellitus, DKA, hypertension, pancreatitis, gastroparesis who presents emergency department for evaluation of nausea, vomiting and abdominal pain which started yesterday. Patient states that he developed diffuse, cramping/abdominal pain which was 7/10 at its worst. The patient had nausea and vomited at least twice. States he was not been able to eat or drink. He states he has been compliant with his long-acting insulin. Patient states he was had similar presentations in the past when he was had pancreatitis or DKA. Review of systems positive for subjective fever, rhinorrhea, sore throat, cough, shortness of breath, nausea with vomiting but no diarrhea. Related Data Home Medications ?Medication ?Instructions ?Recorded ?Confirmed insulin glargine 100 unit/mL 30 unit subcut DAILY 08/26/24 08/26/24 subcutaneous solution (Lantus U-100 Insulin) insulin lispro 100 unit/mL See Protocol subcut TIDAC 08/26/24 08/26/24 subcutaneous solution (Humalog U-100 Insulin) Previous Rx's ?Medication ?Instructions ?Recorded blood-glucose meter (FreeStyle #1 ea 10/22/20 Lite Meter kit) lancets 28 gauge (1st Tier Unilet #100 ea 10/22/20 ComforTouch Lancet) insulin syringes (disposable) 1 mL #500 ea 08/30/21 blood sugar diagnostic (FreeStyle #100 ea 01/10/23 Lite Strips) lancets 30 gauge (Sure Comfort #200 ea 01/10/23 Lancets) insulin syringes (disposable) 1 mL #500 ea 02/04/24 pen needle, diabetic 32 gauge x #100 ea 02/04/24 Allergies Allergy/AdvReac Type Severity Reaction Status Date / Time No Known Allergies Allergy Verified 08/25/24 23:48 Review of Systems Review of Systems Yes all other systems are reviewed and are negative PMFSH Past Medical History PMFSH Narrative: Social history: The patient denies tobacco use. He states he drinks 2-3 alcoholic beverages 3 times a week. He denies drug use. Medical History Chronic nausea Diabetes mellitus with gastroparesis Hypertension Social History Social History Household Members: Family Housing: Apartment Do you presently have visiting nurse or other home services: No Alcohol intake: current Alcohol intake frequency: holidays/special occasions only Alcohol type: beer and hard liquor Patient Tobacco Use Status: Never used Tobacco Smoked in Last 30 Days: No e-Cigarette/Vaping Use: Never Used Second Hand Smoke Exposure: No Use of substances other than those prescribed or required for medical reasons: No Currently Displaying Signs/Symptoms of Drug Intoxication Withdrawal: No Advance Directives: No Advance Directives Information Provided: Yes Do you have a plan to hurt others: No Plan Recently lost weight without trying: No Nutrition Risks: Acute nausea or vomiting x1 week, Diabetes new onset/Uncontrolled and Poor intake 0-25% >4 days Poor oral hygiene: No service: No Current occupational status: employed Physical Exam ED Vital Signs: Vital Signs - 24 hr 08/25/24 23:45 08/26/24 01:29 08/26/24 02:40 Temperature 97.2 F 99.4 F 97.9 F Pulse Rate 109 H 101 H 92 Respiratory Rate 18 20 22 H Blood Pressure 145/101 H 159/104 H 186/105 H Pulse Oximetry 99 98 98 Oxygen Delivery Method Room Air Room Air Room Air 08/26/24 02:45 Temperature Pulse Rate Respiratory Rate 18 Blood Pressure Pulse Oximetry Oxygen Delivery Method BMI result Body Mass Index 32.7 Vital signs revealed elevated heart rate of 109, elevated blood pressure of 145/101 Exam: General: Awake, alert in no distress, strong ketotic odor to his breath Head: Normocephalic, atraumatic EENT: PERRL, Lids normal, sclera normal, conjunctiva normal, nose normal , ears normal, throat without erythema or exudates, very dry mucous membranes Neck: Supple, no adenopathy Lung: breath sounds symmetric, no wheezing, rales or rhonchi Chest: symmetric movement, nontender Heart: regular rate and rhythm, normal S1, S2 no murmurs or rubs Abdomen: soft, moderate diffuse tenderness, nondistended, normal bowel sounds Back: no vertebral tenderness, no CVAT Extremities: no deformities, moves all extremities symmetrically Neuro: Awake, alert, oriented, normal speech, cranial nerves intact, moves all extremities symmetrically Psych: Pleasant, cooperative Medical Decision Making Medical Decision Making MDM Narrative: 49-year-old male with a history of diabetes mellitus, DKA, hypertension, pancreatitis, gastroparesis who presents emergency department for evaluation of nausea, vomiting x2 and diffuse, crampy abdominal pain 7/10 which started yesterday. Patient states he has been compliant with his long-acting insulin. Patient states that his pain is similar to when he was had pancreatitis or DKA in the past. Vital signs revealed an elevated heart rate otherwise unremarkable. Exam did reveal strong ketotic odor to his breath, dry mucous membranes and diffuse abdominal tenderness .Differential diagnosis: ?Includes but is not limited to pancreatitis, DKA, dehydration, volume depletion, electrolyte abnormalities, anemia Course: 02:37 My interpretation patient's laboratory evaluation is as follows: WBC was normal 7500. H&H was elevated at 18 and 50.3-most likely secondary to hemoconcentration from dehydration/volume depletion. Potassium was elevated 5.5. Bicarb was 5, BUN and creatinine were elevated 20 and 2.44-this is new compared to the patient's BUN and creatinine on 02/03/2024 when it was 9 and 1.03.. Glucose was elevated 517. AST, ALT and alk-phos were elevated 63, 47 and 1.41. Lipase was slightly elevated 85. Beta hydroxybutyrate was elevated 9.19. The patient's presentation is consistent with acute DKA. I did order blood cultures x2 and lactic acid. Patient was ordered to get lactated Ringer's IV x2, regular insulin 5 units IV bolus and regular insulin drip at 10 units per hour. He was also given morphine 4 mg IV and Reglan 10 mg IV for his abdominal pain and nausea. I did discuss this patient's presentation over tiger text with the on-call border guard, Dr. Leo and with the covering ICU border guard, Gardenia Gonzales. The patient was accepted into the ICU for further management. I will obtain a triglyceride level,chest x-ray on the patient and CT abdomen pelvis without IV contrast prior to the patient going to the ICU. 04:15 Lactic acid was normal 1.9. CT chest revealed no acute disease. CT scan of the abdomen pelvis With IV contrast was consistent with acute pancreatitis and secondary duodenitis. triglyceride level was elevated at 4907 which is the most likely cause for his pancreatitis and abdominal pain. Admission/Observation Consideration of admission/observation: Escalation of care including admission/observation considered (Yes) Consult Healthcare Provider Management of the patient was discussed with: Non Destructive Evaluation Technician (Intensivists) Lab Data MDM Lab Attestation statement: I reviewed the patient's lab results. 08/26/24 05:39 08/26/24 19:51 Labs: Lab Results 08/25/24 08/25/24 08/26/24 Range/Units 23:54 23:55 01:41 WBC 7.5 (4.8-10.8) X10*3/uL RBC 5.75 D (4.60-5.80) X10*6/uL Hgb 18.8 H D (14.0-18.0) g/dl Hct 50.3 D (42.0-52.0) % MCV 87.5 (80.0-98.0) fL MCH 32.7 (27.0-33.0) pg MCHC 37.4 H (31.0-36.0) g/dl RDW 12.7 (11.0-16.0) % Plt Count 355 (160-400) X10*3/uL MPV 10.8 (9.4-12.4) fL Immature Gran % (Auto) 0.3 (0.0-0.4) % Neut % (Auto) 69.0 (45-73) % Lymph % (Auto) 25.8 (20-40) % Lawrence % (Auto) 4.4 (2-11) % Eos % (Auto) 0.0 (0-4) % Baso % (Auto) 0.5 (0-2) % Lymph # (Auto) 1.9 (1.2-4.9) X10*3/uL Lawrence # (Auto) 0.3 (0.1-1.2) X10*3/uL Eos # (Auto) 0.0 (0.0-0.4) X10*3/uL Baso # (Auto) 0.0 (0.0-0.2) X10*3/uL Abs Immat Gran (auto) 0.02 (0.00-0.03) X10*3/uL Absolute Neuts (auto) 5.2 (2.0-8.3) x10*3/uL Absolute Nucleated RBC 0.000 (0.0-0.012) X10*3/uL Nucleated RBC % (auto) 0.0 (0.0-0.2) /100WBC VBG pH 7.13 L* (7.32-7.43) VBG pCO2 25 mmHg VBG pO2 33 mmHg VBG HCO3 8 L (22-26) mmol/L VBG O2 Saturation 47.0 % VBG Base Excess -18.5 mmol/L Sodium 135 (135-145) mmol/L Potassium 5.5 H D (3.3-5.1) mmol/L Chloride 105 (96-108) mmol/L Carbon Dioxide 5 L* D (22-29) mmol/L Anion Gap 31 H (12-20) BUN 20 H (9-16) mg/dL Creatinine 2.44 H (0.5-1.4) mg/dL Estim Creat Clear Calc 40.6 Estimated GFR 28 POC Glucose (60-115) mg/dL Random Glucose 517 H* (60-115) mg/dL Calcium 10.6 H D (8.4-10.2) mg/dL Total Bilirubin 0.4 (0.0-1.0) mg/dL AST 63 H (5-37) U/L ALT 47 H (0-40) U/L Alkaline Phosphatase 141 H (39-117) U/L Total Protein 11.1 H (6.5-8.0) g/dL Albumin 4.8 (3.5-5.0) g/dL Triglycerides 4907 H (<150) mg/dL Lipase 85 H (8-78) U/L Beta-Hydroxybutyrate 9.19 H (0.02-0.27) mmol/L Influenza Type A (PCR) NEGATIVE (Negative) Influenza Type B (PCR) NEGATIVE (Negative) RSV RNA Qual (PCR) NEGATIVE (Negative) SARS-CoV-2 RNA (RT-PCR) NEGATIVE (Negative) 08/26/24 Range/Units 02:37 WBC (4.8-10.8) X10*3/uL RBC (4.60-5.80) X10*6/uL Hgb (14.0-18.0) g/dl Hct (42.0-52.0) % MCV (80.0-98.0) fL MCH (27.0-33.0) pg MCHC (31.0-36.0) g/dl RDW (11.0-16.0) % Plt Count (160-400) X10*3/uL MPV (9.4-12.4) fL Immature Gran % (Auto) (0.0-0.4) % Neut % (Auto) (45-73) % Lymph % (Auto) (20-40) % Lawrence % (Auto) (2-11) % Eos % (Auto) (0-4) % Baso % (Auto) (0-2) % Lymph # (Auto) (1.2-4.9) X10*3/uL Lawrence # (Auto) (0.1-1.2) X10*3/uL Eos # (Auto) (0.0-0.4) X10*3/uL Baso # (Auto) (0.0-0.2) X10*3/uL Abs Immat Gran (auto) (0.00-0.03) X10*3/uL Absolute Neuts (auto) (2.0-8.3) x10*3/uL Absolute Nucleated RBC (0.0-0.012) X10*3/uL Nucleated RBC % (auto) (0.0-0.2) /100WBC VBG pH (7.32-7.43) VBG pCO2 mmHg VBG pO2 mmHg VBG HCO3 (22-26) mmol/L VBG O2 Saturation % VBG Base Excess mmol/L Sodium (135-145) mmol/L Potassium (3.3-5.1) mmol/L Chloride (96-108) mmol/L Carbon Dioxide (22-29) mmol/L Anion Gap (12-20) BUN (9-16) mg/dL Creatinine (0.5-1.4) mg/dL Estim Creat Clear Calc Estimated GFR POC Glucose 440 H* (60-115) mg/dL Random Glucose (60-115) mg/dL Calcium (8.4-10.2) mg/dL Total Bilirubin (0.0-1.0) mg/dL AST (5-37) U/L ALT (0-40) U/L Alkaline Phosphatase (39-117) U/L Total Protein (6.5-8.0) g/dL Albumin (3.5-5.0) g/dL Triglycerides (<150) mg/dL Lipase (8-78) U/L Beta-Hydroxybutyrate (0.02-0.27) mmol/L Influenza Type A (PCR) (Negative) Influenza Type B (PCR) (Negative) RSV RNA Qual (PCR) (Negative) SARS-CoV-2 RNA (RT-PCR) (Negative) Radiology Impression Discussion of test interpretation with radiology: I have reviewed the radiologist's reading. Radiologist Impression: CT abdomen and pelvis without contrast Comparison: CT/LA/SR - CT ABDOMEN PELVIS WO IV CON - 01/29/24 21:18 EDT Findings: Esophageal mural thickening with decompression, nonspecific. Atelectasis. Hepatomegaly with steatosis. Mildly distended gallbladder. Diffuse pancreatic glandular edema more so proximally with fluid stranding and prominent peripancreatic nodes, suggestive of pancreatitis. No discrete peripancreatic collections. No urolithiasis. Duodenal mural thickening, suggesting secondary duodenitis. No bowel obstruction. Scattered colonic diverticulosis without diverticulitis or colitis. Normal appendix. Distended bladder. The bones are intact. Disc bulges/protrusions at L4-L5 and L5-S1. IMPRESSION: 1. Acute pancreatitis. 2. Secondary duodenitis. This document has been electronically signed by: Arpit Tam MD on 08/26/2024 03:55:35 1 view chest x-ray Comparison: CR/SR - XR CHEST 1V - 01/29/24 20:13 EDT Findings: No consolidation or effusion. Similar asymmetric right hemidiaphragm elevation. Prominent cardiac silhouette. No acute fracture. IMPRESSION: 1. No acute findings. This document has been electronically signed by: Arpit Tam MD on 08/26/2024 03:54:48 Chronic Conditions Patient?s care impacted by: Diabetes Medications Administered Generic Name Dose Route Start Last Admin Trade Name Freq PRN Reason Stop Dose Admin Heparin Sodium (Porcine) 5,000 unit 08/26/24 09:00 08/26/24 15:47 Heparin Sodium,Porcine 5,000 Unit/Ml Vial SUBCUT 5,000 unit TID NESS Administration Insulin Human Regular 100 unit in 100 mls @ 10 mls/hr 08/26/24 02:30 08/26/24 19:59 Myxredlin IVCONT 3 unit/hr .Q10H NESS 3 mls/hr Titration Protocol 10 UNIT/HR Dextrose/Lactated Ringer's 1,000 mls @ 150 mls/hr 08/26/24 06:00 08/26/24 20:00 D5lr IVCONT 150 mls/hr .Q6H40M NESS Administration Sodium Chloride 3 ml 08/26/24 08:00 08/26/24 15:47 0.9 % Sodium Chloride Flush 3 Ml Syringe IVFLUSH 3 ml QSHIFT NESS Administration Discontinued Medications Generic Name Dose Route Start Last Admin Trade Name Freq PRN Reason Stop Dose Admin Lactated Ringer's 1,000 mls @ 999 mls/hr 08/26/24 02:20 08/26/24 03:20 Lr IV 08/26/24 03:20 Infused .Q1H1M STA Infusion Lactated Ringer's 1,000 mls @ 999 mls/hr 08/26/24 02:50 08/26/24 03:20 Lr IV 08/26/24 03:50 Infused .Q1H1M STA Infusion Lactated Ringer's 1,000 mls @ 150 mls/hr 08/26/24 04:00 08/26/24 06:04 Lr IVCONT Infused .Q6H40M NESS Infusion Potassium Phosphate 15 mmol in 250 mls @ 62.5 mls/hr 08/26/24 08:00 08/26/24 13:58 Kphos IV 08/26/24 11:59 Infused ONCE ONE Infusion Insulin Human Regular 5 unit 08/26/24 02:20 08/26/24 02:38 Insulin Regular, Human 100 Unit/Ml 10 Ml Vial IVPUSH 08/26/24 02:21 5 unit ONCE ONE Administration Metoclopramide HCl 10 mg 08/26/24 02:31 08/26/24 02:45 Metoclopramide Hcl 10 Mg/2 Ml Vial IVPUSH 08/26/24 02:32 10 mg ONCE STA Administration Morphine Sulfate 4 mg 08/26/24 02:31 08/26/24 02:45 Morphine Sulfate 4 Mg/Ml Cartridge IVPUSH 08/26/24 02:32 4 mg ONCE STA Administration Protocol Critical Care Time Critical Care Time Critical Care Time: Yes Total Critical Care Time: 45 Attestation: Critical Care: The patient was critically ill with a high probability of imminent or life threatening deterioration. I spent greater than 30 minutes of discontinuous time evaluating the patient,delivering critical care at the bedside, discussing and evaluating pertinent data with consultants. Critical care time does not include time spent performing separately billable procedures or teaching. Total time spent performing critical care was 45 minutes. Discharge Plan Discharge Clinical Impression: Diabetic ketoacidosis, Abdominal pain, Acute kidney injury, Fluid volume depletion, Acute pancreatitis, Hypertriglyceridemia Patient Disposition: Admitted As Inpatient Interventions: Admission Worksheet (ED) Last Done: 08/26/24 04:01 Discharge Date/Time: 08/26/24 04:02
--- NOTE | 2024-08-26 02:17 | PC.NURSE ---
pt a&ox4, respirations even and unlabored. pt reporting x3 days of nausea, vomiting and poor po intake. pt reports abdominal pain and reports his pancreas hurt. pt reports he is a diabetic but he only has long acting insulin. pt denies sob and chest pain. 18G placed in right ac. aware of pt labs.
[2024-08-26] MEDS: Lactated Ringers 1,000 ML 999 ML IV ×2 (02:32)
[2024-08-26] MEDS: Insulin Regular, Human 100 UNIT/ML 10 ML VIAL IVPUSH (02:38)
[2024-08-26 02:42] LABS: Glucose, Whole Blood 440 mg/dL (60-115)
[2024-08-26] MEDS: Insulin Regular/NS 100 UNIT/100 ML PLAST..BAG 10 UNIT IVCONT (02:44)
[2024-08-26] MEDS: Morphine Sulfate 4 MG/ML CARTRIDGE IVPUSH (02:45)
[2024-08-26] MEDS: Metoclopramide HCl 10 MG/2 ML VIAL IVPUSH (02:45)
[2024-08-26 02:59] LABS: Triglycerides 4907 mg/dL (<150)
--- NOTE | 2024-08-26 03:02 | PC.NURSE ---
insulin drip started at this time, POC 440. ICU provider at bedside discussing care with patient.
--- NOTE | 2024-08-26 03:08 | PC.NURSE ---
report given to Oneyda CHACON in icu.
[2024-08-26 03:39] LABS: Lactic Acid 2.9 mmol/L (0.5-2.0)
[2024-08-26] MEDS: Lactated Ringers 1,000 ML 150 ML IVCONT (03:56)
[2024-08-26 04:05] LABS: Glucose, Whole Blood 375 mg/dL (60-115)
--- NOTE | 2024-08-26 04:09 | PC.NURSE ---
Pt admitted to ICU from ED at approx 0345. Upon initial assessment- pt A&Ox4. Denies pain. Afebrile. NSR/ST on tele, HR 90-100s. SBP WNL. Saturating well on room air. NPO at this time- ice chips/small sips of water ok per HIGH RISK CASE MANAGER Gonzales, denies N/V. Insulin gtt/IVF infusing and titrated per MAR. Voided in urinal and sample sent. Skin intact. Pt independent and repositions self. Pt aware of plan of care. Bed locked in lowest position, alarm on, call martinez in reach.
[2024-08-26 04:10] LABS: Appearance Urine Clear; Color Urine Yellow; Glucose Urine UA >=1000 mg/dL (Negative); Leukocyte Esterase Urine Negative (Negative); Nitrite Urine Negative (Negative); Specific Gravity - Urine >= 1.030 (1.005-1.025); UMIC TRIGGER UACC YES; Urine Blood Small (1+) (Negative); Urine Ketones >=160 mg/dL (Negative); Urine Protein 100 (2+) mg/dL (Neg-Trace)
[2024-08-26 04:23] LABS: Bacteria Urine None Seen (None Seen); RBC Urine 0-2 /HPF (0-2); Squamous Epithelial Cell Urine 0-2 /HPF (0-2); WBC Urine 0-5 /HPF (0-5)
--- NOTE | 2024-08-26 04:23 | P.HPCC_ITS ---
History of Present Illness Date of Service: 08/26/24 Attending physician on admission: Pacheco Montes Chief Complaint: Abdominal pain The patient is a 49-year-old male with a past medical history of insulin- dependent diabetes,? gastroparesis, pancreatitis,? hyperlipidemia, hypertension and alcohol abuse who presented to emergency department with abdominal pain.? Patient? reported abdominal pain started yesterday,? accompanied with nausea and vomiting.? Patient reports he has been compliant with long-acting insulin, but states has not been taking short acting,? stated had the same symptoms before when he was diagnosed with? hypertriglyceridemia pancreatitis and DKA in the past.? ?In the emergency department patient was hypertensive to systolic of 180s, tachycardic and tachypneic.? ? Laboratory data was significant for? potassium 5.5, serum bicarb 5, anion gap 31, BUN 20, creatinine 2.44, random glucose 517, AST 63, ALT 47, alk phos 141, triglycerides 4907, lipase 85,? and beta hydroxybutyrate 9.19 ?Venous gas: 7. IMAGING:? Abdominal CT:? consistent with acute pancreatitis Chest Xray -? no acute infectious process ED COURSE:? Patient received 2 L bolus,? 5 units of IV push insulin and? started on insulin drip Review of Systems 2 Review of Systems: Yes all other systems are reviewed and are negative PMFSH Past Medical History Medical History Chronic nausea Diabetes mellitus with gastroparesis Hypertension Social History Social History Household Members: Family Housing: Apartment Do you presently have visiting nurse or other home services: No Alcohol intake: current Alcohol intake frequency: holidays/special occasions only Alcohol type: beer and hard liquor Patient Tobacco Use Status: Never used Tobacco Smoked in Last 30 Days: No e-Cigarette/Vaping Use: Never Used Second Hand Smoke Exposure: No Use of substances other than those prescribed or required for medical reasons: No Currently Displaying Signs/Symptoms of Drug Intoxication Withdrawal: No Advance Directives: No Advance Directives Information Provided: Yes Do you have a plan to hurt others: No Plan Recently lost weight without trying: No Nutrition Risks: Acute nausea or vomiting x1 week, Diabetes new onset/Uncontrolled and Poor intake 0-25% >4 days Poor oral hygiene: No service: No Current occupational status: employed Meds Allergies Allergy/AdvReac Type Severity Reaction Status Date / Time No Known Allergies Allergy Verified 08/25/24 23:48 Active Medications: Current Medications Dextrose (Dextrose 50 % 25 Gm/50 Ml Syringe) 25 gm IVPUSH Q30M PRN PRN Reason: BG < 70 Heparin Sodium (Porcine) (Heparin Sodium,Porcine 5,000 Unit/Ml Vial) 5,000 unit SUBCUT TID [facility] Insulin Human Regular (Myxredlin) 100 unit in 100 mls @ 10 mls/hr IVCONT .Q10H [facility]; Protocol Last Titration: 08/26/24 04:02 Dose: 10 unit/hr, 10 mls/hr Lactated Ringer's (Lr) 1,000 mls @ 150 mls/hr IVCONT .Q6H40M [facility] Last Admin: 08/26/24 03:56 Dose: 150 mls/hr Morphine Sulfate (Morphine Sulfate 2 Mg/Ml Cartridge) 2 mg IVPUSH Q4H PRN; Protocol PRN Reason: Pain, Severe (Pain Scale 7-10) Ondansetron HCl (Ondansetron Hcl 4 Mg/2 Ml Vial) 4 mg IVPUSH Q6H PRN PRN Reason: Nausea and Vomiting Sodium Chloride (0.9 % Sodium Chloride Flush 3 Ml Syringe) 3 ml IVFLUSH QSHIFT [facility] Home Medications ?Medication ?Instructions ?Recorded ?Confirmed ?Last Taken ?Type insulin glargine 100 unit/mL 30 unit subcut DAILY 08/26/24 08/26/24 08/25/24 History subcutaneous solution (Lantus U-100 Insulin) insulin lispro 100 unit/mL See Protocol subcut TIDAC 08/26/24 08/26/24 08/25/24 History subcutaneous solution (Humalog U-100 Insulin) Physical Exam 2 Vital Signs: Vital Signs: Last Vital Signs Temp 97.5 F 08/26/24 03:51 Pulse 100 08/26/24 03:51 Resp 18 08/26/24 03:51 BP 141/89 H 08/26/24 03:51 Pulse Ox 96 08/26/24 03:51 O2 Del Method Room Air 08/26/24 03:51 BMI result Body Mass Index 32.7 ?General:? Alert oriented x3 no acute distress.? Speaking full sentences.? Speech is well articulated, thought process is coherent.? Following all commands. ?HEENT:? Head is normocephalic, atraumatic, pupils equal round reactive to light accommodation bilaterally.? Extraocular movements appear intact.? Buccal mucosa is dry, Neck is supple ?Cardiac:? Sinus tachycardia, Clear S1-S2, no murmurs rubs or gallops. ?Pulmonary:? Clear to auscultation, no wheezes, rales or rhonchi. ?Abdomen: ? Abdomen soft, with diffuse tenderness in all quadrants. Normal bowel sounds. No pulsatile mass. No hepatosplenomegaly. ?Musculoskeletal:? Moving all 4 extremities upon request a major joints, there is no crepitus or tenderness.? The strength is 5/5 bilaterally and throughout all 4 extremities.? Gait not assessed at this point. ?Neurologic:? cranial nerves 2-12 are grossly intact.? No focal deficits noted.Motor strength as above.?? ?Skin:? Intact, no lesions, edema, erythema, clubbing or cyanosis.? No ulcers. Vascular:? 2+ pulses upper and lower extremities distally.? Results Labs 08/26/24 05:39 08/26/24 05:39 Labs: Laboratory Results - last 24 hr 08/25/24 08/25/24 08/26/24 23:54 23:55 01:41 MCV 87.5 MCH 32.7 MCHC 37.4 H RDW 12.7 Plt Count 355 MPV 10.8 Immature Gran % (Auto) 0.3 Neut % (Auto) 69.0 Lymph % (Auto) 25.8 [place] % (Auto) 4.4 Eos % (Auto) 0.0 Baso % (Auto) 0.5 Lymph # (Auto) 1.9 [place] # (Auto) 0.3 Eos # (Auto) 0.0 Baso # (Auto) 0.0 Abs Immat Gran (auto) 0.02 Absolute Neuts (auto) 5.2 Absolute Nucleated RBC 0.000 Nucleated RBC % (auto) 0.0 VBG pH 7.13 L* VBG pCO2 25 VBG pO2 33 VBG HCO3 8 L VBG O2 Saturation 47.0 VBG Base Excess -18.5 Anion Gap 31 H Estim Creat Clear Calc 40.6 Estimated GFR 28 POC Glucose Random Glucose 517 H* Lactic Acid Calcium 10.6 H D Total Bilirubin 0.4 AST 63 H ALT 47 H Alkaline Phosphatase 141 H Total Protein 11.1 H Albumin 4.8 Triglycerides 4907 H Lipase 85 H Beta-Hydroxybutyrate 9.19 H Specimen Comment Influenza Type A (PCR) NEGATIVE Influenza Type B (PCR) NEGATIVE RSV RNA Qual (PCR) NEGATIVE SARS-CoV-2 RNA (RT-PCR) NEGATIVE 08/26/24 08/26/24 08/26/24 02:37 03:12 04:01 MCV MCH MCHC RDW Plt Count MPV Immature Gran % (Auto) Neut % (Auto) Lymph % (Auto) [place] % (Auto) Eos % (Auto) Baso % (Auto) Lymph # (Auto) [place] # (Auto) Eos # (Auto) Baso # (Auto) Abs Immat Gran (auto) Absolute Neuts (auto) Absolute Nucleated RBC Nucleated RBC % (auto) VBG pH VBG pCO2 VBG pO2 VBG HCO3 VBG O2 Saturation VBG Base Excess Anion Gap Estim Creat Clear Calc Estimated GFR POC Glucose 440 H* 375 H* Random Glucose Lactic Acid 2.9 H* Calcium Total Bilirubin AST ALT Alkaline Phosphatase Total Protein Albumin Triglycerides Lipase Beta-Hydroxybutyrate Specimen Comment Influenza Type A (PCR) Influenza Type B (PCR) RSV RNA Qual (PCR) SARS-CoV-2 RNA (RT-PCR) 08/26/24 23:55 MCV MCH MCHC RDW Plt Count MPV Immature Gran % (Auto) Neut % (Auto) Lymph % (Auto) [place] % (Auto) Eos % (Auto) Baso % (Auto) Lymph # (Auto) [place] # (Auto) Eos # (Auto) Baso # (Auto) Abs Immat Gran (auto) Absolute Neuts (auto) Absolute Nucleated RBC Nucleated RBC % (auto) VBG pH VBG pCO2 VBG pO2 VBG HCO3 VBG O2 Saturation VBG Base Excess Anion Gap Estim Creat Clear Calc Estimated GFR POC Glucose Random Glucose Lactic Acid Calcium Total Bilirubin AST ALT Alkaline Phosphatase Total Protein Albumin Triglycerides Lipase Beta-Hydroxybutyrate Specimen Comment DELAY Influenza Type A (PCR) Influenza Type B (PCR) RSV RNA Qual (PCR) SARS-CoV-2 RNA (RT-PCR) Assessment and Plan (1) Diabetic ketoacidosis: Qualifiers: Diabetes mellitus complication detail: without coma Diabetes mellitus type: type 1 Qualified Code(s): E10.10 - Type 1 diabetes mellitus with ketoacidosis without coma Status: Acute (2) Acute pancreatitis: Status: Resolved (3) Hypertriglyceridemia: Status: Acute (4) Diabetes mellitus with gastroparesis: Status: Inactive (5) Acute hyperglycemia: Status: Inactive (6) Acute kidney injury: Status: Acute (7) Hypertension: Status: Inactive (8) Transaminitis: Status: Acute Plan ?49-year-old male with a past medical history of insulin-dependent diabetes,? gastroparesis, pancreatitis,? hyperlipidemia, hypertension, alcohol abuse? and medication noncompliance,? admitted to ICU for management of DKA and acute pancreatitis due to hypertriglyceridemia Neuro:? ?No acute issues Cardiac:?? ?Elevated lactic- ? no evidence of infection/ septic shock,? elevated lactic is due to? diabetic ketoacidosis. Pulmonary:? ?No acute issue Renal:?LAURA- most likely related to hypoperfusion, nonoliguric.? Continue IV fluid.? Continue to check renal induces and urine output Hyperkalemia-? from? DKA. ? EKG with no T-waves abnormalities. Closely monitor electrolytes GI:?? ?Acute Pancreatitis with? hypertriglyceridemia-? lipase 85, triglycerides 4907 and abdominal pain, patient was admitted with similar presentation in January of 2024,? was discharged on? gemfibrozil,? but states he is no longer taking it.? CT of the abdomen is consistent with pancreatitis.? On insulin drip for DKA,? we will also continue until triglycerides are in a safe range.? NPO ?Transaminitis:? patient has a known fatty liver disease.? Will add coags.? No evidence of bleeding.? Acute elevation in transaminitis likely from acute pancreatitis nausea and vomiting from? gastroparesis. Continue Zofran p.r.n., Endo:?? ?Insulin-dependent? diabetes mellitus/ diabetic ketoacidosis- ? patient admits to medication noncompliance,? in DKA. Will continue insulin drip until gap is close. Follow DKA protocol? Heme/Onc:? ?No acute? issues ID: ? no acute issues Psych:?? ?Alcohol abuse:? patient reports he has decreased alcohol intake? in the last few months to about 2 to 3 times a week 1 cup of rum.? Denies previous alcohol withdrawal symptoms.? Continue to follow closely for alcohol withdrawal? symptoms.? Diet: NPO Prophylaxis:? ? heparin Subcut? Code? status: ? ? FULL CODE.? Critical care time: x 60 min of critical care time? Case discussed with attending Dr Montes?
[2024-08-26 05:10] LABS: Glucose, Whole Blood 313 mg/dL (60-115)
[2024-08-26 05:19] LABS: Reflex Lactate? Lactic Acid Added
[2024-08-26 05:47] LABS: VBG Base Excess -13.9 mmol/L; VBG HCO3 10 mmol/L (22-26); VBG pCO2 21 mmHg; VBG pH 7.28 (7.32-7.43); VBG pO2 41 mmHg
[2024-08-26 05:48] LABS: MANUAL DIFF FLAG NO
[2024-08-26 05:51] LABS: Venous Blood Gas Refer to POC result
[2024-08-26 05:52] LABS: Basophils Percent Auto 0.4 % (0-2); Eosinophils Percent Auto 0.1 % (0-4); Hematocrit 46.4 % (42.0-52.0); Hemoglobin 17.3 g/dl (14.0-18.0); Imm Gran Abs Auto 0.02 X10*3/uL (0.00-0.03); Imm Gran Pct Auto 0.3 % (0.0-0.4); Lymphocytes Absolute Auto 1.7 X10*3/uL (1.2-4.9); Lymphocytes Percent Auto 21.8 % (20-40); Mean Corpuscular HGB Conc 37.3 g/dl (31.0-36.0); Mean Corpuscular Hemoglobin 32.2 pg (27.0-33.0); Mean Corpuscular Volume 86.4 fL (80.0-98.0); Mean Platelet Volume 10.9 fL (9.4-12.4); Monocytes Absolute Auto 0.3 X10*3/uL (0.1-1.2); Monocytes Percent Auto 3.5 % (2-11); Neutrophils Absolute Auto 5.8 x10*3/uL (2.0-8.3); Neutrophils Percent Auto 73.9 % (45-73); Platelet Count 342 X10*3/uL (160-400); Red Blood Count 5.37 X10*6/uL (4.60-5.80); Red Cell Distribution Width 12.8 % (11.0-16.0); White Blood Count 7.8 X10*3/uL (4.8-10.8)
[2024-08-26 05:57] LABS: Prothrombin Time 11.4 SEC (10.9-12.4)
[2024-08-26 06:02] LABS: Glucose, Whole Blood 224 mg/dL (60-115)
[2024-08-26 06:06] LABS: ~Lactic Acid-LAB USE ONLY 1.9 mmol/L (0.5-2.0)
[2024-08-26 06:08] LABS: Albumin Level 4.1 g/dL (3.5-5.0); Anion Gap 23 (12-20); Blood Urea Nitrogen 20 mg/dL (9-16); Calcium 10.1 mg/dL (8.4-10.2); Carbon Dioxide 8 mmol/L (22-29); Chloride 109 mmol/L (96-108); Creatinine Clr Calc Pharmacy 54.1; Estimated Glomerular Filt Rate 40; Glucose Random 240 mg/dL (60-115); Magnesium 2.4 mg/dL (1.6-2.6); Phosphorus 1.8 mg/dL (2.7-4.5); Potassium 4.2 mmol/L (3.3-5.1); Sodium 136 mmol/L (135-145)
[2024-08-26] MEDS: Dextrose 5 % and Lactated Ring 1,000 ML 150 ML IVCONT ×3 (06:09→20:00)
[2024-08-26 07:08] LABS: Glucose, Whole Blood 186 mg/dL (60-115)
[2024-08-26 08:07] LABS: Glucose, Whole Blood 164 mg/dL (60-115)
[2024-08-26] MEDS: Heparin Sodium,Porcine 5,000 UNIT/ML VIAL 5000 UNIT SUBCUT ×3 (08:47→20:52)
[2024-08-26] MEDS: 0.9 % Sodium Chloride Flush 3 ML SYRINGE IVFLUSH ×2 (08:48→15:47)
[2024-08-26 09:03] LABS: Glucose, Whole Blood 140 mg/dL (60-115)
[2024-08-26] MEDS: Potassium Phosphate/NS 15 MMOL/250 ML PLAST..BAG 62.5 MMOL IV ×2 (09:41→20:52)
[2024-08-26 10:05] LABS: Glucose, Whole Blood 130 mg/dL (60-115)
[2024-08-26 11:09] LABS: Glucose, Whole Blood 118 mg/dL (60-115)
--- NOTE | 2024-08-26 11:37 | PHA.MEDREC ---
Addendum entered by Sarah Carvajal RPh 08/26/24 12:03: Med rec was reviewed by [facility]. Original Note: Pharmacy Consult ? Medication Reconciliation Pharmacy reviewed med rec done by nursing. Patient confirmed he is not taking the Gemfibrozil 600mg tab anymore and has not in a few months. He confirmed he still has some Lantus Solostar and the Humalog insulins at home states he is running low on them . He confirmed he injects 30 units of the Lantus Solostar daily and stated for the Humalog he tests his sugars three times a day before meals and injects the insulin using a sliding scale.
[2024-08-26 12:09] LABS: Glucose, Whole Blood 133 mg/dL (60-115)
[2024-08-26 13:08] LABS: Glucose, Whole Blood 143 mg/dL (60-115)
[2024-08-26] MEDS: Insulin Regular/NS 100 UNIT/100 ML PLAST..BAG IVCONT ×2 (13:16→20:52)
[2024-08-26 14:06] LABS: Anion Gap 15 (12-20); Blood Urea Nitrogen 16 mg/dL (9-16); Calcium 9.5 mg/dL (8.4-10.2); Carbon Dioxide 16 mmol/L (22-29); Chloride 114 mmol/L (96-108); Creatinine Clr Calc Pharmacy 67.4; Estimated Glomerular Filt Rate 51; Glucose Random 121 mg/dL (60-115); Potassium 4.3 mmol/L (3.3-5.1); Sodium 141 mmol/L (135-145)
[2024-08-26 14:11] LABS: Glucose, Whole Blood 148 mg/dL (60-115)
--- NOTE | 2024-08-26 14:50 | MHC.CM.PN ---
Pt in ICU with DKA: met with pt to discuss d/c planning: Pt resides with partner, is independent and works. Pt states he has a working glucometer and diabetic supplies. Pt seen by [facility] financial for assistance with reinstating health insurance. Pt states he followed with Dr. Gallardo at [facility] (Anuja Torrez) but now does not know/have an active provider. Encouraged pt to contact [facility] to make and keep an appointment. Pt states he would like to transfer care to Dr. Billy Vincent - office contact number given to Aurelia (pts partner) to follow up. Aurelia to transport pt to home.
[2024-08-26 15:18] LABS: Glucose, Whole Blood 177 mg/dL (60-115)
[2024-08-26 16:16] LABS: Glucose, Whole Blood 154 mg/dL (60-115)
[2024-08-26 17:02] LABS: Glucose, Whole Blood 124 mg/dL (60-115)
[2024-08-26 18:07] LABS: Glucose, Whole Blood 118 mg/dL (60-115)
--- NOTE | 2024-08-26 18:34 | PC.NURSE ---
Alert & Oriented but Drowsy. Glasses at bedside. Clear lung sounds on RA. Sinus Rhythm. Skin is intact LBM? 08/25 ,? NPO, Abdomen soft, non-tender, +bowel sounds. Utilizes urinal. Pheripheral IVs ?Plan: continue insulin gtt until triglycerides < 1,[address] Fournier orders
[2024-08-26 19:04] LABS: Glucose, Whole Blood 135 mg/dL (60-115)
[2024-08-26 20:02] LABS: Glucose, Whole Blood 110 mg/dL (60-115)
[2024-08-26 20:32] LABS: Anion Gap 16 (12-20); Blood Urea Nitrogen 14 mg/dL (9-16); Calcium 9.3 mg/dL (8.4-10.2); Carbon Dioxide 14 mmol/L (22-29); Chloride 112 mmol/L (96-108); Creatinine Clr Calc Pharmacy 73.9; Estimated Glomerular Filt Rate 57; Glucose Random 94 mg/dL (60-115); Magnesium 1.9 mg/dL (1.6-2.6); Phosphorus 1.9 mg/dL (2.7-4.5); Sodium 139 mmol/L (135-145)
[2024-08-26 21:01] LABS: Glucose, Whole Blood 123 mg/dL (60-115)
[2024-08-26 22:03] LABS: Glucose, Whole Blood 140 mg/dL (60-115)
[2024-08-27] VITALS (24 sets, daily range): BP systolic 95–149; BP diastolic 53–87; PULSE 78–93; RESP 11–21; TEMP 36.1–36.9; O2SAT 95–98; BMI 32.7
[2024-08-27 00:06] LABS: Glucose, Whole Blood 189 mg/dL (60-115)
[2024-08-27] MEDS: Potassium Phosphate/NS 15 MMOL/250 ML PLAST..BAG 62.5 MMOL IV (01:03)
[2024-08-27 02:02] LABS: Glucose, Whole Blood 257 mg/dL (60-115)
[2024-08-27] MEDS: Dextrose 5 % and Lactated Ring 1,000 ML 150 ML IVCONT (02:43)
[2024-08-27 03:00] LABS: Glucose, Whole Blood 265 mg/dL (60-115)
[2024-08-27 03:59] LABS: Glucose, Whole Blood 242 mg/dL (60-115)
[2024-08-27 05:37] LABS: VBG Base Excess -6.3 mmol/L; VBG HCO3 16 mmol/L (22-26); VBG pCO2 25 mmHg; VBG pO2 45 mmHg
[2024-08-27 05:38] LABS: Venous Blood Gas Refer to POC result
[2024-08-27 05:46] LABS: Glucose, Whole Blood 251 mg/dL (60-115)
[2024-08-27 05:56] LABS: MANUAL DIFF FLAG NO
[2024-08-27 06:06] LABS: Basophils Percent Auto 0.5 % (0-2); Eosinophils Absolute Auto 0.1 X10*3/uL (0.0-0.4); Eosinophils Percent Auto 1.8 % (0-4); Hematocrit 38.6 % (42.0-52.0); Hemoglobin 14.3 g/dl (14.0-18.0); Imm Gran Abs Auto 0.02 X10*3/uL (0.00-0.03); Imm Gran Pct Auto 0.3 % (0.0-0.4); Lymphocytes Absolute Auto 1.6 X10*3/uL (1.2-4.9); Lymphocytes Percent Auto 25.1 % (20-40); Mean Corpuscular Hemoglobin 31.6 pg (27.0-33.0); Mean Corpuscular Volume 85.2 fL (80.0-98.0); Monocytes Absolute Auto 0.4 X10*3/uL (0.1-1.2); Neutrophils Absolute Auto 4.3 x10*3/uL (2.0-8.3); Neutrophils Percent Auto 66.3 % (45-73); Platelet Count 258 X10*3/uL (160-400); Red Blood Count 4.53 X10*6/uL (4.60-5.80); Red Cell Distribution Width 12.5 % (11.0-16.0); White Blood Count 6.5 X10*3/uL (4.8-10.8)
[2024-08-27 06:14] LABS: Albumin Level 3.1 g/dL (3.5-5.0); Anion Gap 15 (12-20); Blood Urea Nitrogen 12 mg/dL (9-16); Calcium 8.5 mg/dL (8.4-10.2); Carbon Dioxide 15 mmol/L (22-29); Chloride 111 mmol/L (96-108); Estimated Glomerular Filt Rate > 60; Glucose Random 240 mg/dL (60-115); Magnesium 1.6 mg/dL (1.6-2.6); Phosphorus 3.6 mg/dL (2.7-4.5); Potassium 3.3 mmol/L (3.3-5.1); Sodium 138 mmol/L (135-145)
[2024-08-27 06:35] LABS: Triglycerides 1881 mg/dL (<150)
[2024-08-27] MEDS: Heparin Sodium,Porcine 5,000 UNIT/ML VIAL 5000 UNIT SUBCUT ×3 (07:44→21:08)
[2024-08-27] MEDS: 0.9 % Sodium Chloride Flush 3 ML SYRINGE IVFLUSH ×3 (07:45→20:11)
[2024-08-27 08:11] LABS: Glucose, Whole Blood 230 mg/dL (60-115)
[2024-08-27 10:19] LABS: Glucose, Whole Blood 163 mg/dL (60-115)
[2024-08-27] MEDS: Potassium Chloride/H20 10 MEQ/100 ML PIGGYBACK 100 MEQ IV ×8 (10:32→23:13)
--- NOTE | 2024-08-27 10:51 | MHC.CM.PN ---
Pt remains in ICU: triglycerides trending down at 1800 today: can transfer to medical floor once they are under 1000. Pt seen by [facility] financial for assistance with payor: Pt's partner has called Dr. Billy Vincent's office to try and establish new pt visit. Pt had been active with [facility] in [place]. Pt has transportation home
[2024-08-27 11:28] LABS: Glucose, Whole Blood 162 mg/dL (60-115)
[2024-08-27 12:01] LABS: Glucose, Whole Blood 202 mg/dL (60-115)
[2024-08-27] MEDS: Dextrose 5 % and Lactated Ring 1,000 ML 100 ML IVCONT ×2 (13:56→23:13)
[2024-08-27 14:11] LABS: Glucose, Whole Blood 169 mg/dL (60-115)
--- NOTE | 2024-08-27 14:48 | P.PNCC_ITS ---
Subjective Subjective Date of Service: 08/27/24 Interval History: 49-year-old gentleman with underlying insulin-dependent diabetes mellitus and hypertension poorly compliant with his medication regimen admitted on 08/26/2024 with abdominal discomfort and nausea. On ER evaluation patient with profound metabolic acidosis secondary to diabetic ketoacidosis and hypertriglyceridemia induced pancreatitis requiring initiation of insulin drip and admission to intensive care unit. Continues to require insulin drip secondary to significant hypertriglyceridemia, though improving appropriately. No events overnight. Critical Care Time (minutes): 0 Physical Exam 2 Vital Signs: Vital Signs: Last Vital Signs Temp 98.5 F 08/27/24 12:00 Pulse 83 08/27/24 13:00 Resp 15 08/27/24 13:00 BP 139/83 08/27/24 13:00 Pulse Ox 96 08/27/24 13:00 O2 Del Method Room Air 08/27/24 13:00 BMI result Body Mass Index 32.7 Const: General: no acute distress, alert and awake Eyes: Sclerae: sclerae normal EOM: EOMs intact bilaterally Neck: Neck: Yes no lymphadenopathy, Yes trachea midline and Yes supple Resp: Effort & Inspection: normal respiratory effort and no respiratory distress Auscultation: clear to auscultation bilaterally Cardio: Rate: regular rate Rhythm: regular rhythm Heart sounds: no gallops, no murmurs and no rubs GI: Palpation (GI): Soft to palpation and Other GI palpation findings present ( Nontender) Auscultation: normal bowel sounds Extrem: General: Yes no pedal edema, No clubbing and No cyanosis Objective Data Labs 08/27/24 05:25 08/27/24 05:25 Labs: Laboratory Results - last 24 hr 08/26/24 08/26/24 08/26/24 15:15 16:13 16:58 WBC RBC Hgb Hct MCV MCH MCHC RDW Plt Count MPV Immature Gran % (Auto) Neut % (Auto) Lymph % (Auto) [place] % (Auto) Eos % (Auto) Baso % (Auto) Lymph # (Auto) [place] # (Auto) Eos # (Auto) Baso # (Auto) Abs Immat Gran (auto) Absolute Neuts (auto) Absolute Nucleated RBC Nucleated RBC % (auto) VBG pH VBG pCO2 VBG pO2 VBG HCO3 VBG O2 Saturation VBG Base Excess Sodium Potassium Chloride Carbon Dioxide Anion Gap BUN Creatinine Estim Creat Clear Calc Estimated GFR POC Glucose 177 H 154 H 124 H Random Glucose Calcium Phosphorus Magnesium Albumin Triglycerides 08/26/24 08/26/24 08/26/24 18:04 18:59 19:51 WBC RBC Hgb Hct MCV MCH MCHC RDW Plt Count MPV Immature Gran % (Auto) Neut % (Auto) Lymph % (Auto) [place] % (Auto) Eos % (Auto) Baso % (Auto) Lymph # (Auto) [place] # (Auto) Eos # (Auto) Baso # (Auto) Abs Immat Gran (auto) Absolute Neuts (auto) Absolute Nucleated RBC Nucleated RBC % (auto) VBG pH VBG pCO2 VBG pO2 VBG HCO3 VBG O2 Saturation VBG Base Excess Sodium 139 Potassium 3.0 L D Chloride 112 H Carbon Dioxide 14 L Anion Gap 16 BUN 14 Creatinine 1.34 Estim Creat Clear Calc 73.9 Estimated GFR 57 POC Glucose 118 H 135 H Random Glucose 94 Calcium 9.3 Phosphorus 1.9 L Magnesium 1.9 Albumin Triglycerides 08/26/24 08/26/24 08/26/24 19:58 20:58 21:59 WBC RBC Hgb Hct MCV MCH MCHC RDW Plt Count MPV Immature Gran % (Auto) Neut % (Auto) Lymph % (Auto) [place] % (Auto) Eos % (Auto) Baso % (Auto) Lymph # (Auto) [place] # (Auto) Eos # (Auto) Baso # (Auto) Abs Immat Gran (auto) Absolute Neuts (auto) Absolute Nucleated RBC Nucleated RBC % (auto) VBG pH VBG pCO2 VBG pO2 VBG HCO3 VBG O2 Saturation VBG Base Excess Sodium Potassium Chloride Carbon Dioxide Anion Gap BUN Creatinine Estim Creat Clear Calc Estimated GFR POC Glucose 110 123 H 140 H Random Glucose Calcium Phosphorus Magnesium Albumin Triglycerides 08/27/24 08/27/24 08/27/24 00:02 01:58 02:56 WBC RBC Hgb Hct MCV MCH MCHC RDW Plt Count MPV Immature Gran % (Auto) Neut % (Auto) Lymph % (Auto) [place] % (Auto) Eos % (Auto) Baso % (Auto) Lymph # (Auto) [place] # (Auto) Eos # (Auto) Baso # (Auto) Abs Immat Gran (auto) Absolute Neuts (auto) Absolute Nucleated RBC Nucleated RBC % (auto) VBG pH VBG pCO2 VBG pO2 VBG HCO3 VBG O2 Saturation VBG Base Excess Sodium Potassium Chloride Carbon Dioxide Anion Gap BUN Creatinine Estim Creat Clear Calc Estimated GFR POC Glucose 189 H 257 H 265 H Random Glucose Calcium Phosphorus Magnesium Albumin Triglycerides 08/27/24 08/27/24 08/27/24 03:56 05:25 05:33 WBC 6.5 RBC 4.53 L Hgb 14.3 Hct 38.6 L MCV 85.2 MCH 31.6 MCHC 37.0 H RDW 12.5 Plt Count 258 MPV 11.0 Immature Gran % (Auto) 0.3 Neut % (Auto) 66.3 Lymph % (Auto) 25.1 [place] % (Auto) 6.0 Eos % (Auto) 1.8 Baso % (Auto) 0.5 Lymph # (Auto) 1.6 [place] # (Auto) 0.4 Eos # (Auto) 0.1 Baso # (Auto) 0.0 Abs Immat Gran (auto) 0.02 Absolute Neuts (auto) 4.3 Absolute Nucleated RBC 0.000 Nucleated RBC % (auto) 0.0 VBG pH 7.40 VBG pCO2 25 VBG pO2 45 VBG HCO3 16 L VBG O2 Saturation 78.0 VBG Base Excess -6.3 Sodium 138 Potassium 3.3 Chloride 111 H Carbon Dioxide 15 L Anion Gap 15 BUN 12 Creatinine 1.18 Estim Creat Clear Calc 84.0 Estimated GFR > 60 POC Glucose 242 H Random Glucose 240 H Calcium 8.5 D Phosphorus 3.6 Magnesium 1.6 Albumin 3.1 L Triglycerides 1881 H 08/27/24 08/27/24 08/27/24 05:43 08:08 10:15 WBC RBC Hgb Hct MCV MCH MCHC RDW Plt Count MPV Immature Gran % (Auto) Neut % (Auto) Lymph % (Auto) [place] % (Auto) Eos % (Auto) Baso % (Auto) Lymph # (Auto) [place] # (Auto) Eos # (Auto) Baso # (Auto) Abs Immat Gran (auto) Absolute Neuts (auto) Absolute Nucleated RBC Nucleated RBC % (auto) VBG pH VBG pCO2 VBG pO2 VBG HCO3 VBG O2 Saturation VBG Base Excess Sodium Potassium Chloride Carbon Dioxide Anion Gap BUN Creatinine Estim Creat Clear Calc Estimated GFR POC Glucose 251 H 230 H 163 H Random Glucose Calcium Phosphorus Magnesium Albumin Triglycerides 0208/27/24 08/27/24 11:24 11:57 14:06 WBC RBC Hgb Hct MCV MCH MCHC RDW Plt Count MPV Immature Gran % (Auto) Neut % (Auto) Lymph % (Auto) [place] % (Auto) Eos % (Auto) Baso % (Auto) Lymph # (Auto) [place] # (Auto) Eos # (Auto) Baso # (Auto) Abs Immat Gran (auto) Absolute Neuts (auto) Absolute Nucleated RBC Nucleated RBC % (auto) VBG pH VBG pCO2 VBG pO2 VBG HCO3 VBG O2 Saturation VBG Base Excess Sodium Potassium Chloride Carbon Dioxide Anion Gap BUN Creatinine Estim Creat Clear Calc Estimated GFR POC Glucose 162 H 202 H 169 H Random Glucose Calcium Phosphorus Magnesium Albumin Triglycerides Microbiology Microbiology Results: Microbiology 08/26/24 03:12 Blood - Venous Blood Culture - Preliminary No growth after 24 hours. 08/26/24 00:44 Blood - Venous Blood Culture - Preliminary No growth after 24 hours. Progress Note: A&P Assessment and plan (1) Diabetic ketoacidosis: Status: Acute (2) Hypertriglyceridemia: Status: Acute (3) Acute pancreatitis: Status: Acute (4) Medical non-compliance: Status: Acute Plan Assessment: 49-year-old gentleman admitted with hypertriglyceridemia induced pancreatitis and diabetic ketoacidosis requiring insulin drip on a background of poor compliance with gemfibrozil Plan: Neuro: No acute issues. Cardiac: No acute issues. Pulmonary: No acute issues. Renal: Acute renal failure resolved, non oliguric. Continue to monitor renal indices and urine output. Endo: Diabetic ketoacidosis hypertriglyceridemia induced pancreatitis. Continue on insulin drip until triglycerides <1000. No evidence of pancreatic necrosis on initial imaging. GI: No acute issues. ID: No acute issues Heme/Onc: No acute issues. Psych: No acute issues. Miscellaneous: No acute issues. Prophylaxis: Heparin Diet: NPO Quality Stroke Does the patient have a stroke diagnosis?: No VTE Prior VTE?: No VTE Risk Level:: Medical - moderate - high VTE Device Contraindication: N/A - Device Ordered VTE Drug Contraindication: N/A - Med Ordered
[2024-08-27 16:20] LABS: Glucose, Whole Blood 129 mg/dL (60-115)
[2024-08-27] MEDS: Insulin Regular/NS 100 UNIT/100 ML PLAST..BAG IVCONT (17:57)
[2024-08-27 18:06] LABS: Glucose, Whole Blood 153 mg/dL (60-115)
[2024-08-27 18:37] LABS: Anion Gap 16 (12-20); Blood Urea Nitrogen 8 mg/dL (9-16); Calcium 8.6 mg/dL (8.4-10.2); Carbon Dioxide 15 mmol/L (22-29); Chloride 111 mmol/L (96-108); Creatinine Clr Calc Pharmacy 115.2; Estimated Glomerular Filt Rate > 60; Glucose Random 140 mg/dL (60-115); Potassium 3.1 mmol/L (3.3-5.1); Sodium 139 mmol/L (135-145)
--- NOTE | 2024-08-27 19:06 | PC.NURSE ---
Alert & Oriented. Glasses at bedside. Clear lung sounds on RA. Sinus Rhythm. LBM? 08/25 ,?NPO, Abdomen soft, non-tender, +bowel sounds, Utilizes urinal. Skin is intact Pheripheral IVs Plan: continue insulin gtt until triglycerides < 1,[address] Fournier orders
[2024-08-27 19:24] LABS: Magnesium 1.5 mg/dL (1.6-2.6); Phosphorus 2.8 mg/dL (2.7-4.5)
[2024-08-27 20:06] LABS: Glucose, Whole Blood 144 mg/dL (60-115)
[2024-08-27] MEDS: Magnesium Sulfate/D5W 1 GM/100 ML PIGGYBACK IV (20:07)
[2024-08-27 22:03] LABS: Glucose, Whole Blood 145 mg/dL (60-115)
[2024-08-28] VITALS (24 sets, daily range): BP systolic 119–158; BP diastolic 67–95; PULSE 77–96; RESP 13–25; TEMP 36–37; O2SAT 90–100; BMI 33.9
[2024-08-28 00:03] LABS: Glucose, Whole Blood 168 mg/dL (60-115)
[2024-08-28 02:08] LABS: Glucose, Whole Blood 188 mg/dL (60-115)
[2024-08-28 04:16] LABS: Glucose, Whole Blood 219 mg/dL (60-115)
[2024-08-28] MEDS: Benzonatate 100 MG CAPSULE PO ×3 (04:16→19:40)
[2024-08-28 05:24] LABS: VBG Base Excess -4.4 mmol/L; VBG HCO3 17 mmol/L (22-26); VBG pCO2 25 mmHg; VBG pH 7.44 (7.32-7.43); VBG pO2 51 mmHg
[2024-08-28 05:25] LABS: Venous Blood Gas Refer to POC result
[2024-08-28 05:42] LABS: MANUAL DIFF FLAG NO
[2024-08-28 05:45] LABS: Basophils Percent Auto 0.8 % (0-2); Eosinophils Absolute Auto 0.2 X10*3/uL (0.0-0.4); Eosinophils Percent Auto 3.9 % (0-4); Hematocrit 35.6 % (42.0-52.0); Imm Gran Abs Auto 0.02 X10*3/uL (0.00-0.03); Imm Gran Pct Auto 0.4 % (0.0-0.4); Lymphocytes Absolute Auto 1.7 X10*3/uL (1.2-4.9); Lymphocytes Percent Auto 33.1 % (20-40); Mean Corpuscular HGB Conc 36.5 g/dl (31.0-36.0); Mean Platelet Volume 11.2 fL (9.4-12.4); Monocytes Absolute Auto 0.4 X10*3/uL (0.1-1.2); Monocytes Percent Auto 8.3 % (2-11); Neutrophils Absolute Auto 2.8 x10*3/uL (2.0-8.3); Neutrophils Percent Auto 53.5 % (45-73); Platelet Count 207 X10*3/uL (160-400); Red Blood Count 4.19 X10*6/uL (4.60-5.80); Red Cell Distribution Width 12.3 % (11.0-16.0); White Blood Count 5.2 X10*3/uL (4.8-10.8)
[2024-08-28 05:47] LABS: Glucose, Whole Blood 183 mg/dL (60-115)
[2024-08-28 06:05] LABS: Albumin Level 2.9 g/dL (3.5-5.0); Anion Gap 13 (12-20); Blood Urea Nitrogen 5 mg/dL (9-16); Calcium 8.1 mg/dL (8.4-10.2); Carbon Dioxide 16 mmol/L (22-29); Chloride 111 mmol/L (96-108); Creatinine Clr Calc Pharmacy 122.3; Estimated Glomerular Filt Rate > 60; Glucose Random 202 mg/dL (60-115); Lipase 59 U/L (8-78); Magnesium 1.5 mg/dL (1.6-2.6); Phosphorus 2.9 mg/dL (2.7-4.5); Potassium 2.8 mmol/L (3.3-5.1); Sodium 137 mmol/L (135-145); Triglycerides 1318 mg/dL (<150)
[2024-08-28] MEDS: Potassium Chloride Packet 20 MEQ PACKET 40 MEQ PO ×2 (06:25→20:10)
[2024-08-28] MEDS: Potassium Chloride/H20 10 MEQ/100 ML PIGGYBACK 100 MEQ IV ×4 (06:26→10:46)
--- NOTE | 2024-08-28 06:38 | PC.NURSE ---
Addendum entered by Enedina Herman RN 08/28/24 06:56: SUPERVISOR OF COMMUNICATIONS made aware overnight of elevated DBPs/MAPs. No new orders advised. Pt asymptomatic, resting in bed without distress. Original Note: Fitness Leader assumed care of this patient at 19:00. Covering SUPERVISOR OF COMMUNICATIONS orders for add on phosphorous and magnesium from the recent evening labs. Magnesium back low 1.5. K also back low 3.1 from earlier in the evening. SUPERVISOR OF COMMUNICATIONS order for repletions of IV magnesium x1 and IV potassium x4, given. Labs back this morning showing potassium critically low at 2.8. In addition to this, albumin was low at 2.9 as well as magnesium at 1.5. SUPERVISOR OF COMMUNICATIONS Tita Jacob was made aware. Additional po and IV potassium ordered and administered. Orders for magnesium and albumin. Pt tolerated po potassium repletion well, denies n/v or other acute issues. Remains NPO with meds and ice chips per SUPERVISOR OF COMMUNICATIONS. Pt triglycerides remain greater than goal of less than 1000 despite continuing on insulin gtt overnight, titrated per SUPERVISOR OF COMMUNICATIONS verbal order based on q2hr POCs. Tessalon ordered and given x1 for pt c/o dry cough keeping him awake. +Effect, pt reports he slept some and cough was improved. Pt denies acute complaints including chest pain, sob, n/v, pain. Bed alarm on and safety measures in place. Call martinez within reach and educated on use, pt rings appropriately to make needs known. Please see shift assessments, MAR, and worklist tasks for full details. Plan of care continues.
[2024-08-28 08:30] LABS: Glucose, Whole Blood 186 mg/dL (60-115)
[2024-08-28] MEDS: 0.9 % Sodium Chloride Flush 3 ML SYRINGE IVFLUSH ×2 (08:37→17:21)
[2024-08-28] MEDS: Heparin Sodium,Porcine 5,000 UNIT/ML VIAL 5000 UNIT SUBCUT ×3 (08:37→22:03)
[2024-08-28] MEDS: Magnesium Sulfate/H2O 2 GM/50 ML PIGGYBACK IV (08:37)
[2024-08-28] MEDS: Albumin Human 25 % 100 ML IV ×3 (08:46→19:38)
[2024-08-28] MEDS: Dextrose 5 % and Lactated Ring 1,000 ML 100 ML IVCONT ×2 (09:35→19:37)
[2024-08-28 10:14] LABS: Glucose, Whole Blood 159 mg/dL (60-115)
--- NOTE | 2024-08-28 12:10 | P.PNCC_ITS ---
Subjective Subjective Date of Service: 08/28/24 Interval History: 49-year-old gentleman with underlying insulin-dependent diabetes mellitus and hypertension poorly compliant with his medication regimen admitted on 08/26/2024 with abdominal discomfort and nausea. On ER evaluation patient with profound metabolic acidosis secondary to diabetic ketoacidosis and hypertriglyceridemia induced pancreatitis requiring initiation of insulin drip and admission to intensive care unit. Continues to require insulin drip secondary to significant hypertriglyceridemia, improving slowly. No events overnight. Critical Care Time (minutes): 0 Physical Exam 2 Vital Signs: Vital Signs: Last Vital Signs Temp 97.0 F 08/28/24 08:00 Pulse 77 08/28/24 11:00 Resp 24 H 08/28/24 11:00 BP 139/86 08/28/24 11:00 Pulse Ox 96 08/28/24 11:00 O2 Del Method Room Air 08/28/24 11:00 BMI result Body Mass Index 33.9 Const: General: no acute distress, alert and awake Eyes: Sclerae: sclerae normal EOM: EOMs intact bilaterally Neck: Neck: Yes no lymphadenopathy, Yes trachea midline and Yes supple Resp: Effort & Inspection: normal respiratory effort and no respiratory distress Auscultation: clear to auscultation bilaterally Cardio: Rate: regular rate Rhythm: regular rhythm Heart sounds: no gallops, no murmurs and no rubs GI: Palpation (GI): Soft to palpation and Other GI palpation findings present ( Nontender) Auscultation: normal bowel sounds Extrem: General: Yes no pedal edema, No clubbing and No cyanosis Objective Data Labs 08/28/24 05:19 08/28/24 05:19 Labs: Laboratory Results - last 24 hr 08/27/24 08/27/24 08/27/24 14:06 16:17 17:59 WBC RBC Hgb Hct MCV MCH MCHC RDW Plt Count MPV Immature Gran % (Auto) Neut % (Auto) Lymph % (Auto) [place] % (Auto) Eos % (Auto) Baso % (Auto) Lymph # (Auto) [place] # (Auto) Eos # (Auto) Baso # (Auto) Abs Immat Gran (auto) Absolute Neuts (auto) Absolute Nucleated RBC Nucleated RBC % (auto) VBG pH VBG pCO2 VBG pO2 VBG HCO3 VBG O2 Saturation VBG Base Excess Sodium 139 Potassium 3.1 L Chloride 111 H Carbon Dioxide 15 L Anion Gap 16 BUN 8 L Creatinine 0.86 Estim Creat Clear Calc 115.2 Estimated GFR > 60 POC Glucose 169 H 129 H Random Glucose 140 H Calcium 8.6 Phosphorus 2.8 Magnesium 1.5 L Albumin Triglycerides Lipase 08/27/24 08/27/24 08/27/24 18:03 20:02 22:00 WBC RBC Hgb Hct MCV MCH MCHC RDW Plt Count MPV Immature Gran % (Auto) Neut % (Auto) Lymph % (Auto) [place] % (Auto) Eos % (Auto) Baso % (Auto) Lymph # (Auto) [place] # (Auto) Eos # (Auto) Baso # (Auto) Abs Immat Gran (auto) Absolute Neuts (auto) Absolute Nucleated RBC Nucleated RBC % (auto) VBG pH VBG pCO2 VBG pO2 VBG HCO3 VBG O2 Saturation VBG Base Excess Sodium Potassium Chloride Carbon Dioxide Anion Gap BUN Creatinine Estim Creat Clear Calc Estimated GFR POC Glucose 153 H 144 H 145 H Random Glucose Calcium Phosphorus Magnesium Albumin Triglycerides Lipase 08/27/24 08/28/24 08/28/24 23:59 02:05 04:06 WBC RBC Hgb Hct MCV MCH MCHC RDW Plt Count MPV Immature Gran % (Auto) Neut % (Auto) Lymph % (Auto) [place] % (Auto) Eos % (Auto) Baso % (Auto) Lymph # (Auto) [place] # (Auto) Eos # (Auto) Baso # (Auto) Abs Immat Gran (auto) Absolute Neuts (auto) Absolute Nucleated RBC Nucleated RBC % (auto) VBG pH VBG pCO2 VBG pO2 VBG HCO3 VBG O2 Saturation VBG Base Excess Sodium Potassium Chloride Carbon Dioxide Anion Gap BUN Creatinine Estim Creat Clear Calc Estimated GFR POC Glucose 168 H 188 H 219 H Random Glucose Calcium Phosphorus Magnesium Albumin Triglycerides Lipase 08/28/24 08/28/24 08/28/24 05:19 05:20 05:41 WBC 5.2 RBC 4.19 L Hgb 13.0 L Hct 35.6 L MCV 85.0 MCH 31.0 MCHC 36.5 H RDW 12.3 Plt Count 207 MPV 11.2 Immature Gran % (Auto) 0.4 Neut % (Auto) 53.5 Lymph % (Auto) 33.1 [place] % (Auto) 8.3 Eos % (Auto) 3.9 Baso % (Auto) 0.8 Lymph # (Auto) 1.7 [place] # (Auto) 0.4 Eos # (Auto) 0.2 Baso # (Auto) 0.0 Abs Immat Gran (auto) 0.02 Absolute Neuts (auto) 2.8 Absolute Nucleated RBC 0.000 Nucleated RBC % (auto) 0.0 VBG pH 7.44 H VBG pCO2 25 VBG pO2 51 VBG HCO3 17 L VBG O2 Saturation 84.0 VBG Base Excess -4.4 Sodium 137 Potassium 2.8 L* Chloride 111 H Carbon Dioxide 16 L Anion Gap 13 BUN 5 L Creatinine 0.81 Estim Creat Clear Calc 122.3 Estimated GFR > 60 POC Glucose 183 H Random Glucose 202 H Calcium 8.1 L Phosphorus 2.9 Magnesium 1.5 L Albumin 2.9 L Triglycerides 1318 H Lipase 59 08/28/24 08/28/24 08:19 10:10 WBC RBC Hgb Hct MCV MCH MCHC RDW Plt Count MPV Immature Gran % (Auto) Neut % (Auto) Lymph % (Auto) [place] % (Auto) Eos % (Auto) Baso % (Auto) Lymph # (Auto) [place] # (Auto) Eos # (Auto) Baso # (Auto) Abs Immat Gran (auto) Absolute Neuts (auto) Absolute Nucleated RBC Nucleated RBC % (auto) VBG pH VBG pCO2 VBG pO2 VBG HCO3 VBG O2 Saturation VBG Base Excess Sodium Potassium Chloride Carbon Dioxide Anion Gap BUN Creatinine Estim Creat Clear Calc Estimated GFR POC Glucose 186 H 159 H Random Glucose Calcium Phosphorus Magnesium Albumin Triglycerides Lipase Microbiology Microbiology Results: Microbiology 08/26/24 03:12 Blood - Venous Blood Culture - Preliminary No growth after 48 hours. 08/26/24 00:44 Blood - Venous Blood Culture - Preliminary No growth after 48 hours. Progress Note: A&P Assessment and plan (1) Medical non-compliance: Status: Acute (2) Hypertriglyceridemia: Status: Acute (3) Diabetic ketoacidosis: Status: Acute (4) Acute pancreatitis: Status: Acute Plan Assessment: 49-year-old gentleman admitted with hypertriglyceridemia induced pancreatitis and diabetic ketoacidosis requiring insulin drip on a background of poor compliance with gemfibrozil Plan: Neuro: No acute issues. Cardiac: No acute issues. Pulmonary: No acute issues. Renal: Acute renal failure resolved, non oliguric. Continue to monitor renal indices and urine output. Endo: Diabetic ketoacidosis hypertriglyceridemia induced pancreatitis. Continue on insulin drip until triglycerides <1000. No evidence of pancreatic necrosis on initial imaging. GI: No acute issues. ID: No acute issues Heme/Onc: No acute issues. Psych: No acute issues. Miscellaneous: No acute issues. Prophylaxis: Heparin Diet: Clear liquids Quality Stroke Does the patient have a stroke diagnosis?: No VTE Prior VTE?: No VTE Risk Level:: Medical - moderate - high VTE Device Contraindication: N/A - Device Ordered VTE Drug Contraindication: N/A - Med Ordered
[2024-08-28 12:22] LABS: Glucose, Whole Blood 295 mg/dL (60-115)
[2024-08-28 14:39] LABS: Glucose, Whole Blood 288 mg/dL (60-115)
[2024-08-28] MEDS: Insulin Regular/NS 100 UNIT/100 ML PLAST..BAG 6 UNIT IVCONT ×2 (14:46→16:37)
--- NOTE | 2024-08-28 15:17 | MHC.CM.PN ---
PT REMAINS IN ICU ON INSULIN GTT, CM CONTINUES TO FOLLOW.
[2024-08-28 16:03] LABS: Glucose, Whole Blood 243 mg/dL (60-115)
[2024-08-28 18:07] LABS: Glucose, Whole Blood 251 mg/dL (60-115)
--- NOTE | 2024-08-28 19:08 | PC.NURSE ---
Alert & Oriented. Glasses at bedside. Clear lung sounds on RA. Dry nonproductive cough tessalon -per AUG. Sinus Rhythm. LBM? 08/28, tolerating clear liq. diet,? Abdomen soft, non-tender, +bowel sounds. Utilizes urinal. Skin is intact. Pheripheral IVs ? Plan: Continue insulin gtt until triglycerides < 1,[address] Fournier orders?
[2024-08-28 19:45] LABS: Anion Gap 15 (12-20); Blood Urea Nitrogen < 3 mg/dL (9-16); Calcium 8.6 mg/dL (8.4-10.2); Carbon Dioxide 18 mmol/L (22-29); Chloride 108 mmol/L (96-108); Creatinine Clr Calc Pharmacy 129.3; Estimated Glomerular Filt Rate > 60; Glucose Random 174 mg/dL (60-115); Magnesium 1.7 mg/dL (1.6-2.6); Phosphorus 2.3 mg/dL (2.7-4.5); Potassium 3.4 mmol/L (3.3-5.1); Sodium 138 mmol/L (135-145)
[2024-08-28] MEDS: Potassium Phosphate/NS 15 MMOL/250 ML PLAST..BAG 62.5 MMOL IV (20:11)
[2024-08-28 20:30] LABS: Glucose, Whole Blood 135 mg/dL (60-115)
[2024-08-28 22:05] LABS: Glucose, Whole Blood 169 mg/dL (60-115)
[2024-08-29] VITALS (17 sets, daily range): BP systolic 98–154; BP diastolic 53–94; PULSE 75–94; RESP 16–28; TEMP 36.2–37.2; O2SAT 92–97; BMI 33.8
[2024-08-29 00:02] LABS: Glucose, Whole Blood 192 mg/dL (60-115)
[2024-08-29] MEDS: Albumin Human 25 % 100 ML IV (01:55)
[2024-08-29 01:57] LABS: Glucose, Whole Blood 201 mg/dL (60-115)
[2024-08-29] MEDS: Benzonatate 100 MG CAPSULE PO (03:32)
[2024-08-29 04:16] LABS: Glucose, Whole Blood 186 mg/dL (60-115)
[2024-08-29] MEDS: Dextrose 5 % and Lactated Ring 1,000 ML 100 ML IVCONT (05:11)
[2024-08-29 05:46] LABS: VBG Base Excess -1.7 mmol/L; VBG HCO3 21 mmol/L (22-26); VBG pCO2 30 mmHg; VBG pH 7.45 (7.32-7.43); VBG pO2 48 mmHg
[2024-08-29 05:55] LABS: MANUAL DIFF FLAG NO
[2024-08-29 05:58] LABS: Basophils Percent Auto 0.5 % (0-2); Eosinophils Absolute Auto 0.2 X10*3/uL (0.0-0.4); Eosinophils Percent Auto 4.3 % (0-4); Hemoglobin 12.3 g/dl (14.0-18.0); Imm Gran Abs Auto 0.03 X10*3/uL (0.00-0.03); Imm Gran Pct Auto 0.7 % (0.0-0.4); Lymphocytes Absolute Auto 1.6 X10*3/uL (1.2-4.9); Lymphocytes Percent Auto 37.3 % (20-40); Mean Corpuscular HGB Conc 36.2 g/dl (31.0-36.0); Mean Corpuscular Hemoglobin 30.8 pg (27.0-33.0); Mean Platelet Volume 10.5 fL (9.4-12.4); Monocytes Absolute Auto 0.4 X10*3/uL (0.1-1.2); Monocytes Percent Auto 8.4 % (2-11); Neutrophils Percent Auto 48.8 % (45-73); Platelet Count 222 X10*3/uL (160-400); Red Cell Distribution Width 11.9 % (11.0-16.0); White Blood Count 4.2 X10*3/uL (4.8-10.8)
[2024-08-29 06:07] LABS: Glucose, Whole Blood 198 mg/dL (60-115)
[2024-08-29 06:15] LABS: Alanine Aminotransferase 17 U/L (0-40); Alkaline Phosphatase 68 U/L (39-117); Anion Gap 14 (12-20); Aspartate Amino Transferase 20 U/L (5-37); Bilirubin Total 1.1 mg/dL (0.0-1.0); Blood Urea Nitrogen < 3 mg/dL (9-16); Calcium 8.7 mg/dL (8.4-10.2); Carbon Dioxide 20 mmol/L (22-29); Chloride 109 mmol/L (96-108); Creatinine Clr Calc Pharmacy 132.7; Estimated Glomerular Filt Rate > 60; Glucose Random 176 mg/dL (60-115); Magnesium 1.5 mg/dL (1.6-2.6); Phosphorus 3.2 mg/dL (2.7-4.5); Potassium 3.1 mmol/L (3.3-5.1); Sodium 140 mmol/L (135-145); Total Protein 6.9 g/dL (6.5-8.0); Triglycerides 1031 mg/dL (<150)
[2024-08-29] MEDS: Potassium Chloride/H20 10 MEQ/100 ML PIGGYBACK 100 MEQ IV ×2 (07:07→08:39)
[2024-08-29] MEDS: Magnesium Sulfate/H2O 2 GM/50 ML PIGGYBACK IV (07:07)
[2024-08-29] MEDS: Potassium Chloride Packet 20 MEQ PACKET 40 MEQ PO (07:07)
[2024-08-29] MEDS: 0.9 % Sodium Chloride Flush 3 ML SYRINGE IVFLUSH ×3 (07:08→21:10)
[2024-08-29] MEDS: Heparin Sodium,Porcine 5,000 UNIT/ML VIAL 5000 UNIT SUBCUT ×3 (08:39→21:00)
[2024-08-29 08:46] LABS: Glucose, Whole Blood 160 mg/dL (60-115)
[2024-08-29] MEDS: Acetaminophen 325 MG TABLET 650 MG PO (09:44)
[2024-08-29] MEDS: Insulin Glargine,Hum.rec.anlog 100 UNIT/ML 10 ML VIAL 40 UNIT SUBCUT (09:44)
--- NOTE | 2024-08-29 09:58 | PM.CCPN ---
Subjective Subjective Date of Service: 08/29/24 Interval History: 49-year-old gentleman with underlying insulin-dependent diabetes mellitus and hypertension poorly compliant with his medication regimen admitted on 08/26/2024 with abdominal discomfort and nausea. On ER evaluation patient with profound metabolic acidosis secondary to diabetic ketoacidosis and hypertriglyceridemia induced pancreatitis requiring initiation of insulin drip and admission to intensive care unit. Continues to require insulin drip secondary to significant hypertriglyceridemia, improving slowly. No events overnight. Titrated off insulin drip. Critical Care Time (minutes): 0 Physical Exam Vital Signs: Vital Signs: Last Vital Signs Temp 97.5 F 08/29/24 08:00 Pulse 84 08/29/24 09:00 Resp 18 08/29/24 09:00 BP 125/77 08/29/24 09:00 Pulse Ox 94 08/29/24 09:00 O2 Del Method Room Air 08/29/24 09:00 BMI result Body Mass Index 33.8 Const: General: no acute distress, alert and awake Eyes: Sclerae: sclerae normal EOM: EOMs intact bilaterally Neck: Neck: Yes no lymphadenopathy, Yes trachea midline and Yes supple Resp: Effort & Inspection: normal respiratory effort and no respiratory distress Auscultation: clear to auscultation bilaterally Cardio: Rate: regular rate Rhythm: regular rhythm Heart sounds: no gallops, no murmurs and no rubs GI: Palpation (GI): Soft to palpation and Other GI palpation findings present ( Nontender) Auscultation: normal bowel sounds Extrem: General: Yes no pedal edema, No clubbing and No cyanosis Objective Data Labs 08/29/24 05:42 08/29/24 05:42 Labs: Laboratory Results - last 24 hr 08/28/24 08/28/24 08/28/24 10:10 12:19 14:30 WBC RBC Hgb Hct MCV MCH MCHC RDW Plt Count MPV Immature Gran % (Auto) Neut % (Auto) Lymph % (Auto) [place] % (Auto) Eos % (Auto) Baso % (Auto) Lymph # (Auto) [place] # (Auto) Eos # (Auto) Baso # (Auto) Abs Immat Gran (auto) Absolute Neuts (auto) Absolute Nucleated RBC Nucleated RBC % (auto) VBG pH VBG pCO2 VBG pO2 VBG HCO3 VBG O2 Saturation VBG Base Excess Sodium Potassium Chloride Carbon Dioxide Anion Gap BUN Creatinine Estim Creat Clear Calc Estimated GFR POC Glucose 159 H 295 H 288 H Random Glucose Calcium Phosphorus Magnesium Total Bilirubin AST ALT Alkaline Phosphatase Total Protein Albumin Triglycerides 08/28/24 08/28/24 08/28/24 15:58 18:00 19:20 WBC RBC Hgb Hct MCV MCH MCHC RDW Plt Count MPV Immature Gran % (Auto) Neut % (Auto) Lymph % (Auto) [place] % (Auto) Eos % (Auto) Baso % (Auto) Lymph # (Auto) [place] # (Auto) Eos # (Auto) Baso # (Auto) Abs Immat Gran (auto) Absolute Neuts (auto) Absolute Nucleated RBC Nucleated RBC % (auto) VBG pH VBG pCO2 VBG pO2 VBG HCO3 VBG O2 Saturation VBG Base Excess Sodium 138 Potassium 3.4 D Chloride 108 Carbon Dioxide 18 L Anion Gap 15 BUN < 3 L Creatinine 0.78 Estim Creat Clear Calc 129.3 Estimated GFR > 60 POC Glucose 243 H 251 H Random Glucose 174 H Calcium 8.6 D Phosphorus 2.3 L Magnesium 1.7 Total Bilirubin AST ALT Alkaline Phosphatase Total Protein Albumin Triglycerides 08/28/24 08/28/24 08/28/24 20:26 22:02 23:57 WBC RBC Hgb Hct MCV MCH MCHC RDW Plt Count MPV Immature Gran % (Auto) Neut % (Auto) Lymph % (Auto) [place] % (Auto) Eos % (Auto) Baso % (Auto) Lymph # (Auto) [place] # (Auto) Eos # (Auto) Baso # (Auto) Abs Immat Gran (auto) Absolute Neuts (auto) Absolute Nucleated RBC Nucleated RBC % (auto) VBG pH VBG pCO2 VBG pO2 VBG HCO3 VBG O2 Saturation VBG Base Excess Sodium Potassium Chloride Carbon Dioxide Anion Gap BUN Creatinine Estim Creat Clear Calc Estimated GFR POC Glucose 135 H 169 H 192 H Random Glucose Calcium Phosphorus Magnesium Total Bilirubin AST ALT Alkaline Phosphatase Total Protein Albumin Triglycerides 08/29/24 08/29/24 08/29/24 01:52 04:13 05:42 WBC 4.2 L RBC 4.00 L Hgb 12.3 L Hct 34.0 L MCV 85.0 MCH 30.8 MCHC 36.2 H RDW 11.9 Plt Count 222 MPV 10.5 Immature Gran % (Auto) 0.7 H Neut % (Auto) 48.8 Lymph % (Auto) 37.3 [place] % (Auto) 8.4 Eos % (Auto) 4.3 H Baso % (Auto) 0.5 Lymph # (Auto) 1.6 [place] # (Auto) 0.4 Eos # (Auto) 0.2 Baso # (Auto) 0.0 Abs Immat Gran (auto) 0.03 Absolute Neuts (auto) 2.0 Absolute Nucleated RBC 0.000 Nucleated RBC % (auto) 0.0 VBG pH 7.45 H VBG pCO2 30 VBG pO2 48 VBG HCO3 21 L VBG O2 Saturation 81.0 VBG Base Excess -1.7 Sodium 140 Potassium 3.1 L Chloride 109 H Carbon Dioxide 20 L Anion Gap 14 BUN < 3 L Creatinine 0.76 Estim Creat Clear Calc 132.7 Estimated GFR > 60 POC Glucose 201 H 186 H Random Glucose 176 H Calcium 8.7 Phosphorus 3.2 Magnesium 1.5 L Total Bilirubin 1.1 H AST 20 ALT 17 Alkaline Phosphatase 68 Total Protein 6.9 Albumin 4.0 Triglycerides 1031 H 08/29/24 08/29/24 06:02 07:52 WBC RBC Hgb Hct MCV MCH MCHC RDW Plt Count MPV Immature Gran % (Auto) Neut % (Auto) Lymph % (Auto) [place] % (Auto) Eos % (Auto) Baso % (Auto) Lymph # (Auto) [place] # (Auto) Eos # (Auto) Baso # (Auto) Abs Immat Gran (auto) Absolute Neuts (auto) Absolute Nucleated RBC Nucleated RBC % (auto) VBG pH VBG pCO2 VBG pO2 VBG HCO3 VBG O2 Saturation VBG Base Excess Sodium Potassium Chloride Carbon Dioxide Anion Gap BUN Creatinine Estim Creat Clear Calc Estimated GFR POC Glucose 198 H 160 H Random Glucose Calcium Phosphorus Magnesium Total Bilirubin AST ALT Alkaline Phosphatase Total Protein Albumin Triglycerides Microbiology Microbiology Results: Microbiology 08/26/24 03:12 Blood - Venous Blood Culture - Preliminary No growth after 48 hours. 08/26/24 00:44 Blood - Venous Blood Culture - Preliminary No growth after 48 hours. Progress Note: A&P Assessment and plan (1) Hypertriglyceridemia: Status: Acute (2) Diabetic ketoacidosis: Status: Acute (3) Acute pancreatitis: Status: Acute Plan Assessment: 49-year-old gentleman admitted with hypertriglyceridemia induced pancreatitis and diabetic ketoacidosis requiring insulin drip on a background of poor compliance with gemfibrozil Plan: Neuro: No acute issues. Cardiac: No acute issues. Pulmonary: No acute issues. Renal: Acute renal failure resolved, non oliguric. Continue to monitor renal indices and urine output. Endo: Diabetic ketoacidosis hypertriglyceridemia induced pancreatitis. Titrated off insulin drip to subcutaneous insulin and p.o. gemfibrozil.. GI: No acute issues. ID: No acute issues Heme/Onc: No acute issues. Psych: No acute issues. Miscellaneous: No acute issues. Prophylaxis: Heparin Diet: Diabetic Quality Stroke Does the patient have a stroke diagnosis?: No VTE Prior VTE?: No VTE Risk Level:: Medical - moderate - high VTE Device Contraindication: N/A - Device Ordered VTE Drug Contraindication: N/A - Med Ordered
--- NOTE | 2024-08-29 10:11 | PM.EVENT ---
Event Note Date of Service: 08/29/24 Event Note: 49 year old man admitted to ICU for DKA and acute pancreatitis. Discussed with ICU attending, Transferred to medical floor DKA Initially treated in the ICU with insulin drip Stable, continue sliding scale, ADA diet Pancreatitis Secondary to hypertriglyceridemia peaked at 4907 Started on gemfibrozil Hypokalemia Repleted Hypomagnesemia Repleted Time Spent With Patient Time: Total time managing care of this patient today ____ minutes.
[2024-08-29] MEDS: gemfibroziL 600 MG TABLET PO ×2 (10:57→17:27)
[2024-08-29 10:58] LABS: Glucose, Whole Blood 204 mg/dL (60-115)
[2024-08-29] MEDS: guaiFENesin 200 MG/10 ML 10 ML LIQUID PO (10:58)
[2024-08-29] MEDS: Insulin Lispro 100 UNIT/ML 3 ML VIAL SUBCUT ×3 (10:58→21:01)
[2024-08-29 12:12] LABS: Venous Blood Gas Refer to POC result
--- NOTE | 2024-08-29 14:09 | PC.NURSE ---
Patient transitioned off insulin gtt to SS w/ Lantus. Patient downgraded to Medsurg - handoff given to [place]. Patient had glasses on along with a bag of personal belongings during transfer, no dentures or hearing aids.
[2024-08-29 16:53] LABS: Glucose, Whole Blood 233 mg/dL (60-115)
[2024-08-29 20:54] LABS: Glucose, Whole Blood 261 mg/dL (60-115)
[2024-08-30] MEDS: guaiFENesin 200 MG/10 ML 10 ML LIQUID PO ×3 (01:50→12:03)
[2024-08-30 03:10] VITALS: BP 134/85; PULSE 80; RESP 18; TEMP 36.4; O2SAT 97
[2024-08-30 05:32] VITALS: BMI 37.2
[2024-08-30 07:28] LABS: Glucose, Whole Blood 240 mg/dL (60-115)
[2024-08-30 07:35] LABS: MANUAL DIFF FLAG NO
[2024-08-30 07:44] LABS: Basophils Percent Auto 0.5 % (0-2); Eosinophils Absolute Auto 0.2 X10*3/uL (0.0-0.4); Eosinophils Percent Auto 5.7 % (0-4); Hematocrit 35.7 % (42.0-52.0); Imm Gran Abs Auto 0.04 X10*3/uL (0.00-0.03); Imm Gran Pct Auto 1.1 % (0.0-0.4); Lymphocytes Absolute Auto 1.5 X10*3/uL (1.2-4.9); Lymphocytes Percent Auto 39.8 % (20-40); Mean Corpuscular HGB Conc 36.4 g/dl (31.0-36.0); Mean Corpuscular Hemoglobin 31.1 pg (27.0-33.0); Mean Corpuscular Volume 85.4 fL (80.0-98.0); Mean Platelet Volume 10.6 fL (9.4-12.4); Monocytes Absolute Auto 0.4 X10*3/uL (0.1-1.2); Monocytes Percent Auto 9.5 % (2-11); Neutrophils Absolute Auto 1.6 x10*3/uL (2.0-8.3); Neutrophils Percent Auto 43.4 % (45-73); Platelet Count 242 X10*3/uL (160-400); Red Blood Count 4.18 X10*6/uL (4.60-5.80); Red Cell Distribution Width 12.1 % (11.0-16.0); White Blood Count 3.7 X10*3/uL (4.8-10.8)
[2024-08-30] MEDS: Insulin Lispro 100 UNIT/ML 3 ML VIAL SUBCUT ×2 (07:44→11:42)
[2024-08-30] MEDS: 0.9 % Sodium Chloride Flush 3 ML SYRINGE IVFLUSH (07:45)
[2024-08-30] MEDS: gemfibroziL 600 MG TABLET PO (07:45)
[2024-08-30 07:58] LABS: Anion Gap 14 (12-20); Blood Urea Nitrogen 4 mg/dL (9-16); Calcium 9.1 mg/dL (8.4-10.2); Carbon Dioxide 21 mmol/L (22-29); Chloride 105 mmol/L (96-108); Creatinine Clr Calc Pharmacy 124.3; Estimated Glomerular Filt Rate > 60; Glucose Random 237 mg/dL (60-115); Magnesium 1.8 mg/dL (1.6-2.6); Phosphorus 3.4 mg/dL (2.7-4.5); Potassium 3.3 mmol/L (3.3-5.1); Sodium 137 mmol/L (135-145)
[2024-08-30 08:00] VITALS: BP 129/81; PULSE 74; RESP 14; TEMP 36.5; O2SAT 95
[2024-08-30] MEDS: Insulin Glargine,Hum.rec.anlog 100 UNIT/ML 10 ML VIAL 40 UNIT SUBCUT (09:32)
[2024-08-30] MEDS: Heparin Sodium,Porcine 5,000 UNIT/ML VIAL 5000 UNIT SUBCUT (09:33)
--- NOTE | 2024-08-30 11:02 | P.DS_ITS ---
DS: Providers Provider Date of Service: 08/30/24 Date of admission: 08/26/24 02:53 Date of discharge: 08/30/24 Primary care physician: None Physician DS: Diagnosis Discharge Diagnosis (1) Hypertriglyceridemia: Status: Acute (2) Diabetic ketoacidosis: Status: Acute (3) Acute pancreatitis: Status: Acute DS: Summary Hospital Course Hospital Course: The patient is a 49-year-old male with a past medical history of insulin- dependent diabetes,? gastroparesis, pancreatitis,? hyperlipidemia, hypertension and alcohol abuse who presented to emergency department with abdominal pain.? Patient? reported abdominal pain started yesterday,? accompanied with nausea and vomiting.? Patient reports he has been compliant with long-acting insulin, but states has not been taking short acting,? stated had the same symptoms before when he was diagnosed with? hypertriglyceridemia pancreatitis and DKA in the past.?In the emergency department patient was hypertensive to systolic of 180s, tachycardic and tachypneic.? Laboratory data was significant for? potassium 5.5, serum bicarb 5, anion gap 31, BUN 20, creatinine 2.44, random glucose 517, AST 63, ALT 47, alk phos 141, triglycerides 4907, lipase 85,? and beta hydroxybutyrate 9.19 Venous gas: 7. IMAGING:? Abdominal CT:? consistent with acute pancreatitis Chest Xray -? no acute infectious process ED COURSE:? Patient received 2 L bolus,? 5 units of IV push insulin and? started on insulin drip DKA. Initially treated in the ICU with insulin drip. Stable. Home with lantus and ss insulin pen Pancreatitis. Secondary to hypertriglyceridemia. peaked at 4907. Started on gemfibrozil Hypokalemia Repleted Hypomagnesemia Repleted Time Attestation Discharge Coordination Time (in mins): 38 Quality: Safe Use of Opioids Does Pt have an Active Cancer Diagnosis on the Problem List?: No Quality: Stroke Does the patient have a stroke diagnosis?: No Physical Exam Vital Signs: Vital Signs: Last Vital Signs Temp 97.7 F 08/30/24 08:00 Pulse 74 08/30/24 08:00 Resp 14 08/30/24 08:00 BP 129/81 08/30/24 08:00 Pulse Ox 95 08/30/24 08:00 O2 Del Method Room Air 08/30/24 08:00 BMI result Body Mass Index 37.2 Appearing in no acute distress head is normocephalic atraumatic eyes pupils are PERRLA sclera is anicteric mouth throat mucous membranes are intact and moist neck is supple no lymphadenopathy, no JVD noted lung sounds are clear to auscultation heart regular rate rhythm, clear S1, S2 positive bowel sounds, abdomen is soft, nontender neuro patient is alert x3, no focal deficits DS: Data Data Completed and Pending Labs on day of discharge: Laboratory Results - last 24 hr 08/29/24 08/29/24 08/30/24 16:49 20:50 07:12 WBC 3.7 L RBC 4.18 L Hgb 13.0 L Hct 35.7 L MCV 85.4 MCH 31.1 MCHC 36.4 H RDW 12.1 Plt Count 242 MPV 10.6 Immature Gran % (Auto) 1.1 H Neut % (Auto) 43.4 L Lymph % (Auto) 39.8 [place] % (Auto) 9.5 Eos % (Auto) 5.7 H Baso % (Auto) 0.5 Lymph # (Auto) 1.5 [place] # (Auto) 0.4 Eos # (Auto) 0.2 Baso # (Auto) 0.0 Abs Immat Gran (auto) 0.04 H Absolute Neuts (auto) 1.6 L Absolute Nucleated RBC 0.000 Nucleated RBC % (auto) 0.0 Sodium 137 Potassium 3.3 Chloride 105 Carbon Dioxide 21 L Anion Gap 14 BUN 4 L Creatinine 0.85 Estim Creat Clear Calc 124.3 Estimated GFR > 60 POC Glucose 233 H 261 H Random Glucose 237 H Calcium 9.1 Phosphorus 3.4 Magnesium 1.8 08/30/24 07:23 WBC RBC Hgb Hct MCV MCH MCHC RDW Plt Count MPV Immature Gran % (Auto) Neut % (Auto) Lymph % (Auto) [place] % (Auto) Eos % (Auto) Baso % (Auto) Lymph # (Auto) [place] # (Auto) Eos # (Auto) Baso # (Auto) Abs Immat Gran (auto) Absolute Neuts (auto) Absolute Nucleated RBC Nucleated RBC % (auto) Sodium Potassium Chloride Carbon Dioxide Anion Gap BUN Creatinine Estim Creat Clear Calc Estimated GFR POC Glucose 240 H Random Glucose Calcium Phosphorus Magnesium Preliminary micro results at discharge 08/26/24 03:12 Blood Culture - Preliminary Blood - Venous No growth after 48 hours. 08/26/24 00:44 Blood Culture - Preliminary Blood - Venous No growth after 48 hours. Discharge Plan Discharge Anticipated Discharge Date/Time: 08/30/24 10:37 Patient Disposition: Home, Self-Care Discharge Diagnosis: Diabetic ketoacidosis Hypertriglyceridemia Pancreatitis Discharge Medications: New gemfibrozil 600 mg Tablet 600 mg PO BIDAC Qty: 60 0RF insulin lispro [Humalog KwikPen Insulin] 100 unit/mL insulin pen 0 sliding scale dose SUBCUT QIDACHS Qty: 15 0RF Rx Instructions: Blood Sugar: <150 - 0 units 151-200 - 2 units 201-250 - 4 units 251-300 - 6 units 301-350 - 8 units >350 - 10 units insulin glargine [Lantus Solostar U-100 Insulin] 100 unit/mL (3 mL) insulin pen 40 unit SUBCUT BEDTIME Qty: 15 0RF Continued (DME) blood-glucose meter [FreeStyle Lite Meter] Kit See Rx Instructions .ROUTE .MEDSUPPLY Qty: 1 0RF Rx Instructions: As directed (DME) lancets [1st Tier Unilet ComforTouch] 28 gauge misc See Rx Instructions .ROUTE .MEDSUPPLY Qty: 100 0RF Rx Instructions: As directed (DME) insulin syringes (disposable) 1 mL syringe See Rx Instructions .Route Qty: 500 0RF Rx Instructions: As directed (DME) FreeStyle Lite Strips Strip See Rx Instructions .ROUTE .MEDSUPPLY Qty: 100 1RF Rx Instructions: As directed (DME) lancets [Sure Comfort Lancets] 30 gauge misc See Rx Instructions .Route Qty: 200 1RF Rx Instructions: As directed (DME) insulin syringes (disposable) 1 mL syringe See Rx Instructions .ROUTE .MEDSUPPLY Qty: 500 1RF Rx Instructions: As directed (DME) pen needle, diabetic 32 gauge x 5/32 needle See Rx Instructions .ROUTE .MEDSUPPLY Qty: 100 1RF Rx Instructions: As directed (4 times/day) Discontinued insulin glargine [Lantus U-100 Insulin] 100 unit/mL solution 30 unit subcut DAILY insulin lispro [Humalog U-100 Insulin] 100 unit/mL solution See Protocol subcut TIDAC Protocol: Insulin Correction Scale Less than or equal to 110 ---- Give (units): 0 111 to 150 Give (units): 0 151 to 200 Give (units): 2 201 to 250 Give (units): 4 251 to 300 Give (units): 6 301 to 350 Give (units): 8 Greater than 350 Give (units): 10 Call MD if Blood Glucose > : 350 Discharge Orders: Discharge Order (Routine); Ordered 08/30/24 Ordered By: Rosanna Merrill Diet: Advance to usual diet Activity on Discharge: As tolerated Stand Alone Forms: Patient Portal Discharge page Print Language: Mexican Care Plan Goals: Take gemfibrozil as directed Check blood sugar before meals and at bedtime Health Concerns: Diabetic ketoacidosis Hypertriglyceridemia Pancreatitis Plan of Treatment: Follow-up with primary care provider as needed Take all medications as prescribed Assessment: See discharge summary
[2024-08-30 11:31] LABS: Glucose, Whole Blood 280 mg/dL (60-115)
--- NOTE | 2024-08-30 11:33 | MHC.CM.PN ---
PT CLEARED TO DC TODAY WITH NO SERVICES VIA PRIVATE TRANSPORT
[2024-08-30 12:00] VITALS: BP 151/92; PULSE 93; RESP 14; TEMP 36.2; O2SAT 98
== END 2024-08-30 12:32 | disposition home or self-care (01) | DRG 420 ==
LOC: HO.ED 08-26 02:55 → HO.EDOVER 08-26 02:58 → HO.ICU 08-26 03:03 → HO.S3 08-29 13:41
PROVIDERS: Internal Medicine Pulmonary Disease; Admitting Provider Registered Nurse Community Health; Emergency Provider Emergency Medicine Emergency Medical Services; Visit Provider Nurse Practitioner Acute Care
DX: E10.10 Type 1 diabetes mellitus with ketoacidosis without coma (principal); K85.80 Other acute pancreatitis without necrosis or infection; N17.9 Acute kidney failure, unspecified; K31.84 Gastroparesis; E10.43 Type 1 diabetes mellitus with diabetic autonomic (poly)neuropathy; F10.90 Alcohol use, unspecified, uncomplicated; E83.42 Hypomagnesemia; E87.6 Hypokalemia; E78.1 Pure hyperglyceridemia; Z20.822 Contact with and (suspected) exposure to COVID-19; Z91.148 Patient's other noncompliance with medication regimen for other reason; Z79.899 Other long term (current) drug therapy
CPT/HCPCS: 0241U; 36415; 71045; 74176; 80048; 80053; 81001; 82010; 82040; 82803; 82947; 83605; 83690; 83735; 84100; 84478; 85025; 85610; 87040; 99285; J1644; J2270; J2765; J3475; J3480; J7120; P9047

== ENCOUNTER → 2024-08-26 02:39 | Outpatient (BNV) | payer MEDICAID, SELFPAY | PROVIDERS: Admitting Provider Registered Nurse Community Health; Emergency Provider Emergency Medicine Emergency Medical Services; Visit Provider Radiology Diagnostic Radiology | DX: K85.90 Acute pancreatitis without necrosis or infection, unspecified (principal); K29.80 Duodenitis without bleeding; R06.02 Shortness of breath | CPT/HCPCS: 71045; 74176 ==

== ENCOUNTER → 2024-08-26 02:53 | Outpatient (BNV) | payer MEDICAID, SELFPAY | PROVIDERS: Admitting Provider Registered Nurse Community Health; Emergency Provider Emergency Medicine Emergency Medical Services; Visit Provider Nurse Practitioner Acute Care | DX: E78.1 Pure hyperglyceridemia (principal); E10.10 Type 1 diabetes mellitus with ketoacidosis without coma; K85.80 Other acute pancreatitis without necrosis or infection | CPT/HCPCS: 99239; 99499 ==

== ENCOUNTER → 2024-08-26 02:53 | Outpatient (BNV) | payer MEDICAID, SELFPAY | PROVIDERS: Admitting Provider Registered Nurse Community Health; Emergency Provider Emergency Medicine Emergency Medical Services; Visit Provider Registered Nurse Community Health | DX: E10.10 Type 1 diabetes mellitus with ketoacidosis without coma (principal); K85.90 Acute pancreatitis without necrosis or infection, unspecified; E78.1 Pure hyperglyceridemia; E11.43 Type 2 diabetes mellitus with diabetic autonomic (poly)neuropathy; R73.9 Hyperglycemia, unspecified; N17.9 Acute kidney failure, unspecified; I10 Essential (primary) hypertension; R74.01 Elevation of levels of liver transaminase levels | CPT/HCPCS: 99223 ==

== ENCOUNTER → 2024-08-26 02:53 | Outpatient (BNV) | payer MEDICAID, SELFPAY | PROVIDERS: Admitting Provider Registered Nurse Community Health; Emergency Provider Emergency Medicine Emergency Medical Services; Visit Provider Internal Medicine Pulmonary Disease | DX: E10.10 Type 1 diabetes mellitus with ketoacidosis without coma (principal); E78.1 Pure hyperglyceridemia; K85.80 Other acute pancreatitis without necrosis or infection; Z91.199 Patient's noncompliance with other medical treatment and regimen due to unspecified reason | CPT/HCPCS: 99233 ==

== ENCOUNTER 2024-12-08 22:26 | Inpatient (IN) | payer MEDICAID, SELFPAY ==
--- NOTE | ~2024-12-08 | CT_ITS ---
CLINICAL HISTORY: Left sided abdo pain different from typ panc pain CT abdomen and pelvis with contrast Comparison: CT/SR - CT ABDOMEN PELVIS WO IV CON - 08/26/24 03:25 EST Findings: Hypoventilatory changes in the right lung base. Hepatic steatosis and hepatomegaly. Gallbladder and biliary tree, spleen, adrenal glands and kidneys demonstrate no acute process. Marked inflammatory change about the pancreatic tail concerning for acute pancreatitis. There is inflammation of the fat adjacent to the proximal stomach, surrounding the spleen and surrounding the proximal aspect of the descending colon. No drainable fluid collection. No pancreatic hypoenhancement to suggest necrosis. No bowel obstruction, pneumoperitoneum, or pneumatosis. Pelvic contents unremarkable. Normal appendix. Nonaneurysmal aorta. Portal vein is patent without thrombus. Splenic vein remains patent. No pathologically enlarged lymph nodes. No acute fracture. IMPRESSION: Acute appearing pancreatitis predominantly involving the pancreatic tail with inflammatory changes involving the stomach, spleen and descending colon. Severe hepatic steatosis with hepatomegaly. This document has been electronically signed by: Marisel Pruett MD on 12/09/2024 07:21:48
[2024-12-08 22:41] VITALS: BP 139/90; PULSE 98; RESP 16; TEMP 36.8; O2SAT 95; BMI 37.4
[2024-12-09] VITALS (14 sets, daily range): BP systolic 123–156; BP diastolic 80–94; PULSE 100–119; RESP 12–38; TEMP 36.8–37.9; O2SAT 89–99
[2024-12-09 00:16] LABS: Basophils Percent Auto 0.1 % (0-2); Eosinophils Percent Auto 0.3 % (0-4); Hematocrit 44.6 % (42.0-52.0); Imm Gran Abs Auto 0.01 X10*3/uL (0.00-0.03); Imm Gran Pct Auto 0.1 % (0.0-0.4); Lymphocytes Percent Auto 14.8 % (20-40); Mean Corpuscular Volume 84.2 fL (80.0-98.0); Mean Platelet Volume 10.6 fL (9.4-12.4); Monocytes Absolute Auto 0.4 X10*3/uL (0.1-1.2); Monocytes Percent Auto 5.1 % (2-11); Neutrophils Absolute Auto 5.4 x10*3/uL (2.0-8.3); Neutrophils Percent Auto 79.6 % (45-73); Platelet Count 248 X10*3/uL (160-400); Red Cell Distribution Width 11.7 % (11.0-16.0); SCAN SMEAR FLAG 1; White Blood Count 6.8 X10*3/uL (4.8-10.8)
[2024-12-09 00:18] LABS: Appearance Urine Clear; Color Urine Yellow; Glucose Urine UA >=1000 mg/dL (Negative); Leukocyte Esterase Urine Negative (Negative); Nitrite Urine Negative (Negative); Specific Gravity - Urine >= 1.030 (1.005-1.025); UMIC TRIGGER UACC YES; Urine Blood Negative (Negative); Urine Ketones >=160 mg/dL (Negative); Urine Protein 100 (2+) mg/dL (Neg-Trace)
[2024-12-09 00:21] LABS: Bacteria Urine None Seen (None Seen); Hyaline Casts Urine 0-2 /LPF (0-2); RBC Urine 0-2 /HPF (0-2); Squamous Epithelial Cell Urine 0-2 /HPF (0-2); WBC Urine 0-5 /HPF (0-5)
[2024-12-09 00:26] LABS: MANUAL DIFF FLAG NO
[2024-12-09 00:34] LABS: Hemoglobin 16.6 g/dl (14.0-18.0); Mean Corpuscular HGB Conc 37.2 g/dl (31.0-36.0); Mean Corpuscular Hemoglobin 31.3 pg (27.0-33.0)
[2024-12-09 01:19] LABS: Alanine Aminotransferase 31 U/L (0-40); Albumin Level 4.5 g/dL (3.5-5.0); Alkaline Phosphatase 131 U/L (39-117); Anion Gap 26 (12-20); Aspartate Amino Transferase 32 U/L (5-37); Bilirubin Direct < 0.1 mg/dL (0.0-0.5); Bilirubin Total 0.5 mg/dL (0.0-1.0); Blood Urea Nitrogen 9 mg/dL (9-16); Calcium 9.6 mg/dL (8.4-10.2); Carbon Dioxide 15 mmol/L (22-29); Chloride 96 mmol/L (96-108); Creatinine Clr Calc Pharmacy 110.3; Estimated Glomerular Filt Rate > 60; Glucose Random 304 mg/dL (60-115); Lipase 474 U/L (8-78); Potassium 4.2 mmol/L (3.3-5.1); Sodium 133 mmol/L (135-145); Total Protein 8.7 g/dL (6.5-8.0)
[2024-12-09 05:42] LABS: Glucose, Whole Blood 359 mg/dL (60-115)
--- NOTE | 2024-12-09 05:49 | PC.NURSE ---
pt a&ox4, respirations even and unlabored. pt reports sudden onset of left upper and lower quadrant pain and nausea today. 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 pt reports hx of diabetes and reports he has had trouble getting into a doctor. poc >300. made aware
--- NOTE | 2024-12-09 05:55 | ED.GENADULT ---
HPI - General Adult General Chief complaint: Abdominal Pain Stated complaint: L sided abdominal pain Time Seen by Provider: 12/09/24 05:51 History of Present Illness ED Provider: Kurtis LOVE narrative: The patient is a 49-year-old male who has a history of insulin-requiring type 2 diabetes. He also has a history of pancreatitis. He has been hospitalized for pancreatitis and high triglycerides in the past. The patient says that about 10 hours prior to arrival he felt some pain on the left side of his abdomen. He was at work at the time. First it did not seem very severe and he did not make much of it. He took some Tylenol. Later in the evening the pain became more severe and he came to the emergency room. He has not had nausea or vomiting. He says that this is not as bad as some episodes of pancreatitis that he has had before. He feels the pain is more to the left of his abdomen than would be typical of his usual pancreatitis. He does not really feel the pain in his back. Additionally he says that when he has had bad pancreatitis in the past he loses his appetite. He does not feel that way at the moment. He describes his pain as a 9/10, on the left side of his abdomen. Related Data Previous Rx's ?Medication ?Instructions ?Recorded blood-glucose meter (FreeStyle #1 ea 10/22/20 Lite Meter kit) lancets 28 gauge (1st Tier Unilet #100 ea 10/22/20 ComforTouch Lancet) insulin syringes (disposable) 1 mL #500 ea 08/30/21 blood sugar diagnostic (FreeStyle #100 ea 01/10/23 Lite Strips) lancets 30 gauge (Sure Comfort #200 ea 01/10/23 Lancets) insulin syringes (disposable) 1 mL #500 ea 02/04/24 gemfibrozil 600 mg tablet 600 mg PO BIDAC #60 tabs 08/30/24 insulin glargine 100 unit/mL (3 40 unit (0.4 mL) subcut BEDTIME 08/30/24 mL) subcutaneous pen (Lantus #15 mL Solostar U-100 Insulin) insulin lispro 100 unit/mL 0 sliding scale dose subcut 08/30/24 subcutaneous pen (Humalog KwJunie BRICE #15 mL (U-100) Insulin) pen needle, diabetic 32 gauge x #100 ea 08/31/24 Allergies Allergy/AdvReac Type Severity Reaction Status Date / Time No Known Allergies Allergy Verified 12/08/24 22:43 Review of Systems Review of Systems: Yes all other systems are reviewed and are negative COUNTS INCLUDE 234 BEDS AT THE [facility] Past Medical History Medical History Chronic nausea Diabetes mellitus with gastroparesis Hypertension Social History Social History Household Members: Family Housing: Apartment Do you presently have visiting nurse or other home services: No Alcohol intake: current Alcohol intake frequency: 0-2 drinks per day Alcohol type: beer and hard liquor Patient Tobacco Use Status: Never used Tobacco Smoked in Last 30 Days: No e-Cigarette/Vaping Use: Never Used Second Hand Smoke Exposure: No Use of substances other than those prescribed or required for medical reasons: No Advance Directives: No Advance Directives Information Provided: Yes Do you have a plan to hurt others: No Plan service: No Current occupational status: employed Physical Exam ED Vital Signs: Vital Signs - 24 hr 12/08/24 22:41 12/09/24 05:40 12/09/24 08:00 Temperature 98.2 F 100.2 F 99.5 F Pulse Rate 98 100 104 H Respiratory Rate 16 16 12 Blood Pressure 139/90 H 148/94 H 149/92 H Pulse Oximetry 95 99 96 Oxygen Delivery Method Room Air Room Air Room Air BMI result Body Mass Index 37.4 Const Other: The patient is awake, alert, pleasant, cooperative. He reports feeling uncomfortable although he does not appear objectively in pain. Orientation/consciousness: patient oriented x3 HENMT Other: Face is symmetrical, mucous membranes moist. Eyes General: appearance normal, both eyes and all related structures Neck Neck: Yes full ROM Resp Effort & Inspection: normal respiratory effort Auscultation: clear to auscultation bilaterally Cardio Rate: regular rate Rhythm: regular rhythm Heart sounds: S1 normal heart sound present and S2 normal heart sound present GI Other: There was left-sided abdominal tenderness without rebound or guarding. No CVA percussion tenderness. Other: No CVA percussion tenderness Skin Other: Skin is dry and unremarkable Neuro General: patient oriented x3, tone normal, moves all extremities, no focal motor deficits and CN's II-XI intact bilaterally Extrem Other: No peripheral edema Medications Administered Discontinued Medications Generic Name Dose Route Start Last Admin Trade Name Alisson PRN Reason Stop Dose Admin Droperidol 0.625 mg 12/09/24 06:00 12/09/24 06:23 Droperidol 5 Mg/2 Ml Vial IVPUSH 12/09/24 06:01 0.625 mg ONCE ONE Administration Sodium Chloride 1,000 mls @ 999 mls/hr 12/09/24 06:00 12/09/24 08:47 Ns IV 12/09/24 07:00 Infused .Q1H1M NESS Infusion Sodium Chloride 1,000 mls @ 999 mls/hr 12/09/24 06:15 12/09/24 06:23 Ns IV 12/09/24 07:15 999 mls/hr .Q1H1M NESS Administration Insulin Human Regular 8 unit 12/09/24 06:05 12/09/24 06:22 Insulin Regular, Human 100 Unit/Ml 10 Ml Vial IVPUSH 12/09/24 06:06 8 unit ONCE ONE Administration Insulin Human Regular 8 unit 12/09/24 06:05 12/09/24 06:15 Insulin Regular, Human 100 Unit/Ml 10 Ml Vial SUBCUT 12/09/24 06:06 8 unit ONCE ONE Administration Iohexol 85 ml 12/09/24 06:51 12/09/24 06:52 Iohexol 350 Mg/Ml 100 Ml Infus..Btl IV 12/09/24 06:52 85 ml ONCE ONE Administration Morphine Sulfate 4 mg 12/09/24 06:00 12/09/24 06:23 Morphine Sulfate 4 Mg/Ml Cartridge IVPUSH 12/09/24 06:01 4 mg ONCE ONE Administration Protocol Morphine Sulfate 4 mg 12/09/24 08:00 12/09/24 08:47 Morphine Sulfate 4 Mg/Ml Cartridge IVPUSH 12/09/24 08:01 4 mg ONCE ONE Administration Protocol Medical Decision Making Medical Decision Making MDM Narrative: The patient is a 49-year-old male who was a type 2 diabetic. He also has a history of elevated triglycerides. He has had hospitalizations for pancreatitis attributed to his elevated triglycerides. He presents to the ER tonight with the pain that started a few hours prior to arrival. The patient has tenderness in the left side of his abdomen that he feels is slightly different than his usual pancreatitis pain. Labs show an unremarkable CBC. His chemistries show a mild anion gap acidosis. His lipase is elevated at 474. His triglycerides are elevated at 3331. Venous blood gas after he had received some fluids and insulin showed a pH of 7.31, pCO2 of 27. Urinalysis shows large ketones The patient was given morphine for pain. A repeat basic metabolic panel was sent. There has been a long delay in the results of this test because of light femur. The case was discussed with the intensive care unit and the patient will be accepted to the intensive care unit on an insulin drip. Lab Data 12/09/24 00:10 12/09/24 00:10 Labs: Lab Results 12/09/24 12/09/24 12/09/24 Range/Units 00:10 05:39 06:50 WBC 6.8 (4.8-10.8) X10*3/uL RBC 5.30 D (4.60-5.80) X10*6/uL Hgb 16.6 D (14.0-18.0) g/dl Hct 44.6 D (42.0-52.0) % MCV 84.2 (80.0-98.0) fL MCH 31.3 (27.0-33.0) pg MCHC 37.2 H (31.0-36.0) g/dl RDW 11.7 (11.0-16.0) % Plt Count 248 (160-400) X10*3/uL MPV 10.6 (9.4-12.4) fL Immature Gran % (Auto) 0.1 (0.0-0.4) % Neut % (Auto) 79.6 H (45-73) % Lymph % (Auto) 14.8 L (20-40) % [place] % (Auto) 5.1 (2-11) % Eos % (Auto) 0.3 (0-4) % Baso % (Auto) 0.1 (0-2) % Lymph # (Auto) 1.0 L (1.2-4.9) X10*3/uL [place] # (Auto) 0.4 (0.1-1.2) X10*3/uL Eos # (Auto) 0.0 (0.0-0.4) X10*3/uL Baso # (Auto) 0.0 (0.0-0.2) X10*3/uL Abs Immat Gran (auto) 0.01 (0.00-0.03) X10*3/uL Absolute Neuts (auto) 5.4 (2.0-8.3) x10*3/uL Absolute Nucleated RBC 0.000 (0.0-0.012) X10*3/uL Nucleated RBC % (auto) 0.0 (0.0-0.2) /100WBC VBG pH (7.32-7.43) VBG pCO2 mmHg VBG pO2 mmHg VBG HCO3 (22-26) mmol/L VBG O2 Saturation % VBG Base Excess mmol/L Sodium 133 L (135-145) mmol/L Potassium 4.2 D (3.3-5.1) mmol/L Chloride 96 (96-108) mmol/L Carbon Dioxide 15 L (22-29) mmol/L Anion Gap 26 H (12-20) BUN 9 (9-16) mg/dL Creatinine 0.96 (0.5-1.4) mg/dL Estim Creat Clear Calc 110.3 Estimated GFR > 60 POC Glucose 359 H* 300 H (60-115) mg/dL Random Glucose 304 H (60-115) mg/dL Calcium 9.6 (8.4-10.2) mg/dL Total Bilirubin 0.5 (0.0-1.0) mg/dL Direct Bilirubin < 0.1 (0.0-0.5) mg/dL AST 32 (5-37) U/L ALT 31 (0-40) U/L Alkaline Phosphatase 131 H (39-117) U/L Total Protein 8.7 H (6.5-8.0) g/dL Albumin 4.5 (3.5-5.0) g/dL Triglycerides 3331 H (<150) mg/dL Lipase 474 H (8-78) U/L Urine Color Yellow Urine Appearance Clear Urine pH 5.0 (5.0-9.0) Ur Specific Reading >= 1.030 H (1.005-1.025) Urine Protein 100 (2+) H (Neg-Trace) mg/dL Urine Glucose (UA) >=1000 H (Negative) mg/dL Urine Ketones >=160 (Negative) mg/dL Urine Blood Negative (Negative) Urine Nitrite Negative (Negative) Ur Leukocyte Esterase Negative (Negative) Urine RBC 0-2 (0-2) /HPF Urine WBC 0-5 (0-5) /HPF Ur Squamous Epith Cells 0-2 (0-2) /HPF Urine Bacteria None Seen (None Seen) Hyaline Casts 0-2 (0-2) /LPF 12/09/24 Range/Units 07:51 WBC (4.8-10.8) X10*3/uL RBC (4.60-5.80) X10*6/uL Hgb (14.0-18.0) g/dl Hct (42.0-52.0) % MCV (80.0-98.0) fL MCH (27.0-33.0) pg MCHC (31.0-36.0) g/dl RDW (11.0-16.0) % Plt Count (160-400) X10*3/uL MPV (9.4-12.4) fL Immature Gran % (Auto) (0.0-0.4) % Neut % (Auto) (45-73) % Lymph % (Auto) (20-40) % [place] % (Auto) (2-11) % Eos % (Auto) (0-4) % Baso % (Auto) (0-2) % Lymph # (Auto) (1.2-4.9) X10*3/uL [place] # (Auto) (0.1-1.2) X10*3/uL Eos # (Auto) (0.0-0.4) X10*3/uL Baso # (Auto) (0.0-0.2) X10*3/uL Abs Immat Gran (auto) (0.00-0.03) X10*3/uL Absolute Neuts (auto) (2.0-8.3) x10*3/uL Absolute Nucleated RBC (0.0-0.012) X10*3/uL Nucleated RBC % (auto) (0.0-0.2) /100WBC VBG pH 7.31 L (7.32-7.43) VBG pCO2 27 mmHg VBG pO2 50 mmHg VBG HCO3 14 L (22-26) mmol/L VBG O2 Saturation 73.0 % VBG Base Excess -10.1 mmol/L Sodium (135-145) mmol/L Potassium (3.3-5.1) mmol/L Chloride (96-108) mmol/L Carbon Dioxide (22-29) mmol/L Anion Gap (12-20) BUN (9-16) mg/dL Creatinine (0.5-1.4) mg/dL Estim Creat Clear Calc Estimated GFR POC Glucose (60-115) mg/dL Random Glucose (60-115) mg/dL Calcium (8.4-10.2) mg/dL Total Bilirubin (0.0-1.0) mg/dL Direct Bilirubin (0.0-0.5) mg/dL AST (5-37) U/L ALT (0-40) U/L Alkaline Phosphatase (39-117) U/L Total Protein (6.5-8.0) g/dL Albumin (3.5-5.0) g/dL Triglycerides (<150) mg/dL Lipase (8-78) U/L Urine Color Urine Appearance Urine pH (5.0-9.0) Ur Specific Reading (1.005-1.025) Urine Protein (Neg-Trace) mg/dL Urine Glucose (UA) (Negative) mg/dL Urine Ketones (Negative) mg/dL Urine Blood (Negative) Urine Nitrite (Negative) Ur Leukocyte Esterase (Negative) Urine RBC (0-2) /HPF Urine WBC (0-5) /HPF Ur Squamous Epith Cells (0-2) /HPF Urine Bacteria (None Seen) Hyaline Casts (0-2) /LPF Critical Care Time Critical Care Time Critical Care Time: Yes Total Critical Care Time: 35 Attestation: The patient was critically ill with a high probability of imminent or life-threatening deterioration. ?I spent greater than 30 minutes of discontinuous time evaluating the patient, delivering critical care at the bedside, discussing evaluating data with consultants. ?Critical care time does not include time spent performing separately billable procedures or teaching. ?Time spent performing critical care with 35 minutes. Discharge Plan Discharge Patient Disposition: Admitted As Inpatient Prescriptions: No Action (DME) blood-glucose meter [FreeStyle Lite Meter] Kit See Rx Instructions .ROUTE .MEDSULY Qty: 1 0RF Rx Instructions: As directed (DME) lancets [1st Tier Unilet ComforTouch] 28 gauge misc See Rx Instructions .ROUTE .MEDSUPPLY Qty: 100 0RF Rx Instructions: As directed (DME) insulin syringes (disposable) 1 mL syringe See Rx Instructions .Route Qty: 500 0RF Rx Instructions: As directed (DME) FreeStyle Lite Strips Strip See Rx Instructions .ROUTE .MEDSUPPLY Qty: 100 1RF Rx Instructions: As directed (DME) lancets [Sure Comfort Lancets] 30 gauge misc See Rx Instructions .Route Qty: 200 1RF Rx Instructions: As directed gemfibrozil 600 mg Tablet 600 mg PO BIDAC Qty: 60 0RF insulin lispro [Humalog KwikPen Insulin] 100 unit/mL insulin pen 0 sliding scale dose SUBCUT QIDACHS Qty: 15 0RF Rx Instructions: Blood Sugar: <150 - 0 units 151-200 - 2 units 201-250 - 4 units 251-300 - 6 units 301-350 - 8 units >350 - 10 units insulin glargine [Lantus Solostar U-100 Insulin] 100 unit/mL (3 mL) insulin pen 40 unit SUBCUT BEDTIME Qty: 15 0RF (DME) pen needle, diabetic 32 gauge x 5/32 needle See Rx Instructions .ROUTE .MEDSUPPLY Qty: 100 1RF Rx Instructions: As directed (4 times/day) (DME) insulin syringes (disposable) 1 mL syringe See Rx Instructions .ROUTE .MEDSUPPLY Qty: 500 1RF Rx Instructions: As directed Print Language: Maltese
[2024-12-09] MEDS: Insulin Regular, Human 100 UNIT/ML 10 ML VIAL 8 UNIT SUBCUT (06:15)
[2024-12-09] MEDS: Insulin Regular, Human 100 UNIT/ML 10 ML VIAL 8 UNIT IVPUSH (06:22)
[2024-12-09] MEDS: droPERidol 5 MG/2 ML VIAL 0.625 MG IVPUSH (06:23)
[2024-12-09] MEDS: Morphine Sulfate 4 MG/ML CARTRIDGE IVPUSH ×2 (06:23→08:47)
[2024-12-09] MEDS: 0.9 % Sodium Chloride 1,000 ML 999 ML IV ×2 (06:23)
--- NOTE | 2024-12-09 06:30 | PC.NURSE ---
pt hard stick, x4 attempts made by RNs, 22g placed in left hand, insulin given, fluids administering. transmitter engineer in charge aware, plan to move pt to room
[2024-12-09] MEDS: iohexoL 350 MG/ML 100 ML INFUS..BTL 85 ML IV (06:52)
[2024-12-09 06:53] LABS: Glucose, Whole Blood 300 mg/dL (60-115)
[2024-12-09 06:55] LABS: Triglycerides 3331 mg/dL (<150)
[2024-12-09 07:52] LABS: Venous Blood Gas Refer to POC result
[2024-12-09 07:55] LABS: VBG Base Excess -10.1 mmol/L; VBG HCO3 14 mmol/L (22-26); VBG pCO2 27 mmHg; VBG pH 7.31 (7.32-7.43); VBG pO2 50 mmHg
--- NOTE | 2024-12-09 10:20 | PHA.MEDREC ---
Addendum entered by Gary Nettles RPh 12/09/24 10:49: Reviewed by [facility] Original Note: Pharmacy Consult ? Medication Reconciliation Pharmacy has completed the medication reconciliation. Spoke with pt and he confirmed his medications. Pt confirmed he still uses Lantus, injecting 40 units at bedtime and Humalog testing TIDAC and injecting per a sliding scale. Pt confirmed the Gemfibrozil 600mg tab 1 BID but states he ran out of that about a week ago and currently has no PCP and has no refills left on them and is the reason why he is here today.
[2024-12-09] MEDS: Heparin Sodium,Porcine 5,000 UNIT/ML VIAL 5000 UNIT SUBCUT ×2 (10:28→17:04)
[2024-12-09] MEDS: Insulin Regular/NS 100 UNIT/100 ML PLAST..BAG IVCONT ×2 (10:32→20:08)
[2024-12-09] MEDS: Lactated Ringers 1,000 ML 150 ML IVCONT (10:32)
[2024-12-09 10:34] LABS: Glucose, Whole Blood 260 mg/dL (60-115)
[2024-12-09 11:07] LABS: Anion Gap 21 (12-20); Beta-Hydroxybutyrate 4.64 mmol/L (0.02-0.27); Blood Urea Nitrogen 7 mg/dL (9-16); Calcium 8.1 mg/dL (8.4-10.2); Carbon Dioxide 13 mmol/L (22-29); Chloride 105 mmol/L (96-108); Creatinine Clr Calc Pharmacy 120.4; Estimated Glomerular Filt Rate > 60; Glucose Random 254 mg/dL (60-115); Potassium 4.1 mmol/L (3.3-5.1); Sodium 135 mmol/L (135-145)
[2024-12-09] MEDS: fentaNYL citrate/PF 100 MCG/2 ML VIAL IVPUSH ×4 (11:13→21:26)
[2024-12-09 11:27] LABS: Glucose, Whole Blood 249 mg/dL (60-115)
--- NOTE | 2024-12-09 11:27 | PM.CCHP ---
History of Present Illness Date of Service: 12/09/24 Chief Complaint: Abdominal pain 49-year-old gentleman with underlying insulin-dependent diabetes mellitus and hypertension poorly compliant with his medication regimen with prior admissions for hypertriglyceridemia induced pancreatitis presented complain of abdominal pain. On ER evaluation patient with metabolic acidosis secondary to diabetic ketoacidosis and hypertriglyceridemia induced pancreatitis requiring initiation of insulin drip and admission to intensive care unit. His CT abdomen did not demonstrate pancreatic necrosis. Review of Systems Constitutional: Constitutional: Denies daytime sleepiness, Denies excessive sweating, Denies fatigue, Denies fever(s), Denies lethargy, Denies malaise, Denies night sweats, Denies snoring and Denies weight loss Eyes: Eyes: Denies blurry vision and Denies itchy eyes ENT: Denies nasal congestion, Denies post nasal drip, Denies sinus pain, Denies sinus pressure and Denies other ( Thrush) Cardiovascular: Cardiovascular: Denies chest pain, Denies pedal edema, Denies dyspnea, Denies orthopnea and Denies paroxysmal nocturnal dyspnea Respiratory: Respiratory: Denies cough, Denies hemoptysis, Denies excessive phlegm production, Denies dyspnea, Denies snoring and Denies wheezing Gastrointestinal: Gastrointestinal: Reports abdominal pain, Denies heartburn and Reports nausea Musculoskeletal: Musculoskeletal: Denies myalgias, Denies arthralgias and Denies joint swelling Integumentary/Breasts: Skin/Breast: Denies rash Neurologic: Denies memory loss and Denies seizure-like activity Psychiatric: Psychiatric: Denies abnormal sleep pattern, Denies anxiety and Denies memory loss Endocrine: Endocrine: Denies excessive sweating, Denies fatigue and Denies heat intolerance Hematologic/Lymphatic: Hematologic/Lymphatic: Denies easy bruising Allergic/Immunologic: Allergic/Immunologic: Denies itchy eyes, Denies seasonal rhinorrhea and Denies wheezing PMFSH Past Medical History Medical History (Updated 12/09/24 @ 11:29 by Pacheco Montes MD) Hypertriglyceridemia Hypertriglyceridemia Diabetic ketoacidosis Chronic nausea Diabetes mellitus with gastroparesis Hypertension Social History Social History Household Members: Spouse Housing: House Do you presently have visiting nurse or other home services: No Alcohol intake: current Alcohol intake frequency: 0-2 drinks per day Alcohol type: beer and hard liquor Patient Tobacco Use Status: Never used Tobacco Smoked in Last 30 Days: No e-Cigarette/Vaping Use: Never Used Second Hand Smoke Exposure: No Use of substances other than those prescribed or required for medical reasons: No Advance Directives: No Advance Directives Information Provided: Yes Do you have a plan to hurt others: No Plan Recently lost weight without trying: Unsure service: No Current occupational status: employed Meds Allergies Allergy/AdvReac Type Severity Reaction Status Date / Time No Known Allergies Allergy Verified 12/08/24 22:43 Active Medications: Current Medications Dextrose (Dextrose 50 % 25 Gm/50 Ml Syringe) 25 gm IVPUSH Q30M PRN PRN Reason: BG < 70 Fentanyl (Fentanyl Citrate/Pf 100 Mcg/2 Ml Vial) 100 mcg IVPUSH Q3H PRN; Protocol PRN Reason: Pain, Severe (Pain Scale 7-10) Last Admin: 12/09/24 11:13 Dose: 100 mcg Heparin Sodium (Porcine) (Heparin Sodium,Porcine 5,000 Unit/Ml Vial) 5,000 unit SUBCUT Q8H NESS Last Admin: 12/09/24 10:28 Dose: 5,000 unit Insulin Human Regular (Myxredlin) 100 unit in 100 mls @ 5 mls/hr IVCONT .Q20H NESS; Protocol Last Titration: 12/09/24 11:26 Dose: 7.5 unit/hr, 7.5 mls/hr Lactated Ringer's (Lr) 1,000 mls @ 150 mls/hr IVCONT .Q6H40M NESS Last Admin: 12/09/24 10:32 Dose: 150 mls/hr Home Medications ?Medication ?Instructions ?Recorded ?Confirmed ?Last Taken ?Type acetaminophen 500 mg tablet 1,000 mg PO Q6H PRN Pain 12/09/24 12/09/24 Unknown History Physical Exam Vital Signs: Vital Signs: Last Vital Signs Temp 99.5 F 12/09/24 08:00 Pulse 104 H 12/09/24 08:00 Resp 12 12/09/24 08:00 BP 149/92 H 12/09/24 08:00 Pulse Ox 96 12/09/24 08:00 O2 Del Method Room Air 12/09/24 08:00 BMI result Body Mass Index 37.4 Const: General: no acute distress, alert and awake Eyes: Sclerae: sclerae normal EOM: EOMs intact bilaterally Neck: Neck: Yes no lymphadenopathy, Yes trachea midline and Yes supple Resp: Effort & Inspection: normal respiratory effort and no respiratory distress Auscultation: clear to auscultation bilaterally Cardio: Rate: tachycardic Rhythm: regular rhythm Heart sounds: no gallops, no murmurs and no rubs GI: Palpation (GI): Soft to palpation and Tenderness to palpation present (GI) (Mild epigastric) Auscultation: normal bowel sounds Extrem: General: Yes no pedal edema, No clubbing and No cyanosis Results Labs 12/09/24 00:10 12/09/24 09:53 Labs: Laboratory Results - last 24 hr 12/09/24 12/09/24 12/09/24 00:10 05:39 06:50 MCV 84.2 MCH 31.3 MCHC 37.2 H RDW 11.7 Plt Count 248 MPV 10.6 Immature Gran % (Auto) 0.1 Neut % (Auto) 79.6 H Lymph % (Auto) 14.8 L [place] % (Auto) 5.1 Eos % (Auto) 0.3 Baso % (Auto) 0.1 Lymph # (Auto) 1.0 L [place] # (Auto) 0.4 Eos # (Auto) 0.0 Baso # (Auto) 0.0 Abs Immat Gran (auto) 0.01 Absolute Neuts (auto) 5.4 Absolute Nucleated RBC 0.000 Nucleated RBC % (auto) 0.0 VBG pH VBG pCO2 VBG pO2 VBG HCO3 VBG O2 Saturation VBG Base Excess Anion Gap 26 H Estim Creat Clear Calc 110.3 Estimated GFR > 60 POC Glucose 359 H* 300 H Random Glucose 304 H Calcium 9.6 Total Bilirubin 0.5 Direct Bilirubin < 0.1 AST 32 ALT 31 Alkaline Phosphatase 131 H Total Protein 8.7 H Albumin 4.5 Triglycerides 3331 H Lipase 474 H Beta-Hydroxybutyrate Urine Color Yellow Urine Appearance Clear Urine pH 5.0 Ur Specific [place] >= 1.030 H Urine Protein 100 (2+) H Urine Glucose (UA) >=1000 H Urine Ketones >=160 Urine Blood Negative Urine Nitrite Negative Ur Leukocyte Esterase Negative Urine RBC 0-2 Urine WBC 0-5 Ur Squamous Epith Cells 0-2 Urine Bacteria None Seen Hyaline Casts 0-2 12/09/24 12/09/2412/09/25 07:51 09:53 10:29 MCV MCH MCHC RDW Plt Count MPV Immature Gran % (Auto) Neut % (Auto) Lymph % (Auto) [place] % (Auto) Eos % (Auto) Baso % (Auto) Lymph # (Auto) [place] # (Auto) Eos # (Auto) Baso # (Auto) Abs Immat Gran (auto) Absolute Neuts (auto) Absolute Nucleated RBC Nucleated RBC % (auto) VBG pH 7.31 L VBG pCO2 27 VBG pO2 50 VBG HCO3 14 L VBG O2 Saturation 73.0 VBG Base Excess -10.1 Anion Gap 21 H Estim Creat Clear Calc 120.4 Estimated GFR > 60 POC Glucose 260 H Random Glucose 254 H Calcium 8.1 L D Total Bilirubin Direct Bilirubin AST ALT Alkaline Phosphatase Total Protein Albumin Triglycerides Lipase Beta-Hydroxybutyrate 4.64 H Urine Color Urine Appearance Urine pH Ur Specific [place] Urine Protein Urine Glucose (UA) Urine Ketones Urine Blood Urine Nitrite Ur Leukocyte Esterase Urine RBC Urine WBC Ur Squamous Epith Cells Urine Bacteria Hyaline Casts 12/09/24 11:23 MCV MCH MCHC RDW Plt Count MPV Immature Gran % (Auto) Neut % (Auto) Lymph % (Auto) [place] % (Auto) Eos % (Auto) Baso % (Auto) Lymph # (Auto) [place] # (Auto) Eos # (Auto) Baso # (Auto) Abs Immat Gran (auto) Absolute Neuts (auto) Absolute Nucleated RBC Nucleated RBC % (auto) VBG pH VBG pCO2 VBG pO2 VBG HCO3 VBG O2 Saturation VBG Base Excess Anion Gap Estim Creat Clear Calc Estimated GFR POC Glucose 249 H Random Glucose Calcium Total Bilirubin Direct Bilirubin AST ALT Alkaline Phosphatase Total Protein Albumin Triglycerides Lipase Beta-Hydroxybutyrate Urine Color Urine Appearance Urine pH Ur Specific [place] Urine Protein Urine Glucose (UA) Urine Ketones Urine Blood Urine Nitrite Ur Leukocyte Esterase Urine RBC Urine WBC Ur Squamous Epith Cells Urine Bacteria Hyaline Casts Assessment and Plan (1) Pancreatitis: Status: Acute (2) Hypertriglyceridemia: Status: Acute (3) Diabetic ketoacidosis: Status: Acute Plan Assessment: 49-year-old gentleman admitted with hypertriglyceridemia induced pancreatitis and diabetic ketoacidosis requiring insulin drip Plan: Neuro: No acute issues. Cardiac: No acute issues. Pulmonary: No acute issues. Renal: Metabolic acidosis secondary to pancreatitis/DKA, non oliguric. Continue to monitor renal indices and urine output. Endo: Diabetic ketoacidosis hypertriglyceridemia induced pancreatitis. Continue to titrate off insulin drip. GI: Hypertriglyceridemia induced pancreatitis with no necrosis on CT scan. ID: No acute issues Heme/Onc: No acute issues. Psych: No acute issues. Miscellaneous: No acute issues. Prophylaxis: Heparin Diet: NPO
[2024-12-09] MEDS: Dextrose 5 % and Lactated Ring 1,000 ML 125 ML IVCONT ×2 (12:09→20:05)
[2024-12-09 12:15] LABS: Glucose, Whole Blood 235 mg/dL (60-115)
[2024-12-09 13:07] LABS: Glucose, Whole Blood 204 mg/dL (60-115)
[2024-12-09 14:07] LABS: Glucose, Whole Blood 187 mg/dL (60-115)
[2024-12-09 15:02] LABS: Glucose, Whole Blood 156 mg/dL (60-115)
[2024-12-09 16:08] LABS: Glucose, Whole Blood 125 mg/dL (60-115)
[2024-12-09 16:46] LABS: Anion Gap 16 (12-20); Blood Urea Nitrogen 6 mg/dL (9-16); Calcium 8.3 mg/dL (8.4-10.2); Carbon Dioxide 16 mmol/L (22-29); Chloride 108 mmol/L (96-108); Creatinine Clr Calc Pharmacy 124.6; Estimated Glomerular Filt Rate > 60; Glucose Random 172 mg/dL (60-115); Potassium 3.5 mmol/L (3.3-5.1); Sodium 136 mmol/L (135-145)
[2024-12-09 17:11] LABS: Glucose, Whole Blood 131 mg/dL (60-115)
[2024-12-09 18:04] LABS: Glucose, Whole Blood 143 mg/dL (60-115)
[2024-12-09 19:13] LABS: Glucose, Whole Blood 180 mg/dL (60-115)
[2024-12-09 20:08] LABS: Glucose, Whole Blood 168 mg/dL (60-115)
[2024-12-09 20:35] LABS: Anion Gap 14 (12-20); Blood Urea Nitrogen 6 mg/dL (9-16); Calcium 8.2 mg/dL (8.4-10.2); Carbon Dioxide 20 mmol/L (22-29); Chloride 106 mmol/L (96-108); Creatinine Clr Calc Pharmacy 108.1; Estimated Glomerular Filt Rate > 60; Glucose Random 159 mg/dL (60-115); Magnesium 1.5 mg/dL (1.6-2.6); Phosphorus 1.9 mg/dL (2.7-4.5); Potassium 3.6 mmol/L (3.3-5.1); Sodium 136 mmol/L (135-145)
[2024-12-09 21:08] LABS: Glucose, Whole Blood 185 mg/dL (60-115)
[2024-12-09] MEDS: Dextrose 5 % and 0.45 % NaCl 1,000 ML 100 ML IVCONT (21:33)
[2024-12-09] MEDS: Magnesium Sulfate/H2O 2 GM/50 ML PIGGYBACK IV (21:45)
[2024-12-09] MEDS: Potassium Phosphate/NS 15 MMOL/250 ML PLAST..BAG 62.5 MMOL IV (21:46)
[2024-12-09 22:05] LABS: Glucose, Whole Blood 184 mg/dL (60-115)
[2024-12-10] VITALS (26 sets, daily range): BP systolic 121–147; BP diastolic 72–95; PULSE 102–114; RESP 16–37; TEMP 36.4–37.8; O2SAT 84–95; BMI 35.7
[2024-12-10 00:03] LABS: Glucose, Whole Blood 177 mg/dL (60-115)
[2024-12-10] MEDS: fentaNYL citrate/PF 100 MCG/2 ML VIAL IVPUSH ×7 (00:19→19:48)
[2024-12-10] MEDS: Potassium Phosphate/NS 15 MMOL/250 ML PLAST..BAG 62.5 MMOL IV ×2 (01:52→21:23)
[2024-12-10] MEDS: Heparin Sodium,Porcine 5,000 UNIT/ML VIAL 5000 UNIT SUBCUT ×3 (01:56→16:39)
[2024-12-10 02:20] LABS: Glucose, Whole Blood 185 mg/dL (60-115)
--- NOTE | 2024-12-10 04:00 | PC.NURSE ---
Addendum entered by Jarett Xie RN 12/10/24 04:42: Q1 HOUR POC GLUCOSES CHANGED TO Q2 HOUR CHECKS BY PROVIDER Original Note: CARE ASSUMED 7PM..ALERT..ORIENTED X3..INSULIN DRIP REMAINS 4 UNITS/HR OVERNIGHT...GLUCOSE GOAL 150-200 PER PROVIDER...REMAINS WITH ABDOMINAL PAIN...PRN FENTANYL GIVEN APPROX Q3 HOURS PER AUG...PAIN DECREASES FROM 9-10/10 TO 0-1/10 PER PATIENT...MgSO4 2 GRAMS IV X1 DOSE GIVEN AND K-PO4 15MMOL X2 BAGS...IV FLUIDS D5LR 125 CC/HR...IV FLUIDS CHANGED TO D5 1/2NS 100 CC/HR [id number] THEN TO RETURN TO D5LR 125 CC/HR PER PROVIDER..MONITOR SINUS TACHYCARDIA HR 100'S-110'S...PROVIDER AWARE
[2024-12-10 04:32] LABS: Glucose, Whole Blood 178 mg/dL (60-115)
[2024-12-10 05:52] LABS: VBG Base Excess -2.7 mmol/L; VBG HCO3 19 mmol/L (22-26); VBG pCO2 28 mmHg; VBG pH 7.44 (7.32-7.43); VBG pO2 48 mmHg
[2024-12-10 05:55] LABS: Hematocrit 43.9 % (42.0-52.0); Mean Corpuscular HGB Conc 36.4 g/dl (31.0-36.0); Mean Corpuscular Hemoglobin 31.3 pg (27.0-33.0); Mean Corpuscular Volume 85.9 fL (80.0-98.0); Mean Platelet Volume 10.8 fL (9.4-12.4); Platelet Count 204 X10*3/uL (160-400); Red Blood Count 5.11 X10*6/uL (4.60-5.80); WBC ABN SCTR FOR CBC 1
[2024-12-10 05:59] LABS: White Blood Count 7.9 X10*3/uL (4.8-10.8)
[2024-12-10 06:14] LABS: Albumin Level 3.4 g/dL (3.5-5.0); Anion Gap 15 (12-20); Blood Urea Nitrogen 5 mg/dL (9-16); Calcium 8.1 mg/dL (8.4-10.2); Carbon Dioxide 17 mmol/L (22-29); Chloride 106 mmol/L (96-108); Creatinine Clr Calc Pharmacy 111.2; Estimated Glomerular Filt Rate > 60; Glucose Random 168 mg/dL (60-115); Magnesium 1.7 mg/dL (1.6-2.6); Phosphorus 3.4 mg/dL (2.7-4.5); Potassium 3.7 mmol/L (3.3-5.1); Sodium 134 mmol/L (135-145)
[2024-12-10 06:18] LABS: Band Neutrophils Percent 32 % (3-5); Lymphocytes Absolute Manual 0.7 X10*3/uL (1.2-4.9); Lymphocytes Percent Manual 9 % (20-40); Metamyelocytes Absolute 0.1 X10*3/uL; Metamyelocytes Percent 1 %; Monocytes Absolute Manual 0.1 X10*3/uL (0.1-1.2); Monocytes Percent Manual 1 % (2-11); Neutrophils Percent Manual 57 % (45-73)
[2024-12-10 06:21] LABS: Platelet Estimate NORMAL (NORMAL); Platelet Morphology Comment NORMAL; RBC Morphology NORMAL; Toxic Vacuolation PRESENT
[2024-12-10 06:22] LABS: Triglycerides 2554 mg/dL (<150)
[2024-12-10 06:36] LABS: Glucose, Whole Blood 169 mg/dL (60-115)
[2024-12-10 06:45] LABS: Venous Blood Gas Refer to POC result
[2024-12-10 07:33] LABS: Glucose, Whole Blood 183 mg/dL (60-115)
[2024-12-10] MEDS: Dextrose 5 % and Lactated Ring 1,000 ML 125 ML IVCONT ×2 (07:44→16:39)
[2024-12-10] MEDS: Potassium Chloride/H20 10 MEQ/100 ML PIGGYBACK 100 MEQ IV ×2 (07:44→09:35)
[2024-12-10 08:41] LABS: Glucose, Whole Blood 167 mg/dL (60-115)
--- NOTE | 2024-12-10 08:41 | P.CDIM_ITS ---
PROVIDER RESPONSE TEXT: To clarify, the appropriate diagnosis supported by the clinical indicators: Acute QUERY TEXT: PHYSICIAN'S DOCUMENTATION REQUEST Date of Query: 12/10/2024 07:45 AM EDT Patient Name: Vijay Zazueta Admit Date: 12/09/2024 Dear Pacheco Montes MD, A review of the medical record indicates additional documentation may be needed. Please review below and update the documentation accordingly. Clinical Indicators: patient with metabolic acidosis, non-oliguric Clarify which of the following accurately represents the acuity of the Metabolic Acidosis . Possible options might include: Acute Acute on chronic Compensated Chronic stable condition Remission Other (explain) Clinically unable to determine (explain) Thank you, Marcia Chiu RN Use of terms such as suspected, likely, concern for, or probable (associated with a specific diagnosi s that is being evaluated, monitored, or treated as if it exists) are acceptable and can be coded in the inpatient se tting, when documented at the time of discharge. Please use your independent medical judgment in providing your response. THIS QUERY IS PART OF THE PERMANENT MEDICAL RECORD
--- NOTE | 2024-12-10 08:41 | P.CDIM_ITS ---
PROVIDER RESPONSE TEXT: To clarify, the appropriate diagnosis supported by the clinical indicators: Acute QUERY TEXT: PHYSICIAN'S DOCUMENTATION REQUEST Date of Query: 12/10/2024 07:42 AM EDT Patient Name: Vijay Zazueta Admit Date: 12/09/2024 Dear Pacheco Montes MD, A review of the medical record indicates additional documentation may be needed. Please review below and update the documentation accordingly. Clinical Indicators: patient admitted with hypertriglyceridemia pancreatitis monitor labs Clarify which of the following accurately represents the acuity of the Pancreatitis. Possible options might include: Acute Acute on chronic Compensated Chronic stable condition Remission Other (explain) Clinically unable to determine (explain) Thank you, Marcia Chiu RN Use of terms such as suspected, likely, concern for, or probable (associated with a specific diagnosi s that is being evaluated, monitored, or treated as if it exists) are acceptable and can be coded in the inpatient se tting, when documented at the time of discharge. Please use your independent medical judgment in providing your response. THIS QUERY IS PART OF THE PERMANENT MEDICAL RECORD
--- NOTE | 2024-12-10 09:43 | PM.CCPN ---
Subjective Subjective Date of Service: 12/10/24 Interval History: 49-year-old gentleman with underlying insulin-dependent diabetes mellitus and hypertension poorly compliant with his medication regimen with prior admissions for hypertriglyceridemia induced pancreatitis presented complain of abdominal pain. On ER evaluation patient with metabolic acidosis secondary to diabetic ketoacidosis and hypertriglyceridemia induced pancreatitis requiring initiation of insulin drip and admission to intensive care unit. His CT abdomen did not demonstrate pancreatic necrosis. Events overnight. Continues on insulin drip. Critical Care Time (minutes): 0 Physical Exam Vital Signs: Vital Signs: Last Vital Signs Temp 97.5 F 12/10/24 08:00 Pulse 107 H 12/10/24 09:00 Resp 23 H 12/10/24 09:00 BP 125/74 12/10/24 09:00 Pulse Ox 89 L 12/10/24 09:00 O2 Del Method Nasal Cannula 12/10/24 09:00 O2 Flow Rate 2 12/10/24 09:00 BMI result Body Mass Index 35.7 Const: General: no acute distress, alert and awake Eyes: Sclerae: sclerae normal EOM: EOMs intact bilaterally Neck: Neck: Yes no lymphadenopathy, Yes trachea midline and Yes supple Resp: Effort & Inspection: normal respiratory effort and no respiratory distress Auscultation: clear to auscultation bilaterally Cardio: Rate: regular rate Rhythm: regular rhythm Heart sounds: no gallops, no murmurs and no rubs GI: Palpation (GI): Soft to palpation and Tenderness to palpation present (GI) (Epigastric) Auscultation: normal bowel sounds Extrem: General: Yes no pedal edema, No clubbing and No cyanosis Objective Data Labs 12/10/24 05:47 12/10/24 05:47 Labs: Laboratory Results - last 24 hr 12/09/24 12/09/24 12/09/24 09:53 10:29 11:23 WBC RBC Hgb Hct MCV MCH MCHC RDW Plt Count MPV Immature Gran % (Auto) Neut % (Auto) Lymph % (Auto) [place] % (Auto) Eos % (Auto) Baso % (Auto) Lymph # (Auto) [place] # (Auto) Eos # (Auto) Baso # (Auto) Abs Immat Gran (auto) Absolute Neuts (auto) Absolute Nucleated RBC Nucleated RBC % (auto) Neutrophils % (Manual) Band Neutrophils % Lymphocytes % (Manual) Monocytes % (Manual) Metamyelocytes % Abs Neuts (Manual) Lymphocytes # (Manual) Monocytes # (Manual) Metamyelocytes # Toxic Vacuolation Platelet Estimate Plt Morphology Comment RBC Morphology VBG pH VBG pCO2 VBG pO2 VBG HCO3 VBG O2 Saturation VBG Base Excess Sodium 135 Potassium 4.1 Chloride 105 Carbon Dioxide 13 L Anion Gap 21 H BUN 7 L Creatinine 0.88 Estim Creat Clear Calc 120.4 Estimated GFR > 60 POC Glucose 260 H 249 H Random Glucose 254 H Calcium 8.1 L D Phosphorus Magnesium Albumin Triglycerides Beta-Hydroxybutyrate 4.64 H 12/09/24 12/09/24 12/09/24 12:12 12:59 14:04 WBC RBC Hgb Hct MCV MCH MCHC RDW Plt Count MPV Immature Gran % (Auto) Neut % (Auto) Lymph % (Auto) [place] % (Auto) Eos % (Auto) Baso % (Auto) Lymph # (Auto) [place] # (Auto) Eos # (Auto) Baso # (Auto) Abs Immat Gran (auto) Absolute Neuts (auto) Absolute Nucleated RBC Nucleated RBC % (auto) Neutrophils % (Manual) Band Neutrophils % Lymphocytes % (Manual) Monocytes % (Manual) Metamyelocytes % Abs Neuts (Manual) Lymphocytes # (Manual) Monocytes # (Manual) Metamyelocytes # Toxic Vacuolation Platelet Estimate Plt Morphology Comment RBC Morphology VBG pH VBG pCO2 VBG pO2 VBG HCO3 VBG O2 Saturation VBG Base Excess Sodium Potassium Chloride Carbon Dioxide Anion Gap BUN Creatinine Estim Creat Clear Calc Estimated GFR POC Glucose 235 H 204 H 187 H Random Glucose Calcium Phosphorus Magnesium Albumin Triglycerides Beta-Hydroxybutyrate 12/09/24 12/09/24 12/09/24 14:06 14:58 16:05 WBC RBC Hgb Hct MCV MCH MCHC RDW Plt Count MPV Immature Gran % (Auto) Neut % (Auto) Lymph % (Auto) [place] % (Auto) Eos % (Auto) Baso % (Auto) Lymph # (Auto) [place] # (Auto) Eos # (Auto) Baso # (Auto) Abs Immat Gran (auto) Absolute Neuts (auto) Absolute Nucleated RBC Nucleated RBC % (auto) Neutrophils % (Manual) Band Neutrophils % Lymphocytes % (Manual) Monocytes % (Manual) Metamyelocytes % Abs Neuts (Manual) Lymphocytes # (Manual) Monocytes # (Manual) Metamyelocytes # Toxic Vacuolation Platelet Estimate Plt Morphology Comment RBC Morphology VBG pH VBG pCO2 VBG pO2 VBG HCO3 VBG O2 Saturation VBG Base Excess Sodium 136 Potassium 3.5 Chloride 108 Carbon Dioxide 16 L Anion Gap 16 BUN 6 L Creatinine 0.85 Estim Creat Clear Calc 124.6 Estimated GFR > 60 POC Glucose 156 H 125 H Random Glucose 172 H Calcium 8.3 L Phosphorus Magnesium Albumin Triglycerides Beta-Hydroxybutyrate 12/09/24 12/09/24 12/09/24 17:08 18:00 19:09 WBC RBC Hgb Hct MCV MCH MCHC RDW Plt Count MPV Immature Gran % (Auto) Neut % (Auto) Lymph % (Auto) [place] % (Auto) Eos % (Auto) Baso % (Auto) Lymph # (Auto) [place] # (Auto) Eos # (Auto) Baso # (Auto) Abs Immat Gran (auto) Absolute Neuts (auto) Absolute Nucleated RBC Nucleated RBC % (auto) Neutrophils % (Manual) Band Neutrophils % Lymphocytes % (Manual) Monocytes % (Manual) Metamyelocytes % Abs Neuts (Manual) Lymphocytes # (Manual) Monocytes # (Manual) Metamyelocytes # Toxic Vacuolation Platelet Estimate Plt Morphology Comment RBC Morphology VBG pH VBG pCO2 VBG pO2 VBG HCO3 VBG O2 Saturation VBG Base Excess Sodium Potassium Chloride Carbon Dioxide Anion Gap BUN Creatinine Estim Creat Clear Calc Estimated GFR POC Glucose 131 H 143 H 180 H Random Glucose Calcium Phosphorus Magnesium Albumin Triglycerides Beta-Hydroxybutyrate 12/09/24 12/09/24 12/09/24 19:12 20:05 21:04 WBC RBC Hgb Hct MCV MCH MCHC RDW Plt Count MPV Immature Gran % (Auto) Neut % (Auto) Lymph % (Auto) [place] % (Auto) Eos % (Auto) Baso % (Auto) Lymph # (Auto) [place] # (Auto) Eos # (Auto) Baso # (Auto) Abs Immat Gran (auto) Absolute Neuts (auto) Absolute Nucleated RBC Nucleated RBC % (auto) Neutrophils % (Manual) Band Neutrophils % Lymphocytes % (Manual) Monocytes % (Manual) Metamyelocytes % Abs Neuts (Manual) Lymphocytes # (Manual) Monocytes # (Manual) Metamyelocytes # Toxic Vacuolation Platelet Estimate Plt Morphology Comment RBC Morphology VBG pH VBG pCO2 VBG pO2 VBG HCO3 VBG O2 Saturation VBG Base Excess Sodium 136 Potassium 3.6 Chloride 106 Carbon Dioxide 20 L Anion Gap 14 BUN 6 L Creatinine 0.98 Estim Creat Clear Calc 108.1 Estimated GFR > 60 POC Glucose 168 H 185 H Random Glucose 159 H Calcium 8.2 L Phosphorus 1.9 L Magnesium 1.5 L Albumin Triglycerides Beta-Hydroxybutyrate 12/09/24 12/10/24 12/10/24 22:02 00:00 02:16 WBC RBC Hgb Hct MCV MCH MCHC RDW Plt Count MPV Immature Gran % (Auto) Neut % (Auto) Lymph % (Auto) [place] % (Auto) Eos % (Auto) Baso % (Auto) Lymph # (Auto) [place] # (Auto) Eos # (Auto) Baso # (Auto) Abs Immat Gran (auto) Absolute Neuts (auto) Absolute Nucleated RBC Nucleated RBC % (auto) Neutrophils % (Manual) Band Neutrophils % Lymphocytes % (Manual) Monocytes % (Manual) Metamyelocytes % Abs Neuts (Manual) Lymphocytes # (Manual) Monocytes # (Manual) Metamyelocytes # Toxic Vacuolation Platelet Estimate Plt Morphology Comment RBC Morphology VBG pH VBG pCO2 VBG pO2 VBG HCO3 VBG O2 Saturation VBG Base Excess Sodium Potassium Chloride Carbon Dioxide Anion Gap BUN Creatinine Estim Creat Clear Calc Estimated GFR POC Glucose 184 H 177 H 185 H Random Glucose Calcium Phosphorus Magnesium Albumin Triglycerides Beta-Hydroxybutyrate 12/10/24 12/10/24 12/10/24 04:28 05:47 05:49 WBC 7.9 RBC 5.11 Hgb 16.0 Hct 43.9 MCV 85.9 MCH 31.3 MCHC 36.4 H RDW 12.0 Plt Count 204 MPV 10.8 Immature Gran % (Auto) Cancelled Neut % (Auto) Cancelled Lymph % (Auto) Cancelled [place] % (Auto) Cancelled Eos % (Auto) Cancelled Baso % (Auto) Cancelled Lymph # (Auto) Cancelled [place] # (Auto) Cancelled Eos # (Auto) Cancelled Baso # (Auto) Cancelled Abs Immat Gran (auto) Cancelled Absolute Neuts (auto) Cancelled Absolute Nucleated RBC 0.000 Nucleated RBC % (auto) 0.0 Neutrophils % (Manual) 57 Band Neutrophils % 32 H Lymphocytes % (Manual) 9 L Monocytes % (Manual) 1 L Metamyelocytes % 1 Abs Neuts (Manual) 7.0 Lymphocytes # (Manual) 0.7 L Monocytes # (Manual) 0.1 Metamyelocytes # 0.1 Toxic Vacuolation PRESENT Platelet Estimate NORMAL Plt Morphology Comment NORMAL RBC Morphology NORMAL VBG pH 7.44 H VBG pCO2 28 VBG pO2 48 VBG HCO3 19 L VBG O2 Saturation 75.0 VBG Base Excess -2.7 Sodium 134 L Potassium 3.7 Chloride 106 Carbon Dioxide 17 L Anion Gap 15 BUN 5 L Creatinine 0.93 Estim Creat Clear Calc 111.2 Estimated GFR > 60 POC Glucose 178 H Random Glucose 168 H Calcium 8.1 L Phosphorus 3.4 Magnesium 1.7 Albumin 3.4 L Triglycerides 2554 H Beta-Hydroxybutyrate 12/10/24 12/10/24 12/10/24 06:33 07:30 08:38 WBC RBC Hgb Hct MCV MCH MCHC RDW Plt Count MPV Immature Gran % (Auto) Neut % (Auto) Lymph % (Auto) [place] % (Auto) Eos % (Auto) Baso % (Auto) Lymph # (Auto) [place] # (Auto) Eos # (Auto) Baso # (Auto) Abs Immat Gran (auto) Absolute Neuts (auto) Absolute Nucleated RBC Nucleated RBC % (auto) Neutrophils % (Manual) Band Neutrophils % Lymphocytes % (Manual) Monocytes % (Manual) Metamyelocytes % Abs Neuts (Manual) Lymphocytes # (Manual) Monocytes # (Manual) Metamyelocytes # Toxic Vacuolation Platelet Estimate Plt Morphology Comment RBC Morphology VBG pH VBG pCO2 VBG pO2 VBG HCO3 VBG O2 Saturation VBG Base Excess Sodium Potassium Chloride Carbon Dioxide Anion Gap BUN Creatinine Estim Creat Clear Calc Estimated GFR POC Glucose 169 H 183 H 167 H Random Glucose Calcium Phosphorus Magnesium Albumin Triglycerides Beta-Hydroxybutyrate Progress Note: A&P Assessment and plan (1) Hypertriglyceridemia: Status: Acute (2) Uncontrolled diabetes mellitus with hyperglycemia, with long-term current use of insulin: Status: Acute (3) Diabetic ketoacidosis: Status: Acute (4) Pancreatitis: Status: Acute Plan Assessment: 49-year-old gentleman admitted with hypertriglyceridemia induced pancreatitis and diabetic ketoacidosis requiring insulin drip Plan: Neuro: No acute issues. Cardiac: No acute issues. Pulmonary: No acute issues. Renal: Metabolic acidosis secondary to pancreatitis/DKA, non oliguric. Continue to monitor renal indices and urine output. Endo: Diabetic ketoacidosis hypertriglyceridemia induced pancreatitis. Continue to titrate off insulin drip. GI: Hypertriglyceridemia induced pancreatitis with no necrosis on CT scan. ID: No acute issues Heme/Onc: No acute issues. Psych: No acute issues. Miscellaneous: No acute issues. Prophylaxis: Heparin Diet: NPO Quality Stroke Does the patient have a stroke diagnosis?: No VTE Prior VTE?: No VTE Risk Level:: Medical - moderate - high VTE Device Contraindication: Treatment Not Indicated VTE Drug Contraindication: N/A - Med Ordered
[2024-12-10 10:23] LABS: Glucose, Whole Blood 180 mg/dL (60-115)
[2024-12-10 12:24] LABS: Glucose, Whole Blood 212 mg/dL (60-115)
--- NOTE | 2024-12-10 12:27 | MHC.CM.PN ---
Met with pt to review d/c needs: pt resides with family, has no services and states his only barrier to care is a lack of PCP. Pt states he's tried everywhere and cannot find a provider. He has a working cellphone - Pt given a list of [facility] providers and encouraged him to inquire as he will need follow up and meds at d/c. Pt states he went to the [facility] in the past and will try there. Pt will remain in ICU until triglycerides are under 1000. He states he has transportation to home. CM to follow.
[2024-12-10 14:47] LABS: Glucose, Whole Blood 183 mg/dL (60-115)
[2024-12-10] MEDS: Insulin Regular/NS 100 UNIT/100 ML PLAST..BAG 6 UNIT IVCONT (16:42)
[2024-12-10 16:57] LABS: Glucose, Whole Blood 186 mg/dL (60-115)
[2024-12-10 19:35] LABS: Anion Gap 13 (12-20); Blood Urea Nitrogen 4 mg/dL (9-16); Calcium 8.2 mg/dL (8.4-10.2); Carbon Dioxide 21 mmol/L (22-29); Chloride 105 mmol/L (96-108); Creatinine Clr Calc Pharmacy 105.5; Estimated Glomerular Filt Rate > 60; Glucose Random 172 mg/dL (60-115); Magnesium 1.5 mg/dL (1.6-2.6); Phosphorus 1.9 mg/dL (2.7-4.5); Sodium 136 mmol/L (135-145)
[2024-12-10 19:56] LABS: Glucose, Whole Blood 172 mg/dL (60-115)
[2024-12-10 20:30] LABS: Glucose, Whole Blood 173 mg/dL (60-115)
[2024-12-10] MEDS: KCl 40 mEq in 5% Dex/0.45% Sod 40 MEQ/1,000 ML IV.SOLN 150 MEQ IVCONT (20:32)
[2024-12-10] MEDS: Magnesium Sulfate/H2O 2 GM/50 ML PIGGYBACK IV (20:38)
[2024-12-10 22:35] LABS: Glucose, Whole Blood 162 mg/dL (60-115)
[2024-12-11] VITALS (25 sets, daily range): BP systolic 106–144; BP diastolic 55–92; PULSE 85–106; RESP 15–34; TEMP 36.2–37.1; O2SAT 90–96; BMI 36.7
[2024-12-11] MEDS: fentaNYL citrate/PF 100 MCG/2 ML VIAL IVPUSH ×5 (00:02→20:36)
[2024-12-11] MEDS: Heparin Sodium,Porcine 5,000 UNIT/ML VIAL 5000 UNIT SUBCUT ×3 (00:36→16:23)
[2024-12-11 00:48] LABS: Glucose, Whole Blood 184 mg/dL (60-115)
[2024-12-11] MEDS: Potassium Phosphate/NS 15 MMOL/250 ML PLAST..BAG 62.5 MMOL IV ×2 (01:33→20:35)
[2024-12-11 02:35] LABS: Glucose, Whole Blood 176 mg/dL (60-115)
[2024-12-11] MEDS: Dextrose 5 % and Lactated Ring 1,000 ML 125 ML IVCONT ×3 (03:00→18:14)
--- NOTE | 2024-12-11 03:35 | PC.NURSE ---
CARE ASSUMED 7PM..ALERT..ORIENTED X3..RESTFUL..CALM/CO-OPERATIVE..REPOSITIONS SELF AD-PATRICK....REMAINS INSULIN DRIP 6 UNITS/HR WITH POC GLUCOSE WITHIN GOAL OF 150-200 PER ICU SUPERVISOR FISH BAIT PROCESSING..D5LR 125 CC/HR...HS LABS REVIEWED BY PROVIDER....D5LR 125 CC/HR HELD AND D51/2NS 1000ML/KCL 40MEQ X1 BAG INFUSED AT 150 CC/HR THEN D5LR RESUMED 125 CC/HR....MgSO4 2 GRAMS INFUSED...KPO4 15MMOL X2 BAGS ORDERED...INFUSION DELAYED UNTIL 3RD IV SITE STARTED VIA ULTRASOUND TO RIGHT ARM...VSS...S.TACH HR 100'S-110'S...CURRENTLY NSR HR 98-100...VOIDING CONCENTRATED ALFONSO-YELLOW URINE...PRN FENTANYL UTILIZED APPROX Q3 HOURS FOR C/O LOWER ABDOMINAL PAIN..PROVIDER OK'D SMALL AMOUNTS CLEAR LIQUIEDS..TAKING ICE CHIPS AND SMALL AMOUNT OF DIET WILLIAMS-PATRICIO..RESTFUL OVERNIGHT
[2024-12-11 04:24] LABS: Glucose, Whole Blood 170 mg/dL (60-115)
[2024-12-11 05:58] LABS: VBG Base Excess -2.7 mmol/L; VBG HCO3 21 mmol/L (22-26); VBG pCO2 33 mmHg; VBG pO2 44 mmHg
[2024-12-11 06:10] LABS: MANUAL DIFF FLAG NO
[2024-12-11 06:13] LABS: Glucose, Whole Blood 146 mg/dL (60-115)
[2024-12-11 06:13] LABS: Basophils Absolute Auto 0.1 X10*3/uL (0.0-0.2); Basophils Percent Auto 0.8 % (0-2); Eosinophils Absolute Auto 0.2 X10*3/uL (0.0-0.4); Eosinophils Percent Auto 1.8 % (0-4); Hematocrit 39.9 % (42.0-52.0); Hemoglobin 14.1 g/dl (14.0-18.0); Imm Gran Abs Auto 0.06 X10*3/uL (0.00-0.03); Imm Gran Pct Auto 0.7 % (0.0-0.4); Lymphocytes Absolute Auto 1.5 X10*3/uL (1.2-4.9); Lymphocytes Percent Auto 17.3 % (20-40); Mean Corpuscular HGB Conc 35.3 g/dl (31.0-36.0); Mean Corpuscular Hemoglobin 30.8 pg (27.0-33.0); Mean Corpuscular Volume 87.1 fL (80.0-98.0); Mean Platelet Volume 11.3 fL (9.4-12.4); Monocytes Absolute Auto 0.4 X10*3/uL (0.1-1.2); Monocytes Percent Auto 5.2 % (2-11); Neutrophils Absolute Auto 6.3 x10*3/uL (2.0-8.3); Neutrophils Percent Auto 74.2 % (45-73); Platelet Count 179 X10*3/uL (160-400); Red Blood Count 4.58 X10*6/uL (4.60-5.80); Red Cell Distribution Width 12.1 % (11.0-16.0); White Blood Count 8.5 X10*3/uL (4.8-10.8)
[2024-12-11 06:14] LABS: Venous Blood Gas Refer to POC result
[2024-12-11 06:33] LABS: Alanine Aminotransferase 40 U/L (0-40); Albumin Level 3.1 g/dL (3.5-5.0); Alkaline Phosphatase 90 U/L (39-117); Anion Gap 12 (12-20); Aspartate Amino Transferase 46 U/L (5-37); Bilirubin Total 0.8 mg/dL (0.0-1.0); Blood Urea Nitrogen 4 mg/dL (9-16); Calcium 8.2 mg/dL (8.4-10.2); Carbon Dioxide 21 mmol/L (22-29); Chloride 107 mmol/L (96-108); Creatinine Clr Calc Pharmacy 108.2; Estimated Glomerular Filt Rate > 60; Glucose Random 148 mg/dL (60-115); Lipase 219 U/L (8-78); Magnesium 1.8 mg/dL (1.6-2.6); Phosphorus 3.4 mg/dL (2.7-4.5); Potassium 3.1 mmol/L (3.3-5.1); Sodium 137 mmol/L (135-145); Total Protein 6.4 g/dL (6.5-8.0)
[2024-12-11 06:41] LABS: Triglycerides 1991 mg/dL (<150)
[2024-12-11] MEDS: Potassium Chloride/H20 10 MEQ/100 ML PIGGYBACK 100 MEQ IV ×8 (07:52→16:22)
[2024-12-11] MEDS: Insulin Regular/NS 100 UNIT/100 ML PLAST..BAG IVCONT ×2 (08:14→09:43)
[2024-12-11 08:15] LABS: Glucose, Whole Blood 146 mg/dL (60-115)
--- NOTE | 2024-12-11 10:22 | PM.CCPN ---
Subjective Subjective Date of Service: 12/11/24 Interval History: 49-year-old gentleman with underlying insulin-dependent diabetes mellitus and hypertension poorly compliant with his medication regimen with prior admissions for hypertriglyceridemia induced pancreatitis presented complain of abdominal pain. On ER evaluation patient with metabolic acidosis secondary to diabetic ketoacidosis and hypertriglyceridemia induced pancreatitis requiring initiation of insulin drip and admission to intensive care unit. His CT abdomen did not demonstrate pancreatic necrosis. No events overnight. Ketoacidosis part has resolved. Critical Care Time (minutes): 0 Physical Exam Vital Signs: Vital Signs: Last Vital Signs Temp 98.4 F 12/11/24 07:00 Pulse 85 12/11/24 09:00 Resp 21 H 12/11/24 09:00 BP 144/84 H 12/11/24 09:00 Pulse Ox 94 12/11/24 09:00 O2 Del Method Nasal Cannula 12/11/24 09:00 O2 Flow Rate 2 12/11/24 09:00 BMI result Body Mass Index 36.7 Const: General: no acute distress and alert Nutritional Appearance: not obese Orientation/consciousness: Other orientation findings ( oriented) HEENT: Head: Yes atraumatic Eyes: General: appearance normal, both eyes and all related structures Sclerae: sclerae normal EOM: EOMs intact bilaterally Neck: Neck: Yes supple Lymphatic: no lymphadenopathy noted Resp: Effort & Inspection: normal respiratory effort and no use of accessory muscles Auscultation: clear to auscultation bilaterally Cardio: Rate: regular rate Rhythm: regular rhythm Heart sounds: no gallops, no murmurs and no rubs Skin: General skin exam: other ( warm) Extrem: General: No clubbing, No cyanosis and No edema Objective Data Labs 12/11/24 05:52 12/11/24 05:52 Labs: Laboratory Results - last 24 hr 12/10/24 12/10/24 12/10/24 10:19 12:20 14:43 WBC RBC Hgb Hct MCV MCH MCHC RDW Plt Count MPV Immature Gran % (Auto) Neut % (Auto) Lymph % (Auto) [place] % (Auto) Eos % (Auto) Baso % (Auto) Lymph # (Auto) [place] # (Auto) Eos # (Auto) Baso # (Auto) Abs Immat Gran (auto) Absolute Neuts (auto) Absolute Nucleated RBC Nucleated RBC % (auto) VBG pH VBG pCO2 VBG pO2 VBG HCO3 VBG O2 Saturation VBG Base Excess Sodium Potassium Chloride Carbon Dioxide Anion Gap BUN Creatinine Estim Creat Clear Calc Estimated GFR POC Glucose 180 H 212 H 183 H Random Glucose Calcium Phosphorus Magnesium Total Bilirubin AST ALT Alkaline Phosphatase Total Protein Albumin Triglycerides Lipase 12/10/24 12/10/24 12/10/24 16:54 18:31 19:12 WBC RBC Hgb Hct MCV MCH MCHC RDW Plt Count MPV Immature Gran % (Auto) Neut % (Auto) Lymph % (Auto) [place] % (Auto) Eos % (Auto) Baso % (Auto) Lymph # (Auto) [place] # (Auto) Eos # (Auto) Baso # (Auto) Abs Immat Gran (auto) Absolute Neuts (auto) Absolute Nucleated RBC Nucleated RBC % (auto) VBG pH VBG pCO2 VBG pO2 VBG HCO3 VBG O2 Saturation VBG Base Excess Sodium 136 Potassium 3.0 L Chloride 105 Carbon Dioxide 21 L Anion Gap 13 BUN 4 L Creatinine 0.98 Estim Creat Clear Calc 105.5 Estimated GFR > 60 POC Glucose 186 H 172 H Random Glucose 172 H Calcium 8.2 L Phosphorus 1.9 L Magnesium 1.5 L Total Bilirubin AST ALT Alkaline Phosphatase Total Protein Albumin Triglycerides Lipase 12/10/24 12/10/24 12/11/24 20:27 22:32 00:45 WBC RBC Hgb Hct MCV MCH MCHC RDW Plt Count MPV Immature Gran % (Auto) Neut % (Auto) Lymph % (Auto) [place] % (Auto) Eos % (Auto) Baso % (Auto) Lymph # (Auto) [place] # (Auto) Eos # (Auto) Baso # (Auto) Abs Immat Gran (auto) Absolute Neuts (auto) Absolute Nucleated RBC Nucleated RBC % (auto) VBG pH VBG pCO2 VBG pO2 VBG HCO3 VBG O2 Saturation VBG Base Excess Sodium Potassium Chloride Carbon Dioxide Anion Gap BUN Creatinine Estim Creat Clear Calc Estimated GFR POC Glucose 173 H 162 H 184 H Random Glucose Calcium Phosphorus Magnesium Total Bilirubin AST ALT Alkaline Phosphatase Total Protein Albumin Triglycerides Lipase 12/11/24 12/11/24 12/11/24 02:32 04:21 05:52 WBC 8.5 RBC 4.58 L Hgb 14.1 Hct 39.9 L MCV 87.1 MCH 30.8 MCHC 35.3 RDW 12.1 Plt Count 179 MPV 11.3 Immature Gran % (Auto) 0.7 H Neut % (Auto) 74.2 H Lymph % (Auto) 17.3 L [place] % (Auto) 5.2 Eos % (Auto) 1.8 Baso % (Auto) 0.8 Lymph # (Auto) 1.5 [place] # (Auto) 0.4 Eos # (Auto) 0.2 Baso # (Auto) 0.1 Abs Immat Gran (auto) 0.06 H Absolute Neuts (auto) 6.3 Absolute Nucleated RBC 0.000 Nucleated RBC % (auto) 0.0 VBG pH VBG pCO2 VBG pO2 VBG HCO3 VBG O2 Saturation VBG Base Excess Sodium 137 Potassium 3.1 L Chloride 107 Carbon Dioxide 21 L Anion Gap 12 BUN 4 L Creatinine 0.97 Estim Creat Clear Calc 108.2 Estimated GFR > 60 POC Glucose 176 H 170 H Random Glucose 148 H Calcium 8.2 L Phosphorus 3.4 Magnesium 1.8 Total Bilirubin 0.8 AST 46 H ALT 40 Alkaline Phosphatase 90 Total Protein 6.4 L Albumin 3.1 L Triglycerides 1991 H Lipase 219 H 12/11/24 12/11/24 12/11/24 05:54 06:09 08:12 WBC RBC Hgb Hct MCV MCH MCHC RDW Plt Count MPV Immature Gran % (Auto) Neut % (Auto) Lymph % (Auto) [place] % (Auto) Eos % (Auto) Baso % (Auto) Lymph # (Auto) [place] # (Auto) Eos # (Auto) Baso # (Auto) Abs Immat Gran (auto) Absolute Neuts (auto) Absolute Nucleated RBC Nucleated RBC % (auto) VBG pH 7.40 VBG pCO2 33 VBG pO2 44 VBG HCO3 21 L VBG O2 Saturation 65.0 VBG Base Excess -2.7 Sodium Potassium Chloride Carbon Dioxide Anion Gap BUN Creatinine Estim Creat Clear Calc Estimated GFR POC Glucose 146 H 146 H Random Glucose Calcium Phosphorus Magnesium Total Bilirubin AST ALT Alkaline Phosphatase Total Protein Albumin Triglycerides Lipase Progress Note: A&P Assessment and plan (1) Hypertriglyceridemia: Status: Acute (2) Pancreatitis: Status: Acute (3) Uncontrolled diabetes mellitus with hyperglycemia, with long-term current use of insulin: Status: Acute Plan Assessment: 49-year-old gentleman admitted with hypertriglyceridemia induced pancreatitis and diabetic ketoacidosis requiring insulin drip Plan: Neuro: No acute issues. Cardiac: No acute issues. Pulmonary: No acute issues. Renal: Metabolic acidosis secondary to pancreatitis/DKA, resolved. Non oliguric. Continue to monitor renal indices and urine output. Endo: Diabetic ketoacidosis resolved. Hypertriglyceridemia induced pancreatitis, improving. Continue to titrate off insulin drip. GI: Hypertriglyceridemia induced pancreatitis with no necrosis on CT scan. ID: No acute issues Heme/Onc: No acute issues. Psych: No acute issues. Miscellaneous: No acute issues. Prophylaxis: Heparin Diet: Clear liquids Quality Stroke Does the patient have a stroke diagnosis?: No VTE Prior VTE?: No VTE Risk Level:: Medical - moderate - high VTE Device Contraindication: Treatment Not Indicated VTE Drug Contraindication: N/A - Med Ordered
[2024-12-11 10:26] LABS: Glucose, Whole Blood 233 mg/dL (60-115)
--- NOTE | 2024-12-11 11:10 | MHC.CM.PN ---
Pt will remain in ICU on an insulin gtt until his Triglycerides result under 1000. D/C plan is for a return to home w/outpt f/u. Pt understands that he needs to re-establish PCP or call for a new one. Both he and his parter have information on [facility] providers. Family to transport pt to home
[2024-12-11 12:37] LABS: Glucose, Whole Blood 216 mg/dL (60-115)
[2024-12-11 14:23] LABS: Glucose, Whole Blood 230 mg/dL (60-115)
[2024-12-11 16:07] LABS: Glucose, Whole Blood 184 mg/dL (60-115)
--- NOTE | 2024-12-11 17:03 | PC.NURSE ---
Assumed care of patient 0700. Patient's triglyceride result came back 1998. Goal per MD to have triglycerides decreased to <1000. Patient insulin gtt protocol changed from DKA to non-DKA per MD. Plan to continue insulin gtt with D5LR fluids for 24 hours and recheck triglycerides tomorrow morning. Goal POC glucose 120-200. Per MD POC glucose check Q2HR. Pt agreeable to progressive mobility as tolerated, sitting on edge of bed and pivots to commode 1 assist standby. Frequent monitoring of abdominal pain. PRN fentanyl 100 mcg given approx 14:15 this shift for pain 02/07. Patient reports pain improvement. Potassium replacement total of 80 mEq IV administered this shift per AUG orders.
[2024-12-11 18:26] LABS: Glucose, Whole Blood 163 mg/dL (60-115)
[2024-12-11 19:55] LABS: Albumin Level 3.1 g/dL (3.5-5.0); Anion Gap 11 (12-20); Blood Urea Nitrogen 3 mg/dL (9-16); Calcium 8.6 mg/dL (8.4-10.2); Carbon Dioxide 21 mmol/L (22-29); Chloride 105 mmol/L (96-108); Estimated Glomerular Filt Rate > 60; Glucose Random 218 mg/dL (60-115); Magnesium 1.6 mg/dL (1.6-2.6); Phosphorus 1.8 mg/dL (2.7-4.5); Potassium 3.3 mmol/L (3.3-5.1); Sodium 134 mmol/L (135-145)
[2024-12-11 20:30] LABS: Glucose, Whole Blood 204 mg/dL (60-115)
[2024-12-11] MEDS: Potassium Chloride Packet 20 MEQ PACKET 40 MEQ PO (20:33)
[2024-12-11 22:10] LABS: Glucose, Whole Blood 192 mg/dL (60-115)
[2024-12-12] VITALS (23 sets, daily range): BP systolic 105–158; BP diastolic 79–97; PULSE 77–99; RESP 15–28; TEMP 36.1–37.2; O2SAT 91–96; BMI 36.6
[2024-12-12 00:11] LABS: Glucose, Whole Blood 208 mg/dL (60-115)
[2024-12-12] MEDS: fentaNYL citrate/PF 100 MCG/2 ML VIAL IVPUSH ×3 (00:13→17:43)
[2024-12-12] MEDS: Dextrose 5 % and Lactated Ring 1,000 ML 125 ML IVCONT ×3 (01:58→18:45)
[2024-12-12] MEDS: Potassium Phosphate/NS 15 MMOL/250 ML PLAST..BAG 62.5 MMOL IV (02:04)
[2024-12-12] MEDS: Heparin Sodium,Porcine 5,000 UNIT/ML VIAL 5000 UNIT SUBCUT ×3 (02:05→17:43)
[2024-12-12 02:25] LABS: Glucose, Whole Blood 235 mg/dL (60-115)
[2024-12-12 04:48] LABS: Glucose, Whole Blood 237 mg/dL (60-115)
[2024-12-12 05:33] LABS: Basophils Percent Auto 0.6 % (0-2); Eosinophils Absolute Auto 0.2 X10*3/uL (0.0-0.4); Eosinophils Percent Auto 3.2 % (0-4); Hematocrit 38.4 % (42.0-52.0); Hemoglobin 13.4 g/dl (14.0-18.0); Imm Gran Abs Auto 0.06 X10*3/uL (0.00-0.03); Imm Gran Pct Auto 0.9 % (0.0-0.4); Lymphocytes Absolute Auto 1.3 X10*3/uL (1.2-4.9); Lymphocytes Percent Auto 18.3 % (20-40); MANUAL DIFF FLAG NO; Mean Corpuscular HGB Conc 34.9 g/dl (31.0-36.0); Mean Corpuscular Hemoglobin 30.9 pg (27.0-33.0); Mean Corpuscular Volume 88.7 fL (80.0-98.0); Mean Platelet Volume 11.1 fL (9.4-12.4); Monocytes Absolute Auto 0.4 X10*3/uL (0.1-1.2); Monocytes Percent Auto 5.6 % (2-11); Neutrophils Percent Auto 71.4 % (45-73); Platelet Count 259 X10*3/uL (160-400); Red Blood Count 4.33 X10*6/uL (4.60-5.80); Red Cell Distribution Width 12.4 % (11.0-16.0); White Blood Count 6.9 X10*3/uL (4.8-10.8)
[2024-12-12 05:58] LABS: Albumin Level 3.2 g/dL (3.5-5.0); Anion Gap 15 (12-20); Blood Urea Nitrogen 3 mg/dL (9-16); Calcium 8.7 mg/dL (8.4-10.2); Carbon Dioxide 20 mmol/L (22-29); Chloride 106 mmol/L (96-108); Creatinine Clr Calc Pharmacy 123.4; Estimated Glomerular Filt Rate > 60; Glucose Random 239 mg/dL (60-115); Magnesium 1.6 mg/dL (1.6-2.6); Phosphorus 3.1 mg/dL (2.7-4.5); Potassium 3.6 mmol/L (3.3-5.1); Sodium 137 mmol/L (135-145)
[2024-12-12 06:05] LABS: Triglycerides 1477 mg/dL (<150)
[2024-12-12 06:57] LABS: Glucose, Whole Blood 238 mg/dL (60-115)
[2024-12-12 08:02] LABS: Glucose, Whole Blood 258 mg/dL (60-115)
[2024-12-12] MEDS: Potassium Chloride Packet 20 MEQ PACKET 60 MEQ PO ×2 (08:42→21:39)
[2024-12-12] MEDS: Insulin Regular/NS 100 UNIT/100 ML PLAST..BAG IVCONT (08:44)
[2024-12-12 10:18] LABS: Glucose, Whole Blood 294 mg/dL (60-115)
--- NOTE | 2024-12-12 10:52 | P.PNCC_ITS ---
Subjective Subjective Date of Service: 12/12/24 Interval History: 49-year-old gentleman with underlying insulin-dependent diabetes mellitus and hypertension poorly compliant with his medication regimen with prior admissions for hypertriglyceridemia induced pancreatitis presented complain of abdominal pain. On ER evaluation patient with metabolic acidosis secondary to diabetic ketoacidosis and hypertriglyceridemia induced pancreatitis requiring initiation of insulin drip and admission to intensive care unit. His CT abdomen did not demonstrate pancreatic necrosis. No events overnight. Critical Care Time (minutes): 0 Physical Exam 2 Vital Signs: Vital Signs: Last Vital Signs Temp 97.3 F 12/12/24 08:00 Pulse 88 12/12/24 10:00 Resp 25 H 12/12/24 10:00 BP 145/94 H 12/12/24 10:00 Pulse Ox 95 12/12/24 10:00 O2 Del Method Room Air 12/12/24 10:00 O2 Flow Rate 2 12/11/24 09:00 BMI result Body Mass Index 36.6 Const: General: no acute distress, alert and awake Eyes: Sclerae: sclerae normal EOM: EOMs intact bilaterally Neck: Neck: Yes no lymphadenopathy, Yes trachea midline and Yes supple Resp: Effort & Inspection: normal respiratory effort and no respiratory distress Auscultation: clear to auscultation bilaterally Cardio: Rate: regular rate Rhythm: regular rhythm Heart sounds: no gallops, no murmurs and no rubs GI: Palpation (GI): Soft to palpation and Other GI palpation findings present ( Nontender) Auscultation: normal bowel sounds Extrem: General: Yes no pedal edema, No clubbing and No cyanosis Objective Data Labs 12/12/24 04:45 12/12/24 04:45 Labs: Laboratory Results - last 24 hr 12/11/24 12/11/24 12/11/24 12:32 14:20 16:01 WBC RBC Hgb Hct MCV MCH MCHC RDW Plt Count MPV Immature Gran % (Auto) Neut % (Auto) Lymph % (Auto) [place] % (Auto) Eos % (Auto) Baso % (Auto) Lymph # (Auto) [place] # (Auto) Eos # (Auto) Baso # (Auto) Abs Immat Gran (auto) Absolute Neuts (auto) Absolute Nucleated RBC Nucleated RBC % (auto) Sodium Potassium Chloride Carbon Dioxide Anion Gap BUN Creatinine Estim Creat Clear Calc Estimated GFR POC Glucose 216 H 230 H 184 H Random Glucose Calcium Phosphorus Magnesium Albumin Triglycerides 12/11/24 12/11/24 12/11/24 18:17 19:27 20:26 WBC RBC Hgb Hct MCV MCH MCHC RDW Plt Count MPV Immature Gran % (Auto) Neut % (Auto) Lymph % (Auto) [place] % (Auto) Eos % (Auto) Baso % (Auto) Lymph # (Auto) [place] # (Auto) Eos # (Auto) Baso # (Auto) Abs Immat Gran (auto) Absolute Neuts (auto) Absolute Nucleated RBC Nucleated RBC % (auto) Sodium 134 L Potassium 3.3 Chloride 105 Carbon Dioxide 21 L Anion Gap 11 L BUN 3 L Creatinine 0.86 Estim Creat Clear Calc 122.0 Estimated GFR > 60 POC Glucose 163 H 204 H Random Glucose 218 H Calcium 8.6 Phosphorus 1.8 L Magnesium 1.6 Albumin 3.1 L Triglycerides 12/11/24 12/11/24 12/12/24 22:07 23:56 02:20 WBC RBC Hgb Hct MCV MCH MCHC RDW Plt Count MPV Immature Gran % (Auto) Neut % (Auto) Lymph % (Auto) [place] % (Auto) Eos % (Auto) Baso % (Auto) Lymph # (Auto) [place] # (Auto) Eos # (Auto) Baso # (Auto) Abs Immat Gran (auto) Absolute Neuts (auto) Absolute Nucleated RBC Nucleated RBC % (auto) Sodium Potassium Chloride Carbon Dioxide Anion Gap BUN Creatinine Estim Creat Clear Calc Estimated GFR POC Glucose 192 H 208 H 235 H Random Glucose Calcium Phosphorus Magnesium Albumin Triglycerides 12/12/24 12/12/24 12/12/24 04:42 04:45 06:52 WBC 6.9 RBC 4.33 L Hgb 13.4 L Hct 38.4 L MCV 88.7 MCH 30.9 MCHC 34.9 RDW 12.4 Plt Count 259 D MPV 11.1 Immature Gran % (Auto) 0.9 H Neut % (Auto) 71.4 Lymph % (Auto) 18.3 L [place] % (Auto) 5.6 Eos % (Auto) 3.2 Baso % (Auto) 0.6 Lymph # (Auto) 1.3 [place] # (Auto) 0.4 Eos # (Auto) 0.2 Baso # (Auto) 0.0 Abs Immat Gran (auto) 0.06 H Absolute Neuts (auto) 5.0 Absolute Nucleated RBC 0.000 Nucleated RBC % (auto) 0.0 Sodium 137 Potassium 3.6 Chloride 106 Carbon Dioxide 20 L Anion Gap 15 BUN 3 L Creatinine 0.85 Estim Creat Clear Calc 123.4 Estimated GFR > 60 POC Glucose 237 H 238 H Random Glucose 239 H Calcium 8.7 Phosphorus 3.1 Magnesium 1.6 Albumin 3.2 L Triglycerides 1477 H 12/12/24 12/12/24 07:55 10:12 WBC RBC Hgb Hct MCV MCH MCHC RDW Plt Count MPV Immature Gran % (Auto) Neut % (Auto) Lymph % (Auto) [place] % (Auto) Eos % (Auto) Baso % (Auto) Lymph # (Auto) [place] # (Auto) Eos # (Auto) Baso # (Auto) Abs Immat Gran (auto) Absolute Neuts (auto) Absolute Nucleated RBC Nucleated RBC % (auto) Sodium Potassium Chloride Carbon Dioxide Anion Gap BUN Creatinine Estim Creat Clear Calc Estimated GFR POC Glucose 258 H 294 H Random Glucose Calcium Phosphorus Magnesium Albumin Triglycerides Progress Note: A&P Assessment and plan (1) Hypertriglyceridemia: Status: Acute (2) Pancreatitis: Status: Acute (3) Uncontrolled diabetes mellitus with hyperglycemia, with long-term current use of insulin: Status: Acute Plan Assessment: 49-year-old gentleman admitted with hypertriglyceridemia induced pancreatitis and diabetic ketoacidosis requiring insulin drip Plan: Neuro: No acute issues. Cardiac: No acute issues. Pulmonary: No acute issues. Renal: Metabolic acidosis secondary to pancreatitis/DKA, resolved. Non oliguric. Continue to monitor renal indices and urine output. Endo: Diabetic ketoacidosis resolved. Hypertriglyceridemia induced pancreatitis, improving. Continue to titrate off insulin drip. GI: Hypertriglyceridemia induced pancreatitis with no necrosis on CT scan. ID: No acute issues Heme/Onc: No acute issues. Psych: No acute issues. Miscellaneous: No acute issues. Prophylaxis: Heparin Diet: Clear liquids Quality Stroke Does the patient have a stroke diagnosis?: No VTE Prior VTE?: No VTE Risk Level:: Medical - moderate - high VTE Device Contraindication: Treatment Not Indicated VTE Drug Contraindication: N/A - Med Ordered
[2024-12-12 11:10] LABS: Glucose, Whole Blood 241 mg/dL (60-115)
[2024-12-12 12:14] LABS: Glucose, Whole Blood 250 mg/dL (60-115)
[2024-12-12 13:31] LABS: Glucose, Whole Blood 214 mg/dL (60-115)
[2024-12-12 14:15] LABS: Glucose, Whole Blood 239 mg/dL (60-115)
[2024-12-12 15:28] LABS: Glucose, Whole Blood 312 mg/dL (60-115)
[2024-12-12 16:50] LABS: Glucose, Whole Blood 232 mg/dL (60-115)
[2024-12-12 17:33] LABS: Glucose, Whole Blood 202 mg/dL (60-115)
[2024-12-12 18:16] LABS: Glucose, Whole Blood 213 mg/dL (60-115)
[2024-12-12 19:17] LABS: Glucose, Whole Blood 192 mg/dL (60-115)
[2024-12-12 19:45] LABS: Anion Gap 12 (12-20); Blood Urea Nitrogen < 3 mg/dL (9-16); Calcium 8.9 mg/dL (8.4-10.2); Carbon Dioxide 23 mmol/L (22-29); Chloride 105 mmol/L (96-108); Estimated Glomerular Filt Rate > 60; Glucose Random 201 mg/dL (60-115); Magnesium 1.6 mg/dL (1.6-2.6); Phosphorus 2.7 mg/dL (2.7-4.5); Potassium 3.4 mmol/L (3.3-5.1); Sodium 137 mmol/L (135-145)
[2024-12-12 20:07] LABS: Glucose, Whole Blood 187 mg/dL (60-115)
--- NOTE | 2024-12-12 20:12 | PC.NURSE ---
Neuro: alert and oriented x4 Resp: lung sounds clear TA on RA, with sleep uses NC at times not needed this shift no resp distress noted Cardiac: SR, no edema GI/: clear liquid diet, voiding in urinal, See MAR for insulin gtt details. Integumentary/Musculoskeletal: OOB to commode no open area noted.?
[2024-12-12] MEDS: Acetaminophen 325 MG TABLET 650 MG PO (21:39)
[2024-12-12 22:02] LABS: Glucose, Whole Blood 184 mg/dL (60-115)
[2024-12-12] MEDS: Albumin Human 25 % 100 ML IV (22:19)
[2024-12-13] VITALS (13 sets, daily range): BP systolic 122–156; BP diastolic 73–93; PULSE 71–93; RESP 15–24; TEMP 36–36.8; O2SAT 91–96; BMI 36.6
[2024-12-13 00:01] LABS: Glucose, Whole Blood 158 mg/dL (60-115)
[2024-12-13] MEDS: Heparin Sodium,Porcine 5,000 UNIT/ML VIAL 5000 UNIT SUBCUT ×3 (00:52→16:06)
[2024-12-13] MEDS: Dextrose 5 % and Lactated Ring 1,000 ML 125 ML IVCONT (00:53)
[2024-12-13 02:07] LABS: Glucose, Whole Blood 169 mg/dL (60-115)
[2024-12-13] MEDS: Insulin Regular/NS 100 UNIT/100 ML PLAST..BAG IVCONT (03:14)
[2024-12-13] MEDS: Albumin Human 25 % 100 ML IV (03:14)
[2024-12-13 04:05] LABS: Glucose, Whole Blood 178 mg/dL (60-115)
[2024-12-13 05:19] LABS: MANUAL DIFF FLAG NO
[2024-12-13 05:26] LABS: Basophils Percent Auto 0.6 % (0-2); Eosinophils Absolute Auto 0.3 X10*3/uL (0.0-0.4); Eosinophils Percent Auto 5.7 % (0-4); Hematocrit 35.8 % (42.0-52.0); Hemoglobin 12.6 g/dl (14.0-18.0); Imm Gran Abs Auto 0.09 X10*3/uL (0.00-0.03); Imm Gran Pct Auto 1.8 % (0.0-0.4); Lymphocytes Absolute Auto 1.7 X10*3/uL (1.2-4.9); Lymphocytes Percent Auto 34.7 % (20-40); Mean Corpuscular HGB Conc 35.2 g/dl (31.0-36.0); Mean Corpuscular Hemoglobin 31.3 pg (27.0-33.0); Mean Corpuscular Volume 88.8 fL (80.0-98.0); Mean Platelet Volume 10.4 fL (9.4-12.4); Monocytes Absolute Auto 0.5 X10*3/uL (0.1-1.2); Monocytes Percent Auto 9.2 % (2-11); Neutrophils Absolute Auto 2.4 x10*3/uL (2.0-8.3); Platelet Count 275 X10*3/uL (160-400); Red Blood Count 4.03 X10*6/uL (4.60-5.80); Red Cell Distribution Width 12.1 % (11.0-16.0); White Blood Count 4.9 X10*3/uL (4.8-10.8)
[2024-12-13 05:44] LABS: Albumin Level 3.7 g/dL (3.5-5.0); Anion Gap 14 (12-20); Blood Urea Nitrogen < 3 mg/dL (9-16); Calcium 9.3 mg/dL (8.4-10.2); Carbon Dioxide 25 mmol/L (22-29); Chloride 104 mmol/L (96-108); Creatinine Clr Calc Pharmacy 124.8; Estimated Glomerular Filt Rate > 60; Glucose Random 173 mg/dL (60-115); Magnesium 1.7 mg/dL (1.6-2.6); Phosphorus 3.4 mg/dL (2.7-4.5); Potassium 3.6 mmol/L (3.3-5.1); Sodium 139 mmol/L (135-145); Triglycerides 736 mg/dL (<150)
[2024-12-13 06:12] LABS: Glucose, Whole Blood 212 mg/dL (60-115)
[2024-12-13] MEDS: Lactated Ringers 1,000 ML 100 ML IVCONT (06:25)
[2024-12-13] MEDS: Insulin Glargine,Hum.rec.anlog 100 UNIT/ML 10 ML VIAL 30 UNIT SUBCUT (06:25)
[2024-12-13] MEDS: gemfibroziL 600 MG TABLET PO ×2 (07:33→16:06)
[2024-12-13 08:10] LABS: Glucose, Whole Blood 223 mg/dL (60-115)
[2024-12-13] MEDS: Insulin Lispro 100 UNIT/ML 3 ML VIAL SUBCUT ×4 (08:23→22:58)
--- NOTE | 2024-12-13 09:13 | P.PNCC_ITS ---
Subjective Subjective Date of Service: 12/13/24 Interval History: 49-year-old gentleman with underlying insulin-dependent diabetes mellitus and hypertension poorly compliant with his medication regimen with prior admissions for hypertriglyceridemia induced pancreatitis presented complain of abdominal pain. On ER evaluation patient with metabolic acidosis secondary to diabetic ketoacidosis and hypertriglyceridemia induced pancreatitis requiring initiation of insulin drip and admission to intensive care unit. His CT abdomen did not demonstrate pancreatic necrosis. No events overnight. Critical Care Time (minutes): 0 Physical Exam 2 Vital Signs: Vital Signs: Last Vital Signs Temp 97.9 F 12/13/24 04:00 Pulse 75 12/13/24 06:00 Resp 24 H 12/13/24 06:00 BP 149/89 H 12/13/24 06:00 Pulse Ox 94 12/13/24 06:00 O2 Del Method Room Air 12/13/24 06:00 O2 Flow Rate 2 12/11/24 09:00 BMI result Body Mass Index 36.6 Const: General: no acute distress, alert and awake Eyes: Sclerae: sclerae normal EOM: EOMs intact bilaterally Neck: Neck: Yes no lymphadenopathy, Yes trachea midline and Yes supple Resp: Effort & Inspection: normal respiratory effort and no respiratory distress Auscultation: clear to auscultation bilaterally Cardio: Rate: regular rate Rhythm: regular rhythm Heart sounds: no gallops, no murmurs and no rubs GI: Palpation (GI): Soft to palpation and Other GI palpation findings present ( Nontender) Auscultation: normal bowel sounds Extrem: General: Yes no pedal edema, No clubbing and No cyanosis Objective Data Labs 12/13/24 04:22 12/13/24 04:22 Labs: Laboratory Results - last 24 hr 12/12/24 12/12/24 12/12/24 10:12 11:06 12:10 WBC RBC Hgb Hct MCV MCH MCHC RDW Plt Count MPV Immature Gran % (Auto) Neut % (Auto) Lymph % (Auto) [place] % (Auto) Eos % (Auto) Baso % (Auto) Lymph # (Auto) [place] # (Auto) Eos # (Auto) Baso # (Auto) Abs Immat Gran (auto) Absolute Neuts (auto) Absolute Nucleated RBC Nucleated RBC % (auto) Hold Purple Top Sodium Potassium Chloride Carbon Dioxide Anion Gap BUN Creatinine Estim Creat Clear Calc Estimated GFR POC Glucose 294 H 241 H 250 H Random Glucose Calcium Phosphorus Magnesium Albumin Triglycerides Hold Yellow Top 12/12/24 12/12/24 12/12/24 13:27 14:11 15:24 WBC RBC Hgb Hct MCV MCH MCHC RDW Plt Count MPV Immature Gran % (Auto) Neut % (Auto) Lymph % (Auto) [place] % (Auto) Eos % (Auto) Baso % (Auto) Lymph # (Auto) [place] # (Auto) Eos # (Auto) Baso # (Auto) Abs Immat Gran (auto) Absolute Neuts (auto) Absolute Nucleated RBC Nucleated RBC % (auto) Hold Purple Top Sodium Potassium Chloride Carbon Dioxide Anion Gap BUN Creatinine Estim Creat Clear Calc Estimated GFR POC Glucose 214 H 239 H 312 H Random Glucose Calcium Phosphorus Magnesium Albumin Triglycerides Hold Yellow Top 12/12/24 12/12/24 12/12/24 16:47 17:26 18:13 WBC RBC Hgb Hct MCV MCH MCHC RDW Plt Count MPV Immature Gran % (Auto) Neut % (Auto) Lymph % (Auto) [place] % (Auto) Eos % (Auto) Baso % (Auto) Lymph # (Auto) [place] # (Auto) Eos # (Auto) Baso # (Auto) Abs Immat Gran (auto) Absolute Neuts (auto) Absolute Nucleated RBC Nucleated RBC % (auto) Hold Purple Top Sodium Potassium Chloride Carbon Dioxide Anion Gap BUN Creatinine Estim Creat Clear Calc Estimated GFR POC Glucose 232 H 202 H 213 H Random Glucose Calcium Phosphorus Magnesium Albumin Triglycerides Hold Yellow Top 12/12/24 12/12/24 12/12/24 19:11 19:12 20:03 WBC RBC Hgb Hct MCV MCH MCHC RDW Plt Count MPV Immature Gran % (Auto) Neut % (Auto) Lymph % (Auto) [place] % (Auto) Eos % (Auto) Baso % (Auto) Lymph # (Auto) [place] # (Auto) Eos # (Auto) Baso # (Auto) Abs Immat Gran (auto) Absolute Neuts (auto) Absolute Nucleated RBC Nucleated RBC % (auto) Hold Purple Top SEE NOTE Sodium 137 Potassium 3.4 Chloride 105 Carbon Dioxide 23 Anion Gap 12 BUN < 3 L Creatinine 0.80 Estim Creat Clear Calc 131.0 Estimated GFR > 60 POC Glucose 192 H 187 H Random Glucose 201 H Calcium 8.9 Phosphorus 2.7 Magnesium 1.6 Albumin 3.0 L Triglycerides Hold Yellow Top See Note 12/12/24 12/12/24 12/13/24 21:58 23:57 02:01 WBC RBC Hgb Hct MCV MCH MCHC RDW Plt Count MPV Immature Gran % (Auto) Neut % (Auto) Lymph % (Auto) [place] % (Auto) Eos % (Auto) Baso % (Auto) Lymph # (Auto) [place] # (Auto) Eos # (Auto) Baso # (Auto) Abs Immat Gran (auto) Absolute Neuts (auto) Absolute Nucleated RBC Nucleated RBC % (auto) Hold Purple Top Sodium Potassium Chloride Carbon Dioxide Anion Gap BUN Creatinine Estim Creat Clear Calc Estimated GFR POC Glucose 184 H 158 H 169 H Random Glucose Calcium Phosphorus Magnesium Albumin Triglycerides Hold Yellow Top 12/13/24 12/13/24 12/13/24 04:01 04:22 06:08 WBC 4.9 RBC 4.03 L Hgb 12.6 L Hct 35.8 L MCV 88.8 MCH 31.3 MCHC 35.2 RDW 12.1 Plt Count 275 MPV 10.4 Immature Gran % (Auto) 1.8 H Neut % (Auto) 48.0 Lymph % (Auto) 34.7 [place] % (Auto) 9.2 Eos % (Auto) 5.7 H Baso % (Auto) 0.6 Lymph # (Auto) 1.7 [place] # (Auto) 0.5 Eos # (Auto) 0.3 Baso # (Auto) 0.0 Abs Immat Gran (auto) 0.09 H Absolute Neuts (auto) 2.4 Absolute Nucleated RBC 0.000 Nucleated RBC % (auto) 0.0 Hold Purple Top Sodium 139 Potassium 3.6 Chloride 104 Carbon Dioxide 25 Anion Gap 14 BUN < 3 L Creatinine 0.84 Estim Creat Clear Calc 124.8 Estimated GFR > 60 POC Glucose 178 H 212 H Random Glucose 173 H Calcium 9.3 Phosphorus 3.4 Magnesium 1.7 Albumin 3.7 Triglycerides 736 H Hold Yellow Top 12/13/24 08:03 WBC RBC Hgb Hct MCV MCH MCHC RDW Plt Count MPV Immature Gran % (Auto) Neut % (Auto) Lymph % (Auto) [place] % (Auto) Eos % (Auto) Baso % (Auto) Lymph # (Auto) [place] # (Auto) Eos # (Auto) Baso # (Auto) Abs Immat Gran (auto) Absolute Neuts (auto) Absolute Nucleated RBC Nucleated RBC % (auto) Hold Purple Top Sodium Potassium Chloride Carbon Dioxide Anion Gap BUN Creatinine Estim Creat Clear Calc Estimated GFR POC Glucose 223 H Random Glucose Calcium Phosphorus Magnesium Albumin Triglycerides Hold Yellow Top Progress Note: A&P Assessment and plan (1) Hypertriglyceridemia: Status: Acute (2) Pancreatitis: Status: Acute (3) Uncontrolled diabetes mellitus with hyperglycemia, with long-term current use of insulin: Status: Acute Plan Assessment: 49-year-old gentleman admitted with hypertriglyceridemia induced pancreatitis and diabetic ketoacidosis requiring insulin drip Plan: Neuro: No acute issues. Cardiac: No acute issues. Pulmonary: No acute issues. Renal: Metabolic acidosis secondary to pancreatitis/DKA, resolved. Non oliguric. Continue to monitor renal indices and urine output. Endo: Diabetic ketoacidosis resolved. Hypertriglyceridemia induced pancreatitis, improving. Visit off insulin drip. Restarted on gemfibrozil. GI: Hypertriglyceridemia induced pancreatitis with no necrosis on CT scan. ID: No acute issues Heme/Onc: No acute issues. Psych: No acute issues. Miscellaneous: No acute issues. Prophylaxis: Heparin Diet: Diabetic Quality Stroke Does the patient have a stroke diagnosis?: No VTE Prior VTE?: No VTE Risk Level:: Medical - moderate - high VTE Device Contraindication: Treatment Not Indicated VTE Drug Contraindication: N/A - Med Ordered
[2024-12-13 11:54] LABS: Glucose, Whole Blood 302 mg/dL (60-115)
[2024-12-13 16:11] LABS: Glucose, Whole Blood 286 mg/dL (60-115)
--- NOTE | 2024-12-13 16:15 | PM.EVENT ---
Event Note Date of Service: 12/14/24 Event Note: Patient was downgraded from ICU today Seen and examined-no new complaint Physical and Assessment and plan as per ICU please see in ICU note from today. Time Spent With Patient Time: Total time managing care of this patient today ____ minutes.
[2024-12-13 19:39] LABS: Glucose, Whole Blood 277 mg/dL (60-115)
[2024-12-13 20:50] LABS: Glucose, Whole Blood 273 mg/dL (60-115)
[2024-12-13] MEDS: Acetaminophen 325 MG TABLET 650 MG PO (22:57)
[2024-12-14] MEDS: Heparin Sodium,Porcine 5,000 UNIT/ML VIAL 5000 UNIT SUBCUT ×3 (00:46→17:17)
[2024-12-14 03:44] VITALS: BP 122/77; PULSE 72; RESP 18; TEMP 36.3; O2SAT 95
[2024-12-14 05:50] LABS: Hematocrit 38.7 % (42.0-52.0); Hemoglobin 13.4 g/dl (14.0-18.0); Mean Corpuscular HGB Conc 34.6 g/dl (31.0-36.0); Mean Corpuscular Hemoglobin 30.7 pg (27.0-33.0); Mean Corpuscular Volume 88.6 fL (80.0-98.0); Mean Platelet Volume 9.7 fL (9.4-12.4); Platelet Count 303 X10*3/uL (160-400); Red Blood Count 4.37 X10*6/uL (4.60-5.80); White Blood Count 4.3 X10*3/uL (4.8-10.8)
[2024-12-14 06:05] LABS: Albumin Level 3.4 g/dL (3.5-5.0); Anion Gap 15 (12-20); Blood Urea Nitrogen 10 mg/dL (9-16); Calcium 9.5 mg/dL (8.4-10.2); Carbon Dioxide 24 mmol/L (22-29); Chloride 102 mmol/L (96-108); Creatinine Clr Calc Pharmacy 97.9; Estimated Glomerular Filt Rate > 60; Glucose Random 287 mg/dL (60-115); Magnesium 1.8 mg/dL (1.6-2.6); Phosphorus 5.7 mg/dL (2.7-4.5); Potassium 3.8 mmol/L (3.3-5.1); Sodium 137 mmol/L (135-145)
[2024-12-14 07:45] LABS: Glucose, Whole Blood 328 mg/dL (60-115)
[2024-12-14 07:47] VITALS: BP 135/81; PULSE 74; RESP 18; TEMP 37; O2SAT 93
[2024-12-14] MEDS: gemfibroziL 600 MG TABLET PO ×2 (08:12→17:16)
[2024-12-14] MEDS: Insulin Lispro 100 UNIT/ML 3 ML VIAL SUBCUT ×5 (08:14→21:25)
[2024-12-14 11:11] LABS: Glucose, Whole Blood 392 mg/dL (60-115)
[2024-12-14] MEDS: Insulin Glargine,Hum.rec.anlog 100 UNIT/ML 10 ML VIAL 40 UNIT SUBCUT (11:37)
--- NOTE | 2024-12-14 15:24 | P.PNIM_ITS ---
Subjective Subjective Date of Service: 12/14/24 Interval History: pancreatitis , dm , triglyceridemia Review of Systems Abdominal pain seems to be improved Fingersticks still elevated significantly Review of Systems: Yes all other systems are reviewed and are negative Physical Exam 2 Vital Signs: Vital Signs: Last Vital Signs Temp 98.6 F 12/14/24 07:47 Pulse 74 12/14/24 07:47 Resp 18 12/14/24 07:47 BP 135/81 12/14/24 07:47 Pulse Ox 93 12/14/24 07:47 O2 Del Method Room Air 12/14/24 07:47 O2 Flow Rate 2 12/11/24 09:00 BMI result Body Mass Index 36.6 Appearance: Alert.? Oriented X3.? cvs: rrr, [id number]. res: clear to auscultation ,no rhonchii or wheezing abd: no rebound or guarding ,nt, bs present. ext pulses present , no cyanosis . neuro: axo3 , nonfocal. Objective Data Active Medications Acetaminophen (Acetaminophen 325 Mg Tablet) 650 mg PO Q4H PRN PRN Reason: Pain, Mild (Pain Scale 1-3) Last Admin: 12/13/24 22:57 Dose: 650 mg Documented By: KAREN Comments: per pt request Dextrose (Dextrose 50 % 25 Gm/50 Ml Syringe) 25 gm IVPUSH Q30M PRN PRN Reason: BG < 70 Dextrose (Dextrose 50 % 25 Gm/50 Ml Syringe) 25 gm IVPUSH Q15M PRN PRN Reason: per Hypoglycemia Standing Ord. Gemfibrozil (Gemfibrozil 600 Mg Tablet) 600 mg PO BIDAC [facility] Last Admin: 12/14/24 08:12 Dose: 600 mg Documented By: LUZ Heparin Sodium (Porcine) (Heparin Sodium,Porcine 5,000 Unit/Ml Vial) 5,000 unit SUBCUT Q8H [facility] Last Admin: 12/14/24 08:13 Dose: 5,000 unit Documented By: LUZ Insulin Glargine (Insulin Glargine,Hum.Rec.Anlog 100 Unit/Ml 10 Ml Vial) 40 unit SUBCUT DAILY [facility] Last Admin: 12/14/24 11:37 Dose: 40 unit Documented By: LUZ Insulin Human Lispro (Insulin Lispro 100 Unit/Ml 3 Ml Vial) 0 unit SUBCUT QIDACHS [facility]; Protocol Last Admin: 12/14/24 11:39 Dose: 10 unit Documented By: LUZ Morphine Sulfate (Morphine Sulfate 2 Mg/Ml Cartridge) 2 mg IVPUSH Q3H PRN; Protocol PRN Reason: Pain, Severe (Pain Scale 7-10) Labs 12/14/24 05:34 12/14/24 05:34 Labs: Laboratory Results - last 24 hr 12/13/24 12/13/24 12/13/24 16:01 19:18 20:46 MCV MCH MCHC RDW Plt Count MPV Absolute Nucleated RBC Nucleated RBC % (auto) Neutrophils % (Manual) Band Neutrophils % Lymphocytes % (Manual) Monocytes % (Manual) Eosinophils % (Manual) Metamyelocytes % Myelocytes % Abs Neuts (Manual) Lymphocytes # (Manual) Monocytes # (Manual) Eosinophils # (Manual) Metamyelocytes # Toxic Granulation Toxic Vacuolation Platelet Estimate Plt Morphology Comment RBC Morphology Microcytosis Spherocytes Tear Drop Cells Anion Gap Estim Creat Clear Calc Estimated GFR POC Glucose 286 H 277 H 273 H Random Glucose Calcium Phosphorus Magnesium Albumin 12/14/24 12/14/24 12/14/24 05:34 07:30 11:05 MCV 88.6 MCH 30.7 MCHC 34.6 RDW 12.0 Plt Count 303 MPV 9.7 Absolute Nucleated RBC 0.000 Nucleated RBC % (auto) 0.0 Neutrophils % (Manual) 63 Band Neutrophils % 4 Lymphocytes % (Manual) 22 Monocytes % (Manual) 3 Eosinophils % (Manual) 5 H Metamyelocytes % 2 Myelocytes % 1 Abs Neuts (Manual) 2.9 Lymphocytes # (Manual) 0.9 L Monocytes # (Manual) 0.1 Eosinophils # (Manual) 0.2 Metamyelocytes # 0.1 Toxic Granulation PRESENT Toxic Vacuolation PRESENT Platelet Estimate SLIGHTLY INCREASED Plt Morphology Comment NORMAL RBC Morphology NOTED Microcytosis 1+ (5-14) Spherocytes 3+ (>5) Tear Drop Cells 1+ (0-2) Anion Gap 15 Estim Creat Clear Calc 97.9 Estimated GFR > 60 POC Glucose 328 H 392 H* Random Glucose 287 H Calcium 9.5 Phosphorus 5.7 H Magnesium 1.8 Albumin 3.4 L Assessment and Plan (1) Hypertriglyceridemia: Status: Acute (2) Diabetic ketoacidosis: Status: Acute (3) Pancreatitis: Status: Acute Plan 49-year-old gentleman with underlying insulin-dependent diabetes mellitus and hypertension poorly compliant with his medication regimen with prior admissions for hypertriglyceridemia induced pancreatitis presented complain of abdominal pain. On ER evaluation patient with metabolic acidosis secondary to diabetic ketoacidosis and hypertriglyceridemia induced pancreatitis requiring initiation of insulin drip and admission to intensive care unit. His CT abdomen did not demonstrate pancreatic necrosis. Acute pancreatitis in the setting of hypertriglyceridemia: Seems to be improved, started on gemfibrozil. DKA resolved, has diabetes with hyper glycemia: Insulin regimen adjusted Lantus 40 unit, fingerstick with sliding scale. Hypertriglyceridemia: Improving from 3331 to 736. dvt prophylax: s/c heaprin Ongoing need for stay: Diabetes with a hyperglycemia the setting of hypertriglyceridemia: Monitor renal function electrolytes, fingersticks closely not optimal yet. Quality Stroke Does the patient have a stroke diagnosis?: No VTE Prior VTE?: No VTE Risk Level:: Medical - moderate - high VTE Device Contraindication: Treatment Not Indicated VTE Drug Contraindication: N/A - Med Ordered
[2024-12-14 15:54] VITALS: BP 130/78; PULSE 84; RESP 18; TEMP 36.1; O2SAT 94
[2024-12-14 16:38] LABS: Glucose, Whole Blood 238 mg/dL (60-115)
[2024-12-14 19:15] VITALS: BP 139/83; PULSE 78; RESP 17; TEMP 36.2; O2SAT 96
[2024-12-14 20:24] LABS: Glucose, Whole Blood 290 mg/dL (60-115)
[2024-12-15] MEDS: Heparin Sodium,Porcine 5,000 UNIT/ML VIAL 5000 UNIT SUBCUT (00:59)
[2024-12-15 03:54] VITALS: BP 123/74; PULSE 67; RESP 18; TEMP 36.7; O2SAT 95
[2024-12-15 06:58] LABS: Alanine Aminotransferase 24 U/L (0-40); Albumin Level 3.5 g/dL (3.5-5.0); Alkaline Phosphatase 110 U/L (39-117); Anion Gap 13 (12-20); Aspartate Amino Transferase 31 U/L (5-37); Bilirubin Total 0.5 mg/dL (0.0-1.0); Blood Urea Nitrogen 10 mg/dL (9-16); Calcium 9.1 mg/dL (8.4-10.2); Carbon Dioxide 25 mmol/L (22-29); Chloride 104 mmol/L (96-108); Creatinine Clr Calc Pharmacy 100.8; Estimated Glomerular Filt Rate > 60; Glucose Random 185 mg/dL (60-115); Potassium 3.8 mmol/L (3.3-5.1); Sodium 138 mmol/L (135-145); Total Protein 6.4 g/dL (6.5-8.0)
[2024-12-15 07:27] VITALS: BP 137/81; PULSE 74; RESP 18; TEMP 36; O2SAT 94
[2024-12-15 07:27] LABS: Glucose, Whole Blood 217 mg/dL (60-115)
--- NOTE | 2024-12-15 07:35 | P.DS_ITS ---
DS: Providers Provider Date of Service: 12/15/24 Date of admission: 12/09/24 09:30 Date of discharge: 12/15/24 Primary care physician: Kena Physician DS: Diagnosis Discharge Diagnosis (1) Hypertriglyceridemia: Status: Acute (2) Diabetic ketoacidosis: Status: Acute (3) Pancreatitis: Status: Acute DS: Summary Hospital Course Hospital Course: Admission hpi Chief Complaint: Abdominal pain 49-year-old gentleman with underlying insulin-dependent diabetes mellitus and hypertension poorly compliant with his medication regimen with prior admissions for hypertriglyceridemia induced pancreatitis presented complain of abdominal pain. On ER evaluation patient with metabolic acidosis secondary to diabetic ketoacidosis and hypertriglyceridemia induced pancreatitis requiring initiation of insulin drip and admission to intensive care unit. His CT abdomen did not demonstrate pancreatic necrosis. Hospital course: 49 year old make with diabetes and has not been taking his meds presented with abdominal pain and was diagnosed with diabetic ketoacidosis (DKA) and triglyceride-induced acute pancreatitis. Initial findings included metabolic acidosis consistent with DKA and elevated lipase (474 , now improved to 132). Triglyceride levels were significantly elevated at 3,331 , now reduced to 610 following treatment with gemfibrozil. Management: * The patient was admitted to the ICU and treated with intravenous fluids (IVF) and an insulin drip, resolving the DKA. * Acute pancreatitis has shown improvement, as evidenced by the decreasing lipase levels. * Hypertriglyceridemia was managed with gemfibrozil, contributing to the significant reduction in TG levels. * The patient?s diet has been advanced to a regular diet, indicating clinical stability. History and Compliance: * The patient has a history of non-compliance with medications, including diabetic medications, which likely contributed to the DKA and hypertriglycerid emia. * He reported not taking medications due to lack of a primary care physician (PCP) and unrenewed prescriptions. This issue has been discussed with the patient, emphasizing the importance of adherence to prevent recurrence. Discharge Plan: * follow-up with a PCP to establish ongoing care and medication management for diabetes and hypertriglyceridemia. * Reinforced education on medication adherence and lifestyle modifications (e.g., diet, exercise) to manage diabetes and prevent further episodes of DKA or pancreatitis. * Monitor TG level on outpatient to confirm continued improvement. Time Attestation Discharge Coordination Time (in mins): 45 Quality: Safe Use of Opioids Does Pt have an Active Cancer Diagnosis on the Problem List?: No Quality: Stroke Does the patient have a stroke diagnosis?: No Physical Exam Vital Signs: Vital Signs: Last Vital Signs Temp 96.8 F 12/15/24 07:27 Pulse 74 12/15/24 07:27 Resp 18 12/15/24 07:27 BP 137/81 12/15/24 07:27 Pulse Ox 94 12/15/24 07:27 O2 Del Method Room Air 12/15/24 07:27 O2 Flow Rate 2 12/11/24 09:00 BMI result Body Mass Index 36.6 General: AO X 3, no acute distress Resp: CTA bilateral CVS: S1,S2,RRR GI: +BS, NT, no distention Skin: No rash Neuro: motor grossly intact Psych: appropriate affect DS: Data Data Completed and Pending Labs on day of discharge: Laboratory Results - last 24 hr 12/14/24 12/14/24 12/14/24 07:30 11:05 16:31 Hold Purple Top Sodium Potassium Chloride Carbon Dioxide Anion Gap BUN Creatinine Estim Creat Clear Calc Estimated GFR POC Glucose 328 H 392 H* 238 H Random Glucose Calcium Total Bilirubin AST ALT Alkaline Phosphatase Total Protein Albumin 12/14/24 12/15/24 12/15/24 20:11 06:03 07:06 Hold Purple Top SEE NOTE Sodium 138 Potassium 3.8 Chloride 104 Carbon Dioxide 25 Anion Gap 13 BUN 10 Creatinine 1.04 Estim Creat Clear Calc 100.8 Estimated GFR > 60 POC Glucose 290 H 217 H Random Glucose 185 H Calcium 9.1 Total Bilirubin 0.5 AST 31 ALT 24 Alkaline Phosphatase 110 Total Protein 6.4 L Albumin 3.5 Discharge Plan Discharge Anticipated Discharge Date/Time: 12/15/24 09:07 Patient Disposition: Home, Self-Care Discharge Diagnosis: DKA, acute pancreatitis, hypertriglyceredemia Referrals: Physician,None [Primary Care Provider] - 1 Week Discharge Medications: Continued (DME) blood-glucose meter [FreeStyle Lite Meter] Kit See Rx Instructions .ROUTE .MEDSUPPLY Qty: 1 0RF Rx Instructions: As directed (DME) lancets [1st Tier Unilet ComforTouch] 28 gauge misc See Rx Instructions .ROUTE .MEDSUPPLY Qty: 100 0RF Rx Instructions: As directed (DME) insulin syringes (disposable) 1 mL syringe See Rx Instructions .Route Qty: 500 0RF Rx Instructions: As directed (DME) FreeStyle Lite Strips Strip See Rx Instructions .ROUTE .MEDSUPPLY Qty: 100 1RF Rx Instructions: As directed (DME) lancets [Sure Comfort Lancets] 30 gauge misc See Rx Instructions .Route Qty: 200 1RF Rx Instructions: As directed (DME) pen needle, diabetic 32 gauge x 5/32 needle See Rx Instructions .ROUTE .MEDSUPPLY Qty: 100 1RF Rx Instructions: As directed (4 times/day) acetaminophen 500 mg Tablet 1,000 mg PO Q6H PRN (Reason: Pain) gemfibrozil 600 mg Tablet 600 mg PO BIDAC Qty: 180 0RF (DME) insulin syringes (disposable) 1 mL syringe See Rx Instructions .ROUTE .MEDSUPPLY Qty: 500 1RF Rx Instructions: As directed Changed insulin lispro [Humalog KwikPen Insulin] 100 unit/mL insulin pen 1 sliding scale dose SUBCUT QIDACHS 90 Days Qty: 15 1RF Rx Instructions: Blood Sugar: <150 - 0 units 151-200 - 2 units 201-250 - 4 units 251-300 - 6 units 301-350 - 8 units >350 - 10 units insulin glargine [Lantus Solostar U-100 Insulin] 100 unit/mL (3 mL) insulin pen 45 unit SUBCUT BEDTIME 90 Days Qty: 40.5 1RF Discharge Orders: Discharge Order (Routine); Ordered 12/15/24 Ordered By: Paulie Garcia Diet: Diabetic diet Activity on Discharge: As tolerated Stand Alone Forms: Patient Portal Discharge page, Work/School Release Print Language: South African Care Plan Goals: recovery from acute pancreatitis, DKA, and hypertriglyceridemia Health Concerns: uncontrolled diabetes due to non-compliant Plan of Treatment: take insulin for diabetes as recommended follow diabetic diet, check your sugars regularly and exercise follow up with your PCP in a week, Assessment: see above
[2024-12-15] MEDS: gemfibroziL 600 MG TABLET PO (07:50)
[2024-12-15 07:51] LABS: Lipase 132 U/L (8-78); Triglycerides 610 mg/dL (<150)
[2024-12-15] MEDS: Insulin Glargine,Hum.rec.anlog 100 UNIT/ML 10 ML VIAL 45 UNIT SUBCUT (07:52)
[2024-12-15] MEDS: Insulin Lispro 100 UNIT/ML 3 ML VIAL SUBCUT (07:52)
--- NOTE | 2024-12-15 09:43 | MHC.CM.PN ---
pt dcd home self care
[2024-12-20 07:30] LABS: Band Neutrophils Percent 4 % (3-5); Eosinophils Absolute Manual 0.2 X10*3/uL (0.0-0.4); Eosinophils Percent Manual 5 % (0-4); Lymphocytes Absolute Manual 0.9 X10*3/uL (1.2-4.9); Lymphocytes Percent Manual 22 % (20-40); Metamyelocytes Absolute 0.1 X10*3/uL; Metamyelocytes Percent 2 %; Monocytes Absolute Manual 0.1 X10*3/uL (0.1-1.2); Monocytes Percent Manual 3 % (2-11); Myelocytes Percent 1 %; Neutrophils Absolute Manual 2.9 X10*3/uL (2.0-8.3); Neutrophils Percent Manual 63 % (45-73); RBC Morphology NOTED
[2024-12-20 07:31] LABS: Microcytosis 1+ (5-14) /OIF; Platelet Estimate SLIGHTLY INCREASED (NORMAL); Spherocytes 3+ (>5) /OIF; Tear Drop Cells 1+ (0-2) /OIF; Toxic Granulation PRESENT; Toxic Vacuolation PRESENT
[2024-12-20 07:32] LABS: Platelet Morphology Comment NORMAL
== END 2024-12-15 10:22 | disposition home or self-care (01) | DRG 420 ==
LOC: HO.ED 12-09 09:23 → HO.EDOVER 12-09 09:31 → HO.ICU 12-09 10:05 → HO.S3 12-13 09:19
PROVIDERS: Internal Medicine; Registered Nurse Community Health; Admitting Provider Internal Medicine Pulmonary Disease; Emergency Provider Emergency Medicine; Visit Provider Internal Medicine
DX: E11.10 Type 2 diabetes mellitus with ketoacidosis without coma (principal); K85.90 Acute pancreatitis without necrosis or infection, unspecified; I10 Essential (primary) hypertension; E78.1 Pure hyperglyceridemia; Z79.4 Long term (current) use of insulin; Z91.148 Patient's other noncompliance with medication regimen for other reason
CPT/HCPCS: 36415; 74177; 80048; 80053; 80076; 81001; 82010; 82040; 82803; 82947; 83690; 83735; 84100; 84478; 85007; 85025; 85027; 99285; J1644; J1790; J2270; J3010; J3475; J3480; J7120; P9047; Q9967

== ENCOUNTER → 2024-12-09 06:06 | Outpatient (BNV) | payer MEDICAID, SELFPAY | PROVIDERS: Emergency Provider Emergency Medicine; Visit Provider Radiology Diagnostic Radiology | DX: K76.0 Fatty (change of) liver, not elsewhere classified (principal); R16.0 Hepatomegaly, not elsewhere classified | CPT/HCPCS: 74177 ==

== ENCOUNTER → 2024-12-09 09:30 | Outpatient (BNV) | payer MEDICAID, SELFPAY | PROVIDERS: Admitting Provider Internal Medicine Pulmonary Disease; Emergency Provider Emergency Medicine; Visit Provider Internal Medicine | DX: E78.1 Pure hyperglyceridemia (principal); E11.10 Type 2 diabetes mellitus with ketoacidosis without coma; K85.90 Acute pancreatitis without necrosis or infection, unspecified | CPT/HCPCS: 99232; 99239; 99499 ==

== ENCOUNTER → 2024-12-09 09:30 | Outpatient (BNV) | payer MEDICAID, SELFPAY | PROVIDERS: Admitting Provider Internal Medicine Pulmonary Disease; Emergency Provider Emergency Medicine; Visit Provider Internal Medicine Pulmonary Disease | DX: E78.1 Pure hyperglyceridemia (principal); K85.90 Acute pancreatitis without necrosis or infection, unspecified; E11.65 Type 2 diabetes mellitus with hyperglycemia; Z79.4 Long term (current) use of insulin | CPT/HCPCS: 99223; 99232 ==

== ENCOUNTER 2025-04-06 12:14 | Outpatient (REF) | payer MEDICAID, SELFPAY ==
--- OUTSIDE RECORDS SUMMARY | 2025-04-05 09:30 | XMS_ITS | Encounter Summary ---
Author Organization [employer] Address [address] [place] [address] [address] [place] [address] Care Team Providers Care Net Making Supervisor Name Role Phone Lorin Cordova MD Primary Care Provider [phone] Reason for Referral * Consultation (Routine) - Authorized Specialty Diagnoses / Procedures Referred By Contac t Referred To Contact Pharmacy Diagnoses Essential (primary) hypertension Lorin Cordova MD [address] [place] [phone] Phone: tel: fax: Referral ID Status Reason Start Date Expiration Date Visits Requested Visits Authorized [id number] Authorized Consult and Treat 04/05/2025 04/05/2026 6 6 Reason for Visit * Reason Comments Hypertension Encounter Details Date Type Department Care Team (Latest Contact Info) Description 04/05/2025 9:30 AM EDT Clinical Support [facility] [address] [place] [address] Angelique Bejarano RN Essential (primary) hypertension; Type 2 diabetes mellitus without complication, with long-term current use of insulin (HCC) Social History Tobacco Use Types Packs/Day Years Used Date Smoking Tobacco: Never Smokeless Tobacco: Never Sex and Gender Information Value Date Recorded Sex Assigned at Male 03/25/2025 2:35 PM EDT Legal Sex Male 2:03 AM EDT Gender Identity Male 03/25/2025 2:35 PM EDT Sexual Orientation Don't know 03/25/2025 9: 38 AM EDT documented as of this encounter Last Filed Vital Signs Vital Sign Reading Time Taken Comments Blood Pressure 164/68 04/05/2025 10:09 AM EDT charles pulido b/p Pulse 85 04/05/2025 10:09 AM EDT Temperature - - Respiratory Rate 16 04/05/2025 10:09 AM EDT Oxygen Saturation 96% 04/05/2025 10:09 AM EDT Inhaled Oxygen Concentration - - Weight - - Height - - Body Mass Index - - documented in this encounter Progress Notes * Angelique Bejarano RN - 04/05/2025 9:30 AM EDT SUBJECTIVE: Vijay Zazueta is a 49 y.o. 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 Current Medications[1] Patient Active Problem List Diagnosis Date Noted Alcohol use, unspecified, uncomplicated 03/26/2025 Essential (primary) hypertension 03/26/2025 Obesity, unspecified 03/26/2025 Hyperlipidemia, unspecified 03/26/2025 Type 2 diabetes mellitus without complication, with long-term current use of insulin (HCC) 03/26/2025 Screening for colon cancer 03/26/2025 Screening examination for sexually transmitted disease 03/26/2025 Patient has no known allergies. Vijay Zazueta does confirm adherence to medications for hypertension listed above. Confirmed medications taken today [x] Patient reported he took his hypertension medication 10 minutes prior to Nurse visit. Tobacco Use History[2] Social History Substance and Sexual Activity Alcohol Use Not on file Social History Substance and Sexual Activity Drug Use Not on file BP Readings from Last 4 Encounters: 04/05/25 (!) 164/68 03/26/25 (!) 200/120 Pulse Readings from Last 4 Encounters: 04/05/25 85 03/26/25 90 OBJECTIVE: Vitals: 04/05/25 1009 BP: (!) 164/68 BP Location: Right arm Patient Position: Sitting BP Cuff Size: Large adult Pulse: 85 Resp: 16 SpO2: 96% ASSESSMENT: Achieve goal blood pressure of <130/80 Patient does not have an Blood pressure machine at home. PLAN: Today's findings reviewed with PCP. Changes to medication regimen are hydrochlorothiazide increasedto 25 mg. Vijay Zazueta advised to continue taking medications as directed and reinforcement of lifestyle modifications including low sodium diet and exercise were reviewed. Vijay Zazueta agreeable to plan discussed at today's visit. Patient scheduled for a second nurse visit. A script was sent to [facility] pharmacy for a Blood Pressure Kit. Future Appointments Date Time Provider Department Center 05/03/2025 9:30 AM [facility] RED TEAM NURSE MEDICINE [facility] Angelique Bejarano RN [1] Current Outpatient Medications Medication Sig Dispense Refill Embecta Pen Needle Aziza 2 Gen 32G X 4 MM [facility] USE DIRECTED 4 TIMES DAILY gemfibrozil (Lopid) 600 MG tablet Take 600 mg by mouth before breakfast and before evening meal. insulin lispro (HumaLOG) 100 UNIT/ML injection Inject 4-10 Units under the skin with breakfast, with lunch, and with evening meal. 5 mL 3 Lantus SoloStar 100 UNIT/ML pen Inject 45 Units under the skin at bedtime. 5 mL 11 lisinopril-hydroCHLOROthiazide 20-12.5 MG tablet Take 1 tablet by mouth Once per day. 90 tablet 0 metFORMIN XR (Glucophage-XR) 500 MG 24 hr tablet Take 1 tablet (500 mg) by mouth with evening meal.Do not crush, chew, or split. 90 tablet 3 No current facility-administered medications for this visit. [2] Social History Tobacco Use Smoking Status Never Smokeless Tobacco Never documented in this encounter Plan of Treatment Upcoming Encounters Date Type Department Care Team (Late st Contact Info) Description 05/03/2025 9:30 AM EST Clinical Support [facility] [address] [place] [address] Scheduled Referrals Name Type Priority Associated Diagnoses Orde r Schedule Referral to Pharmacy CDTM Outpatient Referral Routine Essential (primary) hypertension Ordered: 04/05/2025 documented as of this encounter Visit Diagnoses Diagnosis Essential (primary) hypertension Unspecified essential hypertension Type 2 diabetes mellitus without complication, with long-term current use of insulin (HCC) documented in this encounter Care Teams Net Making Supervisor Relationship Specialty Start Date End Date Lorin Cordova MD [address] [place] [phone] PCP - General Family Medicine 03/26/25 documented as of this encounter
--- OUTSIDE RECORDS SUMMARY | 2025-04-06 15:11 | XMS_ITS | Encounter Summary ---
Author Organization [employer] [facility] Address [address] [facility] [address] [place] [address] Care Team Providers Care Twine Reeling Machine Operator Name Role Phone Lorin Cordova MD Primary Care Provider [phone] Encounter Details Date Type Department Care Team (Late st Contact Info) Description 04/05/2025 Refill [facility] [address] [place] [address] [phone] Lorin Cordova MD [address] [place] [address] [phone] Essential (primary) hypertension Social History Tobacco Use Types Packs/Day Years Used Date Smoking Tobacco: Never Smokeless Tobacco: Never Sex and Gender Information Value Date Recorded Sex Assigned at Male 03/25/2025 2:35 PM EDT Legal Sex Male 2:03 AM EDT Gender Identity Male 03/25/2025 2:35 PM EDT Sexual Orientation Don't know 03/25/2025 9: 38 AM EDT documented as of this encounter Plan of Treatment Upcoming Encounters Date Type Department Care Team (Late st Contact Info) Description 05/03/2025 9:30 AM EST Clinical Support [facility] [address] [place] [address] [phone] documented as of this encounter Visit Diagnoses Diagnosis Essential (primary) hypertension Unspecified essential hypertension documented in this encounter Care Teams Twine Reeling Machine Operator Relationship Specialty Start Date End Date Lorin Cordova MD [address] [place] [address] [phone] PCP - General Family Medicine 03/26/25 documented as of this encounter
--- OUTSIDE RECORDS SUMMARY | 2025-04-06 15:11 | XMS_ITS | Encounter Summary ---
Author Organization [employer] Address [address] [facility] [address] [place] [address] Care Team Providers Care Ccie Name Role Phone Lorin Cordova MD Primary Care Provider Encounter Details Date Type Department Care Team (Latest Contact Info) Description 04/05/2025 Travel Social History Tobacco Use Types Packs/Day Years [...] Description 05/03/2025 9:30 AM EST Clinical Support [facility] [address] [place] [address] documented as of this encounter Visit Diagnoses Not on filedocumented in this encounter Care Teams Ccie Relationship Specialty Start Date End Date Lorin Cordova MD [address] [place] [address] PCP - General Family Medicine 03/26/25 documented as of this encounter
--- OUTSIDE RECORDS SUMMARY | 2025-04-06 15:11 | XMS_ITS | Encounter Summary ---
Author Organization [employer] [facility] Address [address] [facility] [address]t [place] [address] Care Team Providers Care Geospatial Program Management Officer Name Role Phone Lorin Cordova MD Primary Care Provider [phone] Encounter Details Date Type Department Care Team (Late st Contact Info) Description 04/05/2025 Refill [facility] [address] [place] [address] [phone] Lorin Cordova MD [address] [place] [address] [phone] Essential (primary) hypertension Social History Tobacco Use [...] Description 05/03/2025 9:30 AM EST Clinical Support [facility] [address] [place] [address] [phone] documented as of this encounter Visit Diagnoses Diagnosis Essential (primary) hypertension Unspecified essential hypertension documented in this encounter Care Teams Geospatial Program Management Officer Relationship Specialty Start Date End Date Lorin Cordova MD [address] [place] [address] [phone] PCP - General Family Medicine 03/26/25 documented as of this encounter
--- OUTSIDE RECORDS SUMMARY | 2025-04-06 15:11 | XMS_ITS | Clinical Summary ---
Author Organization [employer] Address [address] [facility] [address] [place] [address] Care Team Providers Care Golf Cart Mechanic Name Role Phone Lorin Cordova MD Primary Care Provider [phone] Allergies No known active allergies Medications gemfibrozil (Lopid) 600 MG tabletIndication s:Hyperlipidemia , unspecified hyperlipidemia type Take 600 mg by mouth before breakfast and before evening meal. 025 Active Embecta Pen Needle Aziza 2 Gen 32G X 4 MM miscIndications: Type 2 diabetes mellitus without complication, with long-term current use of insulin (HCC) USE DIRECTED 4 TIMES DAILY 025 Active metFORMIN XR (Glucophage-XR) 500 MG 24 hr tabletIndication s:Type 2 diabetes mellitus without complication, with long-term current use of insulin (HCC) Take 1 tablet (500 mg) by mouth with evening meal. Do not crush, chew, or split. 90 tablet 3 025 2025 Active Lantus SoloStar 100 UNIT/ML penIndications:T ype 2 diabetes mellitus without complication, with long-term current use of insulin (HCC) Inject 45 Units under the skin at bedtime. 5 mL 11 025 Active insulin lispro (HumaLOG) 100 UNIT/ML injectionIndicat ions:Type 2 diabetes mellitus without complication, with long-term current use of insulin (HCC) Inject 4-10 Units under the skin with breakfast, with lunch, and with evening meal. 5 mL 3 025 Active lisinopril-hydro CHLOROthiazide 20-12.5 MG tabletIndication s:Essential (primary) hypertension Take 1 tablet by mouth Once per day. 90 tablet 025 2024 Active lisinopril-hydro CHLOROthiazide 20-25 MG tabletIndication s:Essential (primary) hypertension Take 1 tablet by mouth Once per day. 30 tablet 11 025 2025 Active Blood Pressure kitIndications:E ssential (primary) hypertension Use as directed, needs a large cuff 1 kit Active Lantus SoloStar 100 UNIT/ML pen INJECT 45 UNITS (0.45 ML) SUBCUTANEOUSLY BEDTIME 2024 Discontinued(R eorder (will not trigger notification to Pharmacy)) insulin lispro (HumaLOG) 100 UNIT/ML injection PLEASE SEE ATTACHED FOR DETAILED DIRECTIONS 2024 Discontinued(R eorder (will not trigger notification to Pharmacy)) Active Problems Problem Noted Date Diagnosed Date Alcohol use, unspecified, uncomplicated 03/26/20 Essential (primary) hypertension 03/26/2025 Assessment & Plan (03/26/2025 11:24 AM EDT): Follow up with the Nurse for blood pressure check in 1 week. Continue with a low sodium diet and regular exercise as tolerated. For BP < or = to 139/89 (or 129/79 for diabetic patients) continue current medication regimen and follow up with PCP in 8 weeks. For BP > or = to 140/90 (or 130/80 for diabetic patients) increase Hydrochlorothiazide to 25 mg once a day Follow up with the Nurse for a second blood pressure check in 2-4 weeks if BP 140-150/90+ (or 130-150/80+ for diabetic patients). Refer to CDTM for BP >150/90+. If second Nurse visit is needed: For BP < or = to 139/89 (or 129/79 for diabetic patients) continue current medication regimen and follow up with the PCP in 2 weeks. For BP > or = to 140/90 (or 130/80 for diabetic patients) start Amlodipine to 2.5 mg once a day Follow up with the PCP in 4 weeks. Obesity, unspecified 03/26/2025 Hyperlipidemia, unspecified 03/26/2025 Type 2 diabetes mellitus wit hout complication, with long-term current use of insulin 03/26/2025 Screening for colon cancer 03/26/2025 Screening examination for sexually transmitted d isease 03/26/2025 Encounters Date Type Department Care Team Description 04/05/2025 9:30 AM EDT Clinical Support [address] [address] Angelique Bejarano RN Essential (primary) hypertension; Type 2 diabetes mellitus without complication, with long-term current use of insulin (HCC) 04/05/[address] [address] Lorin Cordova MD Essential (primary) hypertension 04/05/[address] [address] Lorin Cordova MD Essential (primary) hypertension 04/05/2025 Travel 03/29/2025 Travel 03/26/2025 9:00 AM EDT Office Visit [address] [phone] Lorin Cordova MD Class 2 severe obesity with serious comorbidity and body mass index (BMI) of 37.0 to 37.9 in adult, unspecified obesity type (CMS/HCC) (Primary Dx); Dietary counseling; Exercise counseling; Screening examination for sexually transmitted disease; Screening for colon cancer; Type 2 diabetes mellitus without complication, with long-term current use of insulin (CMS/HCC); Essential (primary) hypertension; Hyperlipidemia, unspecified hyperlipidemia type 03/26/2025 Travel 03/25/2025 Travel 03/25/[address] [address] Lorin Cordova MD chart prep 03/11/[address] [address] Adolfo Vivas MD New Patient appt. 02/17/[address] [address] Adolfo Vivas MD [facility] - New Patient Assistance from Last 3 Months Social History Tobacco Use Types Packs/Day Years Used Date Smoking Tobacco: Never Smokeless Tobacco: Never Tobacco Cessation:Counseling Given: Not Answered Sex and Gender Information Value Date Recorded Sex Assigned at Male 03/25/2025 2:35 PM EDT Legal Sex Male 2:03 AM EDT Gender Identity Male 03/25/2025 2:35 PM EDT Sexual Orientation Don't know 03/25/2025 9: 38 AM EDT Last Filed Vital Signs Vital Sign Reading Time Taken Comments Blood Pressure 164/68 04/05/2025 10:09 AM EDT charles pulido b/p Pulse 85 04/05/2025 10:09 AM EDT Temperature 36.6 C (97.8 F) 03/26/2025 9:11 AM EDT Respiratory Rate 16 04/05/2025 10:09 AM EDT Oxygen Saturation 96% 04/05/2025 10:09 AM EDT Inhaled Oxygen Concentration - - Weight 109 kg (240 lb) 03/26/2025 9:11 AM EDT Height 170.2 cm (5' 7 ) 03/26/2025 9:11 AM EDT Body Mass Index 37.59 03/26/2025 9:11 AM EDT Plan of Treatment Upcoming Encounters Date Type Department Care Team (Late st Contact Info) Description 05/03/2025 9:30 AM EST Clinical Support [address] [address] Health Maintenance Due Date Last Done Comments CT Colonography 1976 Colonoscopy 1976 Colorectal Cancer Screening 1976 Depression Screening 1976 Diabetes: Hemoglobin A1C 1976 FIT DNA/Cologuard 1976 FIT 1976 FOBT 1976 HIV Screening 1976 Lipid Panel 1976 SDOH Screening 1976 Sigmoidoscopy 1976 Diabetes: Foot Exam 1986 Eye Exam 1986 Alcohol/Substance Use Screening 1988 Family Planning (PISQ) 1991 Hepatitis C Screening 1994 DTaP/Tdap/Td Vaccines (1 - Tdap) 1995 Diabetes: Urine Protein Screening 1995 Hepatitis B Vaccines (1 of 3 - 19+ 3-dose series) 1995 Pneumococcal Vaccine: Pediat rics (0 to 5 Years) and At-Risk Patients (6 to 49) Years (1 of 2 - PCV) 1995 COVID-19 Vaccine (1 - 2023-2 5 season) 2025 Influenza Vaccine (#1) 2025 Disability Screening 03/25/2026 03/25/2025 Tobacco Screening 03/26/2026 03/26/2025 Zoster Vaccines (1 of 2) 2026 RSV Patients and Pa tients Aged 60 years or older (1 - 1-dose 75+ series) 2051 HIB Vaccines Aged Out No longer eligi ble based on patient's age to complete this topic HPV Vaccines Aged Out No longer eligi ble based on patient's age to complete this topic Hepatitis A Vaccines Aged Out No long er eligible based on patient's age to complete this topic IPV Vaccines Aged Out No longer eligi ble based on patient's age to complete this topic Meningococcal B Vaccine Aged Out No l onger eligible based on patient's age to complete this topic Meningococcal Vaccine Aged Out No jonathan wen eligible based on patient's age to complete this topic RSV under 20 months Aged Out No longe r eligible based on patient's age to complete this topic Rotavirus Vaccines Aged Out No longer eligible based on patient's age to complete this topic Insurance * Guarantor: Vijay Zazueta Account Type Relation to Patient Date of Phone Billing Address Personal/Family Self 1975 [address] [facility] [address] [place] [address] [facility] C[facility] Care Teams Golf Cart Mechanic Relationship Specialty Start Date End Date Lorin Cordova MD [address] [place] [address] PCP - General Family Medicine 03/26/25
--- OUTSIDE RECORDS SUMMARY | 2025-04-06 15:11 | XMS_ITS | Encounter Summary ---
Author Organization [facility] Address [address] [place] [address] 7 [place] [address] Care Team Providers Care Track Superintendent Name Role Phone Lorin Cordova MD Primary Care Provider [phone] Reason for Visit * Reason Onset Date Comments CHW - New Patient Assistance 02/17/2025 Encounter Details Date Type Department Care Team (Late st Contact Info) Description 02/17/2025 Telephone [facility] MEDICINE [address] [place] [address] [phone] Adolfo Vivas MD [address] [place] [phone] CHW - New Patient Assistance Social History Tobacco Use Types Packs/Day Years Used Date Smoking Tobacco: Never Assessed Sex and Gender Information Value Date Recorded Sex Assigned at Male 03/25/2025 2:35 PM EDT Legal Sex Male 2:03 AM EDT Gender Identity Male 03/25/2025 2:35 PM EDT Sexual Orientation Don't know 03/25/2025 9: 38 AM EDT documented as of this encounter Miscellaneous Notes * Telephone Encounter - Bismark Momin - 02/17/2025 11:32 AM EDT Added to [facility] wait list documented in this encounter Plan of Treatment Upcoming Encounters Date Type Department Care Team (Late st Contact Info) Description 05/03/2025 9:30 AM EST Clinical Support [facility] MEDICINE [address] [place] [address] [phone] documented as of this encounter Visit Diagnoses Not on filedocumented in this encounter Care Teams Track Superintendent Relationship Specialty Start Date End Date Lorin Cordova MD [address] [place] [address] PCP - General Family Medicine 03/26/25 documented as of this encounter
[2025-04-06 16:28] LABS: Hemoglobin A1C 233.2546 umol/L
[2025-04-06 16:35] LABS: Alanine Aminotransferase 63 U/L (0-40); Albumin Level 4.5 g/dL (3.5-5.0); Alkaline Phosphatase 122 U/L (39-117); Anion Gap 14 (12-20); Aspartate Amino Transferase 51 U/L (5-37); Blood Urea Nitrogen 15 mg/dL (9-16); Calcium 9.3 mg/dL (8.4-10.2); Carbon Dioxide 27 mmol/L (22-29); Chloride 102 mmol/L (96-108); Cholesterol 193 mg/dL (<200); Estimated Glomerular Filt Rate > 60; HDL Cholesterol 39 mg/dL (>40); Potassium 3.5 mmol/L (3.3-5.1); Sodium 139 mmol/L (135-145); Total Protein 7.8 g/dL (6.5-8.0); Triglycerides 807 mg/dL (<150)
[2025-04-07 08:37] LABS: HIV Num 1 0.04 S/CO (0.00-0.99); ~HepC Num1 0.10 S/CO (0.00-0.79); ~Hepatitis C Antibody Nonreactive (Nonreactive)
== END 2025-04-06 12:15 | disposition home or self-care (01) ==
LOC: HO.HHCL 12:14
PROVIDERS: PCP General Practice; Visit Provider General Practice
DX: Z11.4 Encounter for screening for human immunodeficiency virus [HIV] (principal); Z11.59 Encounter for screening for other viral diseases; E66.812 Obesity, class 2; Z68.37 Body mass index [BMI] 37.0-37.9, adult
CPT/HCPCS: 36415; 80053; 80061; 83036; 86803; 87389